=== PATIENT | male | born 1950 | race Caucasian/White ===

== ENCOUNTER 2018-05-14 11:39 | Inpatient (IN) ==
--- NOTE | 2018-05-14 12:16 | ED ---
HPI General Chief Complaint: Weakness Stated Complaint: weakness/no appetite/confusion Time Seen by Provider: 05/14/18 12:03 History of Present Illness HPI narrative: This patient is brought in by the person who had some stay in her room attached to their house. Patient has bipolar disorder on lithium. For the last week he has been getting progressively weak and confused. He does not want to get out of bed or eat anything. He denies having fever or vomiting or diarrhea or any pain. She says that he has been very confused lately. For instance, he will put his shoes on the wrong feet and we will put his pants on backwards. Symptom severity is moderate. No alleviating factors. No exacerbating factors. He had history of alcohol abuse but quit 6 weeks ago. Related Data Home Medications Medication Instructions Recorded Confirmed atenolol 50 mg PO DAILY 05/14/18 05/14/18 lithium carbonate 300 mg PO TID 05/14/18 05/14/18 simvastatin 20 mg PO QPM 05/14/18 05/14/18 tamsulosin 0.4 mg PO DAILY 05/14/18 05/14/18 Allergies Allergy/AdvReac Type Severity Reaction Status Date / Time No Known Allergies Allergy Unverified 05/14/18 12:26 Review of Systems ROS: all other systems reviewed are negative [facility] Medical History Medical History Bipolar 1 disorder, depressed (Acute) Elevated cholesterol (Acute) Hypertension (Acute) Prostate enlargement (Acute) Surgical History Surgical History No history of previous surgery (Acute) Social History Social History Substance History: Past History Second Hand Smoke Exposure: No Smoking Status: Never smoker How Often Do You Have a Drink Containing Alcohol: Never Recent Travel in [facility] within the Last 8 Weeks: No Recent Out of Country Travel within the Last 8 Weeks: No Exam Narrative Exam Narrative: GENERAL: Well-nourished, well-developed patient in no apparent distress. SKIN: Focused skin assessment reveals no rash and nodules. Skin is Warm and dry. HEAD: Atraumatic. Normocephalic. EYES: Pupils equal and round. No scleral icterus. No injection or drainage. ENT: No nasal bleeding or discharge. Mucous membranes pink and moist. NECK: Trachea midline. No JVD. No meningeal signs CARDIOVASCULAR: Regular rate and rhythm. No murmur appreciated. RESPIRATORY: No accessory muscle use. Clear to auscultation. Breath sounds equal bilaterally. GASTROINTESTINAL: Abdomen soft, non-tender, nondistended. Hepatic and splenic margins not palpable. MUSCULOSKELETAL: No obvious deformities. No clubbing. No cyanosis. No edema. NEUROLOGICAL: Awake but seems drowsy. No obvious cranial nerve deficits. Motor grossly within normal limits. Normal speech. PSYCHIATRIC: Appropriate mood and affect; insight and judgment poor . Course Initial Documented Vital Signs Temperature 98.2 F 05/14/18 12:00 Pulse Rate 70 05/14/18 12:00 Respiratory Rate 18 05/14/18 12:00 Blood Pressure 143/74 H 05/14/18 12:00 Pulse Oximetry 99 05/14/18 12:00 Last Documented Vital Signs Temperature 98.2 F 05/14/18 12:00 Pulse Rate 45 L 05/14/18 13:04 Respiratory Rate 18 05/14/18 13:04 Blood Pressure 126/75 05/14/18 13:04 Pulse Oximetry 98 05/14/18 13:04 Critical Care Time Critical Care Time: Yes Total Critical Care Time: 36 Attestation: Aggregate critical care time was 36 minutes. Time to perform other separately billable procedures was not included in the critical care time. My time did not include minutes spent treating any other patients simultaneously or on activities that did not directly contribute to the patient's treatment. The services I provided to this patient were to treat and/or prevent clinically significant deterioration that could result in: Loss of airway, aspiration, cardiopulmonary arrest I provided critical care services requiring my management, as noted below: Chart data review, documentation time, medication orders and management, vital sign assessments/reviewing monitor data, ordering and reviewing lab tests, ordering and interpreting/reviewing x-rays and diagnostic studies, care of the patient and discussion of the patient with the admitting physicians. Medical Decision Making MDM Narrative Medical decision making narrative: This is a 59-year-old bipolar man with progressive confusion and weakness and lethargy. He appears like he might be overmedicated. I have ordered complete altered mental status workup including brain CT and urine studies and lab studies. Lewis level will be sent to the [facility]. Lewis level is elevated 2.3 making him lithium toxic. There is discussed with poison control to receive recommendations. He is also significantly hypercalcemic at 14.6. I gave him 2 L normal saline IV bolus as initial therapy for hypercalcemia Other studies reviewed. He is very symptomatic with lethargy and generalized weakness. Discussed with hospitalist who recommends admitting to the intermediate care stepdown area. He is critically ill with toxic encephalopathy Medical Screen Exam Complete: Yes Emergency Medical Condition: Yes Differential Diagnosis Differential Diagnosis: Intracranial lesion, lithium toxicity, overmedication Medical Records Medical records reviewed: Yes I reviewed the patient's medical records. Lab Data Lab results reviewed: Yes I reviewed the patient's lab results. Lab results narrative: Severe metabolic abnormalities. Lewis is elevated 2.3 and hypercalcemic at 14.6 Result diagrams: 05/14/18 12:00 05/14/18 12:00 Lab Results 05/14/18 05/14/18 05/14/18 Range/Units 12:00 12:00 12:00 CBC w Diff Slide review pending WBC 7.7 (4.0-11.0) th/mm3 RBC 4.83 (4.50-5.90) mil/mm3 Hgb 14.6 (13.0-17.0) gm/dL Hct 43.3 (39.0-51.0) % MCV 89.6 (80.0-100.0) fL MCH 30.2 (27.0-34.0) pg MCHC 33.7 (32.0-36.0) % RDW 13.2 (11.6-17.2) % Plt Count 240 (150-450) th/mm3 MPV 9.5 (7.0-11.0) fL Neut % (Auto) 75.6 H (16.0-70.0) % Lymph % (Auto) 13.3 (9.0-44.0) % [place] % (Auto) 8.4 H (0.0-8.0) % Eos % (Auto) 2.3 (0.0-4.0) % Baso % (Auto) 0.4 (0.0-2.0) % Neut # (Auto) 5.9 (1.8-7.7) th/mm3 Lymph # (Auto) 1.0 (1.0-4.8) th/mm3 [place] # (Auto) 0.6 (0.0-0.9) th/mm3 Eos # (Auto) 0.2 (0.0-0.4) th/mm3 Baso # (Auto) 0.0 (0.0-0.2) th/mm3 WBC Differential . Diff Scan Auto diff confirmed Differential Comment . Sodium 143 (136-145) meq/L Potassium 4.4 (3.5-5.1) meq/L Chloride 110 H (98-107) meq/L Carbon Dioxide 28.7 (21.0-32.0) meq/L Anion Gap 4 L (5-15) meq/L BUN 26 H (7-18) mg/dL Creatinine 2.10 H (0.60-1.30) mg/dL Estimated GFR 32 L (>89) mL/min Random Glucose 100 (74-106) mg/dL Calcium 14.8 H* (8.5-10.1) mg/dL Prot Corrected Calcium 14.6 H* (8.5-10.1) mg/dL Total Bilirubin 0.7 (0.2-1.0) mg/dL AST 9 L (15-37) U/L ALT 17 (12-78) U/L Alkaline Phosphatase 192 H (45-117) U/L Total Protein 7.4 (6.4-8.2) g/dL Albumin 4.1 (3.4-5.0) g/dL Ur Collection Type Urine Color (Yellw/Straw) Urine Clarity (Clear) Urine pH (5.0-8.5) Ur Specific [place] (1.002-1.035) Urine Protein (Neg-Trace) mg/dL Urine Glucose (UA) (Negative) mg/dL Urine Ketones (Negative) mg/dL Urine Occult Blood (Negative) Urine Nitrate (Negative) Urine Bilirubin (Negative) Urine Urobilinogen (Less than 2) mg/dL Ur Leukocyte Esterase (Negative) Urine WBC (0-5) /hpf Ur Squamous Epith Cells (0-5) /hpf Urine Mucus (Occasional) /lpf Micro UA Comment Ur Microscopic Review Urine Culture Comments Urine Opiates Screen (Neg) Ur Barbiturates Screen (Neg) Ur Amphetamines Screen (Neg) U Benzodiazepines Scrn (Neg) Lewis 2.3 H* (0.5-1.5) meq/L Urine Cocaine Screen (Neg) U Cannabinoids Screen (Neg) Serum Alcohol Less than 3 (0-5) mg/dL 05/14/18 05/14/18 Range/Units 12:20 12:20 CBC w Diff WBC (4.0-11.0) th/mm3 RBC (4.50-5.90) mil/mm3 Hgb (13.0-17.0) gm/dL Hct (39.0-51.0) % MCV (80.0-100.0) fL MCH (27.0-34.0) pg MCHC (32.0-36.0) % RDW (11.6-17.2) % Plt Count (150-450) th/mm3 MPV (7.0-11.0) fL Neut % (Auto) (16.0-70.0) % Lymph % (Auto) (9.0-44.0) % [place] % (Auto) (0.0-8.0) % Eos % (Auto) (0.0-4.0) % Baso % (Auto) (0.0-2.0) % Neut # (Auto) (1.8-7.7) th/mm3 Lymph # (Auto) (1.0-4.8) th/mm3 [place] # (Auto) (0.0-0.9) th/mm3 Eos # (Auto) (0.0-0.4) th/mm3 Baso # (Auto) (0.0-0.2) th/mm3 WBC Differential Diff Scan Differential Comment Sodium (136-145) meq/L Potassium (3.5-5.1) meq/L Chloride (98-107) meq/L Carbon Dioxide (21.0-32.0) meq/L Anion Gap (5-15) meq/L BUN (7-18) mg/dL Creatinine (0.60-1.30) mg/dL Estimated GFR (>89) mL/min Random Glucose (74-106) mg/dL Calcium (8.5-10.1) mg/dL Prot Corrected Calcium (8.5-10.1) mg/dL Total Bilirubin (0.2-1.0) mg/dL AST (15-37) U/L ALT (12-78) U/L Alkaline Phosphatase (45-117) U/L Total Protein (6.4-8.2) g/dL Albumin (3.4-5.0) g/dL Ur Collection Type Clean catch Urine Color Yellow (Yellw/Straw) Urine Clarity Clear (Clear) Urine pH 6.0 (5.0-8.5) Ur Specific [place] 1.015 (1.002-1.035) Urine Protein Negative (Neg-Trace) mg/dL Urine Glucose (UA) Negative (Negative) mg/dL Urine Ketones Negative (Negative) mg/dL Urine Occult Blood Negative (Negative) Urine Nitrate Negative (Negative) Urine Bilirubin Negative (Negative) Urine Urobilinogen 0.2 (Less than 2) mg/dL Ur Leukocyte Esterase Negative (Negative) Urine WBC 0-5 (0-5) /hpf Ur Squamous Epith Cells 0-5 (0-5) /hpf Urine Mucus Rare H (Occasional) /lpf Micro UA Comment Culture not ind Ur Microscopic Review Microscopic reviewed Urine Culture Comments Culture not ind Urine Opiates Screen Neg (Neg) Ur Barbiturates Screen Neg (Neg) Ur Amphetamines Screen Neg (Neg) U Benzodiazepines Scrn Neg (Neg) Lewis (0.5-1.5) meq/L Urine Cocaine Screen Neg (Neg) U Cannabinoids Screen Neg (Neg) Serum Alcohol (0-5) mg/dL Imaging Data Attestation: I personally reviewed and interpreted this imaging study as follows : Radiologist's impression: Head CT 05/14/18 12:10 CONCLUSION: 1. No acute intracranial abnormality. 2. Small air-fluid level within left maxillary sinus. . Discharge Plan Discharge Disposition Patient Disposition: 30 Still Patient Discharge Details Diagnosis: Encephalopathy, toxic, Lewis toxicity, Hypercalcemia Physicians Team ED Provider: Fernando Nance Primary Care Provider: UNKNOWN, Rxs /Orders / Referrals /Forms Prescriptions: No Action tamsulosin 0.4 mg Capsule 0.4 mg PO DAILY RF: 0 lithium carbonate 300 mg Capsule 300 mg PO TID RF: 0 simvastatin 20 mg Tablet 20 mg PO QPM RF: 0 atenolol 50 mg Tablet 50 mg PO DAILY RF: 0 Discharge Interventions Interventions: Vital Signs Last Done: 05/14/18 13:04 Status ED Status: With Doctor
[2018-05-14 12:32] LABS: Baso % (Auto) 0.4 % (0.0-2.0); Eos # (Auto) 0.2 th/mm3 (0.0-0.4); Eos % (Auto) 2.3 % (0.0-4.0); Hematocrit 43.3 % (39.0-51.0); Hemoglobin 14.6 gm/dL (13.0-17.0); Lymph % (Auto) 13.3 % (9.0-44.0); Mean Corpuscular HGB Conc 33.7 % (32.0-36.0); Mean Corpuscular Hemoglobin 30.2 pg (27.0-34.0); Mean Corpuscular Volume 89.6 fL (80.0-100.0); Mean Platelet Volume 9.5 fL (7.0-11.0); Mono # (Auto) 0.6 th/mm3 (0.0-0.9); Mono % (Auto) 8.4 % (0.0-8.0); Neut # (Auto) 5.9 th/mm3 (1.8-7.7); Neut % (Auto) 75.6 % (16.0-70.0); Platelet Count 240 th/mm3 (150-450); Red Blood Count 4.83 mil/mm3 (4.50-5.90); Red Cell Distribution Width 13.2 % (11.6-17.2); White Blood Count 7.7 th/mm3 (4.0-11.0)
--- NOTE | 2018-05-14 12:39 | CT ---
EXAM DATE: 05/14/2018 12:15 PM EDT AGE/SEX: 67 years / Male INDICATIONS: Altered mental status. Weakness. CLINICAL DATA: This is the patient's initial encounter. Patient reports that signs and symptoms have been present for 1 week and indicates a pain score of 0/10. MEDICAL/SURGICAL HISTORY: . Bipolar. None. RADIATION DOSE: 59.09 CTDI (mGy) COMPARISON: No prior exams available for comparison. TECHNIQUE: CT of the head without contrast. Using automated exposure control and adjustment of the mA and/or kV according to patient size, radiation dose was kept as low as reasonably achievable to ob tain optimal diagnostic quality images. DICOM format image data is available electronically for revi ew and comparison. FINDINGS: Cerebrum: The ventricles are normal for age. No evidence of midline shift, mass lesion, hemorrhage or acute infarction. No extraaxial fluid collections are seen. Posterior Fossa: The cerebellum and brainstem are intact. The 4th ventricle is midline. The cerebe llopontine angle is unremarkable. Extracranial: The visualized portion of the orbits is intact. Small air-fluid level is noted within the left maxillary sinus. Skull: The calvaria is intact. No evidence of skull fracture. CONCLUSION: 1. No acute intracranial abnormality. 2. Small air-fluid level within left maxillary sinus. . Electronically signed by: Jesus Hoskins MD 05/14/2018 12:38 PM EDT
[2018-05-14 12:42] LABS: Bilirubin,Urine Negative (Negative); Clarity,Urine Clear (Clear); Color,Urine Yellow (Yellw/Straw); Glucose,Urine (UA) Negative (Negative); Leukocyte Esterase,Urine Negative (Negative); Nitrite,Urine Negative (Negative); Specific Gravity,Urine 1.015 (1.002-1.035); Urobilinogen,Urine 0.2 mg/dL (Less than 2)
[2018-05-14 12:51] LABS: Mucus,Urine Rare /lpf (Occasional); Squamous Epithelial Cell,Urine 0-5 /hpf (0-5); WBC,Urine 0-5 /hpf (0-5)
[2018-05-14 12:53] LABS: Barbiturate Screen,Urine Neg (Neg); Cocaine Screen,Urine Neg (Neg)
[2018-05-14 12:54] LABS: Amphetamine Screen,Urine Neg (Neg); Cannabinoid Screen,Urine Neg (Neg)
[2018-05-14 13:01] LABS: Opiate Screen,Urine Neg (Neg)
[2018-05-14 13:02] LABS: Chloride 110 meq/L (98-107); Potassium 4.4 meq/L (3.5-5.1); Sodium 143 meq/L (136-145)
[2018-05-14 13:06] LABS: Albumin 4.1 g/dL (3.4-5.0); Anion Gap 4 meq/L (5-15); Blood Urea Nitrogen 26 mg/dL (7-18); Carbon Dioxide 28.7 meq/L (21.0-32.0); Glucose,Random 100 mg/dL (74-106)
[2018-05-14 13:09] LABS: Alanine Aminotransferase 17 U/L (12-78); Aspartate Aminotransferase 9 U/L (15-37); Glomerular Filtration Rate 32 mL/min (>89)
[2018-05-14 13:53] LABS: Alkaline Phosphatase 192 U/L (45-117); Calcium 14.8 mg/dL (8.5-10.1); Total Protein 7.4 g/dL (6.4-8.2)
[2018-05-14] MEDS ORDERED: Sod Chloride 0.9% Inj 1,000 ML IV.SIG ONE ×2 (14:13→14:31)
[2018-05-14] MEDS ORDERED: Acetaminophen 325 MG Tablet PO PRN (14:41)
[2018-05-14] MEDS ORDERED: Bisacodyl 10 MG Supp RECTAL PRN (14:41)
[2018-05-14] MEDS: Heparin - SQ 10,000 UNITS/ML Vial SQ SCH ×3 (15:02→21:45)
--- NOTE | 2018-05-14 15:21 | XR ---
EXAM DATE: 05/14/2018 12:00 AM EDT AGE/SEX: 67 years / Male INDICATIONS: Short of breath, weakness, confusion, loss of appetite. CLINICAL DATA: This is the patient's initial encounter. Patient reports that signs and symptoms have been present for 1 day and indicates a pain score of 0/10. MEDICAL/SURGICAL HISTORY: Hypercholesterolemia. Hypertension. Prostate enlargement. None. COMPARISON: [facility], CHEST SINGLE AP, 01/26/2015. . FINDINGS: Moderate elevation of the left hemidiaphragm. Right lung is clear. The heart and pulmonary vascularity are normal. The portion of the bony skeleton visualized is unremarkable. CONCLUSION: Negative for acute process. Electronically signed by: Niko Patterson MD 05/14/2018 3:19 PM EDT
[2018-05-14 15:28] LABS: Thyroid Stimulating Hormone 0.607 uIU/mL (0.358-3.740)
--- NOTE | 2018-05-14 16:34 | P.HP ---
History of Present Illness Primary Care Physician: UNKNOWN Chief Complaint: Altered mental status History of Present Illness: This is a 67-year-old male patient with a known medical history of bipolar disorder, alcohol abuse, hypertension and hyperlipidemia who presented to the ED with altered mental status. Was brought in by 1 of his neighbors. Supposedly patient has been weak and worsening confusion over the past week. It was reported that patient was with poor appetite not eating anything and refusing to get out of bed. There are no reports of any fevers, vomiting or diarrhea. It should be noted that patient has been relatively disoriented at home and very confused. At the time of assessment patient is seen in the ED, he is awake and alert, oriented to self and place. He has a relatively poor historian. When questioned about reason for presentation the hospital he states he just feels awful has never felt this way before. He may admits to recent dizziness. Patient became agitated with continued questions saying he does not not know the answers. At the time of assessment his neighbor is not present. No family is present. Most of the history is obtained from the medical record. Upon presentation patient's lithium level is 2.5. Emergency room has called poison control. - Diagnosis (1) Encephalopathy, toxic (2) [place] toxicity (3) Hypercalcemia Inpatient Certification: I certify that the inpatient services were ordered in accordance with Medicare regulations governing the order. This includes certification that hospital inpatient services are reasonable and necessary and in the case of services not specified as inpatient-only under 42 CFR 419.22(n), that they are appropriately provided as inpatient services in accordance to with the 2-midnight benchmark under 43 CFR 412.3(e) Estimated Total Length of Stay (Days): 2 Plans for Post Hospital Care: Not yet determined Review of Systems unobtainable due to mental condition PMFSH - History History Provided By: Patient, Friend - Medical History Medical History: Medical History (Last Updated 05/14/18 @ 16:38 by Loraine Smith) Bipolar 1 disorder, depressed Elevated cholesterol History of alcoholism Hyperlipidemia Hypertension Prostate enlargement - Surgical History Surgical History: Surgical History (Last Reviewed 05/14/18 @ 16:38 by Loraine Smith) No history of previous surgery - Family History Family History: Family History (Last Updated 05/14/18 @ 16:41 by Loraine Smith) Other Family history non-contributory - Tobacco History Second Hand Smoke Exposure: No Smoking Status: Never smoker - Alcohol History How Often Do You Have a Drink Containing Alcohol: Never - Substance Use History Substance History: Past History - Substance Use Type Alcohol Status: Early Remission Route Used: By Mouth Comment: none for 6 weeks - Travel History Recent Travel in the [place] Within the Last 8 Weeks: No Recent Travel Out of the Country Within the Last 8 Weeks: No - Immunization History Tetanus Immunization: Unsure Hx Influenza Vaccine This Season: No Medications and Allergies Active Medications: Active Medications Acetaminophen (Tylenol) 650 mg PO Q4H PRN PRN Reason: Temp > 100.4 Bisacodyl (Dulcolax Supp) 10 mg RECTAL DAILY PRN PRN Reason: SEVERE CONSITIPATION Calcitonin [place] (Miacalcin Inj) 200 unit SQ Q12H PABLO Stop: 05/16/18 06:01 Heparin Sodium (Porcine) (Heparin Inj) 5,000 units SQ Q8HR PABLO Last Admin: 05/14/18 15:02 Dose: 5,000 units Sodium Chloride (Ns Inj) 1,000 mls @ 200 mls/hr IV.CONT .Q5H PABLO Lactulose (Lactulose Liq) 30 ml PO DAILY PRN PRN Reason: SEVERE CONSITIPATION Ondansetron HCl (Zofran Inj) 4 mg IV.PUSH Q6H PRN PRN Reason: NAUSEA OR VOMITING Senna/Docusate Sodium (Elva-Colace) 1 tab PO BID PABLO Sennosides (Senokot) 17.2 mg PO Q12H PRN PRN Reason: Moderate Constipation Allergies Allergy/AdvReac Type Severity Reaction Status Date / Time No Known Allergies Allergy Unverified 05/14/18 12:26 Home Medications Medication Instructions Recorded Confirmed Type atenolol 50 mg PO DAILY 05/14/18 05/14/18 History lithium carbonate 300 mg PO TID 05/14/18 05/14/18 History simvastatin 20 mg PO QPM 05/14/18 05/14/18 History tamsulosin 0.4 mg PO DAILY 05/14/18 05/14/18 History Exam Vital signs: Vital Signs 05/14/18 12:00 05/14/18 13:04 05/14/18 14:51 Temperature 98.2 F Pulse Rate 70 45 L 45 L Respiratory Rate 18 18 18 Blood Pressure 143/74 H 126/75 138/67 Pulse Oximetry 99 98 98 05/14/18 15:41 Temperature Pulse Rate 45 L Respiratory Rate Blood Pressure Pulse Oximetry Intake & Output 05/13/18 05/14/18 05/14/18 18:59 06:59 18:59 Intake Total 1000 / 1000 Balance 1000 / 1000 Weight 57 kg Intake: IV 1000 / 1000 NS Inj 1,000 ML @ Wide Open IV. 1000 / 1000 SIG BOLUS ONE Rx#:[id number] Narrative: GENERAL: Well-developed, thin appearing elderly disheveled patient appears well above stated age. SKIN: Warm and dry. No rash. HEAD: Normocephalic. Atraumatic. EYES: Pupils equal and round. No scleral icterus. No injection or drainage. ENT: No nasal bleeding or discharge. Mucous membranes pink and moist. NECK: Supple. Trachea midline. CARDIOVASCULAR: Regular rate and rhythm. S1, S2 noted. No murmur appreciated. RESPIRATORY: No accessory muscle use. Clear to auscultation. Breath sounds equal bilaterally. GASTROINTESTINAL: Abdomen soft, non-tender, nondistended. Normoactive bowel sounds x4. MUSCULOSKELETAL: No obvious deformities. Extremities without clubbing, cyanosis , or edema. NEUROLOGICAL: Awake and alert. No obvious cranial nerve deficits. Motor grossly within normal limits. 5/5 muscle strength in bilateral upper and lower extremities. Normal speech. PSYCHIATRIC: Appropriate mood and affect; insight and judgment poor. Results - Labs CBC & Chem 7: 05/14/18 12:00 05/14/18 12:00 Labs: Laboratory Results - last 24 hr 05/14/18 05/14/18 05/14/18 12:00 12:00 12:00 CBC w Diff Slide review pending WBC 7.7 RBC 4.83 Hgb 14.6 Hct 43.3 MCV 89.6 MCH 30.2 MCHC 33.7 RDW 13.2 Plt Count 240 MPV 9.5 Neut % (Auto) 75.6 H Lymph % (Auto) 13.3 Mcdonald % (Auto) 8.4 H Eos % (Auto) 2.3 Baso % (Auto) 0.4 Neut # (Auto) 5.9 Lymph # (Auto) 1.0 Mcdonald # (Auto) 0.6 Eos # (Auto) 0.2 Baso # (Auto) 0.0 WBC Differential . Diff Scan Auto diff confirmed Differential Comment . Sodium 143 Potassium 4.4 Chloride 110 H Carbon Dioxide 28.7 Anion Gap 4 L BUN 26 H Creatinine 2.10 H Estimated GFR 32 L Random Glucose 100 Calcium 14.8 H* Prot Corrected Calcium 14.6 H* Total Bilirubin 0.7 AST 9 L ALT 17 Alkaline Phosphatase 192 H Total Creatine Kinase Total Protein 7.4 Albumin 4.1 TSH Ur Collection Type Urine Color Urine Clarity Urine pH Ur Specific [place] Urine Protein Urine Glucose (UA) Urine Ketones Urine Occult Blood Urine Nitrate Urine Bilirubin Urine Urobilinogen Ur Leukocyte Esterase Urine WBC Ur Squamous Epith Cells Urine Mucus Micro UA Comment Ur Microscopic Review Urine Culture Comments Urine Opiates Screen Ur Barbiturates Screen Ur Amphetamines Screen U Benzodiazepines Scrn [place] 2.3 H* Urine Cocaine Screen U Cannabinoids Screen Serum Alcohol Less than 3 05/14/18 05/14/18 05/14/18 12:00 12:20 12:20 CBC w Diff WBC RBC Hgb Hct MCV MCH MCHC RDW Plt Count MPV Neut % (Auto) Lymph % (Auto) [place]cd[place] % (Auto) Eos % (Auto) Baso % (Auto) Neut # (Auto) Lymph # (Auto) [place]cdonald # (Auto) Eos # (Auto) Baso # (Auto) WBC Differential Diff Scan Differential Comment Sodium Potassium Chloride Carbon Dioxide Anion Gap BUN Creatinine Estimated GFR Random Glucose Calcium Prot Corrected Calcium Total Bilirubin AST ALT Alkaline Phosphatase Total Creatine Kinase 27 L Total Protein Albumin TSH 0.607 Ur Collection Type Clean catch Urine Color Yellow Urine Clarity Clear Urine pH 6.0 Ur Specific [place] 1.015 Urine Protein Negative Urine Glucose (UA) Negative Urine Ketones Negative Urine Occult Blood Negative Urine Nitrate Negative Urine Bilirubin Negative Urine Urobilinogen 0.2 Ur Leukocyte Esterase Negative Urine WBC 0-5 Ur Squamous Epith Cells 0-5 Urine Mucus Rare H Micro UA Comment Culture not ind Ur Microscopic Review Microscopic reviewed Urine Culture Comments Culture not ind Urine Opiates Screen Neg Ur Barbiturates Screen Neg Ur Amphetamines Screen Neg U Benzodiazepines Scrn Neg [place] Urine Cocaine Screen Neg U Cannabinoids Screen Neg Serum Alcohol - Imaging Impressions Chest X-Ray 05/14/18 00:00 CONCLUSION: Negative for acute process. Head CT 05/14/18 12:10 CONCLUSION: 1. No acute intracranial abnormality. 2. Small air-fluid level within left maxillary sinus. . Caprini VTE Risk Assessment Caprini VTE Risk Assessment: Moderate/High Risk (score >= 2) Caprini Risk Assessment Model: Point Value = 1 Point Value = 2 Point Value = 3 Point Value = 5 Age 41-60 Minor surgery BMI > 25 kg/m2 Swollen legs Varicose veins or History of unexplained or recurrent spontaneous Oral contraceptives or hormone replacement Sepsis (< 1 month) Serious lung disease, including pneumonia (< 1 month) Abnormal pulmonary function Acute myocardial infarction Congestive heart failure (< 1 month) History of inflammatory bowel disease Medical patient at bed rest Age 61-74 Arthroscopic surgery Major open surgery (> 45 min) Laparoscopic surgery (> 45 min) Malignancy Confined to bed (> 72 hours) Immobilizing plaster cast Central venous access Age >= 75 History of VTE Family history of VTE Factor V Leiden Prothrombin [id number] Lupus anticoagulant Anticardiolipin antibodies Elevated serum homocysteine Heparin-induced thrombocytopenia Other congenital or acquired thrombophilia Stroke (< 1 month) Elective arthroplasty Hip, pelvis, or leg fracture Acute spinal cord injury (< 1 month) Prophylaxis Regimen: Total Risk Factor Score Risk Level Prophylaxis Regimen 0-1 Low Early ambulation 2 Moderate Order ONE of the following: *Sequential Compression Device (SCD) *Heparin 5000 units SQ BID 3-4 Higher Order ONE of the following medications: *Heparin 5000 units SQ TID *Enoxaparin/Lovenox 40 mg SQ daily (WT < 150 kg, CrCl > 30 mL/min) *Enoxaparin/Lovenox 30 mg SQ daily (WT < 150 kg, CrCl > 10-29 mL/min) *Enoxaparin/Lovenox 30 mg SQ BID (WT < 150 kg, CrCl > 30 mL/min) AND/OR *Sequential Compression Device (SCD) 5 or more Highest Order ONE of the following medications: *Heparin 5000 units SQ TID (Preferred with Epidurals) *Enoxaparin/Lovenox 40 mg SQ daily (WT < 150 kg, CrCl > 30 mL/min) *Enoxaparin/Lovenox 30 mg SQ daily (WT < 150 kg, CrCl > 10-29 mL/min) *Enoxaparin/Lovenox 30 mg SQ BID (WT < 150 kg, CrCl > 30 mL/min) AND *Sequential Compression Device (SCD) Assessment and Plan - Assessment (1) Encephalopathy, toxic Code(s): G92 - Toxic encephalopathy Status: Acute (2) [place] toxicity Code(s): T56.891A - Toxic effect of other metals, accidental (unintentional), initial encounter Status: Acute (3) Hypercalcemia Code(s): E83.52 - Hypercalcemia Status: Acute - Plan This is a 67-year-old male patient with: Acute toxic metabolic encephalopathy secondary to lithium toxicity History of bipolar 1 disorder -Reports of AMS, confusion x 1 week prior to presentation. -[place] level 2.5 on presentation. Patient takes lithium 300 mg p.o. 3 times daily for bipolar disorder. Will place on hold. Poison control contacted by ED. -Head CT on presentation reviewed showing no acute readings. -Toxicology screen unremarkable. -Continue cardiac telemetry, monitor for any arrhythmias. -CBC and BMP reviewed, significant for hypercalcemia, treatment plan below. -Hold off on psych consult for now, await for resolution of lithium level and mental status. -Close monitoring. High fall risk. -PT evaluation ordered, evaluation pending. -Supportive care. Acute hypercalcemia Rule out parathyroid versus dehydration versus lithium toxicity versus malignancy etiology. -Patient presents with calcium over 14. Given 2 L NS bolus. Started on calcitonin subcu scheduled. Recheck BMP tonight at 2000. As well as in the a.m. Follow trend. -Will add PTH and vitamin D level on lab work. Follow. -Continue IVF. Goal for urine output is 100ml/hr. RN to monitor closely. -Continue cardiac telemetry. Monitor blood work. Acute kidney injury suspect secondary to dehydration vs lithium toxicity -Creatinine 2.10/GFR 32 upon presentation. After review of records, no recent records since 2014. At that time his kidney function was normal. -Nephrology consulted, input and recommendations pending. Need recommendations for lithium toxicity vs need for dialysis. -Ensure hydration. Encourage PO intake as tolerated. -UA reviewed unremarkable. -Avoid nephrotoxins. History of hypertension, chronic: We will continue home medications. Monitor blood pressure trends. History of upper lipidemia, chronic: We will continue home statin. History of BPH, chronic: We will continue home tamsulosin hyperlipidemia DVT prophylaxis: SCDs. (2) [place] toxicity Qualifiers: Encounter type: initial encounter Injury intent: accidental or unintentional Qualified Code(s): T56.891A - Toxic effect of other metals, accidental ( unintentional), initial encounter
--- NOTE | 2018-05-14 17:18 | P.CONNP ---
History of Present Illness Reason for Consult: Acute renal insufficiency, hypercalcemia. Primary Care Provider: UNKNOWN Family Provider: UNKNOWN Chief Complaint: Altered mental status History of Present Illness: 67-year-old male apparently with a history of hypertension as well as presumably bipolar disorder. Patient is a very poor historian currently. Per history the patient apparently resided with some friends who subsequently in he was living with another friend but there was a decline in his mental status, appetite as well as oral fluid intake. He takes lithium as an outpatient and is under the care of a psychiatrist. On presentation noted to have renal insufficiency with a moderately elevated lithium level as well as hypercalcemia. Patient denies using calcium supplements at home with no known history of hyperparathyroidism. Apparently does see a urologist as an outpatient but no records currently available in regard to previous urological care. Patient denying a history of NSAID use is for analgesia or nausea or vomiting. Review of Systems All other systems reviewed negative except as stated in HPI, other (Limited due to mental status.) [facility] - History History Provided By: Patient, Friend - Medical History Medical History: Medical History (Last Updated 05/14/18 @ 16:38 by Loraine Smith) Bipolar 1 disorder, depressed Elevated cholesterol History of alcoholism Hyperlipidemia Hypertension Prostate enlargement - Surgical History Surgical History: Surgical History (Last Reviewed 05/14/18 @ 16:38 by Loraine Smith) No history of previous surgery - Family History Family History: Family History (Last Updated 05/14/18 @ 16:41 by Loraine Smith) Other Family history non-contributory - Tobacco History Second Hand Smoke Exposure: No Smoking Status: Never smoker - Alcohol History How Often Do You Have a Drink Containing Alcohol: Never - Substance Use History Substance History: Past History - Substance Use Type Alcohol Status: Early Remission Route Used: By Mouth Comment: none for 6 weeks - Travel History Recent Travel in the [place] Within the Last 8 Weeks: No Recent Travel Out of the Country Within the Last 8 Weeks: No - Immunization History Tetanus Immunization: Unsure Hx Influenza Vaccine This Season: No Medications and Allergies Active Medications: Active Medications Acetaminophen (Tylenol) 650 mg PO Q4H PRN PRN Reason: Temp > 100.4 Bisacodyl (Dulcolax Supp) 10 mg RECTAL DAILY PRN PRN Reason: SEVERE CONSITIPATION Calcitonin [place] (Miacalcin Inj) 200 unit SQ Q12H PABLO Stop: 05/16/18 06:01 Heparin Sodium (Porcine) (Heparin Inj) 5,000 units SQ Q8HR [facility] Last Admin: 05/14/18 15:02 Dose: 5,000 units Sodium Chloride (Ns Inj) 1,000 mls @ 200 mls/hr IV.CONT .Q5H [facility] Lactulose (Lactulose Liq) 30 ml PO DAILY PRN PRN Reason: SEVERE CONSITIPATION Ondansetron HCl (Zofran Inj) 4 mg IV.PUSH Q6H PRN PRN Reason: NAUSEA OR VOMITING Senna/Docusate Sodium (Elva-Colace) 1 tab PO BID PABLO Sennosides (Senokot) 17.2 mg PO Q12H PRN PRN Reason: Moderate Constipation Allergies Allergy/AdvReac Type Severity Reaction Status Date / Time No Known Allergies Allergy Unverified 05/14/18 12:26 Home Medications Medication Instructions Recorded Confirmed Type atenolol 50 mg PO DAILY 05/14/18 05/14/18 History lithium carbonate 300 mg PO TID 05/14/18 05/14/18 History simvastatin 20 mg PO QPM 05/14/18 05/14/18 History tamsulosin 0.4 mg PO DAILY 05/14/18 05/14/18 History Exam Vital signs: Vital Signs 05/14/18 12:00 05/14/18 13:04 05/14/18 14:51 Temperature 98.2 F Pulse Rate 70 45 L 45 L Respiratory Rate 18 18 18 Blood Pressure 143/74 H 126/75 138/67 Pulse Oximetry 99 98 98 05/14/18 15:41 Temperature Pulse Rate 45 L Respiratory Rate Blood Pressure Pulse Oximetry Intake & Output 05/13/18 05/14/18 05/14/18 18:59 06:59 18:59 Intake Total 1000 / 1000 Balance 1000 / 1000 Weight 57 kg Intake: IV 1000 / 1000 NS Inj 1,000 ML @ Wide Open IV. 1000 / 1000 SIG BOLUS ONE Rx#:[id number] Narrative: GENERAL: Patient is thin and does appear malnourished. Looks significantly older than stated age. SKIN: Warm and dry. HEAD: Atraumatic. Normocephalic. EYES: Pupils equal and round. No scleral icterus. No injection or drainage. ENT: No nasal bleeding or discharge. Mucous membranes pink and dry. NECK: Trachea midline. No JVD. CARDIOVASCULAR: Regular rate and rhythm. RESPIRATORY: No accessory muscle use. Clear to auscultation. Breath sounds equal bilaterally. GASTROINTESTINAL: Abdomen soft, non-tender, nondistended. Hepatic and splenic margins not palpable. MUSCULOSKELETAL: Extremities without clubbing, cyanosis, or edema. Muscles of the extremity wasted. NEUROLOGICAL: Awake and alert. No obvious cranial nerve deficits. Motor grossly within normal limits. Five out of 5 muscle strength in the arms and legs. Normal speech. PSYCHIATRIC: Somewhat confused responding to simple questions and commands however. Results - Lab Results 05/14/18 12:00 05/14/18 12:00 Most recent lab results Calcium 14.8 mg/dL (8.5-10.1) H* 05/14/18 12:00 Assessment and Plan - Assessment (1) Acute renal insufficiency Code(s): N28.9 - Disorder of kidney and ureter, unspecified Status: Acute Plan: Most likely secondary to dehydration from poor oral fluid intake. Also lithium can impair urinary concentrating ability predisposing the patient also to dehydration. IV hydration with normal saline which may also aid in improving lithium levels. Renal ultrasound to exclude occult obstruction. Serum protein electrophoresis and urine immunofixation in view of hypercalcemia with renal insufficiency. Medications should be adjusted for the patient's estimated GFR if clinically indicated. Avoid agents with significant potential for nephrotoxicity possible including NSAIDs for analgesia, iodine contrast agents. Gadolinium is contraindicated if the GFR is below 30. (2) [place] toxicity Code(s): T56.891A - Toxic effect of other metals, accidental (unintentional), initial encounter Status: Acute Plan: [place] level does not meet criteria for acute hemodialysis. Agree with recommendation from poison control regarding aggressive IV hydration with normal saline. Would recommend continuance of monitoring of level also. Defer to primary. (3) Hypercalcemia Code(s): E83.52 - Hypercalcemia Status: Acute Plan: Agree with screening for hyperparathyroidism. [place] can be associated with hyperparathyroidism also but mild hypercalcemia. His dehydration however could have exacerbated the calcium level however. Workup as ordered. (2) [place] toxicity Qualifiers: Encounter type: initial encounter Injury intent: accidental or unintentional Qualified Code(s): T56.891A - Toxic effect of other metals, accidental ( unintentional), initial encounter
[2018-05-14] MEDS ORDERED: Calcitonin Salmon Inj 400 UNIT/2 ML Vial SQ SCH (18:00)
[2018-05-14] MEDS: Sod Chloride 0.9% Inj 1,000 ML IV.CONT SCH ×3 (18:01→22:34)
[2018-05-14] MEDS: Calcitonin Salmon Inj 400 UNIT/2 ML Vial SQ SCH (19:30)
[2018-05-14 19:53] LABS: Potassium 4.1 meq/L (3.5-5.1)
[2018-05-14 20:02] LABS: Carbon Dioxide 24.2 meq/L (21.0-32.0)
[2018-05-14 20:05] LABS: Calcium 13.8 mg/dL (8.5-10.1)
[2018-05-14 20:11] LABS: Baso % (Auto) 0.6 % (0.0-2.0); Eos # (Auto) 0.1 th/mm3 (0.0-0.4); Eos % (Auto) 2.3 % (0.0-4.0); Hematocrit 40.1 % (39.0-51.0); Hemoglobin 13.1 gm/dL (13.0-17.0); Lymph # (Auto) 0.9 th/mm3 (1.0-4.8); Lymph % (Auto) 13.2 % (9.0-44.0); Mean Corpuscular HGB Conc 32.6 % (32.0-36.0); Mean Corpuscular Hemoglobin 30.3 pg (27.0-34.0); Mean Corpuscular Volume 92.8 fL (80.0-100.0); Mean Platelet Volume 10.1 fL (7.0-11.0); Mono # (Auto) 0.5 th/mm3 (0.0-0.9); Mono % (Auto) 7.4 % (0.0-8.0); Neut % (Auto) 76.5 % (16.0-70.0); Platelet Count 190 th/mm3 (150-450); Red Blood Count 4.32 mil/mm3 (4.50-5.90); Red Cell Distribution Width 12.5 % (11.6-17.2); White Blood Count 6.5 th/mm3 (4.0-11.0)
[2018-05-14 20:23] LABS: Total Protein 6.5 g/dL (6.4-8.2)
[2018-05-14] MEDS: Senna/Docusate Sodium 8.6/50 MG Tablet PO SCH (20:43)
[2018-05-15] MEDS: Sod Chloride 0.9% Inj 1,000 ML IV.CONT SCH ×3 (00:24→04:45)
[2018-05-15] MEDS: Heparin - SQ 10,000 UNITS/ML Vial SQ SCH ×3 (05:52→22:29)
[2018-05-15] MEDS: Calcitonin Salmon Inj 400 UNIT/2 ML Vial SQ SCH ×2 (05:52→17:57)
[2018-05-15 07:13] LABS: Albumin 3.5 g/dL (3.4-5.0); Calcium 12.1 mg/dL (8.5-10.1); Carbon Dioxide 21.4 meq/L (21.0-32.0); Magnesium 1.8 mg/dL (1.5-2.5); Potassium 4.3 meq/L (3.5-5.1)
[2018-05-15 07:32] LABS: Phosphorus 1.6 mg/dL (2.5-4.9)
[2018-05-15] MEDS: Sodium Chloride 0.45 % Inj 1,000 ML IV.CONT SCH ×2 (08:02→19:48)
[2018-05-15] MEDS ORDERED: Potassium Phosphate 500 MG Soluble Tablet PO SCH (09:00)
[2018-05-15] MEDS: Senna/Docusate Sodium 8.6/50 MG Tablet PO SCH ×2 (09:17→21:07)
--- NOTE | 2018-05-15 09:42 | P.PNIM ---
Subjective Interval history: Follow up lithium toxicity and hypercalcemia. Patient seen and examined, lying in bed sleeping, unarousable to noxious stimuli. Was given 1 mg IV Ativan this am, reports of restlessness overnight, required use of bilateral wrist restraints. Calcium levels improving. Boron level improving. Patient is tachypneic and not arousing. Still encephalopathic. Will obtain ABG. MRI and EEG pending for today. Spoke to bedside RN and reviewed patient plan and status. Continue to monitor. Physical Exam Vital signs: Vital Signs 05/14/18 12:00 05/14/18 13:04 05/14/18 14:51 Temperature 98.2 F Pulse Rate 70 45 L 45 L Respiratory Rate 18 Blood Pressure 143/74 H 126/75 138/67 Pulse Oximetry 99 98 98 05/14/18 15:41 05/14/18 18:10 05/14/18 18:29 Temperature Pulse Rate 45 L 55 L 55 L Respiratory Rate 20 Blood Pressure 155/79 H 155/75 H Pulse Oximetry 99 98 05/14/18 20:00 05/15/18 00:00 05/15/18 04:00 Temperature 97.4 F L 97.5 F L 97.5 F L Pulse Rate 56 L 65 62 Respiratory Rate 23 18 34 H Blood Pressure 148/65 H 161/79 H 148/78 H Pulse Oximetry 100 97 96 05/15/18 08:00 Temperature Pulse Rate 62 Respiratory Rate 26 H Blood Pressure Pulse Oximetry Intake & Output 05/14/18 05/15/18 05/15/18 18:59 06:59 18:59 Intake Total 1999 900 / 900 Output Total 250 / 250 1974 Balance 1750 / 1750 25 / 25 900 / 900 Weight 57 kg 58.1 kg Intake: IV 1999 900 / 900 NS Inj 1,000 ML @ 200 mls/hr IV 1999 900 / 900 .CONT .Q5H PABLO Rx#:[id number] NS Inj 1,000 ML @ Wide Open IV. 1999 SIG BOLUS ONE Rx#:[id number] Output: Urine 250 / 250 Urine Amount (Catheter) 1974 Indwelling Urethral Catheter 1974 Other: Weight On Admission 57 kg Narrative: GENERAL: Well-developed, thin appearing elderly disheveled patient appears well above stated age. Lethargic. SKIN: Warm and dry. No rash. HEAD: Normocephalic. Atraumatic. EYES: Pupils equal and round. No scleral icterus. No injection or drainage. ENT: No nasal bleeding or discharge. Mucous membranes pink and moist. NECK: Supple. Trachea midline. CARDIOVASCULAR: Regular rate and rhythm. S1, S2 noted. No murmur appreciated. RESPIRATORY: No accessory muscle use. Clear to auscultation. Breath sounds equal bilaterally. GASTROINTESTINAL: Abdomen soft, non-tender, nondistended. Normoactive bowel sounds x4. MUSCULOSKELETAL: No obvious deformities. Extremities without clubbing, cyanosis , or edema. NEUROLOGICAL: lethargic. No obvious cranial nerve deficits. Motor grossly within normal limits. - Urinary Catheter Management Indwelling Urethral Catheter Cath placed during this visit: yes Reason for continuing: Chronic Urinary Retention Insertion date: 05/14/18 Insertion time: 20:30 Results - Labs CBC & Chem 7: 05/14/18 19:40 05/15/18 06:39 Laboratory Results - last 24 hr 05/14/18 05/14/18 05/14/18 12:00 12:00 12:00 CBC w Diff Slide review pending WBC 7.7 RBC 4.83 Hgb 14.6 Hct 43.3 MCV 89.6 MCH 30.2 MCHC 33.7 RDW 13.2 Plt Count 240 MPV 9.5 Neut % (Auto) 75.6 H Lymph % (Auto) 13.3 [place] % (Auto) 8.4 H Eos % (Auto) 2.3 Baso % (Auto) 0.4 Neut # (Auto) 5.9 Lymph # (Auto) 1.0 [place] # (Auto) 0.6 Eos # (Auto) 0.2 Baso # (Auto) 0.0 WBC Differential . Diff Scan Auto diff confirmed Differential Comment . Sodium 143 Potassium 4.4 Chloride 110 H Carbon Dioxide 28.7 Anion Gap 4 L BUN 26 H Creatinine 2.10 H Estimated GFR 32 L Random Glucose 100 Calcium 14.8 H* Prot Corrected Calcium 14.6 H* Phosphorus Magnesium Total Bilirubin 0.7 AST 9 L ALT 17 Alkaline Phosphatase 192 H Total Creatine Kinase Total Protein 7.4 Albumin 4.1 TSH PTH Intact Ur Collection Type Urine Color Urine Clarity Urine pH Ur Specific [place] Urine Protein Urine Glucose (UA) Urine Ketones Urine Occult Blood Urine Nitrate Urine Bilirubin Urine Urobilinogen Ur Leukocyte Esterase Urine WBC Ur Squamous Epith Cells Urine Mucus Micro UA Comment Ur Microscopic Review Urine Culture Comments Urine Eosinophils Urine Opiates Screen Ur Barbiturates Screen Ur Amphetamines Screen U Benzodiazepines Scrn Boron 2.3 H* Urine Cocaine Screen U Cannabinoids Screen Serum Alcohol Less than 3 05/14/18 05/14/18 05/14/18 12:00 12:20 12:20 CBC w Diff WBC RBC Hgb Hct MCV MCH MCHC RDW Plt Count MPV Neut % (Auto) Lymph % (Auto) [place] % (Auto) Eos % (Auto) Baso % (Auto) Neut # (Auto) Lymph # (Auto) [place] # (Auto) Eos # (Auto) Baso # (Auto) WBC Differential Diff Scan Differential Comment Sodium Potassium Chloride Carbon Dioxide Anion Gap BUN Creatinine Estimated GFR Random Glucose Calcium Prot Corrected Calcium Phosphorus Magnesium Total Bilirubin AST ALT Alkaline Phosphatase Total Creatine Kinase 27 L Total Protein Albumin TSH 0.607 PTH Intact Ur Collection Type Clean catch Urine Color Yellow Urine Clarity Clear Urine pH 6.0 Ur Specific [place] 1.015 Urine Protein Negative Urine Glucose (UA) Negative Urine Ketones Negative Urine Occult Blood Negative Urine Nitrate Negative Urine Bilirubin Negative Urine Urobilinogen 0.2 Ur Leukocyte Esterase Negative Urine WBC 0-5 Ur Squamous Epith Cells 0-5 Urine Mucus Rare H Micro UA Comment Culture not ind Ur Microscopic Review Microscopic reviewed Urine Culture Comments Culture not ind Urine Eosinophils Urine Opiates Screen Neg Ur Barbiturates Screen Neg Ur Amphetamines Screen Neg U Benzodiazepines Scrn Neg Boron Urine Cocaine Screen Neg U Cannabinoids Screen Neg Serum Alcohol 05/14/18 05/14/18 05/14/18 12:20 19:19 19:40 CBC w Diff Auto diff final WBC 6.5 RBC 4.32 L Hgb 13.1 Hct 40.1 MCV 92.8 MCH 30.3 MCHC 32.6 RDW 12.5 Plt Count 190 MPV 10.1 Neut % (Auto) 76.5 H Lymph % (Auto) 13.2 [place] % (Auto) 7.4 Eos % (Auto) 2.3 Baso % (Auto) 0.6 Neut # (Auto) 5.0 Lymph # (Auto) 0.9 L [place] # (Auto) 0.5 Eos # (Auto) 0.1 Baso # (Auto) 0.0 WBC Differential . Diff Scan Differential Comment . Sodium Potassium Chloride Carbon Dioxide Anion Gap BUN Creatinine Estimated GFR Random Glucose Calcium Prot Corrected Calcium Phosphorus Magnesium Total Bilirubin AST ALT Alkaline Phosphatase Total Creatine Kinase Total Protein Albumin TSH PTH Intact 430.7 H Ur Collection Type Urine Color Urine Clarity Urine pH Ur Specific [place] Urine Protein Urine Glucose (UA) Urine Ketones Urine Occult Blood Urine Nitrate Urine Bilirubin Urine Urobilinogen Ur Leukocyte Esterase Urine WBC Ur Squamous Epith Cells Urine Mucus Micro UA Comment Ur Microscopic Review Urine Culture Comments Urine Eosinophils None seen Urine Opiates Screen Ur Barbiturates Screen Ur Amphetamines Screen U Benzodiazepines Scrn [place] Urine Cocaine Screen U Cannabinoids Screen Serum Alcohol 05/14/18 05/14/18 05/15/18 19:40 19:40 06:39 CBC w Diff WBC RBC Hgb Hct MCV MCH MCHC RDW Plt Count MPV Neut % (Auto) Lymph % (Auto) [place] % (Auto) Eos % (Auto) Baso % (Auto) Neut # (Auto) Lymph # (Auto) [place] # (Auto) Eos # (Auto) Baso # (Auto) WBC Differential Diff Scan Differential Comment Sodium 146 H 152 H Potassium 4.1 4.3 Chloride 116 H 124 H D Carbon Dioxide 24.2 21.4 Anion Gap 6 7 BUN 24 H 20 H Creatinine 1.90 H 1.60 H Estimated GFR 35 L 43 L Random Glucose 107 H 114 H Calcium 13.8 H* D 12.1 H* D Prot Corrected Calcium 14.4 H* Phosphorus 1.6 L Magnesium 1.8 Total Bilirubin AST ALT Alkaline Phosphatase Total Creatine Kinase Total Protein 6.5 D Albumin 3.5 D TSH PTH Intact Ur Collection Type Urine Color Urine Clarity Urine pH Ur Specific [place] Urine Protein Urine Glucose (UA) Urine Ketones Urine Occult Blood Urine Nitrate Urine Bilirubin Urine Urobilinogen Ur Leukocyte Esterase Urine WBC Ur Squamous Epith Cells Urine Mucus Micro UA Comment Ur Microscopic Review Urine Culture Comments Urine Eosinophils Urine Opiates Screen Ur Barbiturates Screen Ur Amphetamines Screen U Benzodiazepines Scrn [place] 1.7 H Urine Cocaine Screen U Cannabinoids Screen Serum Alcohol - Imaging Impressions Chest X-Ray 05/14/18 00:00 CONCLUSION: Negative for acute process. Head CT 05/14/18 12:10 CONCLUSION: 1. No acute intracranial abnormality. 2. Small air-fluid level within left maxillary sinus. . Assessment and Plan - Assessment (1) Encephalopathy, toxic Code(s): G92 - Toxic encephalopathy Status: Acute (2) Boron toxicity Code(s): T56.891A - Toxic effect of other metals, accidental (unintentional), initial encounter Status: Acute (3) Hypercalcemia Code(s): E83.52 - Hypercalcemia Status: Acute - Plan This is a 67-year-old male patient with: Acute toxic metabolic encephalopathy secondary to lithium toxicity vs hypercalcemia vs alcohol History of bipolar 1 disorder on lithium at home -Reports of AMS, confusion x 1 week prior to presentation. -Boron level 2.5 on presentation has trended down to normal levels. Patient takes lithium 300 mg p.o. 3 times daily for bipolar disorder. Will place on hold. Poison control contacted by ED. -Head CT on presentation reviewed showing no acute readings. MRI ordered today, follow. Patient is lethargic. Add EEG as well. -Toxicology screen unremarkable on presentation. Alcohol level neg. -Continue cardiac telemetry, monitor for any arrhythmias. None overnight. -CBC and BMP reviewed, significant for hypercalcemia, treatment plan below. Has improved today. -Close monitoring. High fall risk. -PT evaluation ordered, evaluation pending. -It should be noted that patient has a history of alcohol abuse. It is questionable whether patient continues to drink. Ammonia level normal. Tox neg for alcohol. Rule out for possible cause of encephalopathy. -CIWA protocol in place, although monitor for lethargy. -Will also add an abg today. He is tachypneic. O2 saturations stable on RA. Evaluate for hypercapnia. -Hold off on psych consult for now, await for resolution of lithium level and mental status. Acute hypercalcemia suspect secondary to hyperparathyroidism versus dehydration versus lithium toxicity versus malignant etiology. -Patient presented with calcium over 14, is trending down nicely with IVF. Given 2 L NS bolus in ED. Was continued on IVF 200 ns overnight. Started on calcitonin subcu scheduled, will increase tonight's dose as well as am dose. Recheck BMP in am. May add bisphosphonate depending on level. -PTH elevated. Vitamin D level pending today. Follow. -Decrease IV from NS 200 ml/hr to 1/2 NS at 84 ml/hr. Goal for urine output is 100ml/hr. RN to monitor closely. -Continue cardiac telemetry. Monitor blood work. Acute kidney injury suspect secondary to dehydration vs lithium toxicity -Creatinine 2.10/GFR 32 upon presentation, improving. -Nephrology consulted, input and recommendations appreciated. -UA reviewed unremarkable. Awaiting renal US. -Avoid nephrotoxins. Hypernatremia: Na 152. Will decrease IVF and change to 1/2 NS. This should improve. Follow BMP in am. Hypophosphorous: Replenish as ordered. Follow labs. History of hypertension, chronic: Will continue home medications. Monitor blood pressure trends. History of upper lipidemia, chronic: Will continue home statin. History of BPH, chronic: Will continue home tamsulosin hyperlipidemia DVT prophylaxis: SCDs. (2) Boron toxicity Qualifiers: Encounter type: initial encounter Injury intent: accidental or unintentional Qualified Code(s): T56.891A - Toxic effect of other metals, accidental ( unintentional), initial encounter
[2018-05-15] MEDS ORDERED: SODIUM CHLORIDE 0.45% IV.SIG ONE (10:44)
[2018-05-15] MEDS ORDERED: POTASSIUM PHOSPHATE IV.SIG ONE (10:44)
--- NOTE | 2018-05-15 13:20 | ECG ---
Date Performed: 05/14/2018 Time Performed: 14:55:57 PTAGE: 67 years EKG: SINUS BRADYCARDIA WITH FIRST DEGREE AV BLOCK POSSIBLE LEFT VENTRICULAR HYPERTROPHY ABNORMAL ECG PREVIOUS TRACING : 01/26/2015 19.45 DOCTOR: Jackson Sanchez Interpretating Date/Time 05/15/2018 13:13:35
--- NOTE | 2018-05-15 14:32 | US ---
EXAM DATE: 05/15/2018 5:25 PM EDT AGE/SEX: 67 years / Male INDICATIONS: Increased lab values. CLINICAL DATA: This is the patient's initial encounter. Patient reports that signs and symptoms have been present for 1 day and indicates a pain score of Nonresponsive. MEDICAL/SURGICAL HISTORY: Hypercholesterolemia. Hypertension. Bipolar. Alcoholism. Hyperlipide alan. Enlarged prostate. None. COMPARISON: No prior exams available for comparison. MEASUREMENTS: Right Kidney:__9.8 x 4.3 x 6.0 cm Left Kidney:__. Not visualized. FINDINGS: Right Kidney: Increased echotexture. No mass or hydronephrosis. Left Kidney: Not visualized. Bladder: Orozco catheter is present. Bladder decompressed. Other: None. CONCLUSION: 1. There is some increased echogenicity of the right kidney suggestive of chronic medical renal dise ase. 2. No evidence of hydronephrosis the right kidney. 3. Left kidney not visualized. Electronically signed by: Jomar Shah MD 05/15/2018 2:31 PM EDT
[2018-05-15 14:52] LABS: ABG Base Excess -2.5 mmol/L (-2-2); ABG PCO2 41 mmHg (38-42); ABG PO2 91 mmHg (61-120)
--- NOTE | 2018-05-15 16:22 | MR ---
EXAM DATE: 05/15/2018 3:31 PM EDT AGE/SEX: 67 years / Male INDICATIONS: Altered mental status. CLINICAL DATA: This is the patient's initial encounter. Patient reports that signs and symptoms have been present for 1 day and indicates a pain score of 0/10. MEDICAL/SURGICAL HISTORY: Hypertension. None. COMPARISON: [facility], CT HEAD W/O CONTRAST, 05/14/2018. . TECHNIQUE: Multiplanar, multisequence examination of the brain was performed without contrast. The st udy is extremely limited due to motion artifact on all the sequences and almost all the images. FINDINGS: Cerebrum: The ventricles are normal for age. No evidence of midline shift, mass lesion, hemorrhage or acute infarction. No extraaxial fluid collections are seen. The pituitary gland and suprasellar cistern are normal in configuration. White Matter: No significant signal abnormalities are seen in the white matter. Posterior Fossa: The cerebellum and brainstem are intact. The 4th ventricle is midline. The cerebel lopontine angle is unremarkable. The cerebellar tonsils are normal in position. Diffusion Imaging: Limited examination. No definite focal areas of restricted diffusion are seen. Extracranial: Chronic sinus disease in the left maxillary sinus. CONCLUSION: 1. Limited MRI of the brain. Otherwise, grossly unremarkable examination for patient's age. 2. Chronic sinus disease left maxillary sinus. Electronically signed by: Jomar Shah MD 05/15/2018 4:20 PM EDT
[2018-05-15] MEDS ORDERED: hydrALAZINE HCl Inj 20 MG/ML Vial IV.PUSH PRN (18:00)
[2018-05-16] MEDS: Calcitonin Salmon Inj 400 UNIT/2 ML Vial SQ SCH (05:55)
[2018-05-16] MEDS: Heparin - SQ 10,000 UNITS/ML Vial SQ SCH ×3 (05:55→21:10)
[2018-05-16] MEDS: Sodium Chloride 0.45 % Inj 1,000 ML IV.CONT SCH ×3 (05:59→19:36)
[2018-05-16 07:36] LABS: Calcium 12.1 mg/dL (8.5-10.1); Carbon Dioxide 22.1 meq/L (21.0-32.0); Phosphorus 2.5 mg/dL (2.5-4.9); Potassium 4.2 meq/L (3.5-5.1)
[2018-05-16 08:05] LABS: Total Protein 6.6 g/dL (6.4-8.2)
--- NOTE | 2018-05-16 08:05 | P.PNIM ---
Subjective Interval history: Follow up lithium toxicity and encephalopathy. Patient seen and examined, lying in bed comfortably sleeping. He awakens to noxious stimuli. He is drowsy and speech is slurred. He denies any pain. auto glass technician at bedside. VSS overnight. ABG yesterday was normal. Awaiting resolution of encephalopathy. Spoke to RN at bedside and encouraged to limit use of benzos. MRI from yesterday neg. Hypercalcemia still present. Physical Exam Vital signs: Vital Signs 05/15/18 09:59 05/15/18 12:00 05/15/18 16:00 Temperature 97.9 F 97.8 F Pulse Rate 64 60 60 Respiratory Rate 29 H 24 Blood Pressure 154/82 H 162/82 H Pulse Oximetry 97 98 05/15/18 20:00 05/16/18 00:00 05/16/18 04:00 Temperature 98.7 F 97.3 F L 98.4 F Pulse Rate 61 73 60 Respiratory Rate 22 31 H 20 Blood Pressure 112/78 138/69 160/80 H Pulse Oximetry 96 96 Intake & Output 05/15/18 05/16/18 05/16/18 18:59 06:59 18:59 Intake Total 1160 / 1160 1800 / 1800 Output Total 1825 / 1825 1500 / 1500 Balance -665 / -665 300 / 300 Weight 56.3 kg Intake: IV 1160 / 1160 1800 / 1800 NS Inj 1,000 ML @ 200 mls/hr IV 900 / 900 .CONT .Q5H PABLO Rx#:[id number] 1/2 Normal Saline Inj 1,000 ML 1800 / 1800 @ 84 mls/hr IV.CONT .[id number] [facility] Rx#:[id number] Potassium Phosphate Inj 30 MMOL 260 / 260 In 1/2 Normal Saline Inj 250 ML @ 43.333 mls/hr IV.SIG ONCE ONE Rx#:[id number] Oral 0 / 0 Output: Urine 1825 / 1825 Urine Amount (Catheter) 1500 / 1500 Indwelling Urethral Catheter 1500 / 1500 Narrative: GENERAL: Well-developed, thin appearing elderly disheveled patient appears well above stated age. Lethargic, awakens to voice SKIN: Warm and dry. No rash. HEAD: Normocephalic. Atraumatic. EYES: Pupils equal and round. No scleral icterus. No injection or drainage. ENT: No nasal bleeding or discharge. Mucous membranes pink and moist. NECK: Supple. Trachea midline. CARDIOVASCULAR: Regular rate and rhythm. S1, S2 noted. No murmur appreciated. RESPIRATORY: No accessory muscle use. Clear to auscultation. Breath sounds equal bilaterally. GASTROINTESTINAL: Abdomen soft, non-tender, nondistended. Normoactive bowel sounds x4. MUSCULOSKELETAL: No obvious deformities. Extremities without clubbing, cyanosis , or edema. NEUROLOGICAL: lethargic. Motor grossly within normal limits. - Urinary Catheter Management Indwelling Urethral Catheter Cath placed during this visit: yes Reason for continuing: Chronic Urinary Retention Insertion date: 05/14/18 Insertion time: 20:30 Results - Labs CBC & Chem 7: 05/14/18 19:40 05/16/18 06:59 Laboratory Results - last 24 hr 05/15/18 05/15/18 05/15/18 06:39 11:31 14:42 Puncture Site Right radial Patient Temperature 98.6 O2 Saturation 96 ABG pH 7.35 L ABG pCO2 41 ABG pO2 91 ABG HCO3 22 ABG O2 Content 18.3 ABG Base Excess -2.5 L ABG Methemoglobin 0.6 Kvng Test Present Hemoglobin 13.5 Carboxyhemoglobin 1.4 O2 Delivery Device Ra Inspired O2 21 Critical Value No Sodium Potassium Chloride Carbon Dioxide Anion Gap BUN Creatinine Estimated GFR Random Glucose Calcium Phosphorus Ammonia 19 [place] 1.3 05/16/18 06:59 Puncture Site Patient Temperature O2 Saturation ABG pH ABG pCO2 ABG pO2 ABG HCO3 ABG O2 Content ABG Base Excess ABG Methemoglobin Kvng Test Hemoglobin Carboxyhemoglobin O2 Delivery Device Inspired O2 Critical Value Sodium 158 H* Potassium 4.2 Chloride 128 H Carbon Dioxide 22.1 Anion Gap 8 BUN 19 H Creatinine 1.50 H Estimated GFR 47 L Random Glucose 113 H Calcium 12.1 H* Phosphorus 2.5 Ammonia [place] - Imaging Impressions Head MRI 05/15/18 00:00 CONCLUSION: 1. Limited MRI of the brain. Otherwise, grossly unremarkable examination for patient's age. 2. Chronic sinus disease left maxillary sinus. Abdomen/Bladder Ultrasound 05/15/18 17:25 CONCLUSION: 1. There is some increased echogenicity of the right kidney suggestive of chronic medical renal disease. 2. No evidence of hydronephrosis the right kidney. 3. Left kidney not visualized. Assessment and Plan - Assessment (1) Encephalopathy, toxic Code(s): G92 - Toxic encephalopathy Status: Acute (2) [place] toxicity Code(s): T56.891A - Toxic effect of other metals, accidental (unintentional), initial encounter Status: Acute (3) Hypercalcemia Code(s): E83.52 - Hypercalcemia Status: Acute - Plan This is a 67-year-old male patient with: Acute toxic metabolic encephalopathy secondary to lithium toxicity vs hypercalcemia vs alcohol History of bipolar 1 disorder on lithium at home -Reports of AMS, confusion x 1 week prior to presentation. -[place] level 2.5 on presentation has trended down to normal levels. Patient takes lithium 300 mg p.o. 3 times daily for bipolar disorder. Will place on hold. Poison control contacted by ED. -Head CT on presentation reviewed showing no acute readings. MRI ordered and unremarkable. EEG pending. -Toxicology screen unremarkable on presentation. Alcohol level neg. -Continue cardiac telemetry, monitor for any arrhythmias. None overnight. -CBC and BMP reviewed, significant for hypercalcemia, treatment plan below. Has improved today. -Close monitoring. High fall risk. -PT evaluation ordered, evaluation pending. -It should be noted that patient has a history of alcohol abuse. It is questionable whether patient continues to drink. Ammonia level normal. Tox neg for alcohol. Rule out for possible cause of encephalopathy. -CIWA protocol in place, although monitor for lethargy. Limit benzos. -ABG was normal yesterday. Tachypnea resolved. O2 saturations stable on RA. -Hold off on psych consult for now, await for resolution of lithium level and mental status. Slowly improving. Acute hypercalcemia suspect secondary to hyperparathyroidism versus dehydration versus lithium toxicity versus malignant etiology. -Patient presented with calcium over 14, is trending down nicely with IVF. Given 2 L NS bolus in ED. Was continued on IVF 200 ns initially. -Started on calcitonin subcu scheduled, increased Calcitonin to 400 mcg x 2 doses. Still hypercalcemic, will add bisphosphonate today. Recheck in am. -PTH elevated. Vitamin D level pending. Follow. -Decrease IV from NS 200 ml/hr to 1/2 NS at 84 ml/hr now to NS 1/3 at 100ml/hr. -Continue cardiac telemetry. Monitor blood work. Acute kidney injury suspect secondary to dehydration vs lithium toxicity -Creatinine 2.10/GFR 32 upon presentation, improving. Creatinine 1.5/GFR 47 today. -Nephrology consulted, input and recommendations appreciated. -UA reviewed unremarkable. Renal US suggesting some chronic renal medical disease. -Avoid nephrotoxins. Hypernatremia: Na 158 today. Started on NS 1/3 at 100 ml/hr. Follow BMP. Hypophosphorous: Replenish as ordered. Follow labs. History of hypertension, chronic: Will continue home medications. Monitor blood pressure trends. History of upper lipidemia, chronic: Will continue home statin. History of BPH, chronic: Will continue home tamsulosin hyperlipidemia DVT prophylaxis: SCDs. Discharge Planning: Awaiting clinical improvement and resolution of hypercalcemia. (2) [place] toxicity Qualifiers: Encounter type: initial encounter Injury intent: accidental or unintentional Qualified Code(s): T56.891A - Toxic effect of other metals, accidental ( unintentional), initial encounter
[2018-05-16] MEDS: Senna/Docusate Sodium 8.6/50 MG Tablet PO SCH ×2 (09:25→21:10)
[2018-05-16] MEDS: WATER FOR INJ IV.CONT SCH ×2 (09:26→19:34)
[2018-05-16] MEDS: SODIUM CHLORIDE IV.CONT SCH ×2 (09:26→19:34)
[2018-05-16] MEDS: STERILE IV.CONT SCH ×2 (09:26→19:34)
[2018-05-16] MEDS ORDERED: ZOLEDRONIC ACID IV.SIG ONE (10:00)
[2018-05-16] MEDS ORDERED: SODIUM CHLOR 0.9% IV.SIG ONE (10:00)
--- NOTE | 2018-05-17 03:31 | MG ---
cc: Sal Guzman MD REFERRING PHYSICIAN: MARQUES Boalnd MEDICAL HISTORY: Bipolar 1 disorder, depression, high cholesterol, alcoholism, hypertension, hyperlipidemia, hand surgery, arthritis, anxiety. MEDICATIONS: Heparin, Miacalcin. DESCRIPTION: The background rhythm is 8-9 Hz alpha located posteriorly, bilateral and symmetrical, attenuates to eye opening during the recording. There was dropout of the background rhythm with replacement of theta activity with eye roving movements, indicating stage I sleep, reported snoring. Hyperventilation was omitted. Photic stimulation did not elicit a driving response. There were no electrographic seizures or epileptiform discharges during the recording. INTERPRETATION: This is a normal drowsy and asleep EEG. Absence of electrographic seizures or epileptiform discharges does not exclude the diagnosis of epilepsy. Clinical correlation is recommended. Sal Guzman MD RGO/rw , 12:28 AM , 12:32 AM
[2018-05-17 05:19] LABS: Calcium 12.4 mg/dL (8.5-10.1); Carbon Dioxide 21.5 meq/L (21.0-32.0)
[2018-05-17 05:37] LABS: Total Protein 6.3 g/dL (6.4-8.2)
[2018-05-17] MEDS: SODIUM CHLORIDE IV.CONT SCH ×2 (05:47→15:15)
[2018-05-17] MEDS: WATER FOR INJ IV.CONT SCH ×2 (05:47→15:15)
[2018-05-17] MEDS: STERILE IV.CONT SCH ×2 (05:47→15:15)
[2018-05-17] MEDS: Heparin - SQ 10,000 UNITS/ML Vial SQ SCH ×3 (05:48→21:32)
--- NOTE | 2018-05-17 07:45 | P.PNIM ---
Subjective Interval history: Follow up lithium toxicity, encephalopathy and hypercalcemia and electrolyte imbalance. Patient seen and examined, sitting up in bed awake and eating. Much improved mental status. No reports of any acute events overnight. Patient VSS, afebrile. Hypercalcemia still present after Biphos and calcitonin. Patient clinically is much improved, awake, laughing and conversing. Awaiting psych eval today. Physical Exam Vital signs: Vital Signs 05/16/18 08:00 05/16/18 08:08 05/16/18 09:00 Temperature Pulse Rate 60 60 56 L Respiratory Rate 37 H 31 H 44 H Blood Pressure 149/88 H 161/72 H Pulse Oximetry 05/16/18 09:22 05/16/18 10:00 05/16/18 11:00 Temperature Pulse Rate 58 L 54 L 58 L Respiratory Rate 46 H 44 H 40 H Blood Pressure 149/77 H 136/67 Pulse Oximetry 95 97 05/16/18 12:00 05/16/18 13:00 05/16/18 17:00 Temperature 98.2 F Pulse Rate 52 L 70 72 Respiratory Rate 48 H 27 H 30 H Blood Pressure 150/69 H 143/82 H Pulse Oximetry 95 95 97 05/16/18 20:00 05/17/18 00:00 05/17/18 04:00 Temperature 98.4 F 98.5 F 98.7 F Pulse Rate 62 63 58 L Respiratory Rate 35 H 22 28 H Blood Pressure 159/77 H 161/82 H 159/60 H Pulse Oximetry 95 96 Intake & Output 05/16/18 05/17/18 05/17/18 18:59 06:59 18:59 Intake Total 1205 / 1205 2322.825 / 2322.825 Output Total 1350 / 1350 1150 / 1150 Balance -145 / -145 1172.825 / 1172.825 Weight 56.3 kg Intake: IV 1205 / 1205 1962.825 / 1962.825 1/2 Normal Saline Inj 1,000 ML 950 / 950 @ 84 mls/hr IV.CONT .[id number] P[facility]LO Rx#:[id number] Sodium Chloride 23.4% Inj 51.3 1962.825 / 1962.825 MEQ In Sterile Water for Inj 1, 000 ML @ 100 mls/hr IV.CONT . Q10H8M [facility] Rx#:[id number] Zometa Inj 4 MG In NS Inj 250 255 / 255 ML @ 155 mls/hr IV.SIG ONCE ONE Rx#:[id number] Oral 360 / 360 Output: Urine 1350 / 1350 Urine Amount (Catheter) 1150 / 1150 Indwelling Urethral Catheter 1150 / 1150 Narrative: GENERAL: Well-developed, thin appearing elderly disheveled patient appears well above stated age. Awake and alert. SKIN: Warm and dry. No rash. HEAD: Normocephalic. Atraumatic. EYES: Pupils equal and round. No scleral icterus. No injection or drainage. ENT: No nasal bleeding or discharge. Mucous membranes pink and moist. NECK: Supple. Trachea midline. CARDIOVASCULAR: Regular rate and rhythm. S1, S2 noted. No murmur appreciated. RESPIRATORY: No accessory muscle use. Clear to auscultation. Breath sounds equal bilaterally. GASTROINTESTINAL: Abdomen soft, non-tender, nondistended. Normoactive bowel sounds x4. MUSCULOSKELETAL: No obvious deformities. Extremities without clubbing, cyanosis , or edema. NEUROLOGICAL: lethargic. Motor grossly within normal limits. - Urinary Catheter Management Indwelling Urethral Catheter Cath placed during this visit: yes Reason for continuing: Chronic Urinary Retention Insertion date: 05/14/18 Insertion time: 20:30 Results - Labs CBC & Chem 7: 05/14/18 19:40 05/17/18 04:50 Laboratory Results - last 24 hr 05/15/18 05/16/18 05/17/18 06:39 06:59 04:50 Sodium 155 H Potassium 4.0 Chloride 127 H Carbon Dioxide 21.5 Anion Gap 7 BUN 24 H Creatinine 1.40 H Estimated GFR 50 L Random Glucose 117 H Calcium 12.4 H* Prot Corrected Calcium 12.6 H* D Total Protein 6.6 6.3 L Total Protein (PEP) 6.2 L Assessment and Plan - Assessment (1) Encephalopathy, toxic Code(s): G92 - Toxic encephalopathy Status: Acute (2) [place] toxicity Code(s): T56.891A - Toxic effect of other metals, accidental (unintentional), initial encounter Status: Acute (3) Hypercalcemia Code(s): E83.52 - Hypercalcemia Status: Acute - Plan This is a 67-year-old male patient with: Acute toxic metabolic encephalopathy secondary to lithium toxicity vs hypercalcemia vs alcohol History of bipolar 1 disorder on lithium at home -Reports of AMS, confusion x 1 week prior to presentation. -[place] level 2.5 on presentation has trended down to normal levels. Patient takes lithium 300 mg p.o. 3 times daily for bipolar disorder. Placed on hold. Poison control contacted by ED. -Head CT on presentation reviewed showing no acute readings. MRI ordered and unremarkable. EEG skewed by drowsiness. No seizure activity seen. -Toxicology screen unremarkable on presentation. Alcohol level neg. -Continue cardiac telemetry, monitor for any arrhythmias. None overnight. -CBC and BMP reviewed, significant for hypercalcemia and hypernatremia, treatment plan below. Has mildly improved today. -Close monitoring. High fall risk. -PT evaluation ordered, appreciate input and recommendations. -ABG was normal. Tachypnea resolved. O2 saturations stable on RA. -Psych consulted, mental status improving. Awaiting evaluation today for recommendations of lithium regimen at home. Acute hypercalcemia suspect secondary to hyperparathyroidism versus dehydration versus lithium toxicity versus malignant etiology. -Patient presented with calcium over 14, is trending down with IVF. Currently on NS 1/3 at 100ml/hr. Will continue. -Started on calcitonin subcu scheduled, increased Calcitonin to 400 mcg x 2 doses. Still hypercalcemic, will add bisphosphonate today. Recheck in am. -PTH elevated. Vitamin D level pending. Follow. -Continue cardiac telemetry. Monitor blood work. Acute kidney injury suspect secondary to dehydration vs lithium toxicity, improving. -Creatinine 2.10/GFR 32 upon presentation, improving. Creatinine 1.4/GFR 50 today. -Nephrology consulted, input and recommendations appreciated. -UA reviewed unremarkable. Renal US suggesting some chronic renal medical disease. -Avoid nephrotoxins. Hypernatremia: Na 155 today. Started on NS 1/3 at 100 ml/hr. Continue. Follow labs. Hypophosphorous: Resolved. Replenished as ordered. Follow labs. History of hypertension, chronic: Will continue home medications. Monitor blood pressure trends. History of hyperlipidemia, chronic: Will continue home statin. History of BPH, chronic: Will continue home tamsulosin Alcohol abuse -Patient states that he drinks at the least 5 alcoholic drinks per day. Encouraged cessation. -Ammonia level normal. Tox neg for alcohol. Rule out for possible cause of encephalopathy. -CIWA protocol continued. Limit use of Benzos. No signs of withdrawal at this time. DVT prophylaxis: SCDs. Discharge Planning: Awaiting clinical improvement and resolution of hypercalcemia. (2) [place] toxicity Qualifiers: Encounter type: initial encounter Injury intent: accidental or unintentional Qualified Code(s): T56.891A - Toxic effect of other metals, accidental ( unintentional), initial encounter
[2018-05-17] MEDS: Senna/Docusate Sodium 8.6/50 MG Tablet PO SCH ×2 (08:31→21:31)
[2018-05-17] MEDS: Calcitonin Salmon Inj 400 UNIT/2 ML Vial SQ SCH ×2 (12:03→21:31)
[2018-05-17] MEDS ORDERED: Atenolol 50 MG Tablet PO SCH (13:00)
--- NOTE | 2018-05-17 16:11 | P.CONPSY ---
Provisional Diagnosis Admission Date: May 14, 2018 14:44 [place] I.: Bipolar I, alcohol use disorder [place] II.: deferred [place] III.: Li intoxication [place] IV.: Lack of family and social support [place] V.: 40 History of Present Illness Service: Medicine Primary Care Provider: UNKNOWN Family Provider: UNKNOWN Chief Complaint: Altered mental status History of Present Illness: The patient is a 67-year-old man, domiciled with a roommate in [place], unemployed, supported by [facility], single, poor family and social support, with a psychiatric history of bipolar disorder, alcohol use disorder, previous hospitalizations, he denies previous suicidal attempts, he has been in lithium 300 mg 3 times daily for over 30 years, he has outpatient care established with Dr. [place], medical history of hypertension and hyperlipidemia who presented to the ED with altered mental status. Was brought in by 1 of his neighbors. Supposedly patient has been weak and worsening confusion over the past week. It was reported that patient was with poor appetite not eating anything and refusing to get out of bed. There are no reports of any fevers, vomiting or diarrhea. It should be noted that patient has been relatively disoriented at home and very confused. At the time of assessment patient is seen in the ED, he is awake and alert, oriented to self and place. He has a relatively poor historian. When questioned about reason for presentation the hospital he states he just feels awful has never felt this way before. He may admits to recent dizziness. Patient became agitated with continued questions saying he does not not know the answers. At the time of assessment his neighbor is not present. No family is present. Most of the history is obtained from the medical record. Upon presentation patient's lithium level is 2.5. He was placing poison control protocol. Consulted to psychiatry to addressed the need of restarting lithium and potential intentional overdose. Chart was reviewed. The case was widely discussed with primary medical team. My psychiatric evaluation I find a patient that is calm, cooperative, pleasant. She shows moments of confusion fragmented thought and at times blocking thought. The patient reports that he feels very well today, is able to tell me that he is hospitalized because his lithium levels were high. He says that he does not know exactly what will happen because he has been taking his lithium as prescribed. He also states that this is the first time he has a lithium intoxication. At times the patient is very cheerful and even a little bit inappropriate, making several comments about my medical student and the nurse, but I am able to set boundaries with him. He reports good mood, denies anhedonia, denies hopelessness, denies helplessness, denies worthlessness, he denies problems with appetite and energy, denies insomnia, he denies suicidal and homicidal ideation, he denies visual and auditory hallucinations. The patient is kind of reluctant to talk about his past medical and psychiatric, when I asking about previous suicide attempts and previous hospitalizations, he tried to deviate a conversation. I did not see signs of erick brandin, but patient has definitely attentive expansive mood, and his speech at times could be circumstantial. He is oriented in person and place, disoriented in time. Also reluctant to talk about qualification and quantification of alcohol use. PPHx: No history of bipolar disorder, previous psychiatric hospitalizations, no suicide attempts, he has been in lithium 900 mg daily for over 30 years, outpatient care with PMHx: Hypertension, latent intoxicate Family Hx : No family psychiatric history Substance Hx : . Patient has history of alcohol use disorder, he says that he has not been taking alcohol in the last months, Social Hx: The patient lives in [place] with a roommate, he is single, unemployed, has no kids, [facility] - History History Provided By: Patient, Friend - Medical History Medical History: Medical History (Last Reviewed 05/17/18 @ 12:31 by Laura Smith) Bipolar 1 disorder, depressed Elevated cholesterol History of alcoholism Hyperlipidemia Hypertension Prostate enlargement - Surgical History Surgical History: Surgical History (Last Reviewed 05/17/18 @ 09:39 by Sanford Anthony) No history of previous surgery - Family History Family History: Family History (Last Updated 05/14/18 @ 16:41 by Loraine Smith) Other Family history non-contributory - Tobacco History Second Hand Smoke Exposure: No Smoking Status: Cognitive impairment - Alcohol History How Often Do You Have a Drink Containing Alcohol: Unable to Obtain - Substance Use History Substance History: Past History - Substance Use Type Alcohol Status: Early Remission Route Used: By Mouth Comment: none for 6 weeks - Travel History Recent Travel in the [facility] Within the Last 8 Weeks: No Recent Travel Out of the Country Within the Last 8 Weeks: No - Immunization History Tetanus Immunization: Unsure Hx Influenza Vaccine This Season: No Medications and Allergies Active Medications: Active Medications Acetaminophen (Tylenol) 650 mg PO Q4H PRN PRN Reason: Temp > 100.4 Atenolol (Tenormin) 50 mg PO DAILY [facility] Last Admin: 05/17/18 14:03 Dose: 50 mg Bisacodyl (Dulcolax Supp) 10 mg RECTAL DAILY PRN PRN Reason: SEVERE CONSITIPATION Calcitonin [place] (Miacalcin Inj) 400 unit SQ BID [facility] Last Admin: 05/17/18 12:03 Dose: 400 unit Heparin Sodium (Porcine) (Heparin Inj) 5,000 units SQ Q8HR [facility] Last Admin: 05/17/18 05:48 Dose: 5,000 units Hydralazine HCl (Apresoline Inj) 10 mg IV.PUSH Q4H PRN PRN Reason: SBP>160, DBP>90 Last Admin: 05/15/18 18:17 Dose: 10 mg Sodium Chloride 51.3 meq/ (Sterile Water) 1,012.825 mls @ 75 mls/hr IV.CONT .[id number] [facility] Last Admin: 05/17/18 15:15 Dose: 100 mls/hr Lactulose (Lactulose Liq) 30 ml PO DAILY PRN PRN Reason: SEVERE CONSITIPATION [place] Carbonate ([place] Carbonate) 150 mg PO BID [facility] Lorazepam (Ativan Inj) 0.5 mg IV.PUSH BID PRN PRN Reason: AGITATION Ondansetron HCl (Zofran Inj) 4 mg IV.PUSH Q6H PRN PRN Reason: NAUSEA OR VOMITING Senna/Docusate Sodium (Elva-Colace) 1 tab PO BID [facility] Last Admin: 05/17/18 08:31 Dose: 1 tab Sennosides (Senokot) 17.2 mg PO Q12H PRN PRN Reason: Moderate Constipation Allergies Allergy/AdvReac Type Severity Reaction Status Date / Time No Known Allergies Allergy Unverified 05/14/18 12:26 Home Medications Medication Instructions Recorded Confirmed Type atenolol 50 mg PO DAILY 05/14/18 05/14/18 History lithium carbonate 300 mg PO TID 05/14/18 05/14/18 History simvastatin 20 mg PO QPM 05/14/18 05/14/18 History tamsulosin 0.4 mg PO DAILY 05/14/18 05/14/18 History Exam Vital signs: Vital Signs 05/16/18 17:00 05/16/18 20:00 05/17/18 00:00 Temperature 98.2 F 98.4 F 98.5 F Pulse Rate 72 62 63 Respiratory Rate 30 H 35 H 22 Blood Pressure 143/82 H 159/77 H 161/82 H Pulse Oximetry 97 95 05/17/18 04:00 05/17/18 08:00 05/17/18 08:27 Temperature 98.7 F Pulse Rate 58 L 63 70 Respiratory Rate 28 H 28 H 35 H Blood Pressure 159/60 H 182/91 H 172/79 H Pulse Oximetry 96 98 05/17/18 12:02 05/17/18 12:04 Temperature Pulse Rate 66 68 Respiratory Rate 20 30 H Blood Pressure 162/111 H 167/91 H Pulse Oximetry Intake & Output 05/16/18 05/17/18 05/17/18 18:59 06:59 18:59 Intake Total 1205 / 1205 2322.825 / 2322.825 1012.825 / 1012.825 Output Total 1350 / 1350 1150 / 1150 Balance -145 / -145 1172.825 / 6565.623 3955.825 / 1012.825 Weight 56.3 kg Intake: IV 1205 / 1205 1962.825 / 2054.240 3038.825 / 1012.825 1/2 Normal Saline Inj 1,000 ML 950 / 950 @ 84 mls/hr IV.CONT .[id number] [facility] Rx#:[id number] Sodium Chloride 23.4% Inj 51.3 1962.825 / 2438.312 1976.825 / 1012.825 MEQ In Sterile Water for Inj 1, 000 ML @ 75 mls/hr IV.CONT . [id number] [facility] Rx#:[id number] Zometa Inj 4 MG In NS Inj 250 255 / 255 ML @ 155 mls/hr IV.SIG ONCE ONE Rx#:[id number] Oral 360 / 360 Output: Urine 1350 / 1350 Urine Amount (Catheter) 1150 / 1150 Indwelling Urethral Catheter 1150 / 1150 Narrative: No tremors, no EPS, no withdrawal symptoms - Constitutional no acute distress - Routine HEENT Exam Head: Present: normocephalic, Tran's sign Eye: Present: EOMI, PERRL ENT: Present: mucous membranes moist Mental Status Examination Appearance: Appropriate Consciousness: Alert Orientation: Person, Place Motor Activity: Normal gait Speech: Slow Language: Adequate Fund of Knowledge: Inadequate Attention and Concentration: Inadequate Memory: Impaired Mood: Good Affect: Appropriate, Other (a little bit expansive ) Thought Process & Associations: Circumstantial Thought Content: Thought blocking Hallucination Type: None Delusion Type: None Suicidal Ideation: No Suicidal Plan: No Suicidal Intention: No Homicidal Ideation: No Homicidal Plan: No Homicidal Intention: No Insight: Fair Judgment: Impulsive Assessment and Plan - Assessment (1) [place] toxicity Code(s): T56.891A - Toxic effect of other metals, accidental (unintentional), initial encounter Status: Acute (2) Bipolar 1 disorder Code(s): F31.9 - Bipolar disorder, unspecified Status: Acute - Plan Plan: Estimated LOS: [] days On my psychiatric evaluation today the patient does not present any acute, concerning or significant neuropsychiatric symptoms or require immediate psychiatric intervention. He does present some circumstantial speech, mild to moderate expansive affect, blocking and fragmented thought at times, confusion, which might suggest the beginning of a manic decompensate or could be part of cognitive impairment due to lithium intoxication. But, he does not meet criteria for involuntary psychiatric admission. He denies suicidal and homicidal ideation, denies visual and auditory hallucinations. Restart [place] 150 mg bid to avoid a bipolar disorder relapse. order lithium level now, target level 0.4-1.0 when [place] is leveled can increased to 300 mg bid monitor mental status and thought process, if patient becomes manic he might need admission in psychiatry. Consult appreciated. Justification for Continued Inpatient Stay: No admission indicated at the moment. (1) [place] toxicity Qualifiers: Encounter type: initial encounter Injury intent: accidental or unintentional Qualified Code(s): T56.891A - Toxic effect of other metals, accidental ( unintentional), initial encounter
[2018-05-18 05:05] LABS: Potassium 3.7 meq/L (3.5-5.1)
[2018-05-18 05:13] LABS: Calcium 10.8 mg/dL (8.5-10.1); Carbon Dioxide 23.5 meq/L (21.0-32.0)
[2018-05-18] MEDS: SODIUM CHLORIDE IV.CONT SCH ×2 (05:17→18:09)
[2018-05-18] MEDS: STERILE IV.CONT SCH ×2 (05:17→18:09)
[2018-05-18] MEDS: WATER FOR INJ IV.CONT SCH ×2 (05:17→18:09)
[2018-05-18] MEDS: Heparin - SQ 10,000 UNITS/ML Vial SQ SCH ×3 (05:18→22:52)
[2018-05-18] MEDS: Senna/Docusate Sodium 8.6/50 MG Tablet PO SCH ×2 (08:17→20:41)
[2018-05-18] MEDS: Calcitonin Salmon Inj 400 UNIT/2 ML Vial SQ SCH (08:39)
--- NOTE | 2018-05-18 14:39 | P.PN ---
Subjective Interval history: 67-year-old male who is seen and examined today for follow-up on lithium toxicity, hypernatremia, hypercalcemia. Patient appears to be doing better at this time. Sodium still elevated 152 with improvement of hypercalcemia. Patient states that he is doing well. Denies any complaints. Vital signs are stable, patient remains afebrile Physical Exam Vital signs: Vital Signs 05/17/18 16:01 05/17/18 16:56 05/17/18 17:00 Temperature Pulse Rate 62 48 L 46 L Respiratory Rate 26 H 17 27 H Blood Pressure 164/81 H 141/73 H Pulse Oximetry 05/17/18 17:56 05/17/18 18:00 05/17/18 18:56 Temperature Pulse Rate 48 L 48 L 50 L Respiratory Rate 16 19 16 Blood Pressure 109/64 123/76 Pulse Oximetry 05/17/18 19:00 05/17/18 20:00 05/18/18 00:00 Temperature 97.9 F Pulse Rate 48 L 48 L 52 L Respiratory Rate 19 23 24 Blood Pressure 118/56 L 135/77 Pulse Oximetry 96 97 05/18/18 04:02 05/18/18 07:58 05/18/18 08:00 Temperature 98.6 F Pulse Rate 70 62 61 Respiratory Rate 25 H 23 Blood Pressure 153/74 H 93/63 L Pulse Oximetry 97 05/18/18 08:23 05/18/18 11:31 05/18/18 11:33 Temperature 99.1 F Pulse Rate 66 78 70 Respiratory Rate 24 34 H 39 H Blood Pressure 131/71 142/82 H 158/74 H Pulse Oximetry 05/18/18 12:57 Temperature Pulse Rate 66 Respiratory Rate 19 Blood Pressure 113/74 Pulse Oximetry Intake & Output 05/17/18 05/18/18 05/18/18 18:59 06:59 18:59 Intake Total 1912.825 / 2177.601 9950.825 / 1012.825 Output Total 850 / 850 500 / 500 Balance 1062.825 / 1062.825 512.825 / 512.825 Weight 57.9 kg Intake: IV 1012.825 / 3886.212 4665.825 / 1012.825 Sodium Chloride 23.4% Inj 51.3 1012.825 / 2464.944 7945.825 / 1012.825 MEQ In Sterile Water for Inj 1, 000 ML @ 75 mls/hr IV.CONT . [id number] [facility] Rx#:[id number] Oral 900 / 900 Output: Urine 850 / 850 500 / 500 Other: # Incontinent Voids 2 Date of Last Bowel Movement 05/14/18 # Bowel Movements 0 Narrative: GENERAL: Well-developed, cachectic, in no acute distress. alert and orientated HEENT: Head is normocephalic without any lesions or masses noted. Bitemporal wasting. Facial features are symmetric. Eyes: Extraocular muscles are intact. Conjunctivae were clear. NECK: Supple without any masses. Trachea midline no deviation. No JVD, CARDIAC: Regular rhythm, regular rate. S1/S2 are heard. No murmurs gallops or rubs. LUNGS: Clear to auscultation bilaterally. No wheeze, rhonchi or rales. No use of accessory muscles on inspiration or expiration. ABDOMEN: Soft, nontender. Nondistended. Bowel sounds heard in all 4 quadrants. No organomegaly or masses. Negative rebound, negative guarding EXTREMITIES: No edema, pulses are equal bilaterally. No cyanosis or clubbing NEUROLOGY: Mood and affect appear appropriate. Cranial nerves II through XII grossly intact. Moving all extremities, speech is clear - Urinary Catheter Management Indwelling Urethral Catheter Cath placed during this visit: yes, but has since been removed by the nurse Reason for continuing: Decision to DC catheter Insertion date: 05/14/18 Insertion time: 20:30 Removal date: 05/17/18 Removal time: 14:15 Results - Labs CBC & Chem 7: 05/14/18 19:40 05/18/18 04:36 Laboratory Results - last 24 hr 05/14/18 05/17/18 05/18/18 19:45 16:30 04:36 Sodium 152 H Potassium 3.7 Chloride 121 H Carbon Dioxide 23.5 Anion Gap 8 BUN 24 H Creatinine 1.40 H Estimated GFR 50 L Random Glucose 104 Calcium 10.8 H D [place] 0.5 Urine Immunofixation Assessment and Plan - Assessment (1) Encephalopathy, toxic Code(s): G92 - Toxic encephalopathy Status: Acute (2) [place] toxicity Code(s): T56.891A - Toxic effect of other metals, accidental (unintentional), initial encounter Status: Acute (3) Hypercalcemia Code(s): E83.52 - Hypercalcemia Status: Acute - Plan [place] toxicity with associated abnormalities to include hypercalcemia, hyponatremia -[place] was held until lithium level was improved -Psychiatry recommended continuation of low-dose lithium at this time and continue and increase until level therapeutic 0.4-1.0 -Continue to monitor lithium level Hypernatremia -Secondary to lithium toxicity, dehydration -Sodium level continues to improve on a daily basis -Continue hypotonic solution Hypocalcemia, improved -Secondary to primary hyperparathyroidism because of lithium -Status post calcitonin -Continue monitor calcium level -PTH 430 -Awaiting vitamin D level Acute toxic metabolic encephalopathy, resolved -Multifactorial with lithium toxicity, hypercalcemia, alcohol -Mentation improved once lithium toxicity was corrected Acute renal failure -Secondary to dehydration -Continue monitor renal function -Continue IV fluids History of bipolar 1 disorder on lithium at home -Psychiatry was consulted and following the patient. Recommending continuation of bipolar medications and watch closely for hypomania or manic episode History of hypertension, chronic: -Will continue home medications. -Monitor blood pressure trends. History of hyperlipidemia, chronic: -Will continue home statin. History of BPH, chronic: -Will continue home tamsulosin Alcohol abuse -Patient states that he drinks at the least 5 alcoholic drinks per day. Encouraged cessation. -Records do not indicate that the patient had any signs of withdrawals DVT prophylaxis: -Sequential compression devices (2) [place] toxicity Qualifiers: Encounter type: initial encounter Injury intent: accidental or unintentional Qualified Code(s): T56.891A - Toxic effect of other metals, accidental ( unintentional), initial encounter
[2018-05-19] MEDS: Heparin - SQ 10,000 UNITS/ML Vial SQ SCH ×3 (06:06→21:50)
[2018-05-19 06:43] LABS: Potassium 3.3 meq/L (3.5-5.1)
[2018-05-19 06:54] LABS: Carbon Dioxide 22.5 meq/L (21.0-32.0)
[2018-05-19] MEDS: SODIUM CHLORIDE IV.CONT SCH ×2 (08:39→08:45)
[2018-05-19] MEDS: WATER FOR INJ IV.CONT SCH ×2 (08:39→08:45)
[2018-05-19] MEDS: STERILE IV.CONT SCH ×2 (08:39→08:45)
[2018-05-19] MEDS: Senna/Docusate Sodium 8.6/50 MG Tablet PO SCH ×2 (08:41→21:39)
--- NOTE | 2018-05-19 15:34 | P.PN ---
Subjective Interval history: 67-year-old male who is seen and examined today for follow-up on lithium toxicity. Patient is doing much better. He is up and ambulating with physical therapy over 130 feet. Mentation is much improved. Vital signs are stable. Patient remains afebrile Physical Exam Vital signs: Vital Signs 05/18/18 18:10 05/18/18 20:00 05/19/18 00:00 Temperature 96.1 F L 96.6 F L 97.5 F L Pulse Rate 62 64 61 Respiratory Rate 17 18 18 Blood Pressure 131/66 131/61 135/75 Pulse Oximetry 97 100 98 05/19/18 08:00 05/19/18 12:00 Temperature 97.9 F 97.4 F L Pulse Rate 63 63 Respiratory Rate 20 20 Blood Pressure 133/71 126/75 Pulse Oximetry 99 99 Intake & Output 05/18/18 05/19/18 05/19/18 18:59 06:59 18:59 Intake Total 1012.825 / 9410.266 1887.825 / 2492.825 Output Total 1999 Balance 1012.825 / 1012.825 492.825 / 492.825 Weight 57.9 kg Intake: IV 1012.825 / 8590.096 3187.825 / 1012.825 Sodium Chloride 23.4% Inj 51.3 1012.825 / 4412.368 1924.825 / 1012.825 MEQ In Sterile Water for Inj 1, 000 ML @ 75 mls/hr IV.CONT . [id number] [facility] Rx#:[id number] Oral 1480 / 1480 Output: Urine 1999 Other: Date of Last Bowel Movement 05/14/18 Narrative: GENERAL: Well-developed, cachectic, in no acute distress. alert and orientated HEENT: Head is normocephalic without any lesions or masses noted. Bitemporal wasting. Facial features are symmetric. Eyes: Extraocular muscles are intact. Conjunctivae were clear. NECK: Supple without any masses. Trachea midline no deviation. No JVD, CARDIAC: Regular rhythm, regular rate. S1/S2 are heard. No murmurs gallops or rubs. LUNGS: Clear to auscultation bilaterally. No wheeze, rhonchi or rales. No use of accessory muscles on inspiration or expiration. ABDOMEN: Soft, nontender. Nondistended. Bowel sounds heard in all 4 quadrants. No organomegaly or masses. Negative rebound, negative guarding EXTREMITIES: No edema, pulses are equal bilaterally. No cyanosis or clubbing NEUROLOGY: Mood and affect appear appropriate. Cranial nerves II through XII grossly intact. Moving all extremities, speech is clear - Urinary Catheter Management Indwelling Urethral Catheter Cath placed during this visit: yes, but has since been removed by the nurse Reason for continuing: Decision to DC catheter Insertion date: 05/14/18 Insertion time: 20:30 Removal date: 05/17/18 Removal time: 14:15 Results - Labs CBC & Chem 7: 05/14/18 19:40 05/19/18 05:30 Laboratory Results - last 24 hr 05/15/18 05/19/18 05/19/18 06:39 05:30 05:30 Sodium 150 H Potassium 3.3 L Chloride 120 H Carbon Dioxide 22.5 Anion Gap 8 BUN 17 Creatinine 1.30 Estimated GFR 55 L Random Glucose 110 H Calcium 9.0 D Albumin (PEP) 4.06 Albumin/Globulin Ratio 1.90 Nxhpa-6-Pazmmmkfj 0.16 Wuqse-1-Tfsejlmpu 0.61 Beta Globulins 0.60 Gamma Globulins 0.76 [place] 0.4 L Assessment and Plan - Assessment (1) Encephalopathy, toxic Code(s): G92 - Toxic encephalopathy Status: Acute (2) [place] toxicity Code(s): T56.891A - Toxic effect of other metals, accidental (unintentional), initial encounter Status: Acute (3) Hypercalcemia Code(s): E83.52 - Hypercalcemia Status: Acute - Plan [place] toxicity with associated abnormalities to include hypercalcemia, hyponatremia -[place] was held until lithium level was improved -[place] has been resumed at 150 mg twice daily -Psychiatry recommended continuation of low-dose lithium at this time and continue and increase until level therapeutic 0.4-1.0 -Continue to monitor lithium level Hypernatremia -Secondary to lithium toxicity, dehydration -Sodium level continues to improve on a daily basis -Discontinue hypotonic solution Hypercalcemia, improved -Secondary to primary hyperparathyroidism because of lithium -Status post calcitonin -Continue monitor calcium level -PTH 430 -Awaiting vitamin D level Acute toxic metabolic encephalopathy, resolved -Multifactorial with lithium toxicity, hypercalcemia, alcohol -Mentation improved once lithium toxicity was corrected Acute renal failure, improving -Secondary to dehydration -Continue monitor renal function -Continue IV fluids History of bipolar 1 disorder on lithium at home -Psychiatry was consulted and following the patient. Recommending continuation of bipolar medications and watch closely for hypomania or manic episode History of hypertension, chronic: -Will continue home medications. -Monitor blood pressure trends. History of hyperlipidemia, chronic: -Will continue home statin. History of BPH, chronic: -Will continue home tamsulosin Alcohol abuse -Patient states that he drinks at the least 5 alcoholic drinks per day. Encouraged cessation. -Records do not indicate that the patient had any signs of withdrawals DVT prophylaxis: -Sequential compression devices Discharge Planning: Anticipate discharge home with home health care tomorrow, if sodium continues to improve (2) [place] toxicity Qualifiers: Encounter type: initial encounter Injury intent: accidental or unintentional Qualified Code(s): T56.891A - Toxic effect of other metals, accidental ( unintentional), initial encounter
[2018-05-20] MEDS: Heparin - SQ 10,000 UNITS/ML Vial SQ SCH ×3 (06:11→22:35)
[2018-05-20 06:55] LABS: Potassium 3.7 meq/L (3.5-5.1)
[2018-05-20 06:58] LABS: Calcium 9.1 mg/dL (8.5-10.1)
[2018-05-20] MEDS: Senna/Docusate Sodium 8.6/50 MG Tablet PO SCH ×2 (08:38→22:35)
--- NOTE | 2018-05-20 12:05 | P.DS ---
Date of admission: 05/14/18 14:44 Primary care physician: UNKNOWN Attending physician on discharge: Roddy Chavez Anticipated date of discharge: 05/20/18 Brief History from admission: This is a 67-year-old male patient with a known medical history of bipolar disorder, alcohol abuse, hypertension and hyperlipidemia who presented to the ED with altered mental status. Was brought in by 1 of his neighbors. Supposedly patient has been weak and worsening confusion over the past week. It was reported that patient was with poor appetite not eating anything and refusing to get out of bed. There are no reports of any fevers, vomiting or diarrhea. It should be noted that patient has been relatively disoriented at home and very confused. At the time of assessment patient is seen in the ED, he is awake and alert, oriented to self and place. He has a relatively poor historian. When questioned about reason for presentation the hospital he states he just feels awful has never felt this way before. He may admits to recent dizziness. Patient became agitated with continued questions saying he does not not know the answers. At the time of assessment his neighbor is not present. No family is present. Most of the history is obtained from the medical record. Upon presentation patient's lithium level is 2.5. Emergency room has called poison control. DS: Diagnosis - Discharge Diagnosis (1) Encephalopathy, toxic Status: Acute (2) [place] toxicity Status: Acute (3) Hypercalcemia Status: Acute DS: Medications - Discharge Medications Prescriptions: lithium carbonate 150 mg PO BID #30 tab DS: Summary Hospital Course: Is a 67-year-old male with known history of bipolar disorder, alcohol abuse, hypertension, hyperlipidemia who presented the hospital with altered mental status. Patient was brought in by 1 of the neighbors. Patient has had worsening weakness and confusion over the past week. Apparently the patient does not have a residence at this time. Patient is temporarily staying with his sister. Currently the patient does not want me to speak about his medical condition or speak to the sister because he does not trust her. Patient was found to have a significant lithium toxicity with abnormalities to include hypernatremia, hypercalcemia. Patient was admitted in the ICU on telemetry for closer management. Patient was started on calcitonin with significant improvement of his hypercalcemia. Other workup did indicate elevated PTH which did indicate a primary hyperparathyroidism. Patient did present with acute kidney injury, production boring machine operator was consulted. Patient was prerenal azotemia. IV hydration was continued with significant improvement of his renal functions. Patient did have significant hypernatremia in which patient was given IV fluids and simply had to be changed to hypotonic solution. Patient has significant improvement of his sodium. Patient has been off any IV fluids for 2 days with continued improvement of his sodium level. Patient does have bipolar disorder in which he was on lithium. Psychiatry was consulted who followed the patient on a regular basis. Recommending starting lithium back at a lower dose to maintain lithium level of 0.4-1.0. Patient has undergone physical therapy evaluation in which he has improved on a daily basis and ambulating quite well with a walker. The intention was to have the patient discharged back to the patient's sister's house for continued care and management with home health care. However the sister is refusing to have the patient come back to her house until he can fully care for himself by walking, dressing himself, bathing himself. She does not want to have home health care coming into her house. After speaking to the patient he voiced that he does not want me to speak to his sister about his condition or care anymore. He does not feel comfortable going back to her house. Case management consulted for rehab placement. Will discharge patient to rehab once arrangements made. - Time Spent with Patient Total time spent providing and/or coordinating discharge services: Greater than 30 minutes Exam Vital signs: Vital Signs 05/19/18 12:00 05/19/18 16:00 05/19/18 22:00 Temperature 97.4 F L 98.7 F 98.7 F Pulse Rate 63 70 69 Respiratory Rate 20 20 20 Blood Pressure 126/75 115/65 111/61 Pulse Oximetry 99 96 05/20/18 00:00 05/20/18 04:00 05/20/18 08:00 Temperature 99.5 F 99.2 F 98.4 F Pulse Rate 72 68 Respiratory Rate 20 20 Blood Pressure 112/57 L 128/70 Pulse Oximetry 97 99 Intake & Output 05/19/18 05/20/18 05/20/18 18:59 06:59 18:59 Intake Total 1785 / 1785 720 / 720 Output Total 900 / 900 1650 / 1650 Balance 885 / 885 -930 / -930 Weight 57.9 kg 58.2 kg Intake: IV 225 / 225 Sodium Chloride 23.4% Inj 51.3 225 / 225 MEQ In Sterile Water for Inj 1, 000 ML @ 75 mls/hr IV.CONT . [id number] [facility] Rx#:[id number] Oral 1560 / 1560 720 / 720 Output: Urine 900 / 900 1650 / 1650 Other: # Voids 1 # Incontinent Voids 3 3 Date of Last Bowel Movement 05/16/18 05/16/18 Narrative: GENERAL: Well-developed, cachectic, in no acute distress. alert and orientated HEENT: Head is normocephalic without any lesions or masses noted. Bitemporal wasting. Facial features are symmetric. Eyes: Extraocular muscles are intact. Conjunctivae were clear. NECK: Supple without any masses. Trachea midline no deviation. No JVD, CARDIAC: Regular rhythm, regular rate. S1/S2 are heard. No murmurs gallops or rubs. LUNGS: Clear to auscultation bilaterally. No wheeze, rhonchi or rales. No use of accessory muscles on inspiration or expiration. ABDOMEN: Soft, nontender. Nondistended. Bowel sounds heard in all 4 quadrants. No organomegaly or masses. Negative rebound, negative guarding EXTREMITIES: No edema, pulses are equal bilaterally. No cyanosis or clubbing NEUROLOGY: Mood and affect appear appropriate. Cranial nerves II through XII grossly intact. Moving all extremities, speech is clear Results Procedures completed during hospitalization: ELECTROENCEPHALOGRAM INTERPRETATION: This is a normal drowsy and asleep EEG. Absence of electrographic seizures or epileptiform discharges does not exclude the diagnosis of epilepsy. Clinical correlation is recommended. Labs on day of discharge: Labs from last 24 hours 05/20/18 05/20/18 05/15/18 05:45 05:45 06:39 Sodium 149 H Potassium 3.7 Chloride 118 H Carbon Dioxide 23.0 Anion Gap 8 BUN 13 Creatinine 1.10 Estimated GFR 67 L Random Glucose 101 Calcium 9.1 Albumin (PEP) 4.06 Albumin/Globulin Ratio 1.90 Gowkh-0-Vdgrfbrcc 0.16 Gxvxu-8-Ijoaujvys 0.61 Beta Globulins 0.60 Gamma Globulins 0.76 PEP Pathologist Comment [place] 0.4 L - Impressions ITS Impressions Chest X-Ray 05/14/18 00:00 CONCLUSION: Negative for acute process. Head CT 05/14/18 12:10 CONCLUSION: 1. No acute intracranial abnormality. 2. Small air-fluid level within left maxillary sinus. . Head MRI 05/15/18 00:00 CONCLUSION: 1. Limited MRI of the brain. Otherwise, grossly unremarkable examination for patient's age. 2. Chronic sinus disease left maxillary sinus. Abdomen/Bladder Ultrasound 05/15/18 17:25 CONCLUSION: 1. There is some increased echogenicity of the right kidney suggestive of chronic medical renal disease. 2. No evidence of hydronephrosis the right kidney. 3. Left kidney not visualized. Discharge Plan - Discharge Disposition Patient Disposition: 03 Discharge to SNF - Discharge Condition Condition: Stable - Discharge Order Discharge Orders: Discharge Order (Routine); Ordered 05/20/18 Ordered By: Fernando Pryor - Discharge Details Anticipated Discharge Date: 05/20/18 Discharge Comment: Discharge to senior care facility once arrangements made by case management - Physicians Team Primary Care Provider: UNKNOWN, Attending Provider: Roddy Chavez Other Providers: Jason Herrera MD ; Kaycee Benoit Fernando B, MD
[2018-05-20 23:51] LABS: Free Kappa/Lambda Light Chain 1.31 (0.26-1.65); Kappa Light Chain, Free 19.5 mg/L (3.3-19.4); Lambda Light Chain, Free 14.9 mg/L (5.7-26.3)
[2018-05-21] MEDS: Heparin - SQ 10,000 UNITS/ML Vial SQ SCH ×3 (06:03→21:27)
[2018-05-21 06:50] LABS: Potassium 3.2 meq/L (3.5-5.1)
[2018-05-21 06:53] LABS: Calcium 8.7 mg/dL (8.5-10.1)
[2018-05-21 06:54] LABS: Carbon Dioxide 21.7 meq/L (21.0-32.0)
[2018-05-21] MEDS: Senna/Docusate Sodium 8.6/50 MG Tablet PO SCH ×2 (09:18→21:25)
--- NOTE | 2018-05-21 13:12 | P.PN ---
Subjective Interval history: 67-year-old who is seen and examined today for follow-up on altered mental status, lithium toxicity. Patient is doing much better. He is cognitively improving. Vital signs are stable. Patient remains afebrile. Patient does have active discharge to assisted facility, awaiting case management for placement Physical Exam Vital signs: Vital Signs 05/20/18 16:00 05/20/18 20:00 05/21/18 00:00 Temperature 97.8 F 98.6 F 98 F Pulse Rate 80 77 76 Respiratory Rate 20 20 20 Blood Pressure 137/76 127/79 142/83 H Pulse Oximetry 98 99 97 05/21/18 08:00 05/21/18 12:00 Temperature 96.5 F L 98.2 F Pulse Rate 84 76 Respiratory Rate 16 16 Blood Pressure 118/70 102/56 L Pulse Oximetry 97 97 Intake & Output 05/20/18 05/21/18 05/21/18 18:59 06:59 18:59 Intake Total 920 / 920 300 / 300 Output Total 500 / 500 1400 / 1400 Balance 420 / 420 -1100 / -1100 Weight 56.2 kg Intake: Oral 920 / 920 300 / 300 Output: Urine 500 / 500 1400 / 1400 Other: # Voids 8 # Incontinent Voids 3 Date of Last Bowel Movement 05/16/18 05/20/18 # Bowel Movements 1 Narrative: GENERAL: Well-developed, cachectic, in no acute distress. alert and orientated HEENT: Head is normocephalic without any lesions or masses noted. Bitemporal wasting. Facial features are symmetric. Eyes: Extraocular muscles are intact. Conjunctivae were clear. NECK: Supple without any masses. Trachea midline no deviation. No JVD, CARDIAC: Regular rhythm, regular rate. S1/S2 are heard. No murmurs gallops or rubs. LUNGS: Clear to auscultation bilaterally. No wheeze, rhonchi or rales. No use of accessory muscles on inspiration or expiration. ABDOMEN: Soft, nontender. Nondistended. Bowel sounds heard in all 4 quadrants. No organomegaly or masses. Negative rebound, negative guarding EXTREMITIES: No edema, pulses are equal bilaterally. No cyanosis or clubbing NEUROLOGY: Mood and affect appear appropriate. Cranial nerves II through XII grossly intact. Moving all extremities, speech is clear - Urinary Catheter Management Indwelling Urethral Catheter Cath placed during this visit: yes, but has since been removed by the nurse Reason for continuing: Decision to DC catheter Insertion date: 05/14/18 Insertion time: 20:30 Removal date: 05/17/18 Removal time: 14:15 Results - Labs CBC & Chem 7: 05/14/18 19:40 05/21/18 05:45 Laboratory Results - last 24 hr 05/15/18 05/21/18 05/21/18 06:39 05:45 05:45 Sodium 146 H Potassium 3.2 L Chloride 114 H Carbon Dioxide 21.7 Anion Gap 10 BUN 9 Creatinine 1.30 Estimated GFR 55 L Random Glucose 131 H Calcium 8.7 [place] 0.4 L Free [place] Light Chains 19.50 H Free [place] Light Chain 14.90 Free [place]/Lambda Ratio 1.31 - Procedures ELECTROENCEPHALOGRAM INTERPRETATION: This is a normal drowsy and asleep EEG. Absence of electrographic seizures or epileptiform discharges does not exclude the diagnosis of epilepsy. Clinical correlation is recommended. Assessment and Plan - Assessment (1) Encephalopathy, toxic Code(s): G92 - Toxic encephalopathy Status: Acute (2) [place] toxicity Code(s): T56.891A - Toxic effect of other metals, accidental (unintentional), initial encounter Status: Acute (3) Hypercalcemia Code(s): E83.52 - Hypercalcemia Status: Acute - Plan [place] toxicity with associated abnormalities to include hypercalcemia, hyponatremia, improved -[place] was held until lithium level was improved -[place] has been resumed at 150 mg twice daily -Psychiatry recommended continuation of low-dose lithium at this time and continue and increase until level therapeutic 0.4-1.0 -Continue to monitor lithium level Ability to care for self -Physical therapy continues to indicate that patient will require PT at rehab, hopefully home with home health care with wheeled walker -Occupational Therapy indicates that the patient has to have occupational therapy rehab versus home health care if patient has someone to stay with -Speech therapy consulted for cognition evaluation hypernatremia, improving -Secondary to lithium toxicity, dehydration -Sodium level continues to improve on a daily basis -Discontinue hypotonic solution Hypercalcemia, improved -Secondary to primary hyperparathyroidism because of lithium -Status post calcitonin -Continue monitor calcium level -PTH 430 -Awaiting vitamin D level Acute toxic metabolic encephalopathy, resolved -Multifactorial with lithium toxicity, hypercalcemia, alcohol -Mentation improved once lithium toxicity was corrected Acute renal failure, resolved -Secondary to dehydration -Continue monitor renal function -Continue IV fluids History of bipolar 1 disorder on lithium at home -Psychiatry was consulted and following the patient. Recommending continuation of bipolar medications and watch closely for hypomania or manic episode History of hypertension, chronic: -Will continue home medications. -Monitor blood pressure trends. History of hyperlipidemia, chronic: -Will continue home statin. History of BPH, chronic: -Will continue home tamsulosin Alcohol abuse -Patient states that he drinks at the least 5 alcoholic drinks per day. Encouraged cessation. -Records do not indicate that the patient had any signs of withdrawals DVT prophylaxis: -Sequential compression devices Discharge Planning: Discharged to assisted facility once arrangements made by case management (2) [place] toxicity Qualifiers: Encounter type: initial encounter Injury intent: accidental or unintentional Qualified Code(s): T56.891A - Toxic effect of other metals, accidental ( unintentional), initial encounter
[2018-05-22] MEDS: Heparin - SQ 10,000 UNITS/ML Vial SQ SCH ×3 (05:13→21:21)
[2018-05-22] MEDS: Senna/Docusate Sodium 8.6/50 MG Tablet PO SCH ×2 (08:45→20:11)
--- NOTE | 2018-05-22 12:06 | P.PN ---
Subjective Interval history: Patient seen and examined today for follow-up on lithium toxicity, hypernatremia , hypercalcemia. Patient is doing much better. Patient is on the phone trying to make living arrangements. Vital signs appear to be stable. Patient remains afebrile. Patient has been discharged awaiting case management for discharge planning Physical Exam Vital signs: Vital Signs 05/21/18 16:00 05/21/18 20:00 05/21/18 23:46 Temperature 97.2 F L 98.1 F 97.6 F Pulse Rate 74 78 75 Respiratory Rate 16 16 16 Blood Pressure 140/78 128/72 110/64 Pulse Oximetry 99 96 97 05/22/18 08:00 Temperature 98.0 F Pulse Rate 77 Respiratory Rate 16 Blood Pressure 129/92 H Pulse Oximetry 99 Intake & Output 05/21/18 05/22/18 05/22/18 18:59 06:59 18:59 Intake Total 600 / 600 Output Total 200 / 200 Balance 400 / 400 Weight 57.5 kg Intake: Oral 600 / 600 Output: Urine 200 / 200 Other: # Voids 2 8 Narrative: GENERAL: Well-developed, cachectic, in no acute distress. alert and orientated HEENT: Head is normocephalic without any lesions or masses noted. Bitemporal wasting. Facial features are symmetric. Eyes: Extraocular muscles are intact. Conjunctivae were clear. NECK: Supple without any masses. Trachea midline no deviation. No JVD, CARDIAC: Regular rhythm, regular rate. S1/S2 are heard. No murmurs gallops or rubs. LUNGS: Clear to auscultation bilaterally. No wheeze, rhonchi or rales. No use of accessory muscles on inspiration or expiration. ABDOMEN: Soft, nontender. Nondistended. Bowel sounds heard in all 4 quadrants. No organomegaly or masses. Negative rebound, negative guarding EXTREMITIES: No edema, pulses are equal bilaterally. No cyanosis or clubbing NEUROLOGY: Mood and affect appear appropriate. Cranial nerves II through XII grossly intact. Moving all extremities, speech is clear - Urinary Catheter Management Indwelling Urethral Catheter Cath placed during this visit: yes, but has since been removed by the nurse Reason for continuing: Decision to DC catheter Insertion date: 05/14/18 Insertion time: 20:30 Removal date: 05/17/18 Removal time: 14:15 Results - Labs CBC & Chem 7: 05/14/18 19:40 05/21/18 05:45 - Procedures ELECTROENCEPHALOGRAM INTERPRETATION: This is a normal drowsy and asleep EEG. Absence of electrographic seizures or epileptiform discharges does not exclude the diagnosis of epilepsy. Clinical correlation is recommended. Assessment and Plan - Assessment (1) Encephalopathy, toxic Code(s): G92 - Toxic encephalopathy Status: Acute (2) [place] toxicity Code(s): T56.891A - Toxic effect of other metals, accidental (unintentional), initial encounter Status: Acute (3) Hypercalcemia Code(s): E83.52 - Hypercalcemia Status: Acute - Plan [place] toxicity with associated abnormalities to include hypercalcemia, hyponatremia, improved -[place] was held until lithium level was improved -[place] has been resumed at 150 mg twice daily -Psychiatry recommended continuation of low-dose lithium at this time and continue and increase until level therapeutic 0.4-1.0 -Continue to monitor lithium level Ability to care for self -Physical therapy continues to indicate that patient will require PT at rehab, hopefully home with home health care with wheeled walker -Occupational Therapy indicates that the patient has to have occupational therapy rehab versus home health care if patient has someone to stay with -Speech therapy evaluated the patient and indicated [facility] mental status exam scoring 14/25. Speech therapy indicates that patient does not require continued speech therapy services -Patient has been discharged to rehab facility, however case management has not been successful in getting acceptance at any of the local facilities. Given the patient does not have a residence, no safe place to go at this time that could supply the patient with physical therapy and/or occupational therapy. Will need to continue physical therapy/Occupational Therapy evaluations until the patient is deemed clinically safe for discharge by the corresponding services Hypernatremia, improving -Secondary to lithium toxicity, dehydration -Sodium level continues to improve on a daily basis -Discontinue hypotonic solution Hypercalcemia, resolved -Secondary to primary hyperparathyroidism because of lithium -Status post calcitonin -Continue monitor calcium level -PTH 430 -Awaiting vitamin D level Acute toxic metabolic encephalopathy, resolved -Multifactorial with lithium toxicity, hypercalcemia, alcohol -Mentation improved once lithium toxicity was corrected Acute renal failure, resolved -Secondary to dehydration -Continue monitor renal function -Continue IV fluids History of bipolar 1 disorder on lithium at home -Psychiatry was consulted and following the patient. Recommending continuation of bipolar medications and watch closely for hypomania or manic episode History of hypertension, chronic: -Continued home medications. -Monitor blood pressure trends. History of hyperlipidemia, chronic: -Continue home statin. History of BPH, chronic: -Continue home tamsulosin Alcohol abuse -Patient states that he drinks at the least 5 alcoholic drinks per day. Encouraged cessation. -Records do not indicate that the patient had any signs of withdrawals DVT prophylaxis: -Sequential compression devices Discharge Planning: Discharged to [facility] facility once arrangements made by case management (2) [place] toxicity Qualifiers: Encounter type: initial encounter Injury intent: accidental or unintentional Qualified Code(s): T56.891A - Toxic effect of other metals, accidental ( unintentional), initial encounter
--- NOTE | 2018-05-23 07:52 | P.PN ---
Subjective Interval history: 67-year-old male who was seen and examined today for follow-up on lithium toxicity, hypernatremia, hypercalcemia. Patient is doing much better. Patient is on the phone trying to make arrangements for discharge. Patient denies any new complaints. Patient has been cleared by physical therapy. Awaiting occupational therapy clearance. Patient remains afebrile. Physical Exam Vital signs: Vital Signs 05/22/18 08:00 05/22/18 12:00 05/22/18 16:00 Temperature 98.0 F 98.3 F 98.1 F Pulse Rate 77 85 91 H Respiratory Rate 16 18 15 Blood Pressure 129/92 H 142/81 H 128/80 Pulse Oximetry 99 99 98 05/22/18 20:00 05/22/18 23:54 Temperature 99.0 F 98.8 F Pulse Rate 80 81 Respiratory Rate 16 16 Blood Pressure 129/71 118/62 Pulse Oximetry 96 98 Intake & Output 05/22/18 05/23/18 05/23/18 18:59 06:59 18:59 Intake Total 300 / 300 720 / 720 Output Total 1950 / 1950 Balance 300 / 300 -1230 / -1230 Weight 57.8 kg Intake: Oral 300 / 300 720 / 720 Output: Urine 1949 / 1950 Other: # Voids 1 # Incontinent Voids 1 # Urine Diapers 1 Date of Last Bowel Movement 05/21/18 Narrative: GENERAL: Well-developed, cachectic, in no acute distress. alert and orientated HEENT: Head is normocephalic without any lesions or masses noted. Bitemporal wasting. Facial features are symmetric. Eyes: Extraocular muscles are intact. Conjunctivae were clear. NECK: Supple without any masses. Trachea midline no deviation. No JVD, CARDIAC: Regular rhythm, regular rate. S1/S2 are heard. No murmurs gallops or rubs. LUNGS: Clear to auscultation bilaterally. No wheeze, rhonchi or rales. No use of accessory muscles on inspiration or expiration. ABDOMEN: Soft, nontender. Nondistended. Bowel sounds heard in all 4 quadrants. No organomegaly or masses. Negative rebound, negative guarding EXTREMITIES: No edema, pulses are equal bilaterally. No cyanosis or clubbing NEUROLOGY: Mood and affect appear appropriate. Cranial nerves II through XII grossly intact. Moving all extremities, speech is clear - Urinary Catheter Management Indwelling Urethral Catheter Cath placed during this visit: yes, but has since been removed by the nurse Reason for continuing: Decision to DC catheter Insertion date: 05/14/18 Insertion time: 20:30 Removal date: 05/17/18 Removal time: 14:15 Results - Labs CBC & Chem 7: 05/14/18 19:40 05/21/18 05:45 - Procedures ELECTROENCEPHALOGRAM INTERPRETATION: This is a normal drowsy and asleep EEG. Absence of electrographic seizures or epileptiform discharges does not exclude the diagnosis of epilepsy. Clinical correlation is recommended. Assessment and Plan - Assessment (1) Encephalopathy, toxic Code(s): G92 - Toxic encephalopathy Status: Acute (2) [place] toxicity Code(s): T56.891A - Toxic effect of other metals, accidental (unintentional), initial encounter Status: Acute (3) Hypercalcemia Code(s): E83.52 - Hypercalcemia Status: Acute - Plan Ability to care for self, improving -Physical therapy reevaluated the patient and indicates that the patient can be discharged without any outpatient services -Occupational Therapy indicates that the patient has to have occupational therapy at rehab versus home health care if patient has someone to stay with, awaiting reevaluation -Speech therapy evaluated the patient and indicated [facility] mental status exam scoring 14/25. Speech therapy indicates that patient does not require continued speech therapy services -Patient has been discharged to rehab facility, however case management indicates that patient was denied by the insurance company [place] toxicity with associated abnormalities to include hypercalcemia, hyponatremia, improved -[place] was held until lithium level was improved -[place] has been resumed at 150 mg twice daily -Psychiatry recommended continuation of low-dose lithium at this time and continue and increase until level therapeutic 0.4-1.0 -Continue to monitor lithium level Hypernatremia, improving -Secondary to lithium toxicity, dehydration -Sodium level continues to improve on a daily basis -Discontinue hypotonic solution Hypercalcemia, resolved -Secondary to primary hyperparathyroidism because of lithium -Status post calcitonin -Continue monitor calcium level -PTH 430 -Awaiting vitamin D level Acute toxic metabolic encephalopathy, resolved -Multifactorial with lithium toxicity, hypercalcemia, alcohol -Mentation improved once lithium toxicity was corrected Acute renal failure, resolved -Secondary to dehydration -Continue monitor renal function -Continue IV fluids History of bipolar 1 disorder on lithium at home -Psychiatry was consulted and following the patient. Recommending continuation of bipolar medications and watch closely for hypomania or manic episode History of hypertension, chronic: -Continued home medications. -Monitor blood pressure trends. History of hyperlipidemia, chronic: -Continue home statin. History of BPH, chronic: -Continue home tamsulosin Alcohol abuse -Patient states that he drinks at the least 5 alcoholic drinks per day. Encouraged cessation. -Records do not indicate that the patient had any signs of withdrawals DVT prophylaxis: -Sequential compression devices Discharge Planning: Awaiting occupational therapy to clear the patient to be discharged safely. Case management for discharge planning (2) [place] toxicity Qualifiers: Encounter type: initial encounter Injury intent: accidental or unintentional Qualified Code(s): T56.891A - Toxic effect of other metals, accidental ( unintentional), initial encounter
[2018-05-23] MEDS: Heparin - SQ 10,000 UNITS/ML Vial SQ SCH ×3 (11:44→21:39)
[2018-05-23] MEDS: Senna/Docusate Sodium 8.6/50 MG Tablet PO SCH ×2 (11:45→20:53)
[2018-05-23 21:25] VITALS: RESP 18
[2018-05-24] MEDS: Heparin - SQ 10,000 UNITS/ML Vial SQ SCH (05:31)
[2018-05-24 06:11] LABS: Calcium 9.2 mg/dL (8.5-10.1); Carbon Dioxide 24.3 meq/L (21.0-32.0); Potassium 4.4 meq/L (3.5-5.1)
[2018-05-24] MEDS: Senna/Docusate Sodium 8.6/50 MG Tablet PO SCH (08:08)
[2018-05-24 12:05] VITALS: BP 136/80; PULSE 80; TEMP 98.9; O2SAT 96
--- NOTE | 2018-05-24 14:30 | P.PN ---
Subjective Interval history: 67-year-old male who is seen and examined today for follow-up on lithium toxicity. Still waiting on occupational therapy to clear the patient for discharge. Patient denies any new complaints. Vital signs are stable. Patient remains afebrile. Physical Exam Vital signs: Vital Signs 05/23/18 16:00 05/23/18 20:00 05/24/18 00:00 Temperature 98.1 F 98.6 F 98.0 F Pulse Rate 85 91 H 77 Respiratory Rate 20 18 18 Blood Pressure 153/78 H 114/74 132/76 Pulse Oximetry 92 L 97 99 05/24/18 08:00 05/24/18 12:00 Temperature 98.5 F 98.9 F Pulse Rate 83 80 Respiratory Rate 18 18 Blood Pressure 131/69 136/80 Pulse Oximetry 98 96 Intake & Output 05/23/18 05/24/18 05/24/18 18:59 06:59 18:59 Intake Total 1860 / 1860 1720 / 1720 Output Total 1800 / 1800 4400 / 4400 Balance 60 / 60 -2680 / -2680 Weight 57.8 kg Intake: Oral 1860 / 1860 1720 / 1720 Output: Urine 1800 / 1800 4400 / 4400 Other: Date of Last Bowel Movement 05/21/18 05/21/18 Narrative: GENERAL: Well-developed, cachectic, in no acute distress. alert and orientated HEENT: Head is normocephalic without any lesions or masses noted. Bitemporal wasting. Facial features are symmetric. Eyes: Extraocular muscles are intact. Conjunctivae were clear. NECK: Supple without any masses. Trachea midline no deviation. No JVD, CARDIAC: Regular rhythm, regular rate. S1/S2 are heard. No murmurs gallops or rubs. LUNGS: Clear to auscultation bilaterally. No wheeze, rhonchi or rales. No use of accessory muscles on inspiration or expiration. ABDOMEN: Soft, nontender. Nondistended. Bowel sounds heard in all 4 quadrants. No organomegaly or masses. Negative rebound, negative guarding EXTREMITIES: No edema, pulses are equal bilaterally. No cyanosis or clubbing NEUROLOGY: Mood and affect appear appropriate. Cranial nerves II through XII grossly intact. Moving all extremities, speech is clear - Urinary Catheter Management Indwelling Urethral Catheter Cath placed during this visit: yes, but has since been removed by the nurse Reason for continuing: Decision to DC catheter Insertion date: 05/14/18 Insertion time: 20:30 Removal date: 05/17/18 Removal time: 14:15 Results - Labs CBC & Chem 7: 05/14/18 19:40 05/24/18 05:00 Laboratory Results - last 24 hr 05/14/18 05/24/18 05/24/18 12:20 05:00 05:00 Sodium 143 Potassium 4.4 Chloride 114 H Carbon Dioxide 24.3 Anion Gap 5 BUN 13 Creatinine 1.10 Estimated GFR 67 L Random Glucose 98 Calcium 9.2 Vit D 1,25-Dihydroxy 44 [place] 0.4 L - Procedures ELECTROENCEPHALOGRAM INTERPRETATION: This is a normal drowsy and asleep EEG. Absence of electrographic seizures or epileptiform discharges does not exclude the diagnosis of epilepsy. Clinical correlation is recommended. Assessment and Plan - Assessment (1) Encephalopathy, toxic Code(s): G92 - Toxic encephalopathy Status: Acute (2) [place] toxicity Code(s): T56.891A - Toxic effect of other metals, accidental (unintentional), initial encounter Status: Acute (3) Hypercalcemia Code(s): E83.52 - Hypercalcemia Status: Acute - Plan Ability to care for self, improving -Physical therapy reevaluated the patient and indicates that the patient can be discharged without any outpatient services -Occupational Therapy indicates that the patient has to have occupational therapy at rehab versus home health care if patient has someone to stay with, awaiting reevaluation -Speech therapy evaluated the patient and indicated [facility] mental status exam scoring 14/25. Speech therapy indicates that patient does not require continued speech therapy services -Patient has been discharged to rehab facility, however case management indicates that patient was denied by the insurance company [place] toxicity with associated abnormalities to include hypercalcemia, hyponatremia, improved -[place] was held until lithium level was improved -[place] has been resumed at 150 mg twice daily -Psychiatry recommended continuation of low-dose lithium at this time and continue and increase until level therapeutic 0.4-1.0 -Continue to monitor lithium level Hypernatremia, improving -Secondary to lithium toxicity, dehydration -Sodium level continues to improve on a daily basis -Discontinue hypotonic solution Hypercalcemia, resolved -Secondary to primary hyperparathyroidism because of lithium -Status post calcitonin -Continue monitor calcium level -PTH 430 -Awaiting vitamin D level Acute toxic metabolic encephalopathy, resolved -Multifactorial with lithium toxicity, hypercalcemia, alcohol -Mentation improved once lithium toxicity was corrected Acute renal failure, resolved -Secondary to dehydration -Continue monitor renal function -Continue IV fluids History of bipolar 1 disorder on lithium at home -Psychiatry was consulted and following the patient. Recommending continuation of bipolar medications and watch closely for hypomania or manic episode History of hypertension, chronic: -Continued home medications. -Monitor blood pressure trends. History of hyperlipidemia, chronic: -Continue home statin. History of BPH, chronic: -Continue home tamsulosin Alcohol abuse -Patient states that he drinks at the least 5 alcoholic drinks per day. Encouraged cessation. -Records do not indicate that the patient had any signs of withdrawals DVT prophylaxis: -Sequential compression devices Discharge Planning: Awaiting occupational therapy to clear the patient to be discharged safely. Case management for discharge planning (2) [place] toxicity Qualifiers: Encounter type: initial encounter Injury intent: accidental or unintentional Qualified Code(s): T56.891A - Toxic effect of other metals, accidental ( unintentional), initial encounter
== END 2018-05-24 12:12 | disposition home or self-care (01) ==
LOC: PHED 11:39 → PHEDA 14:44 → PHICU 18:40 → PH3 05-18 18:04
PROVIDERS: ADMIT Internal Medicine; ATTEND Hospitalist

== ENCOUNTER 2018-07-09 07:42 | Inpatient (IN) ==
[2018-07-09 08:18] LABS: Baso % (Auto) 0.6 % (0.0-2.0); Eos # (Auto) 0.1 th/mm3 (0.0-0.4); Eos % (Auto) 1.4 % (0.0-4.0); Hematocrit 38.7 % (39.0-51.0); Hemoglobin 12.7 gm/dL (13.0-17.0); Lymph # (Auto) 0.7 th/mm3 (1.0-4.8); Lymph % (Auto) 11.5 % (9.0-44.0); Mean Corpuscular HGB Conc 32.8 % (32.0-36.0); Mean Corpuscular Hemoglobin 29.7 pg (27.0-34.0); Mean Corpuscular Volume 90.6 fL (80.0-100.0); Mono # (Auto) 0.5 th/mm3 (0.0-0.9); Mono % (Auto) 9.2 % (0.0-8.0); Neut # (Auto) 4.5 th/mm3 (1.8-7.7); Neut % (Auto) 77.3 % (16.0-70.0); Platelet Count 281 th/mm3 (150-450); Red Blood Count 4.27 mil/mm3 (4.50-5.90); Red Cell Distribution Width 13.4 % (11.6-17.2); White Blood Count 5.8 th/mm3 (4.0-11.0)
[2018-07-09 08:19] LABS: Bilirubin,Urine Negative (Negative); Clarity,Urine Clear (Clear); Color,Urine Yellow (Yellw/Straw); Glucose,Urine (UA) Negative (Negative); Leukocyte Esterase,Urine Trace (Negative); Nitrite,Urine Negative (Negative); PH,Urine 6.5 (5.0-8.5); Specific Gravity,Urine Less/Equal 1.005 (1.002-1.035); Urobilinogen,Urine 0.2 mg/dL (Less than 2)
[2018-07-09 08:21] LABS: Collection Time,Urine 800 hours
[2018-07-09 08:26] LABS: Squamous Epithelial Cell,Urine 0-5 /hpf (0-5); WBC,Urine 0-5 /hpf (0-5)
[2018-07-09 08:27] LABS: Chloride 110 meq/L (98-107); Potassium 3.9 meq/L (3.5-5.1); Sodium 142 meq/L (136-145)
[2018-07-09 08:31] LABS: Albumin 3.5 g/dL (3.4-5.0); Anion Gap 4 meq/L (5-15); Calcium 10.8 mg/dL (8.5-10.1); Carbon Dioxide 27.7 meq/L (21.0-32.0); Glucose,Random 97 mg/dL (74-106); Magnesium 2.3 mg/dL (1.5-2.5)
[2018-07-09 08:32] LABS: Blood Urea Nitrogen 9 mg/dL (7-18)
[2018-07-09 08:33] LABS: Amphetamine Screen,Urine Neg (Neg); Barbiturate Screen,Urine Neg (Neg); Cannabinoid Screen,Urine Neg (Neg); Cocaine Screen,Urine Neg (Neg)
[2018-07-09 08:34] LABS: Alanine Aminotransferase 21 U/L (12-78); Aspartate Aminotransferase 18 U/L (15-37)
[2018-07-09 08:35] LABS: Glomerular Filtration Rate 87 mL/min (>89)
[2018-07-09 08:36] LABS: Total Protein 6.8 g/dL (6.4-8.2)
[2018-07-09 08:37] LABS: Alkaline Phosphatase 100 U/L (45-117)
[2018-07-09 08:45] LABS: Thyroid Stimulating Hormone 0.589 uIU/mL (0.358-3.740)
--- NOTE | 2018-07-09 08:45 | ED ---
HPI General Chief complaint: Extremity Injury, Lower Stated complaint: pain all over Time Seen by Provider: 07/09/18 07:57 History of Present Illness HPI narrative: This is a 67-year-old male with history of hypertension, hyperlipidemia, bipolar disorder, who presents here today with planes of neck pain left rib pain and right foot pain. Patient appears to be extremely manic. He reports that he has been walking 500 miles per day. Patient also reports that he is in the process of buying a car in a truck. The patient is very difficult to direct. He states that he has been out feeding the homeless. He states yesterday he bought 100 hamburgers and the day before he bought a shopping cart full of donuts to distribute to the homeless population. The patient reports that he has been off of his bipolar medications for at least 5 days. When asked why, he states that he wanted to "clear my mind". Related Data Home Medications Medication Instructions Recorded Confirmed No Known Home Medications 07/09/18 07/09/18 Allergies Allergy/AdvReac Type Severity Reaction Status Date / Time No Known Allergies Allergy Verified 07/09/18 07:52 Review of Systems ROS: all other systems reviewed are negative Constitutional Reports system reviewed and no additional complaints, except as docu Eyes Reports system reviewed and no additional complaints, except as docu ENT Reports system reviewed and no additional complaints, except as docu Cardiovascular Reports chest pain (Left lateral chest wall pain.), Denies diaphoresis and Denies rapid heart rate Respiratory Denies chest congestion, Denies cough and Denies dyspnea Gastrointestinal Denies abdominal pain, Reports nausea and Reports vomiting Genitourinary Reports system reviewed and no additional complaints, except as docu Musculoskeletal Reports neck pain and Reports other (Right foot pain.) Neurologic Denies dizziness, Denies headache(s), Denies sensory deficit and Denies weakness Psychiatric Reports as per HPI and Reports anxiety [facility] Medical History Medical History Bipolar 1 disorder, depressed (Acute) Elevated cholesterol (Acute) History of alcoholism (Acute) Hyperlipidemia (Acute) Hypertension (Acute) Prostate enlargement (Acute) Surgical History Surgical History History of orthopedic surgery (Acute) Social History Social History Substance History: No History of Abuse Second Hand Smoke Exposure: No Smoking Status: Never smoker How Often Do You Have a Drink Containing Alcohol: 4 or more times a week Recent Travel in [facility] within the Last 8 Weeks: No Recent Out of Country Travel within the Last 8 Weeks: No Immunization History Tetanus Immunization: <5 Years Exam Narrative Exam Narrative: GENERAL: Well-developed well-nourished male in no acute respiratory distress. Patient appears to be very anxious and manic. SKIN: Focused skin assessment warm/dry. HEAD: Atraumatic. Normocephalic. EYES: No scleral icterus. No injection or drainage. ENT: No nasal bleeding or discharge. Mucous membranes pink and moist. NECK: Trachea midline. Supple. CARDIOVASCULAR: Regular rate and rhythm. No murmur appreciated. RESPIRATORY: No accessory muscle use. Clear to auscultation. Breath sounds equal bilaterally. GASTROINTESTINAL: Abdomen soft, non-tender, nondistended. Hepatic and splenic margins not palpable. MUSCULOSKELETAL: No obvious deformities. No clubbing. No cyanosis. No edema. NEUROLOGICAL: Awake and alert. No obvious cranial nerve deficits. Motor grossly within normal limits. Somewhat pressured speech. PSYCHIATRIC: Anxious and manic appearing. Patient has pressured speech. He also reports walking 500 miles per day. He also states that he is in the purchase of buying 2 new cars. Course Initial Documented Vital Signs Temperature 97.4 F L 07/09/18 07:49 Pulse Rate 98 H 07/09/18 07:49 Respiratory Rate 18 07/09/18 07:49 Blood Pressure 156/85 H 07/09/18 07:49 Pulse Oximetry 100 07/09/18 07:49 Last Documented Vital Signs Temperature 97.4 F L 07/09/18 07:49 Pulse Rate 98 H 07/09/18 07:49 Respiratory Rate 18 07/09/18 08:47 Blood Pressure 156/85 H 07/09/18 07:49 Pulse Oximetry 100 07/09/18 08:47 Medical Decision Making MDM Narrative Medical decision making narrative: This is a 67-year-old male with history of bipolar disorder, presents today with complaints of right foot pain, left rib pain, neck pain. Patient is also extremely manic. The patient reports not taking his medication times 5 days. He will be medically cleared to be transferred up to the [facility] to be evaluated by psychiatry. He is cooperative and voluntary at this point. Medical Screen Exam Complete: Yes Emergency Medical Condition: Yes Differential Diagnosis Differential Diagnosis: Massiel versus metabolic derangement versus medication noncompliance Lab Data Result diagrams: 07/09/18 08:00 07/09/18 08:00 Lab Results 07/09/18 07/09/18 07/09/18 Range/Units 08:00 08:00 08:00 CBC w Diff Auto diff final WBC 5.8 (4.0-11.0) th/mm3 RBC 4.27 L (4.50-5.90) mil/mm3 Hgb 12.7 L (13.0-17.0) gm/dL Hct 38.7 L (39.0-51.0) % MCV 90.6 (80.0-100.0) fL MCH 29.7 (27.0-34.0) pg MCHC 32.8 (32.0-36.0) % RDW 13.4 (11.6-17.2) % Plt Count 281 (150-450) th/mm3 MPV 7.0 (7.0-11.0) fL Neut % (Auto) 77.3 H (16.0-70.0) % Lymph % (Auto) 11.5 (9.0-44.0) % Becker % (Auto) 9.2 H (0.0-8.0) % Eos % (Auto) 1.4 (0.0-4.0) % Baso % (Auto) 0.6 (0.0-2.0) % Neut # (Auto) 4.5 (1.8-7.7) th/mm3 Lymph # (Auto) 0.7 L (1.0-4.8) th/mm3 Becker # (Auto) 0.5 (0.0-0.9) th/mm3 Eos # (Auto) 0.1 (0.0-0.4) th/mm3 Baso # (Auto) 0.0 (0.0-0.2) th/mm3 WBC Differential . Differential Comment . Sodium 142 (136-145) meq/L Potassium 3.9 (3.5-5.1) meq/L Chloride 110 H (98-107) meq/L Carbon Dioxide 27.7 (21.0-32.0) meq/L Anion Gap 4 L (5-15) meq/L BUN 9 (7-18) mg/dL Creatinine 0.87 (0.60-1.30) mg/dL Estimated GFR 87 L (>89) mL/min Random Glucose 97 (74-106) mg/dL Calcium 10.8 H (8.5-10.1) mg/dL Magnesium 2.3 (1.5-2.5) mg/dL Total Bilirubin 0.7 (0.2-1.0) mg/dL AST 18 (15-37) U/L ALT 21 (12-78) U/L Alkaline Phosphatase 100 (45-117) U/L Total Protein 6.8 (6.4-8.2) g/dL Albumin 3.5 (3.4-5.0) g/dL TSH 0.589 (0.358-3.740) uIU/mL Ur Collection Type Urine Color (Yellw/Straw) Urine Clarity (Clear) Urine pH (5.0-8.5) Ur Specific [place] (1.002-1.035) Urine Protein (Neg-Trace) mg/dL Urine Glucose (UA) (Negative) mg/dL Urine Ketones (Negative) mg/dL Urine Occult Blood (Negative) Urine Nitrate (Negative) Urine Bilirubin (Negative) Urine Urobilinogen (Less than 2) mg/dL Ur Leukocyte Esterase (Negative) Urine WBC (0-5) /hpf Ur Squamous Epith Cells (0-5) /hpf Micro UA Comment Ur Microscopic Review Urine Culture Comments Urine Collection Time hours Urine Opiates Screen Neg (Neg) Ur Barbiturates Screen Neg (Neg) Ur Amphetamines Screen Neg (Neg) U Benzodiazepines Scrn Neg (Neg) Urine Cocaine Screen Neg (Neg) U Cannabinoids Screen Neg (Neg) Serum Alcohol Less than 3 (0-5) mg/dL 07/09/18 Range/Units 08:00 CBC w Diff WBC (4.0-11.0) th/mm3 RBC (4.50-5.90) mil/mm3 Hgb (13.0-17.0) gm/dL Hct (39.0-51.0) % MCV (80.0-100.0) fL MCH (27.0-34.0) pg MCHC (32.0-36.0) % RDW (11.6-17.2) % Plt Count (150-450) th/mm3 MPV (7.0-11.0) fL Neut % (Auto) (16.0-70.0) % Lymph % (Auto) (9.0-44.0) % Becker % (Auto) (0.0-8.0) % Eos % (Auto) (0.0-4.0) % Baso % (Auto) (0.0-2.0) % Neut # (Auto) (1.8-7.7) th/mm3 Lymph # (Auto) (1.0-4.8) th/mm3 Becker # (Auto) (0.0-0.9) th/mm3 Eos # (Auto) (0.0-0.4) th/mm3 Baso # (Auto) (0.0-0.2) th/mm3 WBC Differential Differential Comment Sodium (136-145) meq/L Potassium (3.5-5.1) meq/L Chloride (98-107) meq/L Carbon Dioxide (21.0-32.0) meq/L Anion Gap (5-15) meq/L BUN (7-18) mg/dL Creatinine (0.60-1.30) mg/dL Estimated GFR (>89) mL/min Random Glucose (74-106) mg/dL Calcium (8.5-10.1) mg/dL Magnesium (1.5-2.5) mg/dL Total Bilirubin (0.2-1.0) mg/dL AST (15-37) U/L ALT (12-78) U/L Alkaline Phosphatase (45-117) U/L Total Protein (6.4-8.2) g/dL Albumin (3.4-5.0) g/dL TSH (0.358-3.740) uIU/mL Ur Collection Type Random Urine Color Yellow (Yellw/Straw) Urine Clarity Clear (Clear) Urine pH 6.5 (5.0-8.5) Ur Specific [place] Less/equal 1.005 (1.002-1.035) Urine Protein Negative (Neg-Trace) mg/dL Urine Glucose (UA) Negative (Negative) mg/dL Urine Ketones Negative (Negative) mg/dL Urine Occult Blood Negative (Negative) Urine Nitrate Negative (Negative) Urine Bilirubin Negative (Negative) Urine Urobilinogen 0.2 (Less than 2) mg/dL Ur Leukocyte Esterase Trace H (Negative) Urine WBC 0-5 (0-5) /hpf Ur Squamous Epith Cells 0-5 (0-5) /hpf Micro UA Comment Culture not ind Ur Microscopic Review Microscopic reviewed Urine Culture Comments Culture not ind Urine Collection Time 800 hours Urine Opiates Screen (Neg) Ur Barbiturates Screen (Neg) Ur Amphetamines Screen (Neg) U Benzodiazepines Scrn (Neg) Urine Cocaine Screen (Neg) U Cannabinoids Screen (Neg) Serum Alcohol (0-5) mg/dL Imaging Data Radiologist's impression: Cervical Spine X-Ray 07/09/18 07:57 CONCLUSION: No acute bony injury Foot X-Ray 07/09/18 07:57 CONCLUSION: No evidence of recent bony injury. Ribs X-Ray 07/09/18 07:57 CONCLUSION: Negative rib series. No evidence of pneumothorax. Discharge Plan Discharge Disposition Patient Disposition: 30 Still Patient Discharge Details Diagnosis: Manic disorder, recurrent episode, moderate, Noncompliance with medications, Functional musculoskeletal complaint Physicians Team ED Provider: Luther Blandon Primary Care Provider: UNKNOWN, Rxs /Orders / Referrals /Forms Prescriptions: No Action No Known Home Medications RF: 0 Status ED Status: With Doctor
--- NOTE | 2018-07-09 08:52 | XR ---
EXAM DATE: 07/09/2018 8:50 AM EST AGE/SEX: 67 years / Male INDICATIONS: Fall, right foot swelling. CLINICAL DATA: This is the patient's initial encounter. Patient reports that signs and symptoms have been present for 2 days and indicates a pain score of 0/10. MEDICAL/SURGICAL HISTORY: None. None. COMPARISON: No prior exams available for comparison. FINDINGS: Bony structures are intact and in normal alignment. Osseous density is normal. Soft tissues are unre markable. No radiopaque foreign bodies seen. CONCLUSION: No evidence of recent bony injury. Electronically signed by: Hector Rodriguez MD 07/09/2018 8:51 AM EST
--- NOTE | 2018-07-09 08:54 | XR ---
EXAM DATE: 07/09/2018 8:51 AM EST AGE/SEX: 67 years / Male INDICATIONS: Fall, left rib pain. CLINICAL DATA: This is the patient's initial encounter. Patient reports that signs and symptoms have been present for 1 week and indicates a pain score of 3/10. MEDICAL/SURGICAL HISTORY: None. None. COMPARISON: [facility], CHEST 1V SINGLE AP, 05/14/2018. . FINDINGS: There is no evidence of displaced fracture. No destructive lesions or areas of periosteal thickening are seen. Expiratory view of the chest is negative for pneumothorax. The mediastinal structures ar e midline. CONCLUSION: Negative rib series. No evidence of pneumothorax. Electronically signed by: Hector Rodriguez MD 07/09/2018 8:53 AM EST
--- NOTE | 2018-07-09 08:55 | XR ---
EXAM DATE: 07/09/2018 8:52 AM EST AGE/SEX: 67 years / Male INDICATIONS: Fall, neck pain. CLINICAL DATA: This is the patient's initial encounter. Patient reports that signs and symptoms have been present for 1 week and indicates a pain score of 2/10. MEDICAL/SURGICAL HISTORY: None. None. COMPARISON: No prior exams available for comparison. FINDINGS: C2 and 3 appear to be fused. The alignment is satisfactory. There is no definite evidence of fracture . There is degenerative change with endplate osteophytes most notably at C3-4 and arthritic changes i n the posterior facet joints at multiple levels. There is no evidence of abnormal prevertebral swelli ng. CONCLUSION: No acute bony injury Electronically signed by: Hector Rodriguez MD 07/09/2018 8:54 AM EST
[2018-07-09 08:59] LABS: Opiate Screen,Urine Neg (Neg)
--- NOTE | 2018-07-09 14:13 | ED ---
HPI - Psych - General Source: patient, old records reviewed Mode of arrival: ambulatory - History of Present Illness MD complaint: other (Extremity pain) Onset (ago): week(s) Duration: constant History of same: Yes Relieving factors: none Exacerbating factors: other Context: not taking psychiatric medications Associated psychiatric symptoms: other (Brandin) Associated symptoms: other (Extremity pain) Treatments prior to arrival: placed on mental health hold If self harm: other (Denies) - General Chief Complaint: Extremity Injury, Lower Stated Complaint: pain all over Time Seen by Provider: 07/09/18 07:57 - History of Present Illness HPI Narrative: History of Present Illness HPI narrative: This is a 67-year-old , x3 and now male , on disability, currently homeless with history of hypertension, hyperlipidemia , bipolar disorder, who initially presented to [facility] with chief complaint of pain in the neck, left rib pain, and right foot pain. He reported to ED physician that he had been walking for 500 miles per day , that he was in the process of buying a car and a truck , in the process of buying a house as well. He also reports that he has been feeding the homeless and that yesterday he bought 100 hamburgers and the day before he bought a shopping cart full of donuts to distribute to the homeless population. He has been homeless for the past 2 weeks and tells me that he has been spending his time in the [place] because he is in the process of buying this new house. The patient has not taken his psychiatric medications for "at least 45 days". He initially informed the ED provider that he stopped his medications because he wanted to "clear my mind"but tells me that he has not taking them because they are locked up in his storage and he has no access to his storage container. Patient tells me as well that he feels better off his medication because now " he can talk to women and tell them that they are great". In addition to the above patient also reports that in the past several days he has adopted 2 kittens, he is giving someone $1000 in buying them a car in exchange for home, that he has witnessed a murder so that now he "needs a director of safety and security 24 hours a day". EMR is reviewed. The patient was admitted to our medical service at the beginning of May with lithium toxicity and a lithium level of 2.3. Patient has not had contact with [facility] psychiatry Department. He reports a history of alcohol abuse but current toxicology is negative and alcohol level is undetectable. He states that he last had a drink approximately 1-2 days ago. He denies that he is drinking on a daily basis. Patient is seen. He is alert and oriented. Lability of mood with episodes of crying as well as episodes of being elated. There is no pressure of speech but there is tangentiality noted. Patient does not appear to be responding to internal stimuli. He does believe that he needs the services of the director of safety and security because people are going to be after him. He states that he has been sleeping although this may be questionable. Reports a good appetite. No suicidal or homicidal ideation, intent or plan. (Debbie Juárez) - Related Data Home Medications Medication Instructions Recorded Confirmed No Known Home Medications 07/09/18 07/09/18 Allergies Allergy/AdvReac Type Severity Reaction Status Date / Time No Known Allergies Allergy Verified 07/09/18 07:52 [facility] - History History Provided By: Patient - Medical History Medical History: Medical History (Last Reviewed 05/27/18 @ 10:40 by Estefania Sandoval RN) Bipolar 1 disorder, depressed Elevated cholesterol History of alcoholism Hyperlipidemia Hypertension Prostate enlargement - Surgical History Surgical History: Surgical History (Last Updated 07/09/18 @ 07:51 by Juliana Vela RN) History of orthopedic surgery - Family History Family History: Family History (Last Reviewed 05/21/18 @ 15:39 by Migue Mann) Other Family history non-contributory - Social History I have reviewed the patient's Social History: Yes - Tobacco History Second Hand Smoke Exposure: No Smoking Status: Never smoker - Alcohol History How Often Do You Have a Drink Containing Alcohol: 4 or more times a week - Substance Use History Substance History: No History of Abuse - Travel History Recent Travel in the [place] Within the Last 8 Weeks: No Recent Travel Out of the Country Within the Last 8 Weeks: No - Immunization History Tetanus Immunization: <5 Years Psychiatric History - Psychiatric History Psychiatric Treatment History: History of Psychiatric Treatment, History of Hospitalization in a Psychiatric Facility History of Inpatient Treatment: Yes Firearms in Home: No - Psychiatric History Patient reports history of bipolar disorder. States he was admitted at [facility] for 3 years in 1987. He has been treated with lithium for 30 years as per his report. His last treating psychiatrist was Dr. Allen. (Debbie Juárez) Mental Status Examination Appearance: Disheveled Consciousness: Alert Orientation: x4 Motor Activity: Other (Walks with a limp) Speech: Unremarkable Language: Adequate Fund of Knowledge: Adequate Attention and Concentration: Easily distracted Memory: Unremarkable Mood: Manic, Other (Labile) Affect: Labile Thought Process & Associations: Intact, Tangential Thought Content: Appropriate Hallucination Type: None Delusion Type: Paranoid Suicidal Ideation: No Suicidal Plan: No Suicidal Intention: No Homicidal Ideation: No Homicidal Plan: No Homicidal Intention: No Insight: Poor Judgment: Poor Initial Documented Vital Signs Temperature 97.4 F L 07/09/18 07:49 Pulse Rate 98 H 07/09/18 07:49 Respiratory Rate 18 07/09/18 07:49 Blood Pressure 156/85 H 07/09/18 07:49 Pulse Oximetry 100 07/09/18 07:49 Last Documented Vital Signs Temperature 97.4 F L 07/09/18 07:49 Pulse Rate 98 H 07/09/18 07:49 Respiratory Rate 18 07/09/18 08:47 Blood Pressure 156/85 H 07/09/18 07:49 Pulse Oximetry 100 07/09/18 08:47 [facility] - Psych - Diagnosis (1) Bipolar disorder, manic Status: Acute - Lab Data Result diagrams: 07/09/18 08:00 07/09/18 08:00 - [facility] Narrative Medical decision making narrative: 67-year-old male with history of bipolar disorder, who had been treating with lithium up until the beginning of May when he presented with lithium toxicity. It is unclear what psychiatric medications patient is most recently been prescribed as he reports he has not been taking his medication. He presents with symptoms of brandin with excessive spending, hyperactivity, impaired judgment, placing himself at risk by staying in the [place] despite recent episode of cold weather. It is suspected that the patient is being taken advantage of in the community. Patient is placed under an involuntary status for further evaluation, for stabilization, and for safety. (Debbie Juárez ) - Lab Data Lab Results 07/09/18 07/09/18 07/09/18 Range/Units 08:00 08:00 08:00 CBC w Diff Auto diff final WBC 5.8 (4.0-11.0) th/mm3 RBC 4.27 L (4.50-5.90) mil/mm3 Hgb 12.7 L (13.0-17.0) gm/dL Hct 38.7 L (39.0-51.0) % MCV 90.6 (80.0-100.0) fL MCH 29.7 (27.0-34.0) pg MCHC 32.8 (32.0-36.0) % RDW 13.4 (11.6-17.2) % Plt Count 281 (150-450) th/mm3 MPV 7.0 (7.0-11.0) fL Neut % (Auto) 77.3 H (16.0-70.0) % Lymph % (Auto) 11.5 (9.0-44.0) % [place] % (Auto) 9.2 H (0.0-8.0) % Eos % (Auto) 1.4 (0.0-4.0) % Baso % (Auto) 0.6 (0.0-2.0) % Neut # (Auto) 4.5 (1.8-7.7) th/mm3 Lymph # (Auto) 0.7 L (1.0-4.8) th/mm3 Churchill # (Auto) 0.5 (0.0-0.9) th/mm3 Eos # (Auto) 0.1 (0.0-0.4) th/mm3 Baso # (Auto) 0.0 (0.0-0.2) th/mm3 WBC Differential . Differential Comment . Sodium 142 (136-145) meq/L Potassium 3.9 (3.5-5.1) meq/L Chloride 110 H (98-107) meq/L Carbon Dioxide 27.7 (21.0-32.0) meq/L Anion Gap 4 L (5-15) meq/L BUN 9 (7-18) mg/dL Creatinine 0.87 (0.60-1.30) mg/dL Estimated GFR 87 L (>89) mL/min Random Glucose 97 (74-106) mg/dL Calcium 10.8 H (8.5-10.1) mg/dL Magnesium 2.3 (1.5-2.5) mg/dL Total Bilirubin 0.7 (0.2-1.0) mg/dL AST 18 (15-37) U/L ALT 21 (12-78) U/L Alkaline Phosphatase 100 (45-117) U/L Total Protein 6.8 (6.4-8.2) g/dL Albumin 3.5 (3.4-5.0) g/dL TSH 0.589 (0.358-3.740) uIU/mL Ur Collection Type Urine Color (Yellw/Straw) Urine Clarity (Clear) Urine pH (5.0-8.5) Ur Specific [place] (1.002-1.035) Urine Protein (Neg-Trace) mg/dL Urine Glucose (UA) (Negative) mg/dL Urine Ketones (Negative) mg/dL Urine Occult Blood (Negative) Urine Nitrate (Negative) Urine Bilirubin (Negative) Urine Urobilinogen (Less than 2) mg/dL Ur Leukocyte Esterase (Negative) Urine WBC (0-5) /hpf Ur Squamous Epith Cells (0-5) /hpf Micro UA Comment Ur Microscopic Review Urine Culture Comments Urine Collection Time hours Urine Opiates Screen Neg (Neg) Ur Barbiturates Screen Neg (Neg) Ur Amphetamines Screen Neg (Neg) U Benzodiazepines Scrn Neg (Neg) Urine Cocaine Screen Neg (Neg) U Cannabinoids Screen Neg (Neg) Serum Alcohol Less than 3 (0-5) mg/dL 07/09/18 Range/Units 08:00 CBC w Diff WBC (4.0-11.0) th/mm3 RBC (4.50-5.90) mil/mm3 Hgb (13.0-17.0) gm/dL Hct (39.0-51.0) % MCV (80.0-100.0) fL MCH (27.0-34.0) pg MCHC (32.0-36.0) % RDW (11.6-17.2) % Plt Count (150-450) th/mm3 MPV (7.0-11.0) fL Neut % (Auto) (16.0-70.0) % Lymph % (Auto) (9.0-44.0) % Churchill % (Auto) (0.0-8.0) % Eos % (Auto) (0.0-4.0) % Baso % (Auto) (0.0-2.0) % Neut # (Auto) (1.8-7.7) th/mm3 Lymph # (Auto) (1.0-4.8) th/mm3 Churchill # (Auto) (0.0-0.9) th/mm3 Eos # (Auto) (0.0-0.4) th/mm3 Baso # (Auto) (0.0-0.2) th/mm3 WBC Differential Differential Comment Sodium (136-145) meq/L Potassium (3.5-5.1) meq/L Chloride (98-107) meq/L Carbon Dioxide (21.0-32.0) meq/L Anion Gap (5-15) meq/L BUN (7-18) mg/dL Creatinine (0.60-1.30) mg/dL Estimated GFR (>89) mL/min Random Glucose (74-106) mg/dL Calcium (8.5-10.1) mg/dL Magnesium (1.5-2.5) mg/dL Total Bilirubin (0.2-1.0) mg/dL AST (15-37) U/L ALT (12-78) U/L Alkaline Phosphatase (45-117) U/L Total Protein (6.4-8.2) g/dL Albumin (3.4-5.0) g/dL TSH (0.358-3.740) uIU/mL Ur Collection Type Random Urine Color Yellow (Yellw/Straw) Urine Clarity Clear (Clear) Urine pH 6.5 (5.0-8.5) Ur Specific [place] Less/equal 1.005 (1.002-1.035) Urine Protein Negative (Neg-Trace) mg/dL Urine Glucose (UA) Negative (Negative) mg/dL Urine Ketones Negative (Negative) mg/dL Urine Occult Blood Negative (Negative) Urine Nitrate Negative (Negative) Urine Bilirubin Negative (Negative) Urine Urobilinogen 0.2 (Less than 2) mg/dL Ur Leukocyte Esterase Trace H (Negative) Urine WBC 0-5 (0-5) /hpf Ur Squamous Epith Cells 0-5 (0-5) /hpf Micro UA Comment Culture not ind Ur Microscopic Review Microscopic reviewed Urine Culture Comments Culture not ind Urine Collection Time 800 hours Urine Opiates Screen (Neg) Ur Barbiturates Screen (Neg) Ur Amphetamines Screen (Neg) U Benzodiazepines Scrn (Neg) Urine Cocaine Screen (Neg) U Cannabinoids Screen (Neg) Serum Alcohol (0-5) mg/dL
[2018-07-09] MEDS ORDERED: Aluminum/Magnesium/Simethacone Susp 30 ML UDC PO PRN (14:23)
--- NOTE | 2018-07-09 15:41 | P.HPPSY ---
Provisional Diagnosis Admission Date: July 09, 2018 14:31 [place] I.: Bipolar type I, current episode manic Competence Certification of Person's Competence To Provide Express and Informed Consent I have personally examined Gordo Hamilton, a person being served at [facility] on, July 09, 2018 1536. Express and informed consent means consent voluntarily given in writing, by a competent person, after sufficient explanation and disclosure of the subject matter involved to enable the person to make a knowing and willful decision without any element of force, fraud, deceit, duress, or other form of constraint or coercion. This person is 18 years of age or older, is not now known to be incompetent to consent to treatment with a guardian advocate, and does not have a health care surrogate or proxy currently making medical treatment decisions. I have found this person to be one of the following: [] Competent to provide express and informed consent, as defined above, for voluntary admission to this facility and is competent to provide express and informed consent for treatment. He/she has the consistent capacity to make well reasoned, willful, and knowing decisions concerning his or her medical or mental health treatment. The person fully and consistently understands the purpose of the admission for examination/placement and is fully capable of personally exercising all rights assured under [place] [] Incompetent to provide express and informed consent to voluntary admission, and this is incompetent to provide express and informed consent to treatment. The person must be transferred to involuntary status and a petition for a guardian advocate filed with the Circuit Court. [x] Refusing to provide express and informed consent to voluntary admission but is competent to provide express and informed consent for treatment. The person must be discharged or transferred to involuntary status. Form shall be completed within 24 hours of a person's arrival at the receiving facility and filed in the clinical record of each person: 1. Admitted on a voluntary basis 2. Permitted to provide express and informed consent to his/her own treatment 3. Allowed to transfer from involuntary to voluntary status 4. Prior to permitting a person to consent to his or her own treatment after having been previously found incompetent to consent to treatment. History of Present Illness Capacity: Has capacity History of Present Illness: The patient is a 67-year-old man, domiciled with a roommate in [place], unemployed, supported by [facility], single, , poor family and social support, with a psychiatric history of bipolar disorder, alcohol use disorder, previous hospitalizations, he denies previous suicidal attempts, he was recently on lithium 300 mg 3 times daily for over 30 years, he has outpatient care established with Dr. Allen, but the lithium was discontinued due to a lithium intoxication back in May, I saw him at that moment and recommended to restart the patient on lithium once medically stable, medical history of hypertension and hyperlipidemia who presented to the ED with altered mental status. Was brought in by 1 of his neighbors, who initially presented to [facility] with chief complaint of pain in the neck, left rib pain, and right foot pain. I have seen this patient along with nurse practitioner Debbie Juárez. We have widely discussed the assessment and plan. The patient was found to be acutely manic, with prominent pressure speech, labile mood, goal-directed activities, increased energy, decreased sleep, risky behavior, grandeur and paranoid delusions. He reported to ED physician that he had been walking for 500 miles per day, that he was in the process of buying a car and a truck , in the process of buying a house as well. He also reports that he has been feeding the homeless and that yesterday he bought 100 hamburgers and the day before he bought a shopping cart full of donuts to distribute to the homeless population. He has been homeless for the past 2 weeks and tells me that he has been spending his time in the [place] because he is in the process of buying this new house. The patient has not taken his psychiatric medications for "at least 45 days". He initially informed the ED provider that he stopped his medications because he wanted to "clear my mind" but tells me that he has not taking them because they are locked up in his storage and he has no access to his storage container. Patient tells me as well that he feels better off his medication because now "he can talk to women and tell them that they are great". In addition to the above patient also reports that in the past several days he has adopted 2 kittens, he is giving someone $1000 in buying them a car in exchange for home, that he has witnessed a murder so that now he "needs a oracle security consultant 24 hours a day". By Mrs. Juárez in J pod today: EMR is reviewed. The patient was admitted to our medical service at the beginning of May with lithium toxicity and a lithium level of 2.3. Patient has not had contact with [facility] psychiatry Department. He reports a history of alcohol abuse but current toxicology is negative and alcohol level is undetectable. He states that he last had a drink approximately 1-2 days ago. He denies that he is drinking on a daily basis. Patient is seen. He is alert and oriented. Lability of mood with episodes of crying as well as episodes of being elated. There is no pressure of speech but there is tangentiality noted. Patient does not appear to be responding to internal stimuli. He does believe that he needs the services of the oracle security consultant because people are going to be after him. He states that he has been sleeping although this may be questionable. Reports a good appetite. No suicidal or homicidal ideation, intent or plan. PPHx: No history of bipolar disorder, previous psychiatric hospitalizations, no suicide attempts, he has been in lithium 900 mg daily for over 30 years, outpatient care with , but he has not been taking his medication now for about 2 months since he was intoxicated with lithium. PMHx: Hypertension, hypercholesterolemia Family Hx : No family psychiatric history Substance Hx : Patient has history of alcohol use disorder, he says that he has not been taking alcohol in the last months, Social Hx: The patient lives in [place] with a roommate, he is single, unemployed, has no kids, - Inpatient Certification I certify that the inpatient services were ordered in accordance with Medicare regulations governing the order. This includes certification that hospital inpatient services are reasonable and necessary and in the case of services not specified as inpatient-only under 42 CFR 419.22(n), that they are appropriately provided as inpatient services in accordance to with the 2-midnight benchmark under 43 CFR 412.3(e) I certify that inpatient psychiatric hospital services are medically necessary. Evaluation and treatment and/or diagnostic testing are expected to improve the patient's condition. The patient needs on a daily basis, active treatment furnished directly by or requiring the supervision of inpatient psychiatric facility personnel. Estimated Total Length of Stay (Days): 8 Plans for Post Hospital Care: Not yet determined Review of Systems All other systems reviewed negative except as stated in HPI Psychiatric: Reports anxiety, Reports behavioral changes, Reports difficulty concentrating, Reports irritability, Reports mood swings, Reports paranoia PMFSH - History History Provided By: Patient - Medical History Medical History: Medical History (Last Reviewed 05/27/18 @ 10:40 by Estefania Sandoval RN) Bipolar 1 disorder, depressed Elevated cholesterol History of alcoholism Hyperlipidemia Hypertension Prostate enlargement - Surgical History Surgical History: Surgical History (Last Updated 07/09/18 @ 07:51 by Juliana Vela RN) History of orthopedic surgery - Family History Family History: Family History (Last Reviewed 05/21/18 @ 15:39 by Migue Mann) Other Family history non-contributory - Tobacco History Second Hand Smoke Exposure: No Smoking Status: Never smoker - Alcohol History How Often Do You Have a Drink Containing Alcohol: 4 or more times a week - Substance Use History Substance History: No History of Abuse - Travel History Recent Travel in the USA Within the Last 8 Weeks: No Recent Travel Out of the Country Within the Last 8 Weeks: No - Immunization History Tetanus Immunization: <5 Years Medications and Allergies Active Medications: Active Medications Al Hydrox/Mg Hydrox/Simethicone (Mag-Al Plus Susp Liq) 30 ml PO Q6H PRN PRN Reason: DYSPEPSIA Al Hydroxide/Mg Hydroxide (Milk Of Magnesia Liq) 30 ml PO Q12H PRN PRN Reason: Mild Constipation Sennosides (Senokot) 17.2 mg PO Q12H PRN PRN Reason: Moderate Constipation Allergies Allergy/AdvReac Type Severity Reaction Status Date / Time No Known Allergies Allergy Verified 07/09/18 07:52 Home Medications Medication Instructions Recorded Confirmed Type No Known Home Medications 07/09/18 07/09/18 History Results - Labs CBC & Chem 7: 07/09/18 08:00 07/09/18 08:00 Labs: Laboratory Results - last 24 hr 07/09/18 07/09/18 07/09/18 08:00 08:00 08:00 CBC w Diff Auto diff final WBC 5.8 RBC 4.27 L Hgb 12.7 L Hct 38.7 L MCV 90.6 MCH 29.7 MCHC 32.8 RDW 13.4 Plt Count 281 MPV 7.0 Neut % (Auto) 77.3 H Lymph % (Auto) 11.5 [place] % (Auto) 9.2 H Eos % (Auto) 1.4 Baso % (Auto) 0.6 Neut # (Auto) 4.5 Lymph # (Auto) 0.7 L [place] # (Auto) 0.5 Eos # (Auto) 0.1 Baso # (Auto) 0.0 WBC Differential . Differential Comment . Sodium 142 Potassium 3.9 Chloride 110 H Carbon Dioxide 27.7 Anion Gap 4 L BUN 9 Creatinine 0.87 Estimated GFR 87 L Random Glucose 97 Calcium 10.8 H Magnesium 2.3 Total Bilirubin 0.7 AST 18 ALT 21 Alkaline Phosphatase 100 Total Protein 6.8 Albumin 3.5 TSH 0.589 Ur Collection Type Urine Color Urine Clarity Urine pH Ur Specific [place] Urine Protein Urine Glucose (UA) Urine Ketones Urine Occult Blood Urine Nitrate Urine Bilirubin Urine Urobilinogen Ur Leukocyte Esterase Urine WBC Ur Squamous Epith Cells Micro UA Comment Ur Microscopic Review Urine Culture Comments Urine Collection Time Urine Opiates Screen Neg Ur Barbiturates Screen Neg Ur Amphetamines Screen Neg U Benzodiazepines Scrn Neg Urine Cocaine Screen Neg U Cannabinoids Screen Neg Serum Alcohol Less than 3 07/09/18 08:00 CBC w Diff WBC RBC Hgb Hct MCV MCH MCHC RDW Plt Count MPV Neut % (Auto) Lymph % (Auto) [place] % (Auto) Eos % (Auto) Baso % (Auto) Neut # (Auto) Lymph # (Auto) [place] # (Auto) Eos # (Auto) Baso # (Auto) WBC Differential Differential Comment Sodium Potassium Chloride Carbon Dioxide Anion Gap BUN Creatinine Estimated GFR Random Glucose Calcium Magnesium Total Bilirubin AST ALT Alkaline Phosphatase Total Protein Albumin TSH Ur Collection Type Random Urine Color Yellow Urine Clarity Clear Urine pH 6.5 Ur Specific [place] Less/equal 1.005 Urine Protein Negative Urine Glucose (UA) Negative Urine Ketones Negative Urine Occult Blood Negative Urine Nitrate Negative Urine Bilirubin Negative Urine Urobilinogen 0.2 Ur Leukocyte Esterase Trace H Urine WBC 0-5 Ur Squamous Epith Cells 0-5 Micro UA Comment Culture not ind Ur Microscopic Review Microscopic reviewed Urine Culture Comments Culture not ind Urine Collection Time 800 Urine Opiates Screen Ur Barbiturates Screen Ur Amphetamines Screen U Benzodiazepines Scrn Urine Cocaine Screen U Cannabinoids Screen Serum Alcohol - Imaging Impressions Cervical Spine X-Ray 07/09/18 07:57 CONCLUSION: No acute bony injury Foot X-Ray 07/09/18 07:57 CONCLUSION: No evidence of recent bony injury. Ribs X-Ray 07/09/18 07:57 CONCLUSION: Negative rib series. No evidence of pneumothorax. Exam Vital signs: Vital Signs 07/09/18 07:49 07/09/18 08:47 Temperature 97.4 F L Pulse Rate 98 H Respiratory Rate 18 18 Blood Pressure 156/85 H Pulse Oximetry 100 100 Intake & Output 07/08/18 07/09/18 07/09/18 18:59 06:59 18:59 Weight 58.967 kg Other: # Voids 2 Mental Status Examination Appearance: Disheveled Consciousness: Alert Orientation: x4 Motor Activity: Other (Walks with a limp) Speech: Unremarkable Language: Adequate Fund of Knowledge: Adequate Attention and Concentration: Easily distracted Memory: Unremarkable Mood: Manic, Other (Labile) Affect: Labile Thought Process & Associations: Intact, Tangential Thought Content: Appropriate Hallucination Type: None Delusion Type: Paranoid Suicidal Ideation: No Suicidal Plan: No Suicidal Intention: No Homicidal Ideation: No Homicidal Plan: No Homicidal Intention: No Insight: Poor Judgment: Poor Assessment and Plan - Assessment (1) Bipolar disorder, manic Code(s): F31.10 - Bipolar disorder, current episode manic without psychotic features, unspecified Status: Acute - Plan Plan: The patient is a 67-year-old male with history of bipolar disorder, alcohol use disorder, multiple psychiatric hospitalizations, noncompliant with medications, who had been treating with lithium up until the beginning of May when he presented with lithium toxicity. It is unclear what psychiatric medications patient is most recently been prescribed as he reports he has not been taking his medication. He presents with clear symptoms of acute brandin and delusions with excessive spending, hyperactivity, increased energy, pressured speech, labile mood, goal-directed activities, impaired judgment, placing himself at risk by staying in the [place] despite recent episode of cold weather. The patient has being also displaying a significant self neglecting behavior due to the level of brandin, patient benefits of a psychiatric admission for stabilization and safety. We will start CIWA protocol for potential alcohol withdrawal symptoms. We will start a low dose of lithium, 300 mg twice daily for brandin. He might benefit of a low dose of second-generation antipsychotics, may be Abilify. I will order an EKG for QTC interval baseline. Will order a psychiatric consult for second opinion. Will order medical consult for lower extremity edema. Justification for Continued Inpatient Stay: Patient needs psychiatric admission for stabilization
--- NOTE | 2018-07-09 17:09 | P.CON ---
History of Present Illness [facility] Consult date: 07/09/18 Requesting Physician: Laurent Morel Reason for Consult: Medical management history of hypertension Primary Care Provider: Michael Pond MD Chief Complaint: "I need to live well" History of Present Illness: Patient is a very pleasant 67-year-old male Known history of hypertension, hyperlipidemia, BPH, bipolar disorder who is admitted under psychiatry services apparently for some manic episodes. Patient at bedside is awake alert and very interactive and pleasant. Patient states that she was not he was kicked out of his home and has been living on the streets for the past 4-5 days. Review of previous admissions he was actually here for lithium toxicity with multiple electrolyte abnormalities and went into acute kidney injury. This was all resolved on discharge. Patient states that he has not been taking his lithium for the past 4 days now. Patient currently denies some mild frontal headache denies any nausea vomiting actually getting good p.o. appetite denies any dysuria urgency or incontinence denies any melena or hematochezia no complaints of pain. Patient states had some surgery involving right elbow and left wrist in the past.. Tattoo surgery Admits to history of alcohol abuse in the past but per patient has been sober and is now down to just 1 can of beer a day. Non-smoker Denies any history of drug use. Review of records patient is on atenolol 50 mg daily, tamsulosin 0.4 mg daily, simvastatin 20 mg at bedtime, and lithium. And as stated patient ran out of medications for the past 4-5 days. Review of Systems Patient denies any weight loss nausea vomiting good p.o. appetite denies any melena or hematochezia denies any leg swelling. Patient denies hearing any voices or any suicidal thoughts PMFSH - History History Provided By: Patient - Medical History Medical History: Medical History (Last Reviewed 05/27/18 @ 10:40 by Estefania Sandoval RN) Bipolar 1 disorder, depressed Elevated cholesterol History of alcoholism Hyperlipidemia Hypertension Prostate enlargement - Surgical History Surgical History: Surgical History (Last Updated 07/09/18 @ 07:51 by Juliana Vela RN) History of orthopedic surgery - Family History Family History: Family History (Last Reviewed 05/21/18 @ 15:39 by Migue Mann) Other Family history non-contributory - Tobacco History Second Hand Smoke Exposure: No Smoking Status: Never smoker - Alcohol History How Often Do You Have a Drink Containing Alcohol: 4 or more times a week - Substance Use History Substance History: No History of Abuse - Travel History Recent Travel in the [place] Within the Last 8 Weeks: No Recent Travel Out of the Country Within the Last 8 Weeks: No - Immunization History Tetanus Immunization: <5 Years Medications and Allergies Active Medications: Active Medications Al Hydrox/Mg Hydrox/Simethicone (Mag-Al Plus Susp Liq) 30 ml PO Q6H PRN PRN Reason: DYSPEPSIA Al Hydroxide/Mg Hydroxide (Milk Of Magnesia Liq) 30 ml PO Q12H PRN PRN Reason: Mild Constipation [place] Carbonate ([place] Carbonate) 300 mg PO BID PABLO Sennosides (Senokot) 17.2 mg PO Q12H PRN PRN Reason: Moderate Constipation Allergies Allergy/AdvReac Type Severity Reaction Status Date / Time No Known Allergies Allergy Verified 07/09/18 07:52 Home Medications Medication Instructions Recorded Confirmed Type No Known Home Medications 07/09/18 07/09/18 History Physical Exam Vital signs: Vital Signs 07/09/18 07:49 07/09/18 08:47 Temperature 97.4 F L Pulse Rate 98 H Respiratory Rate 18 18 Blood Pressure 156/85 H Pulse Oximetry 100 100 Intake & Output 07/08/18 07/09/18 07/09/18 18:59 06:59 18:59 Weight 58.967 kg Other: # Voids 2 Narrative: Awake alert oriented x3 not in any form distress very interactive Anicteric sclera Neck supple, no mass Chest lungs bilateral breath sounds equal no rales Regular rhythm Abdomen soft Extremities no edema Neurologic exam nonfocal cranial nerves intact gait steady Results - Labs CBC & Chem 7: 07/09/18 08:00 07/09/18 08:00 Labs: Laboratory Results - last 24 hr 07/09/18 07/09/18 07/09/18 08:00 08:00 08:00 CBC w Diff Auto diff final WBC 5.8 RBC 4.27 L Hgb 12.7 L Hct 38.7 L MCV 90.6 MCH 29.7 MCHC 32.8 RDW 13.4 Plt Count 281 MPV 7.0 Neut % (Auto) 77.3 H Lymph % (Auto) 11.5 [place] % (Auto) 9.2 H Eos % (Auto) 1.4 Baso % (Auto) 0.6 Neut # (Auto) 4.5 Lymph # (Auto) 0.7 L [place] # (Auto) 0.5 Eos # (Auto) 0.1 Baso # (Auto) 0.0 WBC Differential . Differential Comment . Sodium 142 Potassium 3.9 Chloride 110 H Carbon Dioxide 27.7 Anion Gap 4 L BUN 9 Creatinine 0.87 Estimated GFR 87 L Random Glucose 97 Calcium 10.8 H Magnesium 2.3 Total Bilirubin 0.7 AST 18 ALT 21 Alkaline Phosphatase 100 Total Protein 6.8 Albumin 3.5 TSH 0.589 Ur Collection Type Urine Color Urine Clarity Urine pH Ur Specific [place] Urine Protein Urine Glucose (UA) Urine Ketones Urine Occult Blood Urine Nitrate Urine Bilirubin Urine Urobilinogen Ur Leukocyte Esterase Urine WBC Ur Squamous Epith Cells Micro UA Comment Ur Microscopic Review Urine Culture Comments Urine Collection Time Urine Opiates Screen Neg Ur Barbiturates Screen Neg Ur Amphetamines Screen Neg U Benzodiazepines Scrn Neg Urine Cocaine Screen Neg U Cannabinoids Screen Neg Serum Alcohol Less than 3 07/09/18 08:00 CBC w Diff WBC RBC Hgb Hct MCV MCH MCHC RDW Plt Count MPV Neut % (Auto) Lymph % (Auto) [place] % (Auto) Eos % (Auto) Baso % (Auto) Neut # (Auto) Lymph # (Auto) [place] # (Auto) Eos # (Auto) Baso # (Auto) WBC Differential Differential Comment Sodium Potassium Chloride Carbon Dioxide Anion Gap BUN Creatinine Estimated GFR Random Glucose Calcium Magnesium Total Bilirubin AST ALT Alkaline Phosphatase Total Protein Albumin TSH Ur Collection Type Random Urine Color Yellow Urine Clarity Clear Urine pH 6.5 Ur Specific [place] Less/equal 1.005 Urine Protein Negative Urine Glucose (UA) Negative Urine Ketones Negative Urine Occult Blood Negative Urine Nitrate Negative Urine Bilirubin Negative Urine Urobilinogen 0.2 Ur Leukocyte Esterase Trace H Urine WBC 0-5 Ur Squamous Epith Cells 0-5 Micro UA Comment Culture not ind Ur Microscopic Review Microscopic reviewed Urine Culture Comments Culture not ind Urine Collection Time 800 Urine Opiates Screen Ur Barbiturates Screen Ur Amphetamines Screen U Benzodiazepines Scrn Urine Cocaine Screen U Cannabinoids Screen Serum Alcohol - Imaging Impressions Cervical Spine X-Ray 07/09/18 07:57 CONCLUSION: No acute bony injury Foot X-Ray 07/09/18 07:57 CONCLUSION: No evidence of recent bony injury. Ribs X-Ray 07/09/18 07:57 CONCLUSION: Negative rib series. No evidence of pneumothorax. Assessment and Plan - Plan 67-year-old male presenting with Bipolar disorder Management by psychiatry. Patient with history of lithium toxicity in the past Current electrolytes and renal functions normal. Hypercalcemia mild calcium level of 10.6. [place] related hyperparathyroidism Review of previous workup PTH was 430 We will recheck PTH level again and see if this is for daily with a primary hyperparathyroidism. get US othe parathyroid glands r/o adenoma Encourage p.o. fluids hydration Monitor calcium levels. History of hypertension. Will continue atenolol 50 mg daily History of hyperlipidemia. Continue on statin 20 mg at bedtime History of BPH. Continue tamsulosin 0.4 mg daily Complain of some mild headache. Neuro exam unremarkable will write for Tylenol as needed for headache. Encourage patient to up and ambulate. Which he is doing Thank you for this consult will follow patient in-house with you
[2018-07-09] MEDS: Acetaminophen 325 MG Tablet PO PRN (21:48)
[2018-07-10 07:38] LABS: Calcium 11.3 mg/dL (8.5-10.1); Carbon Dioxide 25.7 meq/L (21.0-32.0); Potassium 3.8 meq/L (3.5-5.1)
[2018-07-10 07:40] LABS: Chol/HDL Ratio 1.94 Ratio; HDL Cholesterol 75.1 mg/dL (40.0-60.0)
[2018-07-10] MEDS: Acetaminophen 325 MG Tablet PO PRN (07:56)
[2018-07-10] MEDS: Atenolol 50 MG Tablet PO SCH (08:03)
--- NOTE | 2018-07-10 12:46 | ECG ---
Date Performed: 07/09/2018 Time Performed: 16:12:39 PTAGE: 67 years EKG: Sinus rhythm LEFT VENTRICULAR HYPERTROPHY AND ST-T CHANGE ABNORMAL ECG Since the PREVIOUS TRACING , no significant change noted PREVIOUS TRACIN05/14/2018 14.55 DOCTOR: Ari Heller Interpretating Date/Time 07/10/2018 12:44:48
--- NOTE | 2018-07-10 13:01 | P.PNPSY ---
Subjective Remarks: This is a request for second opinion. Admission note was reviewed and I agree with the history. Patient was seen and case was discussed with nursing. Patient is grandiose with various bizarre delusions. Patient believes that he is God and is allergic to light. Patient is intrusive while I am interviewing other patients. He has poor insight into his mental health and believes he does not have bipolar disorder and has been refusing to take his medications. Thought process is tangential. He does deny suicidal or homicidal ideation intent or plan Mental Status Examination Appearance: Disheveled Consciousness: Alert Orientation: x4 Motor Activity: Other (Walks with a limp) Speech: Unremarkable Language: Adequate Fund of Knowledge: Adequate Attention and Concentration: Easily distracted Memory: Unremarkable Mood: Manic, Other (Labile) Affect: Labile Thought Process & Associations: Intact, Tangential Thought Content: Appropriate Hallucination Type: None Delusion Type: Bizarre, Paranoid, Other (Grandiose) Suicidal Ideation: No Suicidal Plan: No Suicidal Intention: No Homicidal Ideation: No Homicidal Plan: No Homicidal Intention: No Insight: Poor Judgment: Poor Assessment and Plan - Assessment (1) Bipolar disorder, manic Code(s): F31.10 - Bipolar disorder, current episode manic without psychotic features, unspecified Status: Acute - Plan Plan: I agree with the first opinion to continue petition. Criteria include acute psychosis Justification for Continued Inpatient Stay: Patient would decompensate in a less restrictive setting
[2018-07-10 13:04] LABS: Hemoglobin A1c 4.6 % (4.3-6.0)
--- NOTE | 2018-07-10 18:31 | P.PNIM ---
Subjective Interval history: Follow-up hypertension, hypercalcemia, hyperlipidemia, and bipolar disorder. Patient seen and examined sitting in the chair in the day room, denies any pain or shortness of breath. Patient states that he is eating well, and just use the bathroom but have no bowel movement yet. Patient denies any headache or dizziness, denies any abdominal pain, nausea, vomiting, diarrhea or constipation. Patient denies any fever or chills. Nurse denies any acute concerns overnight. Physical Exam Vital signs: Vital Signs 07/09/18 18:45 07/10/18 06:00 07/10/18 16:42 Temperature 98.3 F 98.7 F 98.7 F Pulse Rate 78 76 63 Respiratory Rate 18 14 16 Blood Pressure 124/64 155/77 H 138/65 Pulse Oximetry 98 96 99 Intake & Output 07/09/18 07/10/18 07/10/18 18:59 06:59 18:59 Intake Total 1440 / 1440 Balance 1440 / 1440 Weight 58.967 kg Intake: Oral 1440 / 1440 Other: # Voids 2 Weight On Admission 135 kg Narrative: GENERAL: Well-developed, well-nourished, male in no apparent distress SKIN: Warm and dry. HEAD: Atraumatic. Normocephalic. EYES: Pupils equal and round. No scleral icterus. No injection or drainage. ENT: No nasal bleeding or discharge. Mucous membranes pink and moist. NECK: Trachea midline. No JVD. CARDIOVASCULAR: Regular rate and rhythm. RESPIRATORY: No accessory muscle use. Clear to auscultation. Breath sounds equal bilaterally. GASTROINTESTINAL: Abdomen soft, non-tender, nondistended. Hepatic and splenic margins not palpable. MUSCULOSKELETAL: Extremities without clubbing, cyanosis. Bilateral lower extremity trace edema no obvious deformities. NEUROLOGICAL: Awake and alert. No obvious cranial nerve deficits. Motor grossly within normal limits. Five out of 5 muscle strength in the arms and legs. Normal speech. PSYCHIATRIC: Flat mood and affect; insight and judgment poor Results - Labs CBC & Chem 7: 07/09/18 08:00 07/10/18 06:41 Laboratory Results - last 24 hr 07/10/18 07/10/18 07/10/18 06:11 06:41 06:41 Sodium 144 Potassium 3.8 Chloride 113 H Carbon Dioxide 25.7 Anion Gap 5 BUN 10 Creatinine 0.91 Estimated GFR 83 L Random Glucose 91 Hemoglobin A1c 4.6 Calcium 11.3 H Triglycerides 115 Cholesterol 146 LDL Cholesterol, Calc 48 HDL Cholesterol 75.1 H Cholesterol/HDL Ratio 1.94 PTH Intact 284.9 H Assessment and Plan - Assessment (1) Hypertension Code(s): I10 - Essential (primary) hypertension Status: Acute (2) [place] toxicity Code(s): T56.891A - Toxic effect of other metals, accidental (unintentional), initial encounter Status: Acute (3) Hypercalcemia Code(s): E83.52 - Hypercalcemia Status: Acute (4) Acute renal insufficiency Code(s): N28.9 - Disorder of kidney and ureter, unspecified Status: Acute (5) Bipolar 1 disorder Code(s): F31.9 - Bipolar disorder, unspecified Status: Acute (6) Manic disorder, recurrent episode, moderate Code(s): F31.89 - Other bipolar disorder Status: Acute (7) Noncompliance with medications Code(s): Z91.14 - Patient's other noncompliance with medication regimen Status : Acute (8) Functional musculoskeletal complaint Code(s): R29.91 - Unspecified symptoms and signs involving the musculoskeletal system Status: Acute - Plan This is a 67-year-old male with Known history of hypertension, hyperlipidemia, BPH, bipolar disorder who is admitted under psychiatry services apparently for some manic episodes. Bipolar disorder [place] toxicity -Management by psychiatry. -Patient with history of lithium toxicity in the past -Current electrolytes and renal functions normal. Hypercalcemia mild calcium level of 10.6. [place] related hyperparathyroidism Possible primary hyperparathyroidism -Review of previous workup PTH was 430 -Recheck PTH 284.9 . -US parathyroid glands r/o adenoma -Encourage p.o. fluids hydration -Monitor calcium levels. History of hypertension. -Blood pressure labile -continue atenolol 50 mg daily -Monitor blood pressure, adjust medication as necessary History of BPH History of hyperlipidemia -Continue on statin 20 mg at bedtime -Continue tamsulosin 0.4 mg daily Complain of some mild headache. -Neuro exam unremarkable -continue Tylenol as needed for headache. DVT prophylaxis: Patient ambulatory Code Status: Full code Discussed Condition With: Patient and nurse (2) [place] toxicity Qualifiers: Encounter type: initial encounter Injury intent: accidental or unintentional Qualified Code(s): T56.891A - Toxic effect of other metals, accidental ( unintentional), initial encounter
[2018-07-11] MEDS: Acetaminophen 325 MG Tablet PO PRN (08:39)
--- NOTE | 2018-07-11 09:04 | P.PNPSY ---
Subjective Remarks: Reviewed electronic medical records and discussed case with staff. Follow-up was conducted in the patient's room with [facility]ECT[facility] Moody. Patient Parathyroid Hormone level is 284.9 and elevated Calcium of 11.3. Patient has a thyroid scan scheduled for 07/12/18. He is complaining of a headache. He states he gets headaches regularly. He is photophobic and does not want to come out of his room. Refusing breakfast and fluids encouraged. Refusing his [place] , states " I don't want this medication anymore I am refuse to take it." Cooperative, but very confused, frustrated and seclusive. Review of Systems Ears, Nose, Mouth, and Throat: Reports headache(s) (states he gets headaches regularly ) Mental Status Examination Appearance: Disheveled Consciousness: Alert Orientation: x4 Motor Activity: Other (Walks with a limp) Speech: Unremarkable Language: Adequate Fund of Knowledge: Adequate Attention and Concentration: Easily distracted Memory: Unremarkable Mood: Manic, Other (Labile) Affect: Labile Thought Process & Associations: Intact, Tangential Thought Content: Appropriate Hallucination Type: None Delusion Type: Bizarre, Paranoid, Other (Grandiose) Suicidal Ideation: No Suicidal Plan: No Suicidal Intention: No Homicidal Ideation: No Homicidal Plan: No Homicidal Intention: No Insight: Poor Judgment: Poor Assessment and Plan - Assessment (1) Bipolar 1 disorder Code(s): F31.9 - Bipolar disorder, unspecified Status: Acute - Plan Plan: Continue current treatment plan. Thyroid scan scheduled for 07/12/18. Justification for Continued Inpatient Stay: Moving patient to a less restrictive environment may result in his decompensation.
[2018-07-11] MEDS: Atenolol 50 MG Tablet PO SCH (13:27)
--- NOTE | 2018-07-11 16:41 | P.PNIM ---
Subjective Interval history: Follow-up hypertension, hypercalcemia, hyperlipidemia, and bipolar disorder. Patient seen and examined ambulating in the hallway, and sitter at the dinner table. Patient eating well without complaints of any nausea, vomiting or abdominal pain. Patient denies any headache or dizziness, denies any chest pain or shortness of breath, denies any fever or chills. Patient stated doing well. Nurse reported no acute issues overnight Physical Exam Vital signs: Vital Signs 07/10/18 16:42 07/11/18 06:17 Temperature 98.7 F 98.9 F Pulse Rate 63 64 Respiratory Rate 16 20 Blood Pressure 138/65 125/64 Pulse Oximetry 99 96 Intake & Output 07/10/18 07/11/18 07/11/18 18:59 06:59 18:59 Intake Total 3440 / 3440 240 / 240 Balance 3440 / 3440 240 / 240 Intake: Oral 3440 / 3440 240 / 240 Other: # Voids 5 Narrative: GENERAL: Well-developed, well-nourished, male in no apparent distress SKIN: Warm and dry. HEAD: Atraumatic. Normocephalic. EYES: Pupils equal and round. No scleral icterus. No injection or drainage. ENT: No nasal bleeding or discharge. Mucous membranes pink and moist. NECK: Trachea midline. No JVD. CARDIOVASCULAR: Regular rate and rhythm. RESPIRATORY: No accessory muscle use. Clear to auscultation. Breath sounds equal bilaterally. GASTROINTESTINAL: Abdomen soft, non-tender, nondistended. Hepatic and splenic margins not palpable. MUSCULOSKELETAL: Extremities without clubbing, cyanosis. Bilateral lower extremity trace edema no obvious deformities. NEUROLOGICAL: Awake and alert. No obvious cranial nerve deficits. Motor grossly within normal limits. Five out of 5 muscle strength in the arms and legs. Normal speech. PSYCHIATRIC: Flat mood and affect; insight and judgment poor Results - Labs CBC & Chem 7: 07/09/18 08:00 07/10/18 06:41 Assessment and Plan - Assessment (1) Hypertension Code(s): I10 - Essential (primary) hypertension Status: Acute (2) [place] toxicity Code(s): T56.891A - Toxic effect of other metals, accidental (unintentional), initial encounter Status: Acute (3) Hypercalcemia Code(s): E83.52 - Hypercalcemia Status: Acute (4) Acute renal insufficiency Code(s): N28.9 - Disorder of kidney and ureter, unspecified Status: Acute (5) Bipolar 1 disorder Code(s): F31.9 - Bipolar disorder, unspecified Status: Acute (6) Manic disorder, recurrent episode, moderate Code(s): F31.89 - Other bipolar disorder Status: Acute (7) Noncompliance with medications Code(s): Z91.14 - Patient's other noncompliance with medication regimen Status : Acute (8) Functional musculoskeletal complaint Code(s): R29.91 - Unspecified symptoms and signs involving the musculoskeletal system Status: Acute - Plan This is a 67-year-old male with Known history of hypertension, hyperlipidemia, BPH, bipolar disorder who is admitted under psychiatry services apparently for some manic episodes. Bipolar disorder [place] toxicity -Management by psychiatry. -Patient with history of lithium toxicity in the past -Current electrolytes and renal functions normal. Hypercalcemia mild calcium level of 10.6. [place] related hyperparathyroidism Possible primary hyperparathyroidism -Review of previous workup PTH was 430 -Recheck PTH 284.9 -US parathyroid glands r/o adenoma - TSh 0.589 -Encourage p.o. fluids hydration -Monitor calcium levels, Vit D and [place] level -will consider consulting Nephrology if lithium level normal History of hypertension -Blood pressure labile -continue atenolol 50 mg daily -Monitor blood pressure, adjust medication as necessary History of BPH History of hyperlipidemia -Continue on statin 20 mg at bedtime -Continue tamsulosin 0.4 mg daily Complain of some mild headache. -Neuro exam unremarkable -continue Tylenol as needed for headache. DVT prophylaxis: Patient ambulatory Code Status: full code Discussed Condition With: patient and nurse (2) [place] toxicity Qualifiers: Encounter type: initial encounter Injury intent: accidental or unintentional Qualified Code(s): T56.891A - Toxic effect of other metals, accidental ( unintentional), initial encounter
[2018-07-12] MEDS: Atenolol 50 MG Tablet PO SCH (09:03)
--- NOTE | 2018-07-12 14:17 | P.PNPSY ---
Subjective Remarks: The patient was seen today in the nuclear medicine department. He is calm, cooperative, continues to be disorganized, emotionally dysregulated. Patient reports that he had a good weekend, "but have no receive any chocolate and nobody has asked me for my chocolate". He continues to be a little bit of pressure, tangential, but redirectable. As per nurse report, the patient has being intrusive, disorganized in the unit, refusing to take his medications, he takes it but with redirection. However, no aggressive behavior, no agitation have been reported. The patient is fully oriented x3 at the moment. Mental Status Examination Appearance: Disheveled Consciousness: Alert Orientation: x4 Motor Activity: Other (Walks with a limp) Speech: Unremarkable Language: Adequate Fund of Knowledge: Adequate Attention and Concentration: Easily distracted Memory: Unremarkable Mood: Manic, Other (Labile) Affect: Labile Thought Process & Associations: Intact, Tangential Thought Content: Appropriate Hallucination Type: None Delusion Type: Bizarre, Paranoid, Other (Grandiose) Suicidal Ideation: No Suicidal Plan: No Suicidal Intention: No Homicidal Ideation: No Homicidal Plan: No Homicidal Intention: No Insight: Poor Judgment: Poor Assessment and Plan - Assessment (1) Bipolar disorder, manic Code(s): F31.10 - Bipolar disorder, current episode manic without psychotic features, unspecified Status: Acute - Plan Plan: Patient continues to be acutely manic, delusional, pressured, tangential, will increase lithium to 450 mg twice daily. Continue medical treatment as per medical team. Justification for Continued Inpatient Stay: Continue psychiatric hospitalization for stabilization
--- NOTE | 2018-07-12 15:23 | NM ---
EXAM DATE: 07/12/2018 1:05 PM EST AGE/SEX: 67 years / Male INDICATIONS: Hypercalcemia. CLINICAL DATA: This is the patient's initial encounter. Patient reports that signs and symptoms have been present for 1 day and indicates a pain score of 0/10. MEDICAL/SURGICAL HISTORY: Hypertension. Bipolar disorder. None. COMPARISON: No prior exams available for comparison. TECHNIQUE: Following the injection of isotope as prescribed above, planar views of neck in anterior a nd both oblique projections were performed at 10 minutes. SPECT scan of the neck and chest was perfo rmed at 30 minutes. Delayed MIBI views in anterior and both oblique projections were then performed. Technetium pertechnetate was then injected and an anterior planar view of the neck was also obtaine d. Attenuation-corrected and non-corrected datasets were reviewed. DOSE: 21 mCi Tc99m Sestamibi IV 10 mCi Tc99m Pertechnetate IV IMAGING: SPECT/CT imaging with fusion was performed. RADIATION DOSE: 7.01 CTDIvol(mGy) FINDINGS: Early as well as late sestamibi images have been performed. On the early images there is homogeneous and symmetric uptake of tracer activity throughout the region of the thyroid gland bilaterally. On th e late images there is a small focal amount of retained tracer activity along the lower pole of the r ight lobe of the thyroid gland. CONCLUSION: 1. Localization of some focal retained tracer activity is noted along the lower pole of the right lo be of the thyroid gland. Electronically signed by: Jomar Shah MD 07/12/2018 3:22 PM EST
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
--- NOTE | 2018-07-12 23:47 | MB ---
cc: Cole Helms MD DATE: 07/12/2018 REASON FOR CONSULTATION: Hypercalcemia and elevated PTH level. HISTORY OF PRESENT ILLNESS: This is a 67-year-old male with a past medical history of bipolar disorder, hypertension, hyperlipidemia, benign prostatic hypertrophy, who was admitted because of manic episodes. I was called to see the patient because of high calcium and a high PTH level. The patient was found to have a calcium level of 10.8 on admission, which increased to 11.3. The patient does not know much about his medical history of any high calcium in the past, but the previous admission shows that he was here before for his lithium toxicity and electrolyte abnormalities. He denies any headache or dizziness. There is no nausea or vomiting. He has normal bowel motions that are usually once a day. The patient is not taking lithium for the last 4 or 5 days. PAST MEDICAL HISTORY: Hypertension, bipolar disorder, history of alcoholism, hyperlipidemia, benign prostatic hypertrophy. PAST SURGICAL HISTORY: History of some orthopedic surgery in the past. REVIEW OF SYSTEMS: The patient denies any headache, dizziness or blurring of vision. No nausea, vomiting. His appetite is normal. No shortness of breath. No chest pain. No palpitation. No history of abdominal pain. He has occasional loose bowel motion, usually 1-2 per day. There is no dysuria, hematuria or difficulty passing urine. SOCIAL HISTORY: The patient has no history of smoking. He has a history of alcoholism; about 3-4 times per week, he drinks alcoholic beverages. FAMILY HISTORY: Noncontributory. ALLERGIES: THERE ARE NO KNOWN DRUG ALLERGIES. MEDICATIONS: Currently, he is on: 1. Tylenol as needed. 2. Tenormin 20 mg once a day. 3. Lipitor 20 mg at bedtime. 4. [place] carbonate 450 mg b.i.d. 5. Senokot p.r.n. 6. Flomax 0.4 mg daily. PHYSICAL EXAMINATION: GENERAL: The patient is awake, alert. He is not in acute distress. VITAL SIGNS: Blood pressure is 127/75, temperature is 98.5, oxygen saturation is 98%. HEAD: Pupils are mid constricted. Nonicteric sclerae. Conjunctivae are pale. NECK: Supple. JVD is not elevated. LUNGS: The patient has bilateral air entry. CARDIOVASCULAR: S1, S2. Regular rhythm. ABDOMEN: Soft, lax. There is no tenderness. Bowel sounds positive. EXTREMITIES: He has 1+ edema in the legs. LABORATORY DATA: WBC count is 5.8, hemoglobin 12.7, platelet count , neutrophils 77.3% monocytes 9.2%. Sodium 144, potassium 3.8, chloride 113, bicarbonate 25.7, BUN 10, creatinine 0.9. Calcium is 11.3, magnesium is 2.3. AST and ALT are normal. Albumin is 3.5. Total protein is 6.8. is 146. Vitamin D level is pending. PTH is 284.9. TSH is 0.58. Urinalysis is showing that there is no protein. Toxicology screen showing lithium level is 0.2. Serum alcohol level was less than 3. Other toxicology screen was negative. IMAGING STUDIES: The patient had a parathyroid nuclear scan done, which shows that he has a localized lower pole of the right lobe of the thyroid gland. The patient also has a x-ray done, which shows that he has no fracture or pneumothorax. He also has an x-ray of the foot, which shows no bony injury. Cervical spine x-ray was done, which shows no acute bony injury. ASSESSMENT AND PLAN: 1. Hypercalcemia. 2. Hyperparathyroidism. 3. Hypertension. 4. Bipolar disorder. The patient has been on lithium and one of the side effects of the lithium is also hypercalcemia and causing also hyperparathyroidism, so this could be from lithium, but I will make sure that he does not have any parathyroid adenoma, so I will get a neck ultrasound and also will get the serum protein electrophoresis to make sure he does not have any multiple myeloma, which is very unlikely. If hypercalcemia is not improving, then consider stopping lithium and putting him on some other antipsychotic medicine. Thank you for the consultation. I will follow the patient while he is in the hospital. MD ROSALBA [id number]/rw/do , 08:36 PM , 09:02 PM
[2018-07-13] MEDS: Atenolol 50 MG Tablet PO SCH (08:47)
--- NOTE | 2018-07-13 10:11 | P.PNPSY ---
Subjective Remarks: The patient was seen today for psychiatric reevaluation. Patient was also discussed with nurse in charge. On my evaluation the patient is found in a good spirit eating his breakfast in the recreational area of the unit. Continues to be disorganized, delusional, tangential. Patient reports feeling very happy, he says that he is ready to be discharged to go to by a $5 million house, "meanwhile and will stay in the [facility] in a suite". He reports better sleep, last night he slept about 6 hours, reports good appetite,"damon energy". He denies suicidal and homicidal ideation, he denies visual and auditory hallucinations at the moment. However, as per nurse in charge, the patient continues to have episodic agitation, verbal hostility, irritability, disorganization, but he is usually redirectable. The patient has been taking his medications with frequent reassurance, at times becomes paranoid toward medication and stated that is poisoned. I have reviewed highly appreciated the recommendations of hospitalist and nephrology: ASSESSMENT AND PLAN: 1. Hypercalcemia. 2. Hyperparathyroidism. 3. Hypertension. 4. Bipolar disorder. as per customer success specialist " The patient has been on lithium and one of the side effects of the lithium is also hypercalcemia and causing also hyperparathyroidism, so this could be from lithium, but I will make sure that he does not have any parathyroid adenoma, so I will get a neck ultrasound and also will get the serum protein electrophoresis to make sure he does not have any multiple myeloma, which is very unlikely. If hypercalcemia is not improving, then consider stopping lithium and putting him on some other antipsychotic medicine. Mental Status Examination Appearance: Disheveled Consciousness: Alert Orientation: x4 Motor Activity: Other (Walks with a limp) Speech: Unremarkable Language: Adequate Fund of Knowledge: Adequate Attention and Concentration: Easily distracted Memory: Unremarkable Mood: Manic, Other (Labile) Affect: Labile Thought Process & Associations: Intact, Tangential Thought Content: Appropriate Hallucination Type: None Delusion Type: Bizarre, Paranoid, Other (Grandiose) Suicidal Ideation: No Suicidal Plan: No Suicidal Intention: No Homicidal Ideation: No Homicidal Plan: No Homicidal Intention: No Insight: Poor Judgment: Poor Assessment and Plan - Assessment (1) Bipolar disorder, manic Code(s): F31.10 - Bipolar disorder, current episode manic without psychotic features, unspecified Status: Acute - Plan Plan: Patient continues to be acutely manic and psychotic. He does present improvement in the sleep and behavior and seems to be responding appropriately to lithium. Will continue lesion 450 mg twice daily. We will add Abilify 5 mg for psychosis and brandin and in view of a potential discontinuation of lithium due to side effects. I will continue lithium until all potential causes of hyperparathyroidism and hypocalcemia rule out. The patient has been out of lithium for several weeks, lithium was just reinitiated 3 days ago. Justification for Continued Inpatient Stay: Continue psychiatric hospitalization for stabilization
[2018-07-13] MEDS: ARIPiprazole 5 MG Tablet PO SCH (10:25)
--- NOTE | 2018-07-13 10:54 | US ---
EXAM DATE: 07/13/2018 10:29 AM EST AGE/SEX: 67 years / Male INDICATIONS: Parathyroid adenoma. CLINICAL DATA: This is the patient's subsequent encounter. Patient reports that signs and symptoms h ave been present for 2 days and indicates a pain score of 0/10. MEDICAL/SURGICAL HISTORY: . Hypertension. Bipolar disorder. None. COMPARISON: [facility] [place] PARATHYROID IMAGING, 07/12/2018. . FINDINGS: Grayscale and Doppler ultrasound imaging of the right neck was performed to correlate for the abnorma l activity documented on recent nuclear medicine study. The right lobe of the thyroid gland demonstra jean marie overall normal homogeneous echogenicity and vascularity. In the lower pole there is a hypoechoic solid nodule that is wider than tall measuring 1.6 x 1.1 x 1.6 cm. It demonstrates smooth margins wit h no abnormal echogenic foci. CONCLUSION: There is a 1.6 cm thyroid nodule that corresponds to the abnormal activity on recent nuclear medicine parathyroid examination. Therefore, this is unlikely to represent a parathyroid adenoma as a cause f or the patient's hypercalcemia. One could consider neck MRI with contrast to further evaluate for a s mall parathyroid adenoma, if needed. The current 1.6 cm nodule demonstrates imaging features consiste nt with a TIRADS TR4 nodule. Therefore, consider fine-needle aspiration biopsy for further evaluation . Electronically signed by: Hector Tello MD 07/13/2018 10:52 AM EST
[2018-07-13] MEDS ORDERED: Sodium Chloride 0.9% 2 ML Flush PRN IV.FLUSH (11:54)
--- NOTE | 2018-07-13 14:42 | P.PN ---
Subjective Interval history: Follow-up on patient with hypercalcemia. Patient seen and examined. Patient's calcium level continues to increase and is now 14.1. Patient is asymptomatic. Patient states swelling in the right foot is much improved. He is asking for some cream for his dry skin on his feet. He denies any fever or chills. Denies any dizziness, lightheadedness or vision changes. Denies any chest pain or shortness of breath. He denies any nausea, vomiting or abdominal pain. Physical Exam Vital signs: Vital Signs 07/12/18 17:07 07/13/18 06:00 Temperature 98.5 F 97.7 F Pulse Rate 60 59 L Respiratory Rate 15 16 Blood Pressure 127/75 129/71 Pulse Oximetry 99 98 Intake & Output 07/12/18 07/13/18 07/13/18 18:59 06:59 18:59 Intake Total 2880 / 2880 580 / 580 Balance 2880 / 2880 580 / 580 Intake: Oral 2880 / 2880 480 / 480 Oral Supplement 100 / 100 Other: # Voids 3 Date of Last Bowel Movement 07/12/18 # Bowel Movements 1 Narrative: GENERAL: Well-developed, well-nourished elderly male in no apparent distress. Awake and alert. Seating in dayroom watching TV. SKIN: Warm and dry. +dry scaly skin on bottoms of both feet. HEENT: Atraumatic. Normocephalic. Pupils equal and round. No scleral icterus. No injection or drainage. No nasal bleeding or discharge. Mucous membranes pink and moist. NECK: Trachea midline. CARDIOVASCULAR: Regular rate and rhythm. RESPIRATORY: No accessory muscle use. Clear to auscultation. Breath sounds equal bilaterally. GASTROINTESTINAL: Abdomen soft, non-tender, nondistended. +BS. MUSCULOSKELETAL: Extremities without clubbing, cyanosis. Trace edema right ankle and foot. NEUROLOGICAL: Awake and alert. No obvious cranial nerve deficits. Motor grossly within normal limits. Able to move all extremities spontaneously. Normal speech. PSYCHIATRIC: Flat mood and affect; insight and judgment poor. Tangential. Results - Labs CBC & Chem 7: 07/09/18 08:00 07/10/18 06:41 Laboratory Results - last 24 hr 07/13/18 07/13/18 06:06 06:06 Calcium 14.1 H* Phosphorus 2.0 L Total Protein (PEP) 7.0 - Imaging Impressions Parathyroid Scan Nuclear Medicine 07/12/18 00:00 CONCLUSION: 1. Localization of some focal retained tracer activity is noted along the lower pole of the right lobe of the thyroid gland. Neck Ultrasound 07/13/18 00:00 CONCLUSION: There is a 1.6 cm thyroid nodule that corresponds to the abnormal activity on recent nuclear medicine parathyroid examination. Therefore, this is unlikely to represent a parathyroid adenoma as a cause for the patient's hypercalcemia. One could consider neck MRI with contrast to further evaluate for a small parathyroid adenoma, if needed. The current 1.6 cm nodule demonstrates imaging features consistent with a TIRADS TR4 nodule. Therefore, consider fine-needle aspiration biopsy for further evaluation. Assessment and Plan - Assessment (1) Hypertension Code(s): I10 - Essential (primary) hypertension Status: Acute (2) [place] toxicity Code(s): T56.891A - Toxic effect of other metals, accidental (unintentional), initial encounter Status: Acute (3) Hypercalcemia Code(s): E83.52 - Hypercalcemia Status: Acute (4) Acute renal insufficiency Code(s): N28.9 - Disorder of kidney and ureter, unspecified Status: Acute (5) Bipolar 1 disorder Code(s): F31.9 - Bipolar disorder, unspecified Status: Acute (6) Manic disorder, recurrent episode, moderate Code(s): F31.89 - Other bipolar disorder Status: Acute (7) Noncompliance with medications Code(s): Z91.14 - Patient's other noncompliance with medication regimen Status : Acute (8) Functional musculoskeletal complaint Code(s): R29.91 - Unspecified symptoms and signs involving the musculoskeletal system Status: Acute - Plan 67-year-old male with known PMHX of hypertension, hyperlipidemia, BPH , bipolar disorder who is admitted under psychiatry services apparently for manic episodes. Bipolar disorder Manic episode patient has been off [place], resumed 07/09 -Management by psychiatry. Hypercalcemia, worsening Hyperparathyroidism ?secondary to malignancy Review of previous workup PTH was 430, repeat PTH this admit 284.9 hx of lithium toxicity in the past but patient not on lithium prior to this admission and lithium level low at 0.2 Neck US + 1.6cm thyroid nodule, unlikely to be parathyroid adenoma, TR4 nodule, FNA bx recommended -Nephrology following, appreciate recommendations. SPEP pending to r/o multiple myeloma. Psychiatry may wish to consider discontinuation of lithium as calcium level has increased since medication was resumed -order placed for FNA bx but contacted later by radiology informing procedure must be done as outpatient -07/13 calcium level trending up, 10.8 -> 14.1. Transfer patient to med psych. Begin aggressive IVF tx. Discussed with nephrology team. -Repeat calcium level in a.m. History of hypertension -Blood pressure labile, improving -continue atenolol 50 mg daily -Monitor blood pressure, adjust medication as necessary History of BPH History of hyperlipidemia -Continue on statin 20 mg at bedtime -Continue tamsulosin 0.4 mg daily DVT prophylaxis: Patient is ambulatory Code Status: Full Discussed Condition With: patient, nursing staff, Dr. Alexandra, Nephrology service (2) [place] toxicity Qualifiers: Encounter type: initial encounter Injury intent: accidental or unintentional Qualified Code(s): T56.891A - Toxic effect of other metals, accidental ( unintentional), initial encounter
[2018-07-13] MEDS: Sod Chloride 0.9% Inj 1,000 ML IV.CONT SCH ×3 (15:00→17:58)
--- NOTE | 2018-07-13 20:20 | P.PNNP ---
Subjective Interval history: Patient was seen in the afternoon, no SOB, eating well. Physical Exam Vital signs: Vital Signs 07/13/18 06:00 07/13/18 18:36 Temperature 97.7 F 98.2 F Pulse Rate 59 L 61 Respiratory Rate 16 16 Blood Pressure 129/71 127/61 Pulse Oximetry 98 Intake & Output 07/13/18 07/13/18 07/14/18 06:59 18:59 06:59 Intake Total 580 / 580 1959 Balance 580 / 580 1959 Intake: IV 1000 / 1000 NS Inj 1,000 ML @ 150 mls/hr IV 1000 / 1000 .CONT .Q6H40M [facility] Rx#:[id number] Oral 480 / 480 960 / 960 Oral Supplement 100 / 100 Other: # Voids 3 1 Date of Last Bowel Movement 07/12/18 # Bowel Movements 1 Narrative: GENERAL: Well-developed, well-nourished elderly male in no apparent distress. Awake and alert. Seating in dayroom watching TV. SKIN: Warm and dry. +dry scaly skin on bottoms of both feet. HEENT: Atraumatic. Normocephalic. Pupils equal and round. No scleral icterus. No injection or drainage. No nasal bleeding or discharge. Mucous membranes pink and moist. NECK: Trachea midline. CARDIOVASCULAR: Regular rate and rhythm. RESPIRATORY: No accessory muscle use. Clear to auscultation. Breath sounds equal bilaterally. GASTROINTESTINAL: Abdomen soft, non-tender, nondistended. +BS. MUSCULOSKELETAL: Extremities without clubbing, cyanosis. Trace edema right ankle and foot. NEUROLOGICAL: Awake and alert. No obvious cranial nerve deficits. Motor grossly within normal limits. Able to move all extremities spontaneously. Normal speech. PSYCHIATRIC: Flat mood and affect; insight and judgment poor. Tangential. Assessment and Plan - Assessment (1) Hypercalcemia Code(s): E83.52 - Hypercalcemia Status: Acute (2) Bipolar 1 disorder Code(s): F31.9 - Bipolar disorder, unspecified Status: Acute (3) Bipolar disorder, manic Code(s): F31.10 - Bipolar disorder, current episode manic without psychotic features, unspecified Status: Acute (4) Hypertension Code(s): I10 - Essential (primary) hypertension Status: Acute - Plan Patient with Bipolar disorder, and has been on [place]. Now has elevated calcium and PTH level. Calcium now increase above 14, U/S of neck is pending. Will start IVF with NS and Lasix one dose for saline diuresis of calcium. Follow calcium level.
[2018-07-13] MEDS: Lactic Acid (Ammonium Lactate) 12% Lotion 225 GM Bottle TOPICAL SCH (21:00)
[2018-07-13] MEDS: Sodium Chloride 0.9% 2 ML Flush BID IV.FLUSH SCH (21:00)
[2018-07-14] MEDS: Sod Chloride 0.9% Inj 1,000 ML IV.CONT SCH ×4 (06:43→20:26)
--- NOTE | 2018-07-14 07:57 | P.PN ---
Subjective Interval history: Follow-up on patient with hypercalcemia. Patient seen and examined. Patient denies any acute medical complaints or concerns. He states he urinated everywhere all night long. He denies any dysuria or hematuria. Denies any fever or chills. Denies any chest pain or shortness of breath. Denies any nausea, vomiting or abdominal pain. He is asking for Ketchup and sugar. Discussed with nursing staff, no adverse events noted overnight. Physical Exam Vital signs: Vital Signs 07/13/18 18:36 Temperature 98.2 F Pulse Rate 61 Respiratory Rate 16 Blood Pressure 127/61 Intake & Output 07/13/18 07/14/18 07/14/18 18:59 06:59 18:59 Intake Total 1959 2960 / 2960 Balance 1959 2960 / 2960 Intake: IV 1000 / 1000 1999 NS Inj 1,000 ML @ 150 mls/hr IV 1000 / 1000 1999 .CONT .Q6H40M PABLO Rx#:[id number] Oral 960 / 960 960 / 960 Other: # Voids 1 3 Date of Last Bowel Movement 07/12/18 Narrative: GENERAL: Well-developed, well-nourished elderly male in no apparent distress. Awake and alert. Appears comfortable sitting up on the side of bed eating breakfast. SKIN: Warm and dry. +dry scaly skin on bottoms of both feet. HEENT: Atraumatic. Normocephalic. Pupils equal and round. No scleral icterus. No injection or drainage. No nasal bleeding or discharge. Mucous membranes pink and moist. NECK: Trachea midline. CARDIOVASCULAR: Regular rate and rhythm. RESPIRATORY: No accessory muscle use. Clear to auscultation. Breath sounds equal bilaterally. GASTROINTESTINAL: Abdomen soft, non-tender, nondistended. +BS. MUSCULOSKELETAL: Extremities without clubbing, cyanosis. Trace edema right ankle and foot. NEUROLOGICAL: Awake and alert. No obvious cranial nerve deficits. Motor grossly within normal limits. Able to move all extremities spontaneously. Normal speech. PSYCHIATRIC: Flat mood and affect; insight and judgment poor. Results - Labs CBC & Chem 7: 07/09/18 08:00 07/10/18 06:41 Laboratory Results - last 24 hr 07/13/18 06:06 Calcium 14.1 H* - Imaging Impressions Neck Ultrasound 07/13/18 00:00 CONCLUSION: There is a 1.6 cm thyroid nodule that corresponds to the abnormal activity on recent nuclear medicine parathyroid examination. Therefore, this is unlikely to represent a parathyroid adenoma as a cause for the patient's hypercalcemia. One could consider neck MRI with contrast to further evaluate for a small parathyroid adenoma, if needed. The current 1.6 cm nodule demonstrates imaging features consistent with a TIRADS TR4 nodule. Therefore, consider fine-needle aspiration biopsy for further evaluation. Assessment and Plan - Assessment (1) Hypertension Code(s): I10 - Essential (primary) hypertension Status: Acute (2) [place] toxicity Code(s): T56.891A - Toxic effect of other metals, accidental (unintentional), initial encounter Status: Acute (3) Hypercalcemia Code(s): E83.52 - Hypercalcemia Status: Acute (4) Acute renal insufficiency Code(s): N28.9 - Disorder of kidney and ureter, unspecified Status: Acute (5) Bipolar 1 disorder Code(s): F31.9 - Bipolar disorder, unspecified Status: Acute (6) Manic disorder, recurrent episode, moderate Code(s): F31.89 - Other bipolar disorder Status: Acute (7) Noncompliance with medications Code(s): Z91.14 - Patient's other noncompliance with medication regimen Status : Acute (8) Functional musculoskeletal complaint Code(s): R29.91 - Unspecified symptoms and signs involving the musculoskeletal system Status: Acute - Plan 67-year-old male with known PMHX of hypertension, hyperlipidemia, BPH , bipolar disorder who is admitted under psychiatry services apparently for manic episodes. Bipolar disorder Manic episode patient has been off [place], resumed 07/09 -Management by psychiatry. Hypercalcemia, worsening asymptomatic Hyperparathyroidism ?secondary to malignancy Review of previous workup PTH was 430, repeat PTH this admit 284.9 hx of lithium toxicity in the past but patient not on lithium prior to this admission and lithium level low at 0.2 Neck US + 1.6cm thyroid nodule, unlikely to be parathyroid adenoma, TR4 nodule, FNA bx recommended -Nephrology following, appreciate recommendations. SPEP pending to r/o multiple myeloma. Psychiatry may wish to consider discontinuation of lithium as calcium level has increased since medication was resumed -order placed for FNA bx but contacted later by radiology informing procedure must be done as outpatient -07/14 calcium level trending up, 10.8 -> 14.2. Started on IVF and given IV Lasix x 1 dose. Continue aggressive IVF tx. ?Pamidronate. Defer treatment to nephrology team. -Repeat calcium level in a.m. -Repeat lithium level History of hypertension -Blood pressure labile, currently controlled -continue atenolol 50 mg daily -Monitor blood pressure, adjust medication as necessary History of BPH History of hyperlipidemia -Continue on statin 20 mg at bedtime -Continue tamsulosin 0.4 mg daily DVT prophylaxis: Patient is ambulatory Code Status: Full Discussed Condition With: patient, nursing staff, Dr. Chavez (2) [place] toxicity Qualifiers: Encounter type: initial encounter Injury intent: accidental or unintentional Qualified Code(s): T56.891A - Toxic effect of other metals, accidental ( unintentional), initial encounter
[2018-07-14] MEDS: Atenolol 50 MG Tablet PO SCH (09:06)
[2018-07-14] MEDS: ARIPiprazole 5 MG Tablet PO SCH (09:06)
[2018-07-14] MEDS: Lactic Acid (Ammonium Lactate) 12% Lotion 225 GM Bottle TOPICAL SCH ×2 (09:07→20:30)
[2018-07-14] MEDS: Sodium Chloride 0.9% 2 ML Flush BID IV.FLUSH SCH ×2 (09:07→20:31)
--- NOTE | 2018-07-14 11:32 | P.PNNP ---
Subjective Interval history: Patient is alert, eating well, no complain. Physical Exam Vital signs: Vital Signs 07/13/18 18:36 Temperature 98.2 F Pulse Rate 61 Respiratory Rate 16 Blood Pressure 127/61 Intake & Output 07/13/18 07/14/18 07/14/18 18:59 06:59 18:59 Intake Total 1959 2960 / 2960 Balance 1959 2960 / 2960 Intake: IV 1000 / 1000 1999 NS Inj 1,000 ML @ 150 mls/hr IV 1000 / 1000 1999 .CONT .Q6H40M PABLO Rx#:[id number] Oral 960 / 960 960 / 960 Other: # Voids 1 3 Date of Last Bowel Movement 07/12/18 Narrative: GENERAL: Well-developed, well-nourished elderly male in no apparent distress. Awake and alert. Appears comfortable sitting up on the side of bed eating breakfast. SKIN: Warm and dry. +dry scaly skin on bottoms of both feet. HEENT: Atraumatic. Normocephalic. Pupils equal and round. No scleral icterus. No injection or drainage. No nasal bleeding or discharge. Mucous membranes pink and moist. NECK: Trachea midline. CARDIOVASCULAR: Regular rate and rhythm. RESPIRATORY: No accessory muscle use. Clear to auscultation. Breath sounds equal bilaterally. GASTROINTESTINAL: Abdomen soft, non-tender, nondistended. +BS. MUSCULOSKELETAL: Extremities without clubbing, cyanosis. Trace edema right ankle and foot. NEUROLOGICAL: Awake and alert. No obvious cranial nerve deficits. Motor grossly within normal limits. Able to move all extremities spontaneously. Normal speech. PSYCHIATRIC: Flat mood and affect; insight and judgment poor. Assessment and Plan - Assessment (1) Hypercalcemia Code(s): E83.52 - Hypercalcemia Status: Acute (2) Bipolar 1 disorder Code(s): F31.9 - Bipolar disorder, unspecified Status: Acute (3) Bipolar disorder, manic Code(s): F31.10 - Bipolar disorder, current episode manic without psychotic features, unspecified Status: Acute (4) Hypertension Code(s): I10 - Essential (primary) hypertension Status: Acute - Plan Patient with Bipolar disorder, and has been on [place]. Now has elevated calcium and PTH level. Calcium remain elevated above 14. U/S of neck noted, has Thyroid Nodule, which will need workup. [place] can cause increase in calcium and PTH, consider stopping it if possible. I will give Calcitonin, to decrease calcium level. Follow calcium level.
--- NOTE | 2018-07-14 12:36 | P.PNPSY ---
Subjective Remarks: The patient was seen today for psychiatric reevaluation. Case was discussed with nursing charge. Patient is found laying in his bed, he is calm, cooperative, he states that he feels much better. He reports a better sleep, good level of energy, good appetite. He reports to be in a better mood, he says that he wants to be discharged so he can go and "buy a house of $3 millions ". His speech is more appropriate today, denies suicidal and homicidal ideation , denies visual and auditory hallucinations. The patient is taking his medications, no significant side effects so far. Mental Status Examination Appearance: Disheveled Consciousness: Alert Orientation: x4 Motor Activity: Other (Walks with a limp) Speech: Unremarkable Language: Adequate Fund of Knowledge: Adequate Attention and Concentration: Easily distracted Memory: Unremarkable Mood: Manic, Other (Labile) Affect: Labile Thought Process & Associations: Intact, Tangential Thought Content: Appropriate Hallucination Type: None Delusion Type: Bizarre, Paranoid, Other (Grandiose) Suicidal Ideation: No Suicidal Plan: No Suicidal Intention: No Homicidal Ideation: No Homicidal Plan: No Homicidal Intention: No Insight: Poor Judgment: Poor Assessment and Plan - Assessment (1) Bipolar disorder, manic Code(s): F31.10 - Bipolar disorder, current episode manic without psychotic features, unspecified Status: Acute - Plan Plan: [place] level is 0.9. Continue current psychotropic regimen. Patient continues to show symptoms of brandin, but definitely responding appropriately to psychotropics. Continue medical workup of hypercalcemia. Justification for Continued Inpatient Stay: Continue psychiatric admission for stabilization
[2018-07-14] MEDS: Calcitonin Salmon Inj 400 UNIT/2 ML Vial SQ SCH ×2 (13:35→20:29)
[2018-07-14] MEDS: Acetaminophen 325 MG Tablet PO PRN (15:16)
[2018-07-15] MEDS: Sod Chloride 0.9% Inj 1,000 ML IV.CONT SCH (03:15)
[2018-07-15 07:53] LABS: Vitamin D 1,25-Dihydroxy 38 pg/mL (18-72)
[2018-07-15 08:44] LABS: Anion Gap 5 meq/L (5-15); Blood Urea Nitrogen 12 mg/dL (7-18); Carbon Dioxide 23.5 meq/L (21.0-32.0); Chloride 117 meq/L (98-107); Glomerular Filtration Rate Greater Than 89 mL/min (>89); Glucose,Random 90 mg/dL (74-106); Potassium 4.9 meq/L (3.5-5.1); Sodium 145 meq/L (136-145)
[2018-07-15 08:59] LABS: Albumin 3.5 g/dL (3.4-5.0)
[2018-07-15 09:05] LABS: Calcium-Albumin Corrected 12.4 mg/dL (8.5-10.1)
[2018-07-15] MEDS: ARIPiprazole 5 MG Tablet PO SCH (09:09)
[2018-07-15] MEDS: Calcitonin Salmon Inj 400 UNIT/2 ML Vial SQ SCH ×3 (09:09→21:13)
[2018-07-15] MEDS: Atenolol 50 MG Tablet PO SCH (09:09)
[2018-07-15] MEDS: Lactic Acid (Ammonium Lactate) 12% Lotion 225 GM Bottle TOPICAL SCH ×2 (09:10→21:09)
[2018-07-15] MEDS: Sodium Chloride 0.9% 2 ML Flush BID IV.FLUSH SCH ×2 (09:10→21:15)
--- NOTE | 2018-07-15 10:24 | P.PNNP ---
Subjective Interval history: Patient is alert, no SOB, eating well. Physical Exam Vital signs: Vital Signs 07/14/18 16:32 07/15/18 06:00 Temperature 97.9 F 97.6 F Pulse Rate 68 53 L Respiratory Rate 20 16 Blood Pressure 110/74 120/60 Pulse Oximetry 92 L 99 Intake & Output 07/14/18 07/15/18 07/15/18 18:59 06:59 18:59 Intake Total 2120 / 2120 2240 / 2240 Output Total 500 / 500 Balance 212 / 0 1740 / 1740 Intake: IV 1000 / 1000 1999 NS Inj 1,000 ML @ 150 mls/hr IV 1000 / 1000 1999 .CONT .Q6H40M PABLO Rx#:[id number] Oral 1120 / 1120 240 / 240 Output: Urine 500 / 500 Other: # Voids 2 Narrative: GENERAL: Well-developed, well-nourished elderly male in no apparent distress. Awake and alert. Appears comfortable sitting up on the side of bed eating breakfast. SKIN: Warm and dry. +dry scaly skin on bottoms of both feet. HEENT: Atraumatic. Normocephalic. Pupils equal and round. No scleral icterus. No injection or drainage. No nasal bleeding or discharge. Mucous membranes pink and moist. NECK: Trachea midline. CARDIOVASCULAR: Regular rate and rhythm. RESPIRATORY: No accessory muscle use. Clear to auscultation. Breath sounds equal bilaterally. GASTROINTESTINAL: Abdomen soft, non-tender, nondistended. +BS. MUSCULOSKELETAL: Extremities without clubbing, cyanosis. Trace edema right ankle and foot. NEUROLOGICAL: Awake and alert. No obvious cranial nerve deficits. Motor grossly within normal limits. Able to move all extremities spontaneously. Normal speech. PSYCHIATRIC: Flat mood and affect; insight and judgment poor. Assessment and Plan - Assessment (1) Hypercalcemia Code(s): E83.52 - Hypercalcemia Status: Acute (2) Bipolar 1 disorder Code(s): F31.9 - Bipolar disorder, unspecified Status: Acute (3) Bipolar disorder, manic Code(s): F31.10 - Bipolar disorder, current episode manic without psychotic features, unspecified Status: Acute (4) Hypertension Code(s): I10 - Essential (primary) hypertension Status: Acute - Plan Patient with Bipolar disorder, and has been on [place]. Now has elevated calcium and PTH level. Calcium remain elevated above 14. U/S of neck noted, has Thyroid Nodule, which will need workup. [place] can cause increase in calcium and PTH, It can not be stopped as per Psychiatry as patient can have rebound in his Manic disorder. Started on Calcitonin, calcium level improving. D/C IVF, encourage oral fluid intake. Follow calcium level.
--- NOTE | 2018-07-15 13:49 | P.PNPSY ---
Subjective Remarks: The patient was seen today for psychiatric reevaluation in the 4 E. floor, he was also seen this morning in [address] where it was determined that the patient will continue in a involuntary psychiatric admission for 2 weeks more, if necessary. on my psychiatric evaluation the patient is found in his bed, he is calm, cooperative, in a good spirit. He reports feeling much better today, however continues to be disorganized, with grandeur delusions, with expansive affect, he stated that he is awaiting to be discharged by a [facility]. He also says that he has to go to the police to report a murdered he witnessed here yesterday "where a man which name is Samuel was killed by one man here in the hospital". He is fully oriented x3. Has been compliant his medications, no significant side effects reported so far. Medical workup for hypercalcemia continues, recommendations of nephrology is appreciated. Mental Status Examination Appearance: Disheveled Consciousness: Alert Orientation: x4 Motor Activity: Other (Walks with a limp) Speech: Unremarkable Language: Adequate Fund of Knowledge: Adequate Attention and Concentration: Easily distracted Memory: Unremarkable Mood: Manic, Other (Labile) Affect: Labile Thought Process & Associations: Intact, Tangential Thought Content: Appropriate Hallucination Type: None Delusion Type: Bizarre, Paranoid, Other (Grandiose) Suicidal Ideation: No Suicidal Plan: No Suicidal Intention: No Homicidal Ideation: No Homicidal Plan: No Homicidal Intention: No Insight: Poor Judgment: Poor Assessment and Plan - Assessment (1) Bipolar disorder, manic Code(s): F31.10 - Bipolar disorder, current episode manic without psychotic features, unspecified Status: Acute - Plan Plan: Patient continues to show symptoms of brandin and psychosis. His affect is expansive, continued to have grandeur delusions, increased speech production. Continue lithium 450 mg twice daily. Abilify will be increased to 10 mg daily. If finally is determined that lithium is responsible for hypercalcemia, might consider to be discontinued. Support, motivational psychoeducation provided. Justification for Continued Inpatient Stay: Continue psychiatric admission for stabilization and safety.
[2018-07-15] MEDS: ARIPiprazole 10 MG Tablet PO SCH (16:40)
--- NOTE | 2018-07-15 17:09 | P.PN ---
Subjective Interval history: late entry, patient seen earlier this morning Follow-up on patient with hypercalcemia. Patient seen and examined. Patient reports 2 very brief episodes of sharp chest pain "that made it hard to breath" . Patient states he was lying in position when he experienced back to back left sided nonradicular chest pain that last for less than a second. He denies any associated dizziness, lightheadedness, palpitations, diaphoresis, nausea or vomiting. Patient denies any chest pain at this time. Physical Exam Vital signs: Vital Signs 07/15/18 06:00 Temperature 97.6 F Pulse Rate 53 L Respiratory Rate 16 Blood Pressure 120/60 Pulse Oximetry 99 Intake & Output 07/14/18 07/15/18 07/15/18 18:59 06:59 18:59 Intake Total 2120 / 2120 2240 / 2240 600 / 600 Output Total 500 / 500 Balance 2120 / 2120 1740 / 1740 600 / 600 Intake: IV 1000 / 1000 1999 / 1999 NS Inj 1,000 ML @ 150 mls/hr IV 1000 / 1000 1999 .CONT .[id number] [facility] Rx#:[id number] Oral 1120 / 1120 240 / 240 600 / 600 Output: Urine 500 / 500 Other: # Voids 2 Date of Last Bowel Movement 07/12/18 Narrative: GENERAL: Well-developed, well-nourished elderly male. Awake and alert. Appears comfortable sitting up on the side of bed eating breakfast. INAD. SKIN: Warm and dry. +dry scaly skin on bottoms of both feet. HEENT: Atraumatic. Normocephalic. Pupils equal and round. No scleral icterus. No injection or drainage. No nasal bleeding or discharge. Mucous membranes pink and moist. NECK: Trachea midline. CARDIOVASCULAR: Regular rate and rhythm. Chest wall nontender to palpation. RESPIRATORY: No accessory muscle use. Clear to auscultation. Breath sounds equal bilaterally. GASTROINTESTINAL: Abdomen soft, non-tender, nondistended. +BS. MUSCULOSKELETAL: Extremities without clubbing, cyanosis. Trace edema right ankle and foot. NEUROLOGICAL: Awake and alert. No obvious cranial nerve deficits. Motor grossly within normal limits. Able to move all extremities spontaneously. Normal speech. PSYCHIATRIC: Flat mood and affect; insight and judgment poor. Results - Labs CBC & Chem 7: 07/09/18 08:00 07/15/18 07:51 Laboratory Results - last 24 hr 07/12/18 07/13/18 07/15/18 06:07 06:06 07:51 Sodium 145 Potassium 4.9 Chloride 117 H Carbon Dioxide 23.5 Anion Gap 5 BUN 12 Creatinine 0.83 Estimated GFR Greater than 89 Random Glucose 90 Calcium 12.0 H* D Calcium Adj for Albumin 12.4 H* Troponin I Albumin 3.5 Albumin (PEP) 4.35 Albumin/Globulin Ratio 1.65 Pqxxf-1-Belgunneq 0.25 Cogay-1-Jodlapmiy 0.88 Beta Globulins 0.71 Gamma Globulins 0.81 PEP Pathologist Comment Vit D 1,25-Dihydroxy 38 1,25 Dihydroxy Vit D2 <8 1,25 Dihydroxy Vit D3 38 07/15/18 07:51 Sodium Potassium Chloride Carbon Dioxide Anion Gap BUN Creatinine Estimated GFR Random Glucose Calcium Calcium Adj for Albumin Troponin I Less than 0.02 L Albumin Albumin (PEP) Albumin/Globulin Ratio Kfykn-9-Dimtkzetp Jpbwh-2-Clsgvqdka Beta Globulins Gamma Globulins PEP Pathologist Comment Vit D 1,25-Dihydroxy 1,25 Dihydroxy Vit D2 1,25 Dihydroxy Vit D3 Assessment and Plan - Assessment (1) Hypertension Code(s): I10 - Essential (primary) hypertension Status: Acute (2) [place] toxicity Code(s): T56.891A - Toxic effect of other metals, accidental (unintentional), initial encounter Status: Acute (3) Hypercalcemia Code(s): E83.52 - Hypercalcemia Status: Acute (4) Acute renal insufficiency Code(s): N28.9 - Disorder of kidney and ureter, unspecified Status: Acute (5) Bipolar 1 disorder Code(s): F31.9 - Bipolar disorder, unspecified Status: Acute (6) Manic disorder, recurrent episode, moderate Code(s): F31.89 - Other bipolar disorder Status: Acute (7) Noncompliance with medications Code(s): Z91.14 - Patient's other noncompliance with medication regimen Status : Acute (8) Functional musculoskeletal complaint Code(s): R29.91 - Unspecified symptoms and signs involving the musculoskeletal system Status: Acute - Plan 67-year-old male with known PMHX of hypertension, hyperlipidemia, BPH , bipolar disorder who is admitted under psychiatry services apparently for manic episodes. Bipolar disorder Manic episode patient has been off [place], resumed 07/09 -Management by psychiatry. Hypercalcemia, worsening asymptomatic Hyperparathyroidism ?secondary to malignancy Review of previous workup PTH was 430, repeat PTH this admit 284.9 hx of lithium toxicity in the past but patient not on lithium prior to this admission and lithium level low at 0.2 Neck US + 1.6cm thyroid nodule, unlikely to be parathyroid adenoma, TR4 nodule, FNA bx recommended -Nephrology following, appreciate recommendations. SPEP pending to r/o multiple myeloma. Psychiatry may wish to consider discontinuation of lithium as calcium level has increased since medication was resumed -order placed for FNA bx but contacted later by radiology informing procedure must be done as outpatient -07/14 calcium level trending up, 10.8 -> 14.2. Started on IVF and given IV Lasix x 1 dose. Continue aggressive IVF tx. -07/15 started on Calcitonin by Nephrology. Ca trending down. IVF discontinued. Encourage oral fluid intake. Repeat lithium level WNL. -continue to follow calcium level Chest pain, atypical doubt cardiac in origin patient is asymptomatic at this time -troponin <0.02 -ECG appears unchanged -monitor History of hypertension -Blood pressure labile, currently controlled -continue atenolol 50 mg daily -Monitor blood pressure, adjust medication as necessary History of BPH History of hyperlipidemia -Continue on statin 20 mg at bedtime -Continue tamsulosin 0.4 mg daily DVT prophylaxis: Patient is ambulatory Code Status: Full Discussed Condition With: patient, nursing staff (2) [place] toxicity Qualifiers: Encounter type: initial encounter Injury intent: accidental or unintentional Qualified Code(s): T56.891A - Toxic effect of other metals, accidental ( unintentional), initial encounter
--- NOTE | 2018-07-15 17:26 | ECG ---
Date Performed: 07/15/2018 Time Performed: 09:41:29 PTAGE: 67 years EKG: SINUS BRADYCARDIA VOLTAGE CRITERIA FOR LVH MARKED T-WAVE ABNORMALITY, CONSIDER ANTEROLATERA L ISCHEMIA ABNORMAL ECG PREVIOUS TRACING : 07/09/2018 16.12 Since the previous tracing, no significant change noted DOCTOR: Brynn Lozano Interpretating Date/Time 07/15/2018 17:24:24
[2018-07-16] MEDS: ARIPiprazole 10 MG Tablet PO SCH (08:57)
[2018-07-16] MEDS: Atenolol 50 MG Tablet PO SCH (08:57)
[2018-07-16] MEDS: Lactic Acid (Ammonium Lactate) 12% Lotion 225 GM Bottle TOPICAL SCH ×2 (08:57→21:24)
[2018-07-16] MEDS: Sodium Chloride 0.9% 2 ML Flush BID IV.FLUSH SCH ×2 (08:58→21:26)
--- NOTE | 2018-07-16 11:02 | P.PNIM ---
Subjective Interval history: Follow-up on patient with hypercalcemia. Patient seen and examined. Patient denies any complaints of chest pain or shortness of breath today. Patient does report dizziness intermittently. Difficult to ascertain if it is positional. Patient states he does not normally eat breakfast or lunch however the last 2 mornings patient has been voraciously eating his breakfast during our encounters. He denies any nausea or vomiting. He states he is urinating well. Physical Exam Vital signs: Last Vital Signs Temp 97.3 F L 07/16/18 06:29 Pulse 55 L 07/16/18 06:29 Resp 16 07/16/18 06:29 BP 126/60 07/16/18 06:29 Pulse Ox 98 07/16/18 06:29 Intake & Output 07/14/18 07/15/18 07/16/18 07/17/18 06:59 06:59 06:59 06:59 Intake Total 4920 / 4920 4360 / 4360 1560 / 1560 Output Total 500 / 500 Balance 4920 / 4920 3860 / 3860 1560 / 1560 Narrative: GENERAL: Well-developed, well-nourished elderly male. Awake and alert. Appears comfortable lying in bed. INAD. SKIN: Warm and dry. +dry scaly skin on bottoms of both feet. HEENT: Atraumatic. Normocephalic. Pupils equal and round. No scleral icterus. No injection or drainage. No nasal bleeding or discharge. Mucous membranes pink and moist. NECK: Trachea midline. CARDIOVASCULAR: Regular rate and rhythm. RESPIRATORY: No accessory muscle use. Clear to auscultation. Breath sounds equal bilaterally. GASTROINTESTINAL: Abdomen soft, non-tender, nondistended. +BS. MUSCULOSKELETAL: Extremities without clubbing, cyanosis. Trace edema right ankle and foot with mild erythema noted over right ankle. NEUROLOGICAL: Awake and alert. No obvious cranial nerve deficits. Motor grossly within normal limits. Able to move all extremities spontaneously. Normal speech. PSYCHIATRIC: Flat mood and affect; insight and judgment poor. Results Labs CBC & Chem 7: 07/09/18 08:00 07/15/18 07:51 Assessment and Plan (1) Hypertension: Code(s): I10 - Essential (primary) hypertension Status: Acute (2) [place] toxicity: Code(s): T56.891A - Toxic effect of other metals, accidental (unintentional), initial encounter Status: Acute (3) Hypercalcemia: Code(s): E83.52 - Hypercalcemia Status: Acute (4) Acute renal insufficiency: Code(s): N28.9 - Disorder of kidney and ureter, unspecified Status: Acute (5) Bipolar 1 disorder: Code(s): F31.9 - Bipolar disorder, unspecified Status: Acute (6) Manic disorder, recurrent episode, moderate: Code(s): F31.89 - Other bipolar disorder Status: Acute (7) Noncompliance with medications: Code(s): Z91.14 - Patient's other noncompliance with medication regimen Status: Acute (8) Functional musculoskeletal complaint: Code(s): R29.91 - Unspecified symptoms and signs involving the musculoskeletal system Status: Acute Plan 67-year-old male with known PMHX of hypertension, hyperlipidemia, BPH, bipolar disorder who is admitted under psychiatry services apparently for manic episodes. Bipolar disorder Manic episode patient has been off [place], resumed 07/09 -Management by psychiatry. Hypercalcemia, improving asymptomatic Hyperparathyroidism, uncertain etiology Review of previous workup PTH was 430, repeat PTH this admit 284.9 hx of lithium toxicity in the past but patient not on lithium prior to this admission and lithium level low at 0.2 Neck US + 1.6cm thyroid nodule, unlikely to be parathyroid adenoma, TR4 nodule, FNA bx recommended -Nephrology following, appreciate recommendations. -order placed for FNA bx but contacted later by radiology informing procedure must be done as outpatient -07/14 calcium level trending up, 10.8 -> 14.2. Started on IVF and given IV Lasix x 1 dose. Continue aggressive IVF tx. -07/15 started on Calcitonin by Nephrology. Ca trending down. IVF discontinued. Encourage oral fluid intake. Repeat lithium level WNL. -continue to follow calcium level Chest pain, atypical, resolved doubt cardiac in origin patient is asymptomatic at this time, no recurrence of CP -troponin <0.02 -ECG appears unchanged -monitor History of hypertension Bradycardia, mild -Blood pressure labile, currently controlled -continue atenolol 50 mg daily - may need to decrease dose to 25mg if orthostatics + -Monitor blood pressure, adjust medication as necessary Dizziness, suspect orthostatic hypotension -check orthostatic BP measurements -fall precautions History of BPH History of hyperlipidemia -Continue on statin 20 mg at bedtime -Continue tamsulosin 0.4 mg daily Protein calorie malnutrition -Consult sales producer, appreciate recommendations -add Ensure to meals -Theragran M daily -monitor weight DVT prophylaxis: Patient is ambulatory Progress Note: Quality VTE Deep Vein Thrombosis/Pulmonary Embolism Present on Admission: No _ (1) Hypertension Qualifiers: Hypertension type: (2) [place] toxicity Qualifiers: Encounter type: initial encounter Injury intent: accidental or unintentional Qualified Code(s): T56.891A - Toxic effect of other metals, accidental ( unintentional), initial encounter
--- NOTE | 2018-07-16 12:01 | P.PNPSY ---
Subjective Remarks: The patient was seen today for psychiatric reevaluation in the Unit. floor. On my psychiatric evaluation the patient is found in his bed, he is calm, cooperative, in a good spirit. He reports feeling much better today, however continues to be disorganized, with grandeur delusions, with expansive affect, he stated that he is awaiting to be discharged by a [facility]. He also says that he has to go to the police to report a murdered he witnessed here yesterday "where a man which name is Samuel was killed by one man here in the hospital". He is fully oriented x3. Has been compliant his medications, no significant side effects reported so far. Medical workup for hypercalcemia continues, recommendations of nephrology is appreciated. Mental Status Examination Appearance: Disheveled Consciousness: Alert Orientation: x4 Motor Activity: Other (Walks with a limp) Speech: Unremarkable Language: Adequate Fund of Knowledge: Adequate Attention and Concentration: Easily distracted Memory: Unremarkable Mood: Manic, Other (Labile) Affect: Labile Thought Process & Associations: Intact, Tangential Thought Content: Appropriate Hallucination Type: None Delusion Type: Bizarre, Paranoid, Other (Grandiose) Suicidal Ideation: No Suicidal Plan: No Suicidal Intention: No Homicidal Ideation: No Homicidal Plan: No Homicidal Intention: No Insight: Poor Judgment: Poor Assessment and Plan - Assessment (1) Bipolar disorder, manic Code(s): F31.10 - Bipolar disorder, current episode manic without psychotic features, unspecified Status: Acute - Plan Plan: Patient responded slowly to psychotropic regimen. Continue current psychotropic regimen. Might need to increase Abilify during the weekend. Calcium trending down, hospitalist recommendation appreciated. Support, motivational psych education provided. Justification for Continued Inpatient Stay: Continue psychiatric admission for stabilization
[2018-07-16] MEDS: Multivitamin/Minerals Therapeutic Tablet PO SCH (13:35)
--- NOTE | 2018-07-16 15:25 | US ---
EXAM DATE: 07/16/2018 3:21 PM EST AGE/SEX: 67 years / Male INDICATIONS: Right leg swelling. Numbness in the toes. CLINICAL DATA: This is the patient's initial encounter. Patient reports that signs and symptoms have been present for 1 day and indicates a pain score of 0/10. MEDICAL/SURGICAL HISTORY: Hypercholesterolemia. Hypertension. Bipolar disorder. Alcohol abuse. Hyperlipidemia. Prostate enlargement. . Orthopedic surgery. COMPARISON: No prior exams available for comparison. TECHNIQUE: Venous ultrasound of both lower extremities was performed from the inguinal ligament to t he proximal calf. Real-time, color Doppler and spectral tracing, compression and augmentation techni ques were used. FINDINGS: Normal compression of the deep venous system from the inguinal region to the proximal calf . No echogenic clot is seen. Normal response of the venous system to augmentation and respiration. CONCLUSION: 1. Negative for deep venous thrombosis Electronically signed by: Niko Patterson MD 07/16/2018 3:23 PM EST
--- NOTE | 2018-07-16 17:11 | P.PNNP ---
Subjective Interval history: Patient is alert, eating, not in distress. Physical Exam Vital signs: Vital Signs 07/15/18 17:38 07/16/18 06:29 Temperature 97.1 F L 97.3 F L Pulse Rate 54 L 55 L Respiratory Rate 16 16 Blood Pressure 118/58 L 126/60 Pulse Oximetry 100 98 Intake & Output 07/15/18 07/16/18 07/16/18 18:59 06:59 18:59 Intake Total 840 / 840 720 / 720 480 / 480 Balance 840 / 840 720 / 720 480 / 480 Intake: Oral 840 / 840 720 / 720 480 / 480 Other: # Voids 1 Date of Last Bowel Movement 07/12/18 Narrative: GENERAL: Well-developed, well-nourished elderly male. Awake and alert. Appears comfortable lying in bed. INAD. SKIN: Warm and dry. +dry scaly skin on bottoms of both feet. HEENT: Atraumatic. Normocephalic. Pupils equal and round. No scleral icterus. No injection or drainage. No nasal bleeding or discharge. Mucous membranes pink and moist. NECK: Trachea midline. CARDIOVASCULAR: Regular rate and rhythm. RESPIRATORY: No accessory muscle use. Clear to auscultation. Breath sounds equal bilaterally. GASTROINTESTINAL: Abdomen soft, non-tender, nondistended. +BS. MUSCULOSKELETAL: Extremities without clubbing, cyanosis. Trace edema right ankle and foot with mild erythema noted over right ankle. NEUROLOGICAL: Awake and alert. No obvious cranial nerve deficits. Motor grossly within normal limits. Able to move all extremities spontaneously. Normal speech. PSYCHIATRIC: Flat mood and affect; insight and judgment poor. Assessment and Plan - Assessment (1) Hypercalcemia Code(s): E83.52 - Hypercalcemia Status: Acute (2) Bipolar 1 disorder Code(s): F31.9 - Bipolar disorder, unspecified Status: Acute (3) Bipolar disorder, manic Code(s): F31.10 - Bipolar disorder, current episode manic without psychotic features, unspecified Status: Acute (4) Hypertension Code(s): I10 - Essential (primary) hypertension Status: Acute - Plan Patient with Bipolar disorder, and has been on [place]. Now has elevated calcium and PTH level. Calcium remain elevated above 14. U/S of neck noted, has Thyroid Nodule, which will need workup. [place] can cause increase in calcium and PTH, It can not be stopped as per Psychiatry as patient can have rebound in his Manic disorder. Received Calcitonin, calcium level improving. encourage oral fluid intake. Follow calcium level, if not better, possibly will consider [place].
[2018-07-16] MEDS: Acetaminophen 325 MG Tablet PO PRN (21:24)
[2018-07-16] MEDS ORDERED: LORazepam 0.5 MG Tablet PO ONE (23:26)
[2018-07-17 07:03] LABS: Calcium 12.2 mg/dL (8.5-10.1)
[2018-07-17 07:19] LABS: Albumin 3.3 g/dL (3.4-5.0)
[2018-07-17 07:23] LABS: Calcium-Albumin Corrected 12.8 mg/dL (8.5-10.1)
[2018-07-17] MEDS ORDERED: Sodium Chlor 0.9% Inj 500 ML IV.SIG SCH (08:58)
[2018-07-17] MEDS ORDERED: Senna/Docusate Sodium 8.6/50 MG Tablet PO ONE (09:32)
[2018-07-17] MEDS: ARIPiprazole 10 MG Tablet PO SCH (09:33)
[2018-07-17] MEDS: Atenolol 25 MG Tablet PO SCH (09:34)
[2018-07-17] MEDS ORDERED: Polyethylene Glycol 3350 17 GM Packet PO ONE (09:34)
[2018-07-17] MEDS: Multivitamin/Minerals Therapeutic Tablet PO SCH (09:34)
[2018-07-17] MEDS ORDERED: Bisacodyl 10 MG Supp RECTAL PRN (09:35)
[2018-07-17] MEDS: Sodium Chloride 0.9% 2 ML Flush BID IV.FLUSH SCH ×2 (09:35→21:27)
[2018-07-17] MEDS: Lactic Acid (Ammonium Lactate) 12% Lotion 225 GM Bottle TOPICAL SCH ×2 (09:35→21:27)
--- NOTE | 2018-07-17 09:45 | P.PNPSY ---
Subjective Remarks: Patient is seen today in his room with nurse, she is somewhat thin emaciated appearing, compliant medication test chart was reviewed. He is somewhat somatic today complaining of arthritis of his neck some headache and eye aches, and encouraging him to take fluids he states that he traditionally only eats dinner does not eat other meals throughout the day. At this time is not exhibiting any grander or significant psychotic features with me. Hospitalist is also here to see patient. Patient also complains of some vague lightheadedness when changing position rapidly we will have him check for orthostatic issues. And would welcome the opinion of the hospitalist. For now continue treatment Review of Systems All other systems reviewed negative except as stated in HPI Mental Status Examination Appearance: Disheveled Consciousness: Alert Orientation: x4 Motor Activity: Other (Walks with a limp) Speech: Unremarkable Language: Adequate Fund of Knowledge: Adequate Attention and Concentration: Easily distracted Memory: Unremarkable Mood: Manic, Other (Labile) Affect: Labile Thought Process & Associations: Intact, Tangential Thought Content: Appropriate Hallucination Type: None Delusion Type: Bizarre, Paranoid, Other (Grandiose) Suicidal Ideation: No Suicidal Plan: No Suicidal Intention: No Homicidal Ideation: No Homicidal Plan: No Homicidal Intention: No Insight: Poor Judgment: Poor Assessment and Plan - Assessment (1) Bipolar disorder, manic Code(s): F31.10 - Bipolar disorder, current episode manic without psychotic features, unspecified Status: Acute - Plan Plan: Patient continues somewhat depressed mildly irritable, compliant medication, he does denies suicidality with me today. To encourage oral intake and fluid intake Justification for Continued Inpatient Stay: At this time patient with decompensated placed on a lower level of care Discharge Planning: To be determined
[2018-07-17 10:04] LABS: Thyroid Stimulating Hormone 0.536 uIU/mL (0.358-3.740)
[2018-07-17 10:31] LABS: Baso % (Auto) 0.3 % (0.0-2.0); Hematocrit 36.8 % (39.0-51.0); Hemoglobin 12.3 gm/dL (13.0-17.0); Lymph # (Auto) 0.2 th/mm3 (1.0-4.8); Mean Corpuscular HGB Conc 33.4 % (32.0-36.0); Mean Corpuscular Hemoglobin 30.9 pg (27.0-34.0); Mean Corpuscular Volume 92.8 fL (80.0-100.0); Mean Platelet Volume 7.7 fL (7.0-11.0); Mono # (Auto) 0.8 th/mm3 (0.0-0.9); Mono % (Auto) 4.5 % (0.0-8.0); Neut # (Auto) 17.1 th/mm3 (1.8-7.7); Neut % (Auto) 94.2 % (16.0-70.0); Platelet Count 236 th/mm3 (150-450); Red Blood Count 3.97 mil/mm3 (4.50-5.90); Red Cell Distribution Width 13.8 % (11.6-17.2); White Blood Count 18.1 th/mm3 (4.0-11.0)
--- NOTE | 2018-07-17 10:41 | XR ---
EXAM DATE: 07/17/2018 10:26 AM EST AGE/SEX: 67 years / Male INDICATIONS: Constipation. CLINICAL DATA: This is the patient's initial encounter. Patient reports that signs and symptoms have been present for 2 days and indicates a pain score of 0/10. MEDICAL/SURGICAL HISTORY: . Hypertension. Bipolar disorder None. COMPARISON: No prior exams available for comparison. FINDINGS: Moderate amount retained stool seen in the colon. There is no evidence of pathologic distention or m ass effect. CONCLUSION: Significant stool retention without evidence of obstructive gas pattern. Electronically signed by: Lázaro Harman MD 07/17/2018 10:39 AM EST
--- NOTE | 2018-07-17 10:41 | XR ---
EXAM DATE: 07/17/2018 10:27 AM EST AGE/SEX: 67 years / Male INDICATIONS: Short of breath. CLINICAL DATA: This is the patient's initial encounter. Patient reports that signs and symptoms have been present for 2 days and indicates a pain score of 0/10. MEDICAL/SURGICAL HISTORY: . Hypertension. Bipolar disorder None. COMPARISON: [facility], RIBS LEFT MIN 3V W EXP CHEST, 07/09/2018. . FINDINGS: A single AP view of the chest demonstrates the lungs to be symmetrically aerated without evidence of mass, infiltrate or effusion. The cardiomediastinal contours are unremarkable. Osseous structures a re intact. CONCLUSION: Stable chest without evidence of acute cardiopulmonary process. Electronically signed by: Lázaro Harman MD 07/17/2018 10:40 AM EST
[2018-07-17] MEDS ORDERED: Sod Phosphate/Sod Biphosphate (Adult) Enema 133 ML Bottle RECTAL PRN (14:29)
--- NOTE | 2018-07-17 14:29 | P.PNIM ---
Subjective Interval history: Follow-up on patient with hypercalcemia. Patient seen and examined. Patient states he does not feel well today. He says he is very weak. He is complaining of headache and eye pain. He states he had a headache since yesterday and was not relieved with Tylenol. He is not normally a headache sufferer. He denies any slurred speech, numbness or tingling or weakness. He says he gets extremely dizzy every time he tries to sit up. He does not feel that he can walk safely. He denies any fever or chills. He denies any chest pain or shortness of breath. He denies any nausea, vomiting or abdominal pain. Patient did not eat yesterday and declined breakfast this morning. He says he has no appetite. He denies any urinary difficulties. He says he has not had a bowel movement in 4 or 5 days. He says he is not passing flatus. He says he has no pain or discomfort in the right foot or ankle. Physical Exam Vital signs: Last Vital Signs Temp 98.4 F 07/17/18 05:48 Pulse 72 07/17/18 05:48 Resp 15 07/17/18 05:48 BP 97/53 L 07/17/18 05:48 Pulse Ox 95 07/17/18 05:48 Intake & Output 07/15/18 07/16/18 07/17/18 07/18/18 06:59 06:59 06:59 06:59 Intake Total 4360 / 4360 1560 / 1560 1440 / 1440 240 / 240 Output Total 500 / 500 Balance 3860 / 3860 1560 / 1560 1440 / 1440 240 / 240 Narrative: GENERAL: Thin emaciated elderly male. Awake and alert. Does not look well. In no acute distress. SKIN: Warm and dry. +dry scaly skin on bottoms of both feet. HEENT: Atraumatic. Normocephalic. Pupils equal and round. No scleral icterus. No injection or drainage. No nasal bleeding or discharge. Mucous membranes pink and moist. NECK: Trachea midline. CARDIOVASCULAR: Regular rate and rhythm. RESPIRATORY: No accessory muscle use. Clear to auscultation. Breath sounds equal bilaterally. GASTROINTESTINAL: Abdomen soft, non-tender, nondistended. +hypoactive BS. MUSCULOSKELETAL: Extremities without clubbing, cyanosis. Right foot/ankle look much better, no appreciable erythema, no noticeable edema. NEUROLOGICAL: Awake and alert. No obvious cranial nerve deficits. Motor grossly within normal limits. Able to move all extremities spontaneously but weakly. Normal speech. PSYCHIATRIC: Calm and cooperative. Insight and judgment poor. Results Labs CBC & Chem 7: 07/18/18 07:50 07/18/18 09:30 Imaging Imaging: Impressions Venous Doppler Study 07/16/18 00:00 CONCLUSION: 1. Negative for deep venous thrombosis Abdomen X-Ray 07/17/18 00:00 CONCLUSION: Significant stool retention without evidence of obstructive gas pattern. Chest X-Ray 07/17/18 00:00 CONCLUSION: Stable chest without evidence of acute cardiopulmonary process. Assessment and Plan (1) Hypertension: Code(s): I10 - Essential (primary) hypertension Status: Acute (2) [place] toxicity: Code(s): T56.891A - Toxic effect of other metals, accidental (unintentional), initial encounter Status: Acute (3) Hypercalcemia: Code(s): E83.52 - Hypercalcemia Status: Acute (4) Acute renal insufficiency: Code(s): N28.9 - Disorder of kidney and ureter, unspecified Status: Acute (5) Bipolar 1 disorder: Code(s): F31.9 - Bipolar disorder, unspecified Status: Acute (6) Manic disorder, recurrent episode, moderate: Code(s): F31.89 - Other bipolar disorder Status: Acute (7) Noncompliance with medications: Code(s): Z91.14 - Patient's other noncompliance with medication regimen Status: Acute (8) Functional musculoskeletal complaint: Code(s): R29.91 - Unspecified symptoms and signs involving the musculoskeletal system Status: Acute Plan 67-year-old male with known PMHX of hypertension, hyperlipidemia, BPH, bipolar disorder who is admitted under psychiatry services apparently for manic episodes. Leukocytosis, possibly reactive white count 18.1 patient is afebrile CXR shows no acute cardiopulmonary process, images reviewed by me no cough, sputum production or SOB -obtain lactic acid sepsis protocol -IVF -obtain UA -low thresh hold to start on IV abx therapy -repeat CBC in am -monitor clinically STEFAN, suspect secondary to poor perfusion secondary to hypovolemia creatinine 1.38, baseline is around 0.8-1 -obtain UA -IVF bolus -BP meds de-escalated -Avoid nephrotoxic agents -Monitor kidney function closely Hypercalcemia asymptomatic Hyperparathyroidism, uncertain etiology Review of previous workup PTH was 430, repeat PTH this admit 284.9 hx of lithium toxicity in the past but patient not on lithium prior to this admission and lithium level low at 0.2 Neck US + 1.6cm thyroid nodule, unlikely to be parathyroid adenoma, TR4 nodule, FNA bx recommended -Nephrology following, appreciate recommendations. -order placed for FNA bx but contacted later by radiology informing procedure must be done as outpatient -07/14 calcium level trending up, 10.8 -> 14.2. Started on IVF and given IV Lasix x 1 dose. Continue aggressive IVF tx. -07/15 started on Calcitonin by Nephrology. Ca trending down. IVF discontinued. Encourage oral fluid intake. Repeat lithium level WNL. -07/17 calcium level 12.8, IVF resumed as above -continue to follow calcium level Chest pain, atypical, resolved doubt cardiac in origin patient is asymptomatic at this time, no recurrence of CP -troponin <0.02 -ECG appears unchanged -monitor History of hypertension, now hypotensive Bradycardia, mild -Hold Flomax -Decrease dose of atenolol to 25 mg with hold parameters -Monitor blood pressure, adjust medication as necessary Headache Bilateral eye pain Dizziness, suspect orthostatic hypotension -obtain CT head -check orthostatic BP measurements - pending -fall precautions History of BPH History of hyperlipidemia -Continue on statin 20 mg at bedtime -Continue tamsulosin 0.4 mg daily -hold for now secondary to low BP Severe Protein calorie malnutrition BMI 18.1 -Consult palliative care coordinator, appreciate recommendations -add Ensure to meals. Patient says he like juice more, will change to Ensure Enlive. Consider addition of Megace if no improvement in appetite. -Theragran M daily - will hold for now due to concern for worsening hypercalcemia -monitor weight Constipation KUB shows significant stool retention without evidence of obstruction - give 2 Elva colace now then continue on Pericolace 1 po BID. Miralax x 1 dose now. Dulcolax suppository and/or enema if no BM by this afternoon. DW nursing staff. - monitor bowel pattern Right foot/ankle edema, mild erythema, resolved -doppler neg for DVT Bipolar disorder Manic episode patient has been off [place], resumed 11/30 -Management by psychiatry. DVT prophylaxis: Patient is ambulatory Progress Note: Quality VTE Deep Vein Thrombosis/Pulmonary Embolism Present on Admission: No _ (1) [facility] toxicity Qualifiers: Encounter type: initial encounter Injury intent: accidental or unintentional Qualified Code(s): T56.891A - Toxic effect of other metals, accidental ( unintentional), initial encounter (2) Hypertension Qualifiers: Hypertension type:
[2018-07-17 15:47] LABS: Bilirubin,Urine Negative (Negative); Clarity,Urine Hazy (Clear); Color,Urine Amber (Yellw/Straw); Glucose,Urine (UA) Negative (Negative); Hyaline Casts,Urine 29 /lpf (0-3); Leukocyte Esterase,Urine Negative (Negative); Mucus,Urine Few /lpf (Occasional); Nitrite,Urine Negative (Negative); Specific Gravity,Urine 1.017 (1.002-1.035); Squamous Epithelial Cell,Urine <1 /hpf (0-5)
--- NOTE | 2018-07-17 15:59 | CT ---
EXAM DATE: 07/17/2018 3:44 PM EST AGE/SEX: 67 years / Male INDICATIONS: Dizziness. CLINICAL DATA: This is the patient's initial encounter. Patient reports that signs and symptoms have been present for 1 day and indicates a pain score of 0/10. MEDICAL/SURGICAL HISTORY: None. None. RADIATION DOSE: 56.35 CTDI (mGy) COMPARISON: [facility], CT HEAD W/O CONTRAST, 05/14/2018. . TECHNIQUE: CT of the head without contrast. Using automated exposure control and adjustment of the mA and/or kV according to patient size, radiation dose was kept as low as reasonably achievable to ob tain optimal diagnostic quality images. DICOM format image data is available electronically for revi ew and comparison. FINDINGS: Cerebrum: There is mild generalized atrophy and ventricles are normal given the degree of atrophy. M ild periventricular white matter change is present. No midline shift, mass lesion, hemorrhage or acu te infarction. No extraaxial fluid collections are seen. Posterior Fossa: The cerebellum and brainstem demonstrate no acute abnormality. The 4th ventricle is midline. The cerebellopontine angle is within normal limits. Extracranial: The visualized sinuses are clear. Skull: The calvaria is intact. No skull fracture. CONCLUSION: Stable noncontrast head CT. No acute intracranial abnormality is identified. . Electronically signed by: Hector Tello MD 07/17/2018 3:58 PM EST
[2018-07-17] MEDS ORDERED: Sodium Chloride 23.4% Inj 188 MEQ in Sod Chloride 0.9% Inj 1,000 ML IV.CONT SCH (16:00)
--- NOTE | 2018-07-17 17:15 | P.PNIM ---
Physical Exam Vital signs: Last Vital Signs Temp 98.4 F 07/17/18 05:48 Pulse 72 07/17/18 05:48 Resp 15 07/17/18 05:48 BP 97/53 L 07/17/18 05:48 Pulse Ox 95 07/17/18 05:48 Intake & Output 07/15/18 07/16/18 07/17/18 07/18/18 06:59 06:59 06:59 06:59 Intake Total 4360 / 4360 1560 / 1560 1440 / 1440 240 / 240 Output Total 500 / 500 Balance 3860 / 3860 1560 / 1560 1440 / 1440 240 / 240 Results Labs CBC & Chem 7: 07/18/18 07:50 07/18/18 09:30 Imaging Imaging: Impressions Abdomen X-Ray 07/17/18 00:00 CONCLUSION: Significant stool retention without evidence of obstructive gas pattern. Chest X-Ray 07/17/18 00:00 CONCLUSION: Stable chest without evidence of acute cardiopulmonary process. Head CT 07/17/18 00:00 CONCLUSION: Stable noncontrast head CT. No acute intracranial abnormality is identified. . Assessment and Plan (1) Hypertension: Code(s): I10 - Essential (primary) hypertension Status: Acute (2) [place] toxicity: Code(s): T56.891A - Toxic effect of other metals, accidental (unintentional), initial encounter Status: Acute (3) Hypercalcemia: Code(s): E83.52 - Hypercalcemia Status: Acute (4) Acute renal insufficiency: Code(s): N28.9 - Disorder of kidney and ureter, unspecified Status: Acute (5) Bipolar 1 disorder: Code(s): F31.9 - Bipolar disorder, unspecified Status: Acute (6) Manic disorder, recurrent episode, moderate: Code(s): F31.89 - Other bipolar disorder Status: Acute (7) Noncompliance with medications: Code(s): Z91.14 - Patient's other noncompliance with medication regimen Status: Acute (8) Functional musculoskeletal complaint: Code(s): R29.91 - Unspecified symptoms and signs involving the musculoskeletal system Status: Acute Progress Note: Quality VTE Deep Vein Thrombosis/Pulmonary Embolism Present on Admission: No _ (1) [place] toxicity Qualifiers: Encounter type: initial encounter Injury intent: accidental or unintentional Qualified Code(s): T56.891A - Toxic effect of other metals, accidental ( unintentional), initial encounter (2) Hypertension Qualifiers: Hypertension type:
[2018-07-17] MEDS: Senna/Docusate Sodium 8.6/50 MG Tablet PO SCH (21:26)
[2018-07-18 07:59] LABS: Baso % (Auto) 0.2 % (0.0-2.0); Hematocrit 37.6 % (39.0-51.0); Hemoglobin 12.7 gm/dL (13.0-17.0); Lymph # (Auto) 0.5 th/mm3 (1.0-4.8); Lymph % (Auto) 5.6 % (9.0-44.0); Mean Corpuscular HGB Conc 33.8 % (32.0-36.0); Mean Corpuscular Hemoglobin 30.5 pg (27.0-34.0); Mean Corpuscular Volume 90.4 fL (80.0-100.0); Mean Platelet Volume 8.1 fL (7.0-11.0); Mono # (Auto) 0.5 th/mm3 (0.0-0.9); Mono % (Auto) 5.1 % (0.0-8.0); Neut # (Auto) 8.2 th/mm3 (1.8-7.7); Neut % (Auto) 89.1 % (16.0-70.0); Platelet Count 208 th/mm3 (150-450); Red Blood Count 4.15 mil/mm3 (4.50-5.90); Red Cell Distribution Width 13.9 % (11.6-17.2); White Blood Count 9.2 th/mm3 (4.0-11.0)
[2018-07-18] MEDS: ARIPiprazole 10 MG Tablet PO SCH (08:40)
[2018-07-18] MEDS: Atenolol 25 MG Tablet PO SCH (08:41)
[2018-07-18] MEDS: Senna/Docusate Sodium 8.6/50 MG Tablet PO SCH ×2 (08:42→21:16)
[2018-07-18] MEDS ORDERED: Polyethylene Glycol 3350 17 GM Packet PO ONE (08:58)
[2018-07-18] MEDS ORDERED: Bisacodyl 10 MG Supp RECTAL ONE (08:59)
[2018-07-18] MEDS: Acetaminophen 325 MG Tablet PO PRN (09:40)
[2018-07-18] MEDS: Sodium Chloride 0.9% 2 ML Flush BID IV.FLUSH SCH ×2 (10:17→21:17)
[2018-07-18] MEDS: Lactic Acid (Ammonium Lactate) 12% Lotion 225 GM Bottle TOPICAL SCH ×2 (10:18→21:16)
[2018-07-18 11:50] LABS: Carbon Dioxide 23.7 meq/L (21.0-32.0); Potassium 4.4 meq/L (3.5-5.1)
[2018-07-18 11:56] LABS: Albumin 3.1 g/dL (3.4-5.0)
[2018-07-18 11:59] LABS: Calcium-Albumin Corrected 13.7 mg/dL (8.5-10.1)
--- NOTE | 2018-07-18 12:56 | P.PNNP ---
Subjective Interval history: With psych issues and hypercalcemia on lithium Physical Exam Vital signs: Vital Signs 07/18/18 05:47 Temperature 97.4 F L Pulse Rate 70 Respiratory Rate 16 Blood Pressure 109/59 L Pulse Oximetry 97 Intake & Output 07/17/18 07/18/18 07/18/18 18:59 06:59 18:59 Intake Total 1400 / 1400 1647 / 1647 120 / 120 Output Total 250 / 250 275 / 275 Balance 1150 / 1150 1372 / 1372 120 / 120 Intake: IV 500 / 500 1047 / 1047 Sodium Chloride 23.4% Inj 188 1047 / 1047 MEQ In NS Inj 1,000 ML @ 75 mls /hr IV.CONT .[id number] PABLO Rx#: [id number] NS Inj 500 ML @ 1000 mls/hr IV. 500 / 500 SIG BOLUS PABLO Rx#:[id number] Oral 660 / 660 600 / 600 120 / 120 Oral Supplement 240 / 240 Output: Urine 250 / 250 275 / 275 Other: # Voids 2 175 Date of Last Bowel Movement 07/17/18 07/18/18 # Bowel Movements 1 1 Narrative: GENERAL: Well-nourished, well-developed patient. SKIN: Warm and dry. HEAD: Normocephalic. EYES: No scleral icterus. No injection or drainage. NECK: Supple, trachea midline. No JVD or lymphadenopathy. CARDIOVASCULAR: Regular rate and rhythm without murmurs, gallops, or rubs. RESPIRATORY: Breath sounds equal bilaterally. No accessory muscle use. GASTROINTESTINAL: Abdomen soft, non-tender, nondistended. EXTREMITIES: As above NEUROLOGICAL: Awake, alert, patient appears depressed Assessment and Plan - Assessment (1) Hypercalcemia Code(s): E83.52 - Hypercalcemia Status: Acute (2) Bipolar 1 disorder Code(s): F31.9 - Bipolar disorder, unspecified Status: Acute (3) Bipolar disorder, manic Code(s): F31.10 - Bipolar disorder, current episode manic without psychotic features, unspecified Status: Acute (4) Hypertension Code(s): I10 - Essential (primary) hypertension Status: Acute - Plan Patient with Bipolar disorder, and has been on [place]. Now has elevated calcium and PTH level. Calcium remain elevated above 13.7 today and I was called U/S of neck noted, has Thyroid Nodule, which will need workup. [place] can cause increase in calcium and PTH, It can not be stopped as per Psychiatry as patient can have rebound in his Manic disorder. Restart calcitonin subcu twice a day Follow calcium level, if not better, possibly will consider Aredia. Dr. Helms to follow-up
--- NOTE | 2018-07-18 12:59 | P.PNIM ---
Subjective Interval history: Follow up on patient with hypercalcemia. Patient seen and examined. Patient has new swelling in RUE with associated tenderness and warmth. RUE previous IV site. Patient says he is feeling "medium". He did have a few hard BM's. Patient says he has problems with constipation and "sometimes has to reach in his butt and break it up". He is eating a little bit better. He denies any headache, dizziness or vision changes. He denies any chest pain or dyspnea. He denies any N/V or abdominal pain. Physical Exam Vital signs: Last Vital Signs Temp 97.4 F L 07/18/18 05:47 Pulse 70 07/18/18 05:47 Resp 16 07/18/18 05:47 BP 109/59 L 07/18/18 05:47 Pulse Ox 97 07/18/18 05:47 Intake & Output 07/16/18 07/17/18 07/18/18 07/19/18 06:59 06:59 06:59 06:59 Intake Total 1560 / 1560 1440 / 1440 3047 / 3047 120 / 120 Output Total 525 / 525 Balance 1560 / 1560 1440 / 1440 2522 / 2522 120 / 120 Narrative: GENERAL: Thin emaciated elderly male, INAD. Awake and alert. Looks better today. More talkative. Making jokes. SKIN: Warm and dry. +dry scaly skin on bottoms of both feet. RUE +diffusely edematous with associated tenderness, warmth and mild erythema. HEENT: Atraumatic. Normocephalic. Pupils equal and round. No scleral icterus. No injection or drainage. No nasal bleeding or discharge. Mucous membranes pink and moist. NECK: Trachea midline. CARDIOVASCULAR: Regular rate and rhythm. RESPIRATORY: No accessory muscle use. Clear to auscultation. Breath sounds equal bilaterally. GASTROINTESTINAL: Abdomen soft, non-tender, nondistended. +BS. MUSCULOSKELETAL: Extremities without clubbing, cyanosis. Right foot/ankle look much better, no appreciable erythema, no noticeable edema. NEUROLOGICAL: Awake and alert. No obvious cranial nerve deficits. Motor grossly within normal limits. Able to move all extremities spontaneously but weakly. Normal speech. PSYCHIATRIC: Calm and cooperative. Insight and judgment poor. Results Labs CBC & Chem 7: 07/18/18 07:50 07/18/18 09:30 Imaging Imaging: Impressions Head CT 07/17/18 00:00 CONCLUSION: Stable noncontrast head CT. No acute intracranial abnormality is identified. . Assessment and Plan (1) Hypertension: Code(s): I10 - Essential (primary) hypertension Status: Acute (2) [place] toxicity: Code(s): T56.891A - Toxic effect of other metals, accidental (unintentional), initial encounter Status: Acute (3) Hypercalcemia: Code(s): E83.52 - Hypercalcemia Status: Acute (4) Acute renal insufficiency: Code(s): N28.9 - Disorder of kidney and ureter, unspecified Status: Acute (5) Bipolar 1 disorder: Code(s): F31.9 - Bipolar disorder, unspecified Status: Acute (6) Manic disorder, recurrent episode, moderate: Code(s): F31.89 - Other bipolar disorder Status: Acute (7) Noncompliance with medications: Code(s): Z91.14 - Patient's other noncompliance with medication regimen Status: Acute (8) Functional musculoskeletal complaint: Code(s): R29.91 - Unspecified symptoms and signs involving the musculoskeletal system Status: Acute Plan 67-year-old male with known PMHX of hypertension, hyperlipidemia, BPH , bipolar disorder who is admitted under psychiatry services apparently for manic episodes. Leukocytosis, suspect reactive, resolved white count 18.1, improved to 9.2 patient is afebrile, VSS CXR shows no acute cardiopulmonary process, images reviewed by me UA unremarkable Lactic acid 1.5 -monitor clinically STEFAN, suspect secondary to poor perfusion secondary to hypovolemia creatinine 1.38, baseline is around 0.8-1 repeat creatinine s/p IVF 1.08 -s/p IVF hydration -continue to encourage po fluid intake -Avoid nephrotoxic agents -Monitor kidney function closely Hypercalcemia Hyperparathyroidism Review of previous workup PTH was 430, repeat PTH this admit 284.9 hx of lithium toxicity in the past but patient not on lithium prior to this admission and lithium level low at 0.2 Neck US + 1.6cm thyroid nodule, unlikely to be parathyroid adenoma, TR4 nodule, FNA bx recommended -Nephrology following, appreciate recommendations. -order placed for FNA bx but contacted later by radiology informing procedure must be done as outpatient -07/14 calcium level trending up, 10.8 -> 14.2. Started on IVF and given IV Lasix x 1 dose. Continue aggressive IVF tx. -07/15 started on Calcitonin by Nephrology. Ca trending down. IVF discontinued. Encourage oral fluid intake. Repeat lithium level WNL. -07/17 calcium level 12.8, IVF resumed as above -07/18 calcium level trending up, now 13.7 - patient has now missed 2 doses of [place]. Nephrology to resume Calcitonin sq BID. Considering Aredia. -continue to follow calcium level RUE edema, suspect secondary to IV filtration -obtain doppler US to r/o DVT -keep RUE elevated -warm compresses -give NSAID x 1, cautious use of NSAID due to concern for worsening renal fxn -monitor for improvement History of hypertension, now hypotensive Bradycardia, resolved -continue to hold Flomax -continue on decreased dose of atenolol 25 mg with hold parameters -Monitor blood pressure, adjust medication as necessary Headache, resolved Bilateral eye pain, resolved Dizziness, suspect orthostatic hypotension -CT head without any acute intracranial abnormalities, images reviewed by me -orthostatic BP measurements neg -fall precautions History of BPH History of hyperlipidemia -Continue on statin 20 mg at bedtime -Continue tamsulosin 0.4 mg daily -hold for now secondary to low BP Severe Protein calorie malnutrition BMI 18.1 -Consult cocoa bean roaster helper, appreciate recommendations -add Ensure to meals. Patient says he like juice more, will change to Ensure Enlive. Consider addition of Megace if no improvement in appetite. -Theragran M daily - will hold for now due to concern for worsening hypercalcemia -monitor weight Constipation, chronic, resolving patient has performed manual disimpactions on himself KUB shows significant stool retention without evidence of obstruction - +small hard BM - continue on Elva Colace BID. Give Miralax and Dulcolax suppository. - monitor bowel pattern Right foot/ankle edema, mild erythema, resolved -doppler neg for DVT Bipolar disorder Manic episode patient has been off [place], resumed 07/09 -Management by psychiatry. DVT prophylaxis: Patient is ambulatory Progress Note: Quality VTE Deep Vein Thrombosis/Pulmonary Embolism Present on Admission: No _ (1) Hypertension Qualifiers: Hypertension type: (2) [place] toxicity Qualifiers: Encounter type: initial encounter Injury intent: accidental or unintentional Qualified Code(s): T56.891A - Toxic effect of other metals, accidental ( unintentional), initial encounter
[2018-07-18] MEDS ORDERED: Ibuprofen 600 MG Tablet PO ONE (13:13)
[2018-07-18] MEDS: Famotidine 20 MG Tablet PO SCH ×2 (13:35→21:16)
[2018-07-18] MEDS: Calcitonin Salmon Inj 400 UNIT/2 ML Vial SQ SCH ×2 (13:36→21:16)
--- NOTE | 2018-07-18 14:25 | US ---
EXAM DATE: 07/18/2018 2:16 PM EST AGE/SEX: 67 years / Male INDICATIONS: Right arm swelling. CLINICAL DATA: This is the patient's initial encounter. Patient reports that signs and symptoms have been present for 3 days and indicates a pain score of 2/10. MEDICAL/SURGICAL HISTORY: . Hypercholesterolemia. Hypertension. Bipolar disorder. Alcohol abuse . Hyperlipidemia. Prostate enlargement. . Orthopedic surgery. COMPARISON: No prior exams available for comparison. FINDINGS: The right internal jugular, subclavian, axillary, brachial, and basilic veins are patent. There is thrombus within the right cephalic vein. The right cephalic vein appears prominent. Other: None. CONCLUSION: Suspected acute thrombus involving the right cephalic vein. The remaining venous structures are paten t. Electronically signed by: Hector Oconnell MD 07/18/2018 2:24 PM EST
--- NOTE | 2018-07-18 16:13 | P.PNPSY ---
Subjective Remarks: Pt seen and discussed with staff. He has been compliant with medications and has been cooperative with care. [place] has been held due to hypercalcemia, but he is receiving aripiprazole. No aggression,but has been somewhat impulsive today. He is bizarre and paranoid but cooperative. Mental Status Examination Appearance: Appropriate Consciousness: Alert Orientation: x4 Motor Activity: Other (Walks with a limp) Speech: Unremarkable Language: Adequate Fund of Knowledge: Adequate Attention and Concentration: Easily distracted Memory: Unremarkable Mood: Manic, Other (Labile) Affect: Labile Thought Process & Associations: Intact, Tangential Thought Content: Bizarre thinking Hallucination Type: None Delusion Type: Bizarre, Paranoid, Other (Grandiose) Suicidal Ideation: No Suicidal Plan: No Suicidal Intention: No Homicidal Ideation: No Homicidal Plan: No Homicidal Intention: No Insight: Poor Judgment: Poor Assessment and Plan - Assessment (1) Bipolar disorder, manic Code(s): F31.10 - Bipolar disorder, current episode manic without psychotic features, unspecified Status: Acute - Plan Plan: Patient continues somewhat depressed mildly irritable, compliant medication, he does denies suicidality with me today. To encourage oral intake and fluid intake Justification for Continued Inpatient Stay: brandin with self neglect
[2018-07-19] MEDS: Atenolol 25 MG Tablet PO SCH (08:53)
[2018-07-19] MEDS: Calcitonin Salmon Inj 400 UNIT/2 ML Vial SQ SCH ×2 (08:53→21:11)
[2018-07-19] MEDS: Famotidine 20 MG Tablet PO SCH ×2 (08:53→20:45)
[2018-07-19] MEDS: ARIPiprazole 10 MG Tablet PO SCH (08:53)
[2018-07-19] MEDS: Sodium Chloride 0.9% 2 ML Flush BID IV.FLUSH SCH ×2 (08:54→20:45)
[2018-07-19] MEDS: Lactic Acid (Ammonium Lactate) 12% Lotion 225 GM Bottle TOPICAL SCH ×2 (08:54→20:45)
[2018-07-19] MEDS: Senna/Docusate Sodium 8.6/50 MG Tablet PO SCH ×2 (08:54→20:45)
[2018-07-19 09:01] LABS: Baso % (Auto) 0.5 % (0.0-2.0); Eos # (Auto) 0.1 th/mm3 (0.0-0.4); Eos % (Auto) 1.4 % (0.0-4.0); Hematocrit 38.1 % (39.0-51.0); Hemoglobin 13.1 gm/dL (13.0-17.0); Lymph # (Auto) 0.5 th/mm3 (1.0-4.8); Lymph % (Auto) 7.7 % (9.0-44.0); Mean Corpuscular HGB Conc 34.3 % (32.0-36.0); Mean Corpuscular Volume 90.2 fL (80.0-100.0); Mean Platelet Volume 8.6 fL (7.0-11.0); Mono # (Auto) 0.8 th/mm3 (0.0-0.9); Mono % (Auto) 10.9 % (0.0-8.0); Neut # (Auto) 5.7 th/mm3 (1.8-7.7); Neut % (Auto) 79.5 % (16.0-70.0); Platelet Count 207 th/mm3 (150-450); Red Blood Count 4.22 mil/mm3 (4.50-5.90); Red Cell Distribution Width 13.6 % (11.6-17.2); White Blood Count 7.1 th/mm3 (4.0-11.0)
[2018-07-19 09:29] LABS: Calcium 14.3 mg/dL (8.5-10.1); Carbon Dioxide 26.6 meq/L (21.0-32.0); Potassium 4.6 meq/L (3.5-5.1)
[2018-07-19 09:48] LABS: Albumin 3.4 g/dL (3.4-5.0)
[2018-07-19 09:52] LABS: Calcium-Albumin Corrected 14.8 mg/dL (8.5-10.1)
[2018-07-19] MEDS: OXcarbazepine 150 MG Tablet PO SCH ×2 (13:35→20:44)
--- NOTE | 2018-07-19 14:22 | P.PNIM ---
Subjective Interval history: Follow up on patient with hypercalcemia. Patient seen and examined. He feels better today. Patient reports BM yesterday. He reports eating dinner last night. He did not eat breakfast. He denies any headache or dizziness. He denies any chest pain or dyspnea. He denies any N/V or abdominal pain. Physical Exam Vital signs: Last Vital Signs Temp 97.4 F L 07/19/18 06:00 Pulse 57 L 07/19/18 06:00 Resp 16 07/19/18 06:00 BP 111/63 07/19/18 06:00 Pulse Ox 99 07/19/18 06:00 Intake & Output 07/17/18 07/18/18 07/19/18 07/20/18 06:59 06:59 06:59 06:59 Intake Total 1440 / 1440 3047 / 3047 2160 / 2160 Output Total 525 / 525 Balance 1440 / 1440 2522 / 2522 2160 / 2160 Weight 55.1 kg Narrative: GENERAL: Thin emaciated elderly male, INAD. Awake and alert. Appears comfortable sitting up in bed watching tv. SKIN: Warm and dry. +dry scaly skin on bottoms of both feet. RUE +diffusely edematous with associated tenderness, warmth and mild erythema, much improved with significantly less edema. HEENT: Atraumatic. Normocephalic. Pupils equal and round. No scleral icterus. No injection or drainage. No nasal bleeding or discharge. Mucous membranes pink and moist. NECK: Trachea midline. CARDIOVASCULAR: Regular rate and rhythm. RESPIRATORY: No accessory muscle use. Clear to auscultation. Breath sounds equal bilaterally. GASTROINTESTINAL: Abdomen soft, non-tender, nondistended. +BS. MUSCULOSKELETAL: Extremities without clubbing or cyanosis. NEUROLOGICAL: Awake and alert. No obvious cranial nerve deficits. Motor grossly within normal limits. Able to move all extremities spontaneously but weakly. Normal speech. PSYCHIATRIC: Calm and cooperative. Insight and judgment poor. Results Labs CBC & Chem 7: 07/19/18 08:45 07/19/18 08:45 Imaging Imaging: Impressions Venous Doppler Study 07/18/18 00:00 CONCLUSION: Suspected acute thrombus involving the right cephalic vein. The remaining venous structures are patent. Assessment and Plan (1) Bipolar disorder, manic: Code(s): F31.10 - Bipolar disorder, current episode manic without psychotic features, unspecified Status: Acute Plan 67-year-old male with known PMHX of hypertension, hyperlipidemia, BPH , bipolar disorder who is admitted under psychiatry services apparently for manic episodes. Leukocytosis, suspect reactive, resolved white count 18.1, improved to 7.1 patient is afebrile, VSS CXR shows no acute cardiopulmonary process UA unremarkable Lactic acid 1.5 -monitor clinically STEFAN, suspect secondary to poor perfusion secondary to hypovolemia creatinine 1.38, baseline is around 0.8-1 repeat creatinine s/p IVF improved -continue to encourage po fluid intake -Avoid nephrotoxic agents -Monitor kidney function closely Hypercalcemia Hyperparathyroidism Review of previous workup PTH was 430, repeat PTH this admit 284.9 hx of lithium toxicity in the past but patient not on lithium prior to this admission and lithium level low at 0.2. ?underlying malignancy. [place] has been discontinued, last dose was on 07/17 Neck US + 1.6cm thyroid nodule, unlikely to be parathyroid adenoma, TR4 nodule, FNA bx recommended -Nephrology following, appreciate recommendations. Currently on Calcitonin sq. Ca level continues to trend up off of [place]. Nephrology considering Aredia. -order placed for FNA bx but contacted later by radiology informing procedure must be done as outpatient -continue to follow calcium level. If calcium level continues to worsen, may need to admit pateint to med/surg for cardiac monitoring -check PSA, check PTHrp RUE superficial DVT Doppelr US + suspected acute thrombus in the right cephalic vein -RUE improving clinically -keep RUE elevated -warm compresses -given NSAID x 1, cautious use of NSAID due to concern for worsening renal fxn -monitor for improvement History of hypertension, now hypotensive Bradycardia, resolved -continue to hold Flomax -continue on decreased dose of atenolol 25 mg with hold parameters -Monitor blood pressure, adjust medication as necessary Headache, resolved Bilateral eye pain, resolved Dizziness, suspect orthostatic hypotension -CT head without any acute intracranial abnormalities -orthostatic BP measurements neg -fall precautions History of BPH History of hyperlipidemia -Continue on statin 20 mg at bedtime -Continue tamsulosin 0.4 mg daily -hold for now secondary to low BP Severe Protein calorie malnutrition BMI 18.1 -Consult rouge mixer, appreciate recommendations -add Ensure to meals. Patient says he like juice more, will change to Ensure Enlive. Consider addition of Megace if no improvement in appetite. -Theragran M daily - will hold for now due to concern for worsening hypercalcemia -monitor weight Constipation, chronic, resolving patient has performed manual disimpactions on himself KUB shows significant stool retention without evidence of obstruction - +small hard BM - continue on Elva Colace BID. Give Miralax and Dulcolax suppository. - monitor bowel pattern Right foot/ankle edema, mild erythema, resolved -doppler neg for DVT Bipolar disorder Manic episode patient has been off [place], resumed 07/09 -Management by psychiatry. DVT prophylaxis: Patient is ambulatory Progress Note: Quality VTE Deep Vein Thrombosis/Pulmonary Embolism Present on Admission: No
--- NOTE | 2018-07-19 15:18 | P.DIET ---
Nutritional Evaluation Type of nutrition evaluation: initial Nutrition [place] [facility] [place] 07[place]16/18 [facility] [place] Malnutrition Subjective Oral Diet Tolerance Assessment Indicates: Edentulous Subjective Comments: Pt visited after lunch today. Pt says he doesnt care for the Ensure; RN confirms pt is not drinking the Ensure. Pt is edentulous and says he chews w/o problem; says he has dentures but doesnt like them. Pt does not eat breakfast but adds that if he has coffee, juice and a Mighty Shake, he'll drink them. Pt says he used to weigh 165-lb one year ago and has had a 30-lb wt loss d/t "I recently walked 500 miles". Objective - Diagnosis Adjustment Disorder w/depressed mood - Indications of Malnutrition Characteristics: Weight loss, Insufficient energy intake, Fat loss, Muscle loss - Objective % IBW: 75 Body Weight Used for Calculations: Actual (59 kg) Energy Needs - Lower Range (kCal/kg): 35 Energy Needs - Upper Range (kCal/kg): 40 Lower Limit kCal/kg (kCals): 2,064 Upper Limit kCal/kg (kCals): 2,359 Lower Limit Protein Factor (Grams per Kg): 1.2 Upper Limit Protein Factor (Grams per Kg): 1.5 Lower Protein Needs (Protein): 71 Upper Protein Needs (Protein): 88 Dietitian Reviewed in Medical Record: Current diet, Curent medications, Intake & Output, Labs, Medical history Diet Order: Regular Oral Diet Intake Amount: Fair 50-75% Objective Comments: PMH includes: Bipolar DO, elevated Cholesterol, h/o alcoholism, HLD, HTN Labs include: A1C 4.6; Ca 14.8 Meds include: Abilify, Lipitor, Calcitonin salmon Feeding - Current PO Supplement Current Supplement: Ensure Enlive Current Frequency of Supplement: Three times a day Current kCals Provided by Supplement: 350 Current Protein Provided by Supplement: 20 Assessment Assessment: Pt is at high nutrition risk r/t recent unintentional wt loss r/t inadequate protein-energy intake w/a BMI of 16.9. Pt does not care for the Ensure. Replace Ensure w/Mighty Shakes TID(= 300 kcal and 9g protein). Pt likes juice and will send Ensure Clear TID(= 240 kcal and 8g protein). [place] pt's food preferences as available. Labs reviewed-Ca noted; Theragran on-hold d/t hypercalcemia. Dietitian following. Recommendations: 1. Replace Ensure w/Mighty Shakes TID 2. Pt likes juice and will send Ensure Clear TID 3. [place] pt's food preferences as available 4. Noted Jayson M on-hold 5. Dietitian following Dietitian to Monitor: Lab values, Electrolytes, Supplement acceptance, Intake & Output, Diet tolerance, Weight change, PO Intake, Medical course
--- NOTE | 2018-07-19 15:43 | P.PNPSY ---
Subjective Chief Complaint: Follow-up for treatment of bipolar brandin Remarks: The patient was interviewed in the privacy of their room and accompanied by the assigned nurse. We reviewed the patient's mood, thoughts, and behaviors from overnight and this morning. Patient reports that the patient continues to suppress grandiose beliefs but has been cooperative with treatments. The patient denies a history of bipolar disorder and tried to explain that "I feel great and perfect how could I possibly have something wrong with me I am a millionaire with a castle and all these women want to me." The patient does admit to being treated for bipolar disorder for approximately 40 years mainly with lithium but he also reports recent trial of E[place]al[place]. We discussed the risks of continued lithium use due to his recent and recurrent lithium toxicity and his declining kidney function. Patient acknowledged that he understood the risks and he did not want to continue lithium at this point and he was willing to consider alternatives. The patient reports that he saw a lot of people suffer from side effects from Depakote therefore he refused that option. We discussed treatment with Trileptal for his brandin symptoms and he was agreeable. Review of Systems All other systems reviewed negative except as stated in HPI Mental Status Examination Appearance: Appropriate Consciousness: Alert Orientation: x4 Motor Activity: Other (Walks with a limp) Speech: Unremarkable Language: Adequate Fund of Knowledge: Adequate Attention and Concentration: Easily distracted Memory: Unremarkable Mood: Manic, Other (Labile) Affect: Labile Thought Process & Associations: Intact, Tangential Thought Content: Bizarre thinking Hallucination Type: None Delusion Type: Bizarre, Paranoid, Other (Grandiose) Suicidal Ideation: No Suicidal Plan: No Suicidal Intention: No Homicidal Ideation: No Homicidal Plan: No Homicidal Intention: No Insight: Poor Judgment: Poor Assessment and Plan - Assessment (1) Bipolar disorder, manic Code(s): F31.10 - Bipolar disorder, current episode manic without psychotic features, unspecified Status: Acute - Plan Plan: 07/19/2018: Unsatisfactory response to treatment, the patient continues to display symptoms of a manic mood. Patient no longer is appropriate for treatment with lithium therefore alternatives will need to be explored. The patient has been started on Abilify as an adjunctive treatment for his brandin due to his psych colic symptoms. We discussed risks benefits side effects and alternatives and the patient chooses to try Trileptal. Plan 1. Continue Abilify 10 mg/day. 2. Start Trileptal 150 mg twice a day for brandin. 3. Hospitalist to continue following patient for treatment and evaluation of his renal insufficiency and hypercalcemia. Justification for Continued Inpatient Stay: Patient remains an elevated risk for self-harm by self neglect and will require further inpatient stabilization and preparation of a safe discharge plan. Moving patient to a less restrictive environment at this time may result in decompensation. Request Healthcare Surrogate/Guardian Advocate?: No
--- NOTE | 2018-07-19 18:07 | P.PNNP ---
Subjective Interval history: Patient is alert, no SOB,not in distress. Physical Exam Vital signs: Vital Signs 07/19/18 06:00 07/19/18 17:18 Temperature 97.4 F L 97.6 F Pulse Rate 57 L 58 L Respiratory Rate 16 18 Blood Pressure 111/63 133/75 Pulse Oximetry 99 97 Intake & Output 07/18/18 07/19/18 07/19/18 18:59 06:59 18:59 Intake Total 480 / 480 1680 / 1680 Balance 480 / 480 1680 / 1680 Weight 55.1 kg Intake: Oral 480 / 480 1680 / 1680 Other: # Voids 2 3 Date of Last Bowel Movement 07/18/18 07/18/18 # Bowel Movements 1 Narrative: GENERAL: Thin emaciated elderly male, INAD. Awake and alert. Appears comfortable sitting up in bed watching tv. SKIN: Warm and dry. +dry scaly skin on bottoms of both feet. RUE +diffusely edematous with associated tenderness, warmth and mild erythema, much improved with significantly less edema. HEENT: Atraumatic. Normocephalic. Pupils equal and round. No scleral icterus. No injection or drainage. No nasal bleeding or discharge. Mucous membranes pink and moist. NECK: Trachea midline. CARDIOVASCULAR: Regular rate and rhythm. RESPIRATORY: No accessory muscle use. Clear to auscultation. Breath sounds equal bilaterally. GASTROINTESTINAL: Abdomen soft, non-tender, nondistended. +BS. MUSCULOSKELETAL: Extremities without clubbing or cyanosis. NEUROLOGICAL: Awake and alert. No obvious cranial nerve deficits. Motor grossly within normal limits. Able to move all extremities spontaneously but weakly. Normal speech. PSYCHIATRIC: Calm and cooperative. Insight and judgment poor. Assessment and Plan - Assessment (1) Hypercalcemia Code(s): E83.52 - Hypercalcemia Status: Acute (2) Bipolar 1 disorder Code(s): F31.9 - Bipolar disorder, unspecified Status: Acute (3) Bipolar disorder, manic Code(s): F31.10 - Bipolar disorder, current episode manic without psychotic features, unspecified Status: Acute (4) Hypertension Code(s): I10 - Essential (primary) hypertension Status: Acute - Plan Patient with Bipolar disorder, and has been on [place]. Now has elevated calcium and PTH level. Calcium remain elevated above 13.7 today and I was called U/S of neck noted, has Thyroid Nodule, which will need workup. [place] can cause increase in calcium and PTH, It can not be stopped as per Psychiatry as patient can have rebound in his Manic disorder. Restarted on calcitonin subcu twice a day Follow calcium level, if not better, possibly will consider Aredia. [place] now stopped and started on Trileptal. Follow Calcium level.
[2018-07-19] MEDS: Acetaminophen 325 MG Tablet PO PRN (20:44)
[2018-07-20] MEDS: OXcarbazepine 150 MG Tablet PO SCH ×2 (08:41→20:14)
[2018-07-20] MEDS: Calcitonin Salmon Inj 400 UNIT/2 ML Vial SQ SCH (08:42)
[2018-07-20] MEDS: ARIPiprazole 10 MG Tablet PO SCH (08:42)
[2018-07-20] MEDS: Famotidine 20 MG Tablet PO SCH ×2 (08:42→20:14)
[2018-07-20] MEDS: Lactic Acid (Ammonium Lactate) 12% Lotion 225 GM Bottle TOPICAL SCH ×2 (08:42→20:14)
[2018-07-20] MEDS: Atenolol 25 MG Tablet PO SCH (08:42)
[2018-07-20] MEDS: Sodium Chloride 0.9% 2 ML Flush BID IV.FLUSH SCH ×2 (08:42→20:14)
[2018-07-20 09:16] LABS: Calcium 13.7 mg/dL (8.5-10.1); Carbon Dioxide 28.6 meq/L (21.0-32.0); Potassium 4.1 meq/L (3.5-5.1)
[2018-07-20 09:31] LABS: Albumin 3.3 g/dL (3.4-5.0)
[2018-07-20 09:48] LABS: Calcium-Albumin Corrected 14.3 mg/dL (8.5-10.1)
--- NOTE | 2018-07-20 10:59 | P.PN ---
Subjective Interval history: Follow up on patient with hypercalcemia. Patient seen and examined, states he slept very good. Has no complaint of CP, sob, dizziness. No fever. No acute changes overnight Physical Exam Vital signs: Vital Signs 07/19/18 17:18 07/20/18 06:00 Temperature 97.6 F 98.3 F Pulse Rate 58 L 56 L Respiratory Rate 18 16 Blood Pressure 133/75 114/59 L Pulse Oximetry 97 99 Intake & Output 07/19/18 07/20/18 07/20/18 18:59 06:59 18:59 Intake Total 720 / 720 820 / 820 480 / 480 Balance 720 / 720 820 / 820 480 / 480 Intake: Oral 720 / 720 720 / 720 480 / 480 Oral Supplement 100 / 100 Other: # Voids 3 3 Date of Last Bowel Movement 07/18/18 Narrative: GENERAL: Thin emaciated elderly male, INAD. Awake and alert. SKIN: Warm and dry. +dry scaly skin on bottoms of both feet. RUE with mild edema and erythema. HEENT: Atraumatic. Normocephalic. Pupils equal and round. No scleral icterus. No injection or drainage. No nasal bleeding or discharge. Mucous membranes pink and moist. NECK: Trachea midline. CARDIOVASCULAR: Regular rate and rhythm. RESPIRATORY: No accessory muscle use. Clear to auscultation. Breath sounds equal bilaterally. GASTROINTESTINAL: Abdomen soft, non-tender, nondistended. +BS. MUSCULOSKELETAL: Extremities without clubbing or cyanosis. NEUROLOGICAL: Awake and alert. No obvious cranial nerve deficits. Motor grossly within normal limits. Able to move all extremities spontaneously but weakly. Normal speech. PSYCHIATRIC: Calm and cooperative. Insight and judgment poor. Results - Labs CBC & Chem 7: 07/19/18 08:45 07/20/18 08:04 Laboratory Results - last 24 hr 07/20/18 07/20/18 08:04 08:04 Sodium 143 Potassium 4.1 Chloride 111 H Carbon Dioxide 28.6 Anion Gap 3 L BUN 18 Creatinine 1.01 Estimated GFR 73 L Random Glucose 111 H Calcium 13.7 H* Calcium Adj for Albumin 14.3 H* Albumin 3.3 L PSA Screen 9.37 H Assessment and Plan - Assessment (1) Bipolar disorder, manic Code(s): F31.10 - Bipolar disorder, current episode manic without psychotic features, unspecified Status: Acute - Plan 67-year-old male with known PMHX of hypertension, hyperlipidemia, BPH , bipolar disorder who is admitted under psychiatry services apparently for manic episodes. Leukocytosis, suspect reactive, resolved white count 18.1, improved to 7.1 patient is afebrile, VSS CXR shows no acute cardiopulmonary process UA unremarkable Lactic acid 1.5 -monitor clinically STEFAN, suspect secondary to poor perfusion secondary to hypovolemia creatinine 1.38, baseline is around 0.8-1 repeat creatinine s/p IVF improved -continue to encourage po fluid intake -Avoid nephrotoxic agents -Monitor kidney function closely Hypercalcemia Hyperparathyroidism Review of previous workup PTH was 430, repeat PTH this admit 284.9 hx of lithium toxicity in the past but patient not on lithium prior to this admission and lithium level low at 0.2. ?underlying malignancy. [place] has been discontinued, last dose was on 07/17, lithium level 0.9 on 07/14 Neck US + 1.6cm thyroid nodule, unlikely to be parathyroid adenoma, TR4 nodule, FNA bx recommended -Nephrology following, appreciate recommendations. Currently on Calcitonin sq. Ca level continues to trend up off of [place]. Nephrology considering Aredia. -order placed for FNA bx but contacted later by radiology informing procedure must be done as outpatient -continue to follow calcium level. If calcium level continues to worsen, may need to admit patient to med/surg for cardiac monitoring. Calcium corrected trending low slowly, 14.3 -PSA 9.37, hx of BPH, will need to follow up at OP -PTH pending RUE superficial DVT Doppelr US + suspected acute thrombus in the right cephalic vein -RUE improving clinically -keep RUE elevated -warm compresses -given NSAID x 1, cautious use of NSAID due to concern for worsening renal fxn -monitor for improvement History of hypertension, now hypotensive Bradycardia, resolved -continue to hold Flomax -continue on decreased dose of atenolol 25 mg with hold parameters -Monitor blood pressure, adjust medication as necessary Headache, resolved Bilateral eye pain, resolved Dizziness, suspect orthostatic hypotension -CT head without any acute intracranial abnormalities -orthostatic BP measurements neg -fall precautions History of BPH History of hyperlipidemia -Continue on statin 20 mg at bedtime -Continue tamsulosin 0.4 mg daily -hold for now secondary to low BP Severe Protein calorie malnutrition BMI 18.1 -Consult director of financial planning, appreciate recommendations -Ensure Enlive. Consider addition of Megace if no improvement in appetite. -Theragran M daily - will hold for now due to concern for worsening hypercalcemia -monitor weight Constipation, chronic, resolving patient has performed manual disimpactions on himself KUB shows significant stool retention without evidence of obstruction - +small hard BM - continue on Elva Colace BID. Give Miralax and Dulcolax suppository. - monitor bowel pattern Right foot/ankle edema, mild erythema, resolved -doppler neg for DVT Bipolar disorder Manic episode patient has been off [place], resumed 07/09, stopped on 07/17 -Management by psychiatry. DVT prophylaxis: Patient is ambulatory Code Status: Full code Discussed Condition With: RN, pt Discharge Planning: Per psych team
[2018-07-20] MEDS: Senna/Docusate Sodium 8.6/50 MG Tablet PO SCH ×2 (11:49→20:14)
--- NOTE | 2018-07-20 14:45 | P.PNPSY ---
Subjective Chief Complaint: Follow-up for treatment of bipolar brandin Remarks: Patient seen for follow-up, chart reviewed, patient discussed with nursing staff ; we reviewed the patient's mood, thoughts, and behaviors from overnight and this morning. The patient remains cooperative with care but intermittently confused and disorganized as described by staff. He continues to express a delusional belief that he has millions of dollars and a capsule. These delusions continue to interfere with the discharge planners attempts to help patient find prison or assisted living facilities. The patient was observed to sleep approximately 5 hours overnight but he was very restless and slept for a total of 3 hours then was awake for an hour or so and then fell back asleep for 2 hours. Patient did not touch his breakfast; patient is drinking more water. The patient was seen at bedside this afternoon and was actively drinking 3 cups of fluid. Patient reports that he is feeling "too comfortable" in the hospital and he would like to be discharged as soon as possible. He was asked about where he would be going after discharge and he insists that he is ready put money down on a new truck and he has been approved for a mortgage and he plans to buy a new house. Patient's thoughts were circumferential as he tried to explain why he is living in the [place] but actually has millions of dollars in the bank. He admits that he gave away all of his possessions prior to hospitalization because he believed he would have enough money to replace him. He expressed an understanding that his kidney function has improved since he has been drinking more fluids but his calcium level remains high and he associates it with the hospital meals continuing to provide him with milk and cheese. Patient agrees to continue current medications both the hypercalcemia as well as his bipolar disorder. He continues to express belief that the nurses would like him to them. Review of Systems All other systems reviewed negative except as stated in HPI Psychiatric: Reports abnormal sleep pattern, Reports mood swings, Reports paranoia, Denies depression, Denies hearing things others do not hear, Denies seeing things others do not see, Denies thoughts of hurting/killing others, Denies thoughts of hurting/killing yourself Mental Status Examination Appearance: Appropriate Consciousness: Alert Orientation: x4 Motor Activity: Other (Walks with a limp) Speech: Unremarkable Language: Adequate Fund of Knowledge: Adequate Attention and Concentration: Easily distracted Memory: Unremarkable Mood: Manic, Other (Labile) Affect: Irritable Thought Process & Associations: Intact, Tangential Thought Content: Delusional Hallucination Type: None Delusion Type: Other (Grandiose) Suicidal Ideation: No Suicidal Plan: No Suicidal Intention: No Homicidal Ideation: No Homicidal Plan: No Homicidal Intention: No Insight: Poor Judgment: Poor Assessment and Plan - Assessment (1) Bipolar disorder, manic Code(s): F31.10 - Bipolar disorder, current episode manic without psychotic features, unspecified Status: Acute - Plan Plan: 07/19/2018: Unsatisfactory response to treatment, the patient continues to display symptoms of a manic mood. Patient no longer is appropriate for treatment with lithium therefore alternatives will need to be explored. The patient has been started on Abilify as an adjunctive treatment for his brandin due to his psych colic symptoms. We discussed risks benefits side effects and alternatives and the patient chooses to try Trileptal. Plan 1. Continue Abilify 10 mg/day. 2. Start Trileptal 150 mg twice a day for brandin. 3. Hospitalist to continue following patient for treatment and evaluation of his renal insufficiency and hypercalcemia. 07/20/2018: Patient continues to cooperate with care but demonstrate active symptoms of brandin to include poor insight and judgment that place him at substantial risk of harm due to self neglect. The patient will require continued inpatient stabilization to give his recent medication changes more time to reach steady state as well as titrating to a therapeutic dose. Justification for Continued Inpatient Stay: Patient remains an elevated risk for self-harm by self neglect and will require further inpatient stabilization and preparation of a safe discharge plan. Moving patient to a less restrictive environment at this time may result in decompensation. Request Healthcare Surrogate/Guardian Advocate?: No
--- NOTE | 2018-07-20 16:14 | P.PNNP ---
Subjective Interval history: Patient is alert, eating well,no SOB, no abd. pain. Physical Exam Vital signs: Vital Signs 07/19/18 17:18 07/20/18 06:00 07/20/18 08:00 Temperature 97.6 F 98.3 F Pulse Rate 58 L 56 L Respiratory Rate 18 16 16 Blood Pressure 133/75 114/59 L Pulse Oximetry 97 99 Intake & Output 07/19/18 07/20/18 07/20/18 18:59 06:59 18:59 Intake Total 720 / 720 820 / 820 1680 / 1680 Balance 720 / 720 820 / 820 1680 / 1680 Intake: Oral 720 / 720 720 / 720 1680 / 1680 Oral Supplement 100 / 100 Other: # Voids 3 3 Date of Last Bowel Movement 07/18/18 Narrative: GENERAL: Thin emaciated elderly male, INAD. Awake and alert. SKIN: Warm and dry. +dry scaly skin on bottoms of both feet. RUE with mild edema and erythema. HEENT: Atraumatic. Normocephalic. Pupils equal and round. No scleral icterus. No injection or drainage. No nasal bleeding or discharge. Mucous membranes pink and moist. NECK: Trachea midline. CARDIOVASCULAR: Regular rate and rhythm. RESPIRATORY: No accessory muscle use. Clear to auscultation. Breath sounds equal bilaterally. GASTROINTESTINAL: Abdomen soft, non-tender, nondistended. +BS. MUSCULOSKELETAL: Extremities without clubbing or cyanosis. NEUROLOGICAL: Awake and alert. No obvious cranial nerve deficits. Motor grossly within normal limits. Able to move all extremities spontaneously but weakly. Normal speech. PSYCHIATRIC: Calm and cooperative. Insight and judgment poor. Assessment and Plan - Assessment (1) Hypercalcemia Code(s): E83.52 - Hypercalcemia Status: Acute (2) Bipolar 1 disorder Code(s): F31.9 - Bipolar disorder, unspecified Status: Acute (3) Bipolar disorder, manic Code(s): F31.10 - Bipolar disorder, current episode manic without psychotic features, unspecified Status: Acute (4) Hypertension Code(s): I10 - Essential (primary) hypertension Status: Acute - Plan Patient with Bipolar disorder, and has been on Ramona. Now has elevated calcium and PTH level. Calcium remain elevated. U/S of neck noted, has Thyroid Nodule, which will need workup. Ramona can cause increase in calcium and PTH, Ramona now stopped and started on Trileptal. Calcium remain high despite Calcitonin. Calcitonin now stopped, will give one dose of Aredia. .
[2018-07-20] MEDS ORDERED: Pamidronate Inj 60 MG in Sodium Chlor 0.9% Inj 500 ML IV.SIG ONE (18:00)
[2018-07-21] MEDS: Famotidine 20 MG Tablet PO SCH ×2 (08:07→20:07)
[2018-07-21] MEDS: Atenolol 25 MG Tablet PO SCH (08:07)
[2018-07-21] MEDS: Senna/Docusate Sodium 8.6/50 MG Tablet PO SCH ×2 (08:07→20:07)
[2018-07-21] MEDS: OXcarbazepine 150 MG Tablet PO SCH ×2 (08:07→20:07)
[2018-07-21] MEDS: ARIPiprazole 10 MG Tablet PO SCH (08:07)
[2018-07-21] MEDS: Sodium Chloride 0.9% 2 ML Flush BID IV.FLUSH SCH ×2 (08:08→20:08)
[2018-07-21] MEDS: Lactic Acid (Ammonium Lactate) 12% Lotion 225 GM Bottle TOPICAL SCH ×2 (08:08→20:37)
[2018-07-21 08:49] LABS: Albumin 3.1 g/dL (3.4-5.0); Calcium 12.5 mg/dL (8.5-10.1); Carbon Dioxide 28.8 meq/L (21.0-32.0); Potassium 4.3 meq/L (3.5-5.1)
[2018-07-21 08:58] LABS: Calcium-Albumin Corrected 13.2 mg/dL (8.5-10.1)
--- NOTE | 2018-07-21 09:33 | P.PN ---
Subjective Interval history: Follow up on patient with hypercalcemia. Patient seen and examined, eating breakfast. Pleasant, requesting assistance with meal. Awake, oriented x 2. Left arm less tender. No fever, no cp, no sob. No abd. pain, no n/v/d. Eating well. Reviewed with RN, no acute changes overnight Physical Exam Vital signs: Vital Signs 07/20/18 18:00 07/21/18 06:34 Temperature 97.5 F L 97.8 F Pulse Rate 60 54 L Respiratory Rate 17 16 Blood Pressure 143/66 H 110/59 L Pulse Oximetry 94 L 99 Intake & Output 07/20/18 07/21/18 07/21/18 18:59 06:59 18:59 Intake Total 2640 / 2640 675 / 675 360 / 360 Balance 2640 / 2640 675 / 675 360 / 360 Intake: Oral 2640 / 2640 675 / 675 360 / 360 Other: # Voids 2 Date of Last Bowel Movement 07/18/18 Narrative: GENERAL: Thin emaciated elderly male, INAD. Awake and alert. SKIN: Warm and dry. +dry scaly skin on bottoms of both feet. RUE with mild edema and erythema. HEENT: Atraumatic. Normocephalic. Pupils equal and round. No scleral icterus. No injection or drainage. No nasal bleeding or discharge. Mucous membranes pink and moist. NECK: Trachea midline. CARDIOVASCULAR: Regular rate and rhythm. RESPIRATORY: No accessory muscle use. Clear to auscultation. Breath sounds equal bilaterally. GASTROINTESTINAL: Abdomen soft, non-tender, nondistended. +BS. MUSCULOSKELETAL: Extremities without clubbing or cyanosis. Trace ankle edema. NEUROLOGICAL: Awake and alert. No obvious cranial nerve deficits. Motor grossly within normal limits. Speech clear. Ambulating in hallway, gait steady. Mild hand tremors. PSYCHIATRIC: Calm and cooperative. Insight and judgment poor. Results - Labs CBC & Chem 7: 07/19/18 08:45 07/21/18 08:04 Laboratory Results - last 24 hr 07/20/18 07/21/18 07/21/18 08:04 08:04 08:04 Sodium 144 Potassium 4.3 Chloride 112 H Carbon Dioxide 28.8 Anion Gap 3 L BUN 14 Creatinine 0.92 Estimated GFR 82 L Random Glucose 109 H Calcium 12.5 H* D Cancelled Calcium Adj for Albumin 14.3 H* 13.2 H* D Cancelled Albumin 3.3 L 3.1 L Cancelled Assessment and Plan - Assessment (1) Bipolar disorder, manic Code(s): F31.10 - Bipolar disorder, current episode manic without psychotic features, unspecified Status: Acute - Plan 67-year-old male with known PMHX of hypertension, hyperlipidemia, BPH , bipolar disorder who is admitted under psychiatry services apparently for manic episodes. Leukocytosis, suspect reactive, resolved white count 18.1, improved to 7.1 patient is afebrile, VSS CXR shows no acute cardiopulmonary process UA unremarkable Lactic acid 1.5 -monitor clinically STEFAN, suspect secondary to poor perfusion secondary to hypovolemia creatinine 1.38, baseline is around 0.8-1 repeat creatinine s/p IVF improved -continue to encourage po fluid intake -Avoid nephrotoxic agents -Monitor kidney function closely Hypercalcemia Hyperparathyroidism Review of previous workup PTH was 430, repeat PTH this admit 284.9 hx of lithium toxicity in the past but patient not on lithium prior to this admission and lithium level low at 0.2. ?underlying malignancy. Pepin has been discontinued, last dose was on 07/17, lithium level 0.9 on 07/14 Neck US + 1.6cm thyroid nodule, unlikely to be parathyroid adenoma, TR4 nodule, FNA bx recommended -Nephrology following, appreciate recommendations. Currently on Calcitonin sq. Ca level continues to trend up off of Pepin. Nephrology considering Aredia. -order placed for FNA bx but contacted later by radiology informing procedure must be done as outpatient -Aredia x 1 07/20 per nephrology -Calcium trending down slowly, 13.2 today. -PSA 9.37, hx of BPH, will need to follow up at OP -PTH pending RUE superficial DVT Doppelr US + suspected acute thrombus in the right cephalic vein -RUE improving clinically -keep RUE elevated -warm compresses -given NSAID x 1, cautious use of NSAID due to concern for worsening renal fxn -RUE swelling and erythema markedly improved. History of hypertension, now hypotensive Bradycardia, resolved -continue to hold Flomax -continue on decreased dose of atenolol 25 mg with hold parameters -Monitor blood pressure, adjust medication as necessary Headache, resolved Bilateral eye pain, resolved Dizziness, suspect orthostatic hypotension -CT head without any acute intracranial abnormalities -orthostatic BP measurements neg -fall precautions History of BPH History of hyperlipidemia -Continue on statin 20 mg at bedtime -Continue tamsulosin 0.4 mg daily -hold for now secondary to low BP Severe Protein calorie malnutrition BMI 18.1 -Consult drain cleaner plumber, appreciate recommendations -Ensure Enlive. Consider addition of Megace if no improvement in appetite. -Theragran M daily - will hold for now due to concern for worsening hypercalcemia -monitor weight, appetite improving. Constipation, chronic, resolving patient has performed manual disimpactions on himself KUB shows significant stool retention without evidence of obstruction - +small hard BM - continue on Elva Colace BID. Given Miralax and Dulcolax suppository. - monitor bowel pattern Right foot/ankle edema, mild erythema, resolved -doppler neg for DVT Bipolar disorder Manic episode patient has been off Pepin, resumed 07/09, stopped on 07/17 -Management by psychiatry. DVT prophylaxis: Patient is ambulatory Continue to follow. BMP in am Code Status: Full code Discussed Condition With: RN, pt. Discharge Planning: Per psych team
--- NOTE | 2018-07-21 11:27 | P.PNPSY ---
Subjective Chief Complaint: Follow-up for treatment of bipolar brandin Remarks: Patient seen for follow-up, chart reviewed, patient discussed with nursing staff ; we reviewed the patient's mood, thoughts, and behaviors from overnight and this morning. Nursing reports that patient has been calm and cooperative today and he seems to be more organized in his thinking such that he was able to talk appropriately about his plans for decorating [place]. Patient did return to sleep after breakfast and the nurse reports that he slept approximately 6 hours overnight but he continues to be restless. Mental Status Examination Appearance: Appropriate Consciousness: Alert Orientation: x4 Motor Activity: Other (Walks with a limp) Speech: Unremarkable Language: Adequate Fund of Knowledge: Adequate Attention and Concentration: Easily distracted Memory: Unremarkable Mood: Irritable Affect: Irritable Thought Process & Associations: Intact, Tangential Thought Content: Delusional (Continues to talk about his million dollars) Hallucination Type: None Delusion Type: Other (Grandiose) Suicidal Ideation: No Suicidal Plan: No Suicidal Intention: No Homicidal Ideation: No Homicidal Plan: No Homicidal Intention: No Insight: Poor Judgment: Poor Assessment and Plan - Assessment (1) Bipolar disorder, manic Code(s): F31.10 - Bipolar disorder, current episode manic without psychotic features, unspecified Status: Acute - Plan Plan: 07/19/2018: Unsatisfactory response to treatment, the patient continues to display symptoms of a manic mood. Patient no longer is appropriate for treatment with lithium therefore alternatives will need to be explored. The patient has been started on Abilify as an adjunctive treatment for his brandin due to his psych colic symptoms. We discussed risks benefits side effects and alternatives and the patient chooses to try Trileptal. Plan 1. Continue Abilify 10 mg/day. 2. Start Trileptal 150 mg twice a day for brandin. 3. Hospitalist to continue following patient for treatment and evaluation of his renal insufficiency and hypercalcemia. 07/20/2018: Patient continues to cooperate with care but demonstrate active symptoms of brandin to include poor insight and judgment that place him at substantial risk of harm due to self neglect. The patient will require continued inpatient stabilization to give his recent medication changes more time to reach steady state as well as titrating to a therapeutic dose. 07/21/2018: Fair response to recent medication changes, the patient seems to be sleeping more and his thoughts are more organized. He has tolerated the 2-day treatment with Trileptal 150 mg and will be appropriate for increase later this week. He continues to require medical management by nephrology due to his elevated calcium. The patient continues to request discharge regardless of the risks to himself therefore demonstrating his lack of insight and poor judgment and requiring continued involuntary hospitalization per the court order. Justification for Continued Inpatient Stay: Patient remains an elevated risk for self-harm by self neglect and will require further inpatient stabilization and preparation of a safe discharge plan. Moving patient to a less restrictive environment at this time may result in decompensation. Request Healthcare Surrogate/Guardian Advocate?: No
--- NOTE | 2018-07-21 15:34 | P.PNNP ---
Subjective Interval history: Patient seen, alert, no SOB, eating well. Physical Exam Vital signs: Vital Signs 07/20/18 18:00 07/21/18 06:34 Temperature 97.5 F L 97.8 F Pulse Rate 60 54 L Respiratory Rate 17 16 Blood Pressure 143/66 H 110/59 L Pulse Oximetry 94 L 99 Intake & Output 07/20/18 07/21/18 07/21/18 18:59 06:59 18:59 Intake Total 2640 / 2640 675 / 675 840 / 840 Balance 2640 / 2640 675 / 675 840 / 840 Intake: Oral 2640 / 2640 675 / 675 840 / 840 Other: # Voids 2 Date of Last Bowel Movement 07/18/18 Narrative: GENERAL: Thin emaciated elderly male, INAD. Awake and alert. SKIN: Warm and dry. +dry scaly skin on bottoms of both feet. RUE with mild edema and erythema. HEENT: Atraumatic. Normocephalic. Pupils equal and round. No scleral icterus. No injection or drainage. No nasal bleeding or discharge. Mucous membranes pink and moist. NECK: Trachea midline. CARDIOVASCULAR: Regular rate and rhythm. RESPIRATORY: No accessory muscle use. Clear to auscultation. Breath sounds equal bilaterally. GASTROINTESTINAL: Abdomen soft, non-tender, nondistended. +BS. MUSCULOSKELETAL: Extremities without clubbing or cyanosis. Trace ankle edema. NEUROLOGICAL: Awake and alert. No obvious cranial nerve deficits. Motor grossly within normal limits. Speech clear. Ambulating in hallway, gait steady. Mild hand tremors. PSYCHIATRIC: Calm and cooperative. Insight and judgment poor. Assessment and Plan - Assessment (1) Hypercalcemia Code(s): E83.52 - Hypercalcemia Status: Acute (2) Bipolar 1 disorder Code(s): F31.9 - Bipolar disorder, unspecified Status: Acute (3) Bipolar disorder, manic Code(s): F31.10 - Bipolar disorder, current episode manic without psychotic features, unspecified Status: Acute (4) Hypertension Code(s): I10 - Essential (primary) hypertension Status: Acute - Plan Patient with Bipolar disorder, and has been on Cassandra. Now has elevated calcium and PTH level. Calcium remain elevated. U/S of neck noted, has Thyroid Nodule, which will need workup. Cassandra can cause increase in calcium and PTH, Cassandra now stopped and started on Trileptal. Calcium remain high despite Calcitonin. Calcitonin now stopped, One dose of Aredia was given last night. Calcium is already improving, will follow. .
[2018-07-21] MEDS: Acetaminophen 325 MG Tablet PO PRN (20:07)
[2018-07-22 08:31] LABS: Albumin 2.8 g/dL (3.4-5.0); Calcium 12.1 mg/dL (8.5-10.1); Carbon Dioxide 30.8 meq/L (21.0-32.0); Potassium 4.6 meq/L (3.5-5.1)
[2018-07-22 08:40] LABS: Calcium-Albumin Corrected 13.1 mg/dL (8.5-10.1)
[2018-07-22] MEDS: ARIPiprazole 10 MG Tablet PO SCH (09:34)
[2018-07-22] MEDS: Famotidine 20 MG Tablet PO SCH ×2 (09:34→20:31)
[2018-07-22] MEDS: OXcarbazepine 150 MG Tablet PO SCH ×2 (09:34→20:31)
[2018-07-22] MEDS: Atenolol 25 MG Tablet PO SCH (09:34)
[2018-07-22] MEDS: Senna/Docusate Sodium 8.6/50 MG Tablet PO SCH ×2 (09:34→20:31)
--- NOTE | 2018-07-22 10:05 | P.PN ---
Subjective Interval history: Follow up on patient with hypercalcemia. Patient seen and examined, eating breakfast. Pleasant, awake, oriented x 2-3. Has no complaints, eating very well , has a good appetite. No n/v/d. We discussed dc plan, states he is concerned about his cat and his belongings that are in "[place]" as he was homeless. States he has money and was in the process of buying a car and house. No acute changes overnight. Physical Exam Vital signs: Vital Signs 07/21/18 17:45 07/22/18 06:00 Temperature 97.4 F L 97.8 F Pulse Rate 60 56 L Respiratory Rate 18 14 Blood Pressure 114/58 L 103/59 L Pulse Oximetry 100 100 Intake & Output 07/21/18 07/22/18 07/22/18 18:59 06:59 18:59 Intake Total 1080 / 1080 250 / 250 Balance 1080 / 1080 250 / 250 Intake: Oral 1080 / 1080 250 / 250 Other: # Voids 2 Date of Last Bowel Movement 07/18/18 Narrative: GENERAL: Thin emaciated elderly male, INAD. Awake and alert. SKIN: Warm and dry. +dry scaly skin on bottoms of both feet. RUE with mild edema and erythema. HEENT: Atraumatic. Normocephalic. Pupils equal and round. No scleral icterus. No injection or drainage. No nasal bleeding or discharge. Mucous membranes pink and moist. NECK: Trachea midline. CARDIOVASCULAR: Regular rate and rhythm. RESPIRATORY: No accessory muscle use. Clear to auscultation. Breath sounds equal bilaterally. GASTROINTESTINAL: Abdomen soft, non-tender, nondistended. +BS. MUSCULOSKELETAL: Extremities without clubbing or cyanosis. Trace ankle edema. NEUROLOGICAL: Awake and alert and oriented x2-3. No obvious cranial nerve deficits. Motor grossly within normal limits. Speech clear. Ambulating in hallway, gait steady. Mild hand tremors. PSYCHIATRIC: Calm and cooperative. Insight and judgment poor. Results - Labs CBC & Chem 7: 07/19/18 08:45 07/22/18 07:36 Laboratory Results - last 24 hr 07/22/18 07:36 Sodium 143 Potassium 4.6 Chloride 112 H Carbon Dioxide 30.8 Anion Gap 0 L BUN 14 Creatinine 0.91 Estimated GFR 83 L Random Glucose 92 Calcium 12.1 H* Calcium Adj for Albumin 13.1 H* Albumin 2.8 L Assessment and Plan - Assessment (1) Bipolar disorder, manic Code(s): F31.10 - Bipolar disorder, current episode manic without psychotic features, unspecified Status: Acute - Plan 67-year-old male with known PMHX of hypertension, hyperlipidemia, BPH , bipolar disorder who is admitted under psychiatry services apparently for manic episodes. Leukocytosis, suspect reactive, resolved white count 18.1, improved to 7.1 patient is afebrile, VSS CXR shows no acute cardiopulmonary process UA unremarkable Lactic acid 1.5 -monitor clinically STEFAN, suspect secondary to poor perfusion secondary to hypovolemia creatinine 1.38, baseline is around 0.8-1 repeat creatinine s/p IVF improved -continue to encourage po fluid intake -Avoid nephrotoxic agents -Monitor kidney function closely Hypercalcemia Hyperparathyroidism Review of previous workup PTH was 430, repeat PTH this admit 284.9 hx of lithium toxicity in the past but patient not on lithium prior to this admission and lithium level low at 0.2. ?underlying malignancy. [place] has been discontinued, last dose was on 07/17, lithium level 0.9 on 07/14 Neck US + 1.6cm thyroid nodule, unlikely to be parathyroid adenoma, TR4 nodule, FNA bx recommended -Nephrology following, appreciate recommendations. Currently on Calcitonin sq. Ca level continues to trend up off of [place]. Nephrology considering Aredia. -order placed for FNA bx but contacted later by radiology informing procedure must be done as outpatient -Aredia x 1 07/20 per nephrology -Calcium trending down slowly, pending today -PSA 9.37, hx of BPH, will need to follow up at OP -PTH 284.9 RUE superficial DVT Doppelr US + suspected acute thrombus in the right cephalic vein -RUE improving clinically -keep RUE elevated -warm compresses -given NSAID x 1, cautious use of NSAID due to concern for worsening renal fxn -RUE swelling and erythema markedly improved. History of hypertension, now hypotensive Bradycardia, resolved -continue to hold Flomax -continue on decreased dose of atenolol 25 mg with hold parameters -Monitor blood pressure, adjust medication as necessary Headache, resolved Bilateral eye pain, resolved Dizziness, suspect orthostatic hypotension -CT head without any acute intracranial abnormalities -orthostatic BP measurements neg -fall precautions History of BPH History of hyperlipidemia -Continue on statin 20 mg at bedtime -Continue tamsulosin 0.4 mg daily -hold for now secondary to low BP Severe Protein calorie malnutrition BMI 18.1 -Consult electrical and instrument technician, appreciate recommendations -Ensure Enlive. Consider addition of Megace if no improvement in appetite. -Theragran M daily - will hold for now due to concern for worsening hypercalcemia -monitor weight, appetite improving. Constipation, chronic, resolving patient has performed manual disimpactions on himself KUB shows significant stool retention without evidence of obstruction - +small hard BM - continue on Elva Colace BID. Given Miralax and Dulcolax suppository. - monitor bowel pattern Right foot/ankle edema, mild erythema, resolved -doppler neg for DVT Bipolar disorder Manic episode patient has been off [place], resumed 07/09, stopped on 07/17 -Management by psychiatry. DVT prophylaxis: Patient is ambulatory Continue to follow. BMP in am Code Status: Full code Discussed Condition With: RN, pt, CM Discharge Planning: Per psych team will need placement.
--- NOTE | 2018-07-22 11:27 | P.PNPSY ---
Subjective Chief Complaint: Follow-up for treatment of bipolar brandin Remarks: Patient seen for follow-up, chart reviewed, patient discussed with nursing staff ; we reviewed the patient's mood, thoughts, and behaviors from overnight and this morning. Nurse reports the patient slept much better overnight. He continues to be cooperative with care. Patient was seen at bedside this morning he is awake and alert and pleasant with interview. He continues to be discharged focused but his arguments were more logical today; he is now stating that he needs to be discharged so he can secure his belongings in the [place], he is reporting his car is now a used car worth about $9000, and he is planning on staying at a [place] rather than his [place]. He is now aware of his chronic back pain and asking for treatment. We discussed risks benefits side effects and alternatives and due to his recent kidney problems he understands we must avoid NSAIDs and therefore he chooses a Lidoderm patch. Mental Status Examination Appearance: Appropriate Consciousness: Alert Orientation: x4 Motor Activity: Other (Walks with a limp) Speech: Unremarkable Language: Adequate Fund of Knowledge: Adequate Attention and Concentration: Adequate Memory: Unremarkable Mood: Irritable Affect: Irritable (But improved) Thought Process & Associations: Intact Thought Content: Delusional (Grandiosity is lessening) Hallucination Type: None Suicidal Ideation: No Suicidal Plan: No Suicidal Intention: No Homicidal Ideation: No Homicidal Plan: No Homicidal Intention: No Insight: Poor Judgment: Poor Assessment and Plan - Assessment (1) Bipolar disorder, manic Code(s): F31.10 - Bipolar disorder, current episode manic without psychotic features, unspecified Status: Acute - Plan Plan: 07/19/2018: Unsatisfactory response to treatment, the patient continues to display symptoms of a manic mood. Patient no longer is appropriate for treatment with lithium therefore alternatives will need to be explored. The patient has been started on Abilify as an adjunctive treatment for his brandin due to his psych colic symptoms. We discussed risks benefits side effects and alternatives and the patient chooses to try Trileptal. Plan 1. Continue Abilify 10 mg/day. 2. Start Trileptal 150 mg twice a day for brandin. 3. Hospitalist to continue following patient for treatment and evaluation of his renal insufficiency and hypercalcemia. 07/20/2018: Patient continues to cooperate with care but demonstrate active symptoms of brandin to include poor insight and judgment that place him at substantial risk of harm due to self neglect. The patient will require continued inpatient stabilization to give his recent medication changes more time to reach steady state as well as titrating to a therapeutic dose. 07/21/2018: Fair response to recent medication changes, the patient seems to be sleeping more and his thoughts are more organized. He has tolerated the 2-day treatment with Trileptal 150 mg and will be appropriate for increase later this week. He continues to require medical management by nephrology due to his elevated calcium. The patient continues to request discharge regardless of the risks to himself therefore demonstrating his lack of insight and poor judgment and requiring continued involuntary hospitalization per the court order. 07/22/2018: Fair response to treatment, there is definite evidence of improvement with his symptoms of brandin. He continues to lack insight and has poor judgment and is unlikely to adhere to outpatient plans at this point. The patient remains opposed to a referral for nursing home or assisted living facilities but today he was willing to except that he might need the support and he asked whether he could first secure his belongings from the [facility] [place] and then be admitted. Continue current inpatient treatment and stabilization with anticipation of further titration of Trileptal by the weeks end. Discharge planning: Patient is a substantial risk of nonadherence and thereby self neglect if discharged to his tent in the [facility] [place] but his mental status is improving with treatment and he may no longer meet criteria for involuntary psychiatric admission by next week. Without a guardian advocate or power of trust and estates attorney to make placement decisions, he will most likely be discharged to his stated home if he refuses placement. Justification for Continued Inpatient Stay: Patient remains an elevated risk for self-harm by self neglect and will require further inpatient stabilization and preparation of a safe discharge plan. Moving patient to a less restrictive environment at this time may result in decompensation. Request Healthcare Surrogate/Guardian Advocate?: No
[2018-07-22] MEDS: Sodium Chloride 0.9% 2 ML Flush BID IV.FLUSH SCH ×2 (14:11→20:32)
[2018-07-22] MEDS: Lactic Acid (Ammonium Lactate) 12% Lotion 225 GM Bottle TOPICAL SCH ×2 (14:11→20:32)
[2018-07-22] MEDS: Lidocaine 5% Patch T-DERMAL SCH (18:11)
--- NOTE | 2018-07-22 18:20 | P.PNNP ---
Subjective Interval history: Patient seen in the afternoon, alert, no complaint. Physical Exam Vital signs: Vital Signs 07/22/18 06:00 07/22/18 17:40 Temperature 97.8 F 97.9 F Pulse Rate 56 L 66 Respiratory Rate 14 18 Blood Pressure 103/59 L 111/64 Pulse Oximetry 100 97 Intake & Output 07/21/18 07/22/18 07/22/18 18:59 06:59 18:59 Intake Total 1080 / 1080 250 / 250 1080 / 1080 Balance 1080 / 1080 250 / 250 1080 / 1080 Intake: Oral 1080 / 1080 250 / 250 1080 / 1080 Other: # Voids 2 Date of Last Bowel Movement 07/18/18 07/21/18 Narrative: GENERAL: Thin emaciated elderly male, INAD. Awake and alert. SKIN: Warm and dry. +dry scaly skin on bottoms of both feet. RUE with mild edema and erythema. HEENT: Atraumatic. Normocephalic. Pupils equal and round. No scleral icterus. No injection or drainage. No nasal bleeding or discharge. Mucous membranes pink and moist. NECK: Trachea midline. CARDIOVASCULAR: Regular rate and rhythm. RESPIRATORY: No accessory muscle use. Clear to auscultation. Breath sounds equal bilaterally. GASTROINTESTINAL: Abdomen soft, non-tender, nondistended. +BS. MUSCULOSKELETAL: Extremities without clubbing or cyanosis. Trace ankle edema. NEUROLOGICAL: Awake and alert and oriented x2-3. No obvious cranial nerve deficits. Motor grossly within normal limits. Speech clear. Ambulating in hallway, gait steady. Mild hand tremors. PSYCHIATRIC: Calm and cooperative. Insight and judgment poor. Assessment and Plan - Assessment (1) Hypercalcemia Code(s): E83.52 - Hypercalcemia Status: Acute (2) Bipolar 1 disorder Code(s): F31.9 - Bipolar disorder, unspecified Status: Acute (3) Bipolar disorder, manic Code(s): F31.10 - Bipolar disorder, current episode manic without psychotic features, unspecified Status: Acute (4) Hypertension Code(s): I10 - Essential (primary) hypertension Status: Acute - Plan Patient with Bipolar disorder, and has been on [place]. Now has elevated calcium and PTH level. Calcium remain elevated. U/S of neck noted, has Thyroid Nodule, which will need workup. [place] can cause increase in calcium and PTH, [place] now stopped and started on Trileptal. Calcium remain high despite Calcitonin. Calcitonin now stopped, One dose of Aredia was given on 07/20 Calcium is still 13.1, encourage oral fluids. If calcium not better tomorrow, will start IVF. .
[2018-07-23] MEDS: ARIPiprazole 10 MG Tablet PO SCH (08:23)
[2018-07-23] MEDS: Senna/Docusate Sodium 8.6/50 MG Tablet PO SCH ×2 (08:24→20:29)
[2018-07-23] MEDS: OXcarbazepine 150 MG Tablet PO SCH (08:24)
[2018-07-23] MEDS: Famotidine 20 MG Tablet PO SCH ×2 (08:24→20:29)
[2018-07-23] MEDS: Atenolol 25 MG Tablet PO SCH (08:24)
[2018-07-23] MEDS: Sod Chloride 0.9% Inj 1,000 ML IV.CONT SCH ×2 (08:30→20:31)
[2018-07-23] MEDS: Lactic Acid (Ammonium Lactate) 12% Lotion 225 GM Bottle TOPICAL SCH ×2 (09:00→20:29)
[2018-07-23] MEDS: Sodium Chloride 0.9% 2 ML Flush BID IV.FLUSH SCH ×2 (09:00→20:30)
[2018-07-23 09:05] LABS: Albumin 3.2 g/dL (3.4-5.0); Calcium 11.9 mg/dL (8.5-10.1)
[2018-07-23 09:09] LABS: Calcium-Albumin Corrected 12.5 mg/dL (8.5-10.1)
--- NOTE | 2018-07-23 11:49 | P.PNPSY ---
Subjective Chief Complaint: Follow-up for treatment of bipolar brandin Remarks: Patient seen for follow-up, chart reviewed, patient discussed with nursing staff ; we reviewed the patient's mood, thoughts, and behaviors from overnight and this morning. Nurse reports the patient has remained cooperative with treatment and has been calm on the unit. He seemed to sleep through the night. He continues to make statements about having a large sum of money and a new car and is not worried about housing. Mental Status Examination Appearance: Appropriate Consciousness: Alert Orientation: x4 Motor Activity: Other (Walks with a limp) Speech: Unremarkable Language: Adequate Fund of Knowledge: Adequate Attention and Concentration: Adequate Memory: Unremarkable Mood: Irritable Affect: Irritable (But improved) Thought Process & Associations: Intact Thought Content: Delusional (Grandiosity is lessening) Hallucination Type: None Delusion Type: Other (Grandiose) Suicidal Ideation: No Suicidal Plan: No Suicidal Intention: No Homicidal Ideation: No Homicidal Plan: No Homicidal Intention: No Insight: Poor Judgment: Poor Assessment and Plan - Assessment (1) Bipolar disorder, manic Code(s): F31.10 - Bipolar disorder, current episode manic without psychotic features, unspecified Status: Acute - Plan Plan: 07/19/2018: Unsatisfactory response to treatment, the patient continues to display symptoms of a manic mood. Patient no longer is appropriate for treatment with lithium therefore alternatives will need to be explored. The patient has been started on Abilify as an adjunctive treatment for his brandin due to his psych colic symptoms. We discussed risks benefits side effects and alternatives and the patient chooses to try Trileptal. Plan 1. Continue Abilify 10 mg/day. 2. Start Trileptal 150 mg twice a day for brandin. 3. Hospitalist to continue following patient for treatment and evaluation of his renal insufficiency and hypercalcemia. 07/20/2018: Patient continues to cooperate with care but demonstrate active symptoms of brandin to include poor insight and judgment that place him at substantial risk of harm due to self neglect. The patient will require continued inpatient stabilization to give his recent medication changes more time to reach steady state as well as titrating to a therapeutic dose. 07/21/2018: Fair response to recent medication changes, the patient seems to be sleeping more and his thoughts are more organized. He has tolerated the 2-day treatment with Trileptal 150 mg and will be appropriate for increase later this week. He continues to require medical management by nephrology due to his elevated calcium. The patient continues to request discharge regardless of the risks to himself therefore demonstrating his lack of insight and poor judgment and requiring continued involuntary hospitalization per the court order. 07/22/2018: Fair response to treatment, there is definite evidence of improvement with his symptoms of brandin. He continues to lack insight and has poor judgment and is unlikely to adhere to outpatient plans at this point. The patient remains opposed to a referral for intermediate or assisted living facilities but today he was willing to except that he might need the support and he asked whether he could first secure his belongings from the [facility] and then be admitted. Continue current inpatient treatment and stabilization with anticipation of further titration of Trileptal by the weeks end. Discharge planning: Patient is a substantial risk of nonadherence and thereby self neglect if discharged to his tent in the [facility] but his mental status is improving with treatment and he may no longer meet criteria for involuntary psychiatric admission by next week. Without a guardian advocate or power of employee benefits attorney to make placement decisions, he will most likely be discharged to his stated home if he refuses placement. 07/23/2018: Fair response to treatment, the patient's symptoms of brandin continue to decrease. The patient's sleep seems to have been normalized but he continues to have grandiose assessments of his financial well-being and his ability to care for himself. There are no bizarre delusions. The patient's calcium level remains high and he is now receiving IV treatments. The patient has agreed with referral for assisted living or intermediate facility placement but he is insistent that he needs to collect his possessions and large sums of money and will not agree at this time for direct transition of his care. The patient has tolerated the start of Trileptal but it is at a subtherapeutic dose and will be increased today. Anticipate discharge to a less restrictive environment of care early next week. Continue current inpatient treatment and stabilization with anticipation of further titration of Trileptal over the weekend. Continue Abilify 10 mg a day for adjunctive treatment of bipolar brandin with psychosis. There is no indication to increase the dose at this time due to the remission of his more bizarre delusions and the continued improvement of his grandiosity. Discharge planning: Patient is a substantial risk of nonadherence and thereby self neglect if discharged to his tent in the [facility] but his mental status is improving with treatment and he may no longer meet criteria for involuntary psychiatric admission by next week. Without a guardian advocate or power of employee benefits attorney to make placement decisions, he will most likely be discharged to his stated home if he refuses placement. Justification for Continued Inpatient Stay: Patient remains an elevated risk for self-harm by self neglect and will require further inpatient stabilization and preparation of a safe discharge plan. Moving patient to a less restrictive environment at this time may result in decompensation. Request Healthcare Surrogate/Guardian Advocate?: No
[2018-07-23] MEDS: Lidocaine 5% Patch T-DERMAL SCH (13:08)
[2018-07-23] MEDS ORDERED: Polyethylene Glycol 3350 17 GM Packet PO ONE (13:41)
--- NOTE | 2018-07-23 13:43 | P.PN ---
Subjective Interval history: Follow up on patient with hypercalcemia. Patient seen and examined, ambulating around unit. Pt. c/o low back pain, has Lidocaine patch in place. Constipated today. Asking when he is going home, explained that he needs to go to SNF and needs more help. States that he will get a machine shop specialist if we don't discharge him home. Physical Exam Vital signs: Vital Signs 07/22/18 17:40 07/23/18 05:51 Temperature 97.9 F 97.7 F Pulse Rate 66 63 Respiratory Rate 18 Blood Pressure 111/64 107/69 Pulse Oximetry 97 99 Intake & Output 07/22/18 07/23/18 07/23/18 18:59 06:59 18:59 Intake Total 1080 / 1080 360 / 360 Balance 1080 / 1080 360 / 360 Intake: Oral 1080 / 1080 360 / 360 Other: # Voids 0 Date of Last Bowel Movement 07/21/18 Narrative: GENERAL: Thin emaciated elderly male, INAD. Awake and alert. SKIN: Warm and dry. +dry scaly skin on bottoms of both feet. RUE with mild edema and erythema. HEENT: Atraumatic. Normocephalic. Pupils equal and round. No scleral icterus. No injection or drainage. No nasal bleeding or discharge. Mucous membranes pink and moist. NECK: Trachea midline. CARDIOVASCULAR: Regular rate and rhythm. RESPIRATORY: No accessory muscle use. Clear to auscultation. Breath sounds equal bilaterally. GASTROINTESTINAL: Abdomen soft, non-tender, nondistended. +BS. MUSCULOSKELETAL: Extremities without clubbing or cyanosis. Trace ankle edema. NEUROLOGICAL: Awake and alert and oriented x2-3. No obvious cranial nerve deficits. Motor grossly within normal limits. Speech clear. Ambulating in hallway, gait steady. Mild hand tremors. PSYCHIATRIC: Calm and cooperative. Insight and judgment poor. Results - Labs CBC & Chem 7: 07/19/18 08:45 07/22/18 07:36 Laboratory Results - last 24 hr 07/23/18 08:17 Calcium 11.9 H* Calcium Adj for Albumin 12.5 H* Albumin 3.2 L Assessment and Plan - Assessment (1) Bipolar disorder, manic Code(s): F31.10 - Bipolar disorder, current episode manic without psychotic features, unspecified Status: Acute - Plan 67-year-old male with known PMHX of hypertension, hyperlipidemia, BPH , bipolar disorder who is admitted under psychiatry services apparently for manic episodes. Leukocytosis, suspect reactive, resolved white count 18.1, improved to 7.1 patient is afebrile, VSS CXR shows no acute cardiopulmonary process UA unremarkable Lactic acid 1.5 -monitor clinically STEFAN, suspect secondary to poor perfusion secondary to hypovolemia creatinine 1.38, baseline is around 0.8-1 repeat creatinine s/p IVF improved -continue to encourage po fluid intake -Avoid nephrotoxic agents -Monitor kidney function closely Hypercalcemia Hyperparathyroidism Review of previous workup PTH was 430, repeat PTH this admit 284.9 hx of lithium toxicity in the past but patient not on lithium prior to this admission and lithium level low at 0.2. ?underlying malignancy. [place] has been discontinued, last dose was on 07/17, lithium level 0.9 on 07/14 Neck US + 1.6cm thyroid nodule, unlikely to be parathyroid adenoma, TR4 nodule, FNA bx recommended -Nephrology following, appreciate recommendations. Currently on Calcitonin sq. Ca level continues to trend up off of [place]. Nephrology considering Aredia. -order placed for FNA bx but contacted later by radiology informing procedure must be done as outpatient -Aredia x 1 07/20 per nephrology -Calcium trending down slowly, 12.9 -PSA 9.37, hx of BPH, will need to follow up at OP -PTH 284.9 -will start NS at 75/hr, follow calcium, slowly trending down. RUE superficial DVT Doppelr US + suspected acute thrombus in the right cephalic vein -RUE improving clinically -keep RUE elevated -warm compresses -given NSAID x 1, cautious use of NSAID due to concern for worsening renal fxn -RUE swelling and erythema markedly improved. History of hypertension, now hypotensive Bradycardia, resolved -continue to hold Flomax -continue on decreased dose of atenolol 25 mg with hold parameters -Monitor blood pressure, adjust medication as necessary Headache, resolved Bilateral eye pain, resolved Dizziness, suspect orthostatic hypotension -CT head without any acute intracranial abnormalities -orthostatic BP measurements neg -fall precautions History of BPH History of hyperlipidemia -Continue on statin 20 mg at bedtime -Continue tamsulosin 0.4 mg daily -hold for now secondary to low BP Severe Protein calorie malnutrition BMI 18.1 -Consult director of retention, appreciate recommendations -Ensure Enlive. Consider addition of Megace if no improvement in appetite. -Theragran M daily - will hold for now due to concern for worsening hypercalcemia -monitor weight, appetite improving. Constipation, chronic, resolving patient has performed manual disimpactions on himself KUB shows significant stool retention without evidence of obstruction - continue on Elva Colace BID. -constipated again, give Miralax x 1 today. -monitor bowel pattern Right foot/ankle edema, mild erythema, resolved -doppler neg for DVT Bipolar disorder Manic episode patient has been off [place], resumed 07/09, stopped on 07/17 -Management by psychiatry. DVT prophylaxis: Patient is ambulatory Continue to follow. BMP in am Code Status: Full code Discussed Condition With: RN, pt Discharge Planning: Per psych team will need placement.
--- NOTE | 2018-07-23 20:18 | P.PNNP ---
Subjective Interval history: Patient seen in the afternoon, alert, eating well. Physical Exam Vital signs: Vital Signs 07/23/18 05:51 Temperature 97.7 F Pulse Rate 63 Respiratory Rate 18 Blood Pressure 107/69 Pulse Oximetry 99 Intake & Output 07/23/18 07/23/18 07/24/18 06:59 18:59 06:59 Intake Total 360 / 360 0 / 0 Balance 360 / 360 0 / 0 Intake: Oral 360 / 360 0 / 0 Other: # Voids 0 0 Narrative: GENERAL: Thin emaciated elderly male, INAD. Awake and alert. SKIN: Warm and dry. +dry scaly skin on bottoms of both feet. RUE with mild edema and erythema. HEENT: Atraumatic. Normocephalic. Pupils equal and round. No scleral icterus. No injection or drainage. No nasal bleeding or discharge. Mucous membranes pink and moist. NECK: Trachea midline. CARDIOVASCULAR: Regular rate and rhythm. RESPIRATORY: No accessory muscle use. Clear to auscultation. Breath sounds equal bilaterally. GASTROINTESTINAL: Abdomen soft, non-tender, nondistended. +BS. MUSCULOSKELETAL: Extremities without clubbing or cyanosis. Trace ankle edema. NEUROLOGICAL: Awake and alert and oriented x2-3. No obvious cranial nerve deficits. Motor grossly within normal limits. Speech clear. Ambulating in hallway, gait steady. Mild hand tremors. PSYCHIATRIC: Calm and cooperative. Insight and judgment poor. Assessment and Plan - Assessment (1) Hypercalcemia Code(s): E83.52 - Hypercalcemia Status: Acute (2) Bipolar 1 disorder Code(s): F31.9 - Bipolar disorder, unspecified Status: Acute (3) Bipolar disorder, manic Code(s): F31.10 - Bipolar disorder, current episode manic without psychotic features, unspecified Status: Acute (4) Hypertension Code(s): I10 - Essential (primary) hypertension Status: Acute - Plan Patient with Bipolar disorder, and has been on [place]. Now has elevated calcium and PTH level. Calcium remain elevated. U/S of neck noted, has Thyroid Nodule, which will need workup. [place] can cause increase in calcium and PTH, [place] now stopped and started on Trileptal. Calcium remain high despite Calcitonin. Calcitonin now stopped, One dose of Aredia was given on 07/20 Calcium is now 12.5, started on IVF. If Calcium remain stable, can be discharge, with out patient follow up with Endocrinology. .
[2018-07-23] MEDS: OXcarbazepine 300 MG Tablet PO SCH (20:29)
[2018-07-24] MEDS: Atenolol 25 MG Tablet PO SCH (08:02)
[2018-07-24] MEDS: ARIPiprazole 10 MG Tablet PO SCH (08:02)
[2018-07-24] MEDS: Lactic Acid (Ammonium Lactate) 12% Lotion 225 GM Bottle TOPICAL SCH ×2 (08:03→20:46)
[2018-07-24] MEDS: Lidocaine 5% Patch T-DERMAL SCH (08:03)
[2018-07-24] MEDS: Senna/Docusate Sodium 8.6/50 MG Tablet PO SCH ×2 (08:03→20:45)
[2018-07-24] MEDS: Sodium Chloride 0.9% 2 ML Flush BID IV.FLUSH SCH ×2 (08:03→20:46)
[2018-07-24] MEDS: OXcarbazepine 300 MG Tablet PO SCH ×2 (08:03→20:45)
[2018-07-24] MEDS: Famotidine 20 MG Tablet PO SCH ×2 (08:03→20:45)
--- NOTE | 2018-07-24 09:43 | P.PN ---
Subjective Interval history: Follow up on patient with hypercalcemia. Patient seen and examined, constipated yesterday. Eating well today. Has no complaints. On IVF, no cp, no sob. Back pain okay. Continues to be focused on going home not SNF Physical Exam Vital signs: Vital Signs 07/24/18 05:11 Temperature 97.8 F Pulse Rate 57 L Respiratory Rate 18 Blood Pressure 108/56 L Pulse Oximetry 98 Intake & Output 07/23/18 07/24/18 07/24/18 18:59 06:59 18:59 Intake Total 1600 / 1600 Balance 1600 / 1600 Intake: IV 1000 / 1000 NS Inj 1,000 ML @ 75 mls/hr IV. 1000 / 1000 CONT .[id number] PABLO Rx#:[id number] Oral 600 / 600 Other: # Voids 0 Narrative: GENERAL: Thin emaciated elderly male, INAD. Awake and alert. SKIN: Warm and dry. +dry scaly skin on bottoms of both feet. RUE with mild edema and erythema. HEENT: Atraumatic. Normocephalic. Pupils equal and round. No scleral icterus. No injection or drainage. No nasal bleeding or discharge. Mucous membranes pink and moist. NECK: Trachea midline. CARDIOVASCULAR: Regular rate and rhythm. RESPIRATORY: No accessory muscle use. Clear to auscultation. Breath sounds equal bilaterally. GASTROINTESTINAL: Abdomen soft, non-tender, nondistended. +BS. MUSCULOSKELETAL: Extremities without clubbing or cyanosis. Trace ankle edema. NEUROLOGICAL: Awake and alert and oriented x2-3. No obvious cranial nerve deficits. Motor grossly within normal limits. Speech clear. Ambulating in hallway, gait steady. Mild hand tremors. PSYCHIATRIC: Calm and cooperative. Insight and judgment poor. Results - Labs CBC & Chem 7: 07/19/18 08:45 07/22/18 07:36 Assessment and Plan - Assessment (1) Bipolar disorder, manic Code(s): F31.10 - Bipolar disorder, current episode manic without psychotic features, unspecified Status: Acute - Plan 67-year-old male with known PMHX of hypertension, hyperlipidemia, BPH , bipolar disorder who is admitted under psychiatry services apparently for manic episodes. Leukocytosis, suspect reactive, resolved white count 18.1, improved to 7.1 patient is afebrile, VSS CXR shows no acute cardiopulmonary process UA unremarkable Lactic acid 1.5 -monitor clinically STEFAN, suspect secondary to poor perfusion secondary to hypovolemia creatinine 1.38, baseline is around 0.8-1 repeat creatinine s/p IVF improved -continue to encourage po fluid intake -Avoid nephrotoxic agents -Monitor kidney function closely Hypercalcemia Hyperparathyroidism Review of previous workup PTH was 430, repeat PTH this admit 284.9 hx of lithium toxicity in the past but patient not on lithium prior to this admission and lithium level low at 0.2. ?underlying malignancy. [place] has been discontinued, last dose was on 07/17, lithium level 0.9 on 07/14 Neck US + 1.6cm thyroid nodule, unlikely to be parathyroid adenoma, TR4 nodule, FNA bx recommended -Nephrology following, appreciate recommendations. Currently on Calcitonin sq. Ca level continues to trend up off of [place]. Nephrology considering Aredia. -order placed for FNA bx but contacted later by radiology informing procedure must be done as outpatient -Aredia x 1 07/20 per nephrology -Calcium trending down slowly, 12.9 -PSA 9.37, hx of BPH, will need to follow up at OP -PTH 284.9 -corrected calcium 12.5, continue NS, level pending today. Slowly improving RUE superficial DVT Doppelr US + suspected acute thrombus in the right cephalic vein -RUE improving clinically -keep RUE elevated -warm compresses -given NSAID x 1, cautious use of NSAID due to concern for worsening renal fxn -RUE swelling and erythema markedly improved. History of hypertension, now hypotensive Bradycardia, resolved -continue to hold Flomax -continue on decreased dose of atenolol 25 mg with hold parameters -Monitor blood pressure, adjust medication as necessary Headache, resolved Bilateral eye pain, resolved Dizziness, suspect orthostatic hypotension -CT head without any acute intracranial abnormalities -orthostatic BP measurements neg -fall precautions History of BPH History of hyperlipidemia -Continue on statin 20 mg at bedtime -Continue tamsulosin 0.4 mg daily -hold for now secondary to low BP Severe Protein calorie malnutrition BMI 18.1 -Consult scrip clerk, appreciate recommendations -Ensure Enlive. Consider addition of Megace if no improvement in appetite. -Theragran M daily - will hold for now due to concern for worsening hypercalcemia -monitor weight, appetite improving. Constipation, chronic, resolving patient has performed manual disimpactions on himself KUB shows significant stool retention without evidence of obstruction - continue on Elva Colace BID. -add daily Miralax, stools firm. Right foot/ankle edema, mild erythema, resolved -doppler neg for DVT Bipolar disorder Manic episode patient has been off [place], resumed 07/09, stopped on 07/17 -Management by psychiatry. DVT prophylaxis: Patient is ambulatory Continue to follow. BMP in am Code Status: Full code Discussed Condition With: RN, pt Discharge Planning: Per psych team will need placement.
[2018-07-24 09:50] LABS: Calcium 11.4 mg/dL (8.5-10.1)
[2018-07-24] MEDS: Sod Chloride 0.9% Inj 1,000 ML IV.CONT SCH ×2 (09:56→23:30)
[2018-07-24 10:15] LABS: Calcium-Albumin Corrected 12.2 mg/dL (8.5-10.1)
[2018-07-24] MEDS: Polyethylene Glycol 3350 17 GM Packet PO SCH (10:50)
--- NOTE | 2018-07-24 12:52 | P.PNPSY ---
Subjective Chief Complaint: Follow-up for treatment of bipolar brandin Remarks: Patient was seen and case discussed with nursing. Patient is behaving well on the unit. Insight is poor concerning his admission. Patient makes bizarre statements which he witnessed a murder last month. Thought processes disorganized. Review of Systems All other systems reviewed negative except as stated in HPI Mental Status Examination Appearance: Appropriate Consciousness: Alert Orientation: x4 Motor Activity: Other (Walks with a limp) Speech: Unremarkable Language: Adequate Fund of Knowledge: Adequate Attention and Concentration: Adequate Memory: Unremarkable Mood: Irritable Affect: Irritable (But improved) Thought Process & Associations: Intact Thought Content: Preoccupations, Delusional (Grandiosity is lessening) Hallucination Type: None Delusion Type: Other (Grandiose) Suicidal Ideation: No Suicidal Plan: No Suicidal Intention: No Homicidal Ideation: No Homicidal Plan: No Homicidal Intention: No Insight: Poor Judgment: Poor Assessment and Plan - Assessment (1) Bipolar disorder, manic Code(s): F31.10 - Bipolar disorder, current episode manic without psychotic features, unspecified Status: Acute - Plan Plan: Continue current treatment plan Justification for Continued Inpatient Stay: Patient would decompensate in a less restrictive setting Request Healthcare Surrogate/Guardian Advocate?: No
[2018-07-25] MEDS: OXcarbazepine 300 MG Tablet PO SCH ×2 (08:39→21:19)
[2018-07-25] MEDS: ARIPiprazole 10 MG Tablet PO SCH (08:39)
[2018-07-25] MEDS: Atenolol 25 MG Tablet PO SCH (08:40)
[2018-07-25] MEDS: Senna/Docusate Sodium 8.6/50 MG Tablet PO SCH ×2 (08:40→21:19)
[2018-07-25] MEDS: Lidocaine 5% Patch T-DERMAL SCH (08:40)
[2018-07-25] MEDS: Polyethylene Glycol 3350 17 GM Packet PO SCH (08:40)
[2018-07-25] MEDS: Lactic Acid (Ammonium Lactate) 12% Lotion 225 GM Bottle TOPICAL SCH ×2 (08:41→21:20)
[2018-07-25] MEDS: Famotidine 20 MG Tablet PO SCH ×2 (08:54→21:19)
[2018-07-25 09:26] LABS: Calcium 11.2 mg/dL (8.5-10.1)
[2018-07-25] MEDS: Sodium Chloride 0.9% 2 ML Flush BID IV.FLUSH SCH ×2 (09:43→21:20)
--- NOTE | 2018-07-25 12:28 | P.PNNP ---
Subjective Interval history: Patient is alert, eating better, no complaint. Physical Exam Vital signs: Vital Signs 07/24/18 17:32 07/25/18 05:29 Temperature 98.3 F 98.0 F Pulse Rate 65 65 Respiratory Rate 16 16 Blood Pressure 133/57 L 131/63 Pulse Oximetry 96 97 Intake & Output 07/24/18 07/25/18 07/25/18 18:59 06:59 18:59 Intake Total 1959 1480 / 1480 480 / 480 Balance 1959 1480 / 1480 480 / 480 Intake: IV 1000 / 1000 1000 / 1000 NS Inj 1,000 ML @ 75 mls/hr IV. 1000 / 1000 1000 / 1000 CONT .[id number] PABLO Rx#:[id number] Oral 960 / 960 480 / 480 480 / 480 Other: # Voids 2 1 Date of Last Bowel Movement 07/25/18 # Bowel Movements 1 1 Narrative: GENERAL: Thin emaciated elderly male, INAD. Awake and alert. SKIN: Warm and dry. +dry scaly skin on bottoms of both feet. RUE with mild edema and erythema. HEENT: Atraumatic. Normocephalic. Pupils equal and round. No scleral icterus. No injection or drainage. No nasal bleeding or discharge. Mucous membranes pink and moist. NECK: Trachea midline. CARDIOVASCULAR: Regular rate and rhythm. RESPIRATORY: No accessory muscle use. Clear to auscultation. Breath sounds equal bilaterally. GASTROINTESTINAL: Abdomen soft, non-tender, nondistended. +BS. MUSCULOSKELETAL: Extremities without clubbing or cyanosis. Trace ankle edema. NEUROLOGICAL: Awake and alert and oriented x2-3. No obvious cranial nerve deficits. Motor grossly within normal limits. Speech clear. Ambulating in hallway, gait steady. Mild hand tremors. PSYCHIATRIC: Calm and cooperative. Insight and judgment poor. Assessment and Plan - Assessment (1) Hypercalcemia Code(s): E83.52 - Hypercalcemia Status: Acute (2) Bipolar 1 disorder Code(s): F31.9 - Bipolar disorder, unspecified Status: Acute (3) Bipolar disorder, manic Code(s): F31.10 - Bipolar disorder, current episode manic without psychotic features, unspecified Status: Acute (4) Hypertension Code(s): I10 - Essential (primary) hypertension Status: Acute - Plan Patient with Bipolar disorder, and has been on Carmen. Now has elevated calcium and PTH level. Calcium remain elevated. U/S of neck noted, has Thyroid Nodule, which will need workup. Carmen can cause increase in calcium and PTH, Carmen now stopped and started on Trileptal. Calcium remain high despite Calcitonin. Calcitonin now stopped, One dose of Aredia was given on 07/20 Calcium is improving, now corrected is 12.0 Patient can be discharge, with out patient follow up with Endocrinology. .
--- NOTE | 2018-07-25 16:44 | P.PNPSY ---
Subjective Chief Complaint: Follow-up for treatment of bipolar brandin Remarks: Patient was seen and case discussed with nursing. Patient remains pleasantly psychotic. Today he has grandiose delusions that he will be buying a car. Patient says a new car is $9000 and he has $4000 to buy it with. Affect is elevated. He is intrusive at times during the day. Compliant with medications Review of Systems All other systems reviewed negative except as stated in HPI Mental Status Examination Appearance: Appropriate Consciousness: Alert Orientation: x4 Motor Activity: Other (Walks with a limp) Speech: Unremarkable Language: Adequate Fund of Knowledge: Adequate Attention and Concentration: Adequate Memory: Unremarkable Mood: Irritable Affect: Irritable (But improved) Thought Process & Associations: Intact Thought Content: Preoccupations, Delusional (Grandiosity is lessening) Hallucination Type: None Delusion Type: Other (Grandiose) Suicidal Ideation: No Suicidal Plan: No Suicidal Intention: No Homicidal Ideation: No Homicidal Plan: No Homicidal Intention: No Insight: Poor Judgment: Poor Assessment and Plan - Assessment (1) Bipolar disorder, manic Code(s): F31.10 - Bipolar disorder, current episode manic without psychotic features, unspecified Status: Acute - Plan Plan: Continue current treatment plan Justification for Continued Inpatient Stay: Patient would decompensate in a less restrictive setting Request Healthcare Surrogate/Guardian Advocate?: No
--- NOTE | 2018-07-25 16:49 | P.PN ---
Subjective Interval history: Follow up on patient with hypercalcemia. Patient seen and examined, awake, oriented x 2-3. Still insisting he is going home, plans to move into a trailer. Has $4,000 in the bank and plans to buy car. Has a folder with names and phone numbers and has been drawing lay out of his home. He becomes tearful, wants to go home. Has no complaints, eating well. Having BMs ok. No abd. pain. Eating good. No complaints. States he will follow up on thyroid bx. Physical Exam Vital signs: Vital Signs 07/24/18 17:32 07/25/18 05:29 Temperature 98.3 F 98.0 F Pulse Rate 65 65 Respiratory Rate 16 16 Blood Pressure 133/57 L 131/63 Pulse Oximetry 96 97 Intake & Output 07/24/18 07/25/18 07/25/18 18:59 06:59 18:59 Intake Total 1959 1480 / 1480 480 / 480 Balance 1959 1480 / 1480 480 / 480 Intake: IV 1000 / 1000 1000 / 1000 NS Inj 1,000 ML @ 75 mls/hr IV. 1000 / 1000 1000 / 1000 CONT .[id number] PABLO Rx#:[id number] Oral 960 / 960 480 / 480 480 / 480 Other: # Voids 2 1 Date of Last Bowel Movement 07/25/18 # Bowel Movements 1 1 Narrative: GENERAL: Thin emaciated elderly male, INAD. Awake and alert. SKIN: Warm and dry. +dry scaly skin on bottoms of both feet. RUE with mild edema and erythema. HEENT: Atraumatic. Normocephalic. Pupils equal and round. No scleral icterus. No injection or drainage. No nasal bleeding or discharge. Mucous membranes pink and moist. NECK: Trachea midline. CARDIOVASCULAR: Regular rate and rhythm. RESPIRATORY: No accessory muscle use. Clear to auscultation. Breath sounds equal bilaterally. GASTROINTESTINAL: Abdomen soft, non-tender, nondistended. +BS. MUSCULOSKELETAL: Extremities without clubbing or cyanosis. No edema NEUROLOGICAL: Awake and alert and oriented x2-3. No obvious cranial nerve deficits. Motor grossly within normal limits. Speech clear. Mild hand tremors. PSYCHIATRIC: Calm and cooperative. Insight and judgment poor. Results - Labs CBC & Chem 7: 07/19/18 08:45 07/22/18 07:36 Laboratory Results - last 24 hr 07/25/18 08:03 Calcium 11.2 H Calcium Adj for Albumin 12.0 H* Albumin 3.0 L Assessment and Plan - Assessment (1) Bipolar disorder, manic Code(s): F31.10 - Bipolar disorder, current episode manic without psychotic features, unspecified Status: Acute - Plan 67-year-old male with known PMHX of hypertension, hyperlipidemia, BPH , bipolar disorder who is admitted under psychiatry services apparently for manic episodes. Leukocytosis, suspect reactive, resolved white count 18.1, improved to 7.1 patient is afebrile, VSS CXR shows no acute cardiopulmonary process UA unremarkable Lactic acid 1.5 -monitor clinically STEFAN, suspect secondary to poor perfusion secondary to hypovolemia creatinine 1.38, baseline is around 0.8-1 repeat creatinine s/p IVF improved -continue to encourage po fluid intake -Avoid nephrotoxic agents -Monitor kidney function closely Hypercalcemia Hyperparathyroidism Review of previous workup PTH was 430, repeat PTH this admit 284.9 hx of lithium toxicity in the past but patient not on lithium prior to this admission and lithium level low at 0.2. ?underlying malignancy. [place] has been discontinued, last dose was on 07/17, lithium level 0.9 on 07/14 Neck US + 1.6cm thyroid nodule, unlikely to be parathyroid adenoma, TR4 nodule, FNA bx recommended -Nephrology following, appreciate recommendations. Currently on Calcitonin sq. Ca level continues to trend up off of [place]. Nephrology considering Aredia. -order placed for FNA bx but contacted later by radiology informing procedure must be done as outpatient -Aredia x 1 07/20 per nephrology -Calcium trending down slowly -PSA 9.37, hx of BPH, will need to follow up at OP -PTH 284.9 -corrected calcium 12, will dc NS. Nephrology cleared for dc, recommends to f/u with endocrinology RUE superficial DVT Doppelr US + suspected acute thrombus in the right cephalic vein -RUE improving clinically -keep RUE elevated -warm compresses -given NSAID x 1, cautious use of NSAID due to concern for worsening renal fxn -RUE swelling and erythema markedly improved. 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 Consider addition of Megace if no improvement in appetite. -Theragran M daily - will hold for now due to concern for worsening hypercalcemia -monitor weight, appetite improving. Constipation, chronic, resolving patient has performed manual disimpactions on himself KUB shows significant stool retention without evidence of obstruction - continue on Elva Colace BID. -continue Miralax Right foot/ankle edema, mild erythema, resolved -doppler neg for DVT Bipolar disorder Manic episode patient has been off [place], resumed 07/09, stopped on 07/17 -Management by psychiatry. DVT prophylaxis: Patient is ambulatory Calcium trended down, off NS now. Nephrology signed off. Pt. benefits going to [facility], however he is reluctant. Pt. will need follow up with endocrinology. Will sign off for now, reconsult if needed Code Status: Full code Discussed Condition With: RN, pt. Discharge Planning: Per psych team-needs placement, pt. insists on going home.
[2018-07-26] MEDS: Acetaminophen 325 MG Tablet PO PRN (07:33)
[2018-07-26] MEDS: Famotidine 20 MG Tablet PO SCH ×2 (08:15→21:00)
[2018-07-26] MEDS: Atenolol 25 MG Tablet PO SCH (08:15)
[2018-07-26] MEDS: Senna/Docusate Sodium 8.6/50 MG Tablet PO SCH ×2 (08:15→21:01)
[2018-07-26] MEDS: Sodium Chloride 0.9% 2 ML Flush BID IV.FLUSH SCH ×2 (08:15→21:00)
[2018-07-26] MEDS: OXcarbazepine 300 MG Tablet PO SCH ×2 (08:15→21:00)
[2018-07-26] MEDS: Lidocaine 5% Patch T-DERMAL SCH (08:15)
[2018-07-26] MEDS: ARIPiprazole 10 MG Tablet PO SCH ×2 (08:15→20:57)
[2018-07-26] MEDS: Polyethylene Glycol 3350 17 GM Packet PO SCH (08:16)
[2018-07-26] MEDS: Lactic Acid (Ammonium Lactate) 12% Lotion 225 GM Bottle TOPICAL SCH ×2 (08:16→20:58)
--- NOTE | 2018-07-26 15:47 | P.PNPSY ---
Subjective Chief Complaint: Follow-up for treatment of bipolar brandin Remarks: Patient seen for follow-up, chart reviewed, patient discussed with nursing staff ; we reviewed the patient's mood, thoughts, and behaviors from overnight and this morning. Nursing reports patient on Thursday was more manic with grandiose thoughts and disorganized behavior and restless sleep with documentation of only 4 hours overnight. Patient was seen at bedside this morning and his thought processes were linear and goal directed. He remains discharge focused. He voluntarily gave rationale for why he would be safe for discharge to include his plans for securing his money so that he could pay for hotel as well as making arrangements for transportation. The patient repeatedly promised that he would return to the emergency department or reach out to his outpatient providers should his condition worsen or he find himself without jail. The patient did however continue to express grandiose belief in the amount of money that he possessed and property that he processed according to the limited collateral it is available these assertions of his are not founded. The patient is denying auditory or visual hallucinations. He is denying homicidal or suicidal ideations. He has tolerated the recent increase of the Trileptal. Review of Systems All other systems reviewed negative except as stated in HPI Mental Status Examination Appearance: Appropriate Consciousness: Alert Orientation: x4 Motor Activity: Other (Walks with a limp) Speech: Unremarkable Language: Adequate Fund of Knowledge: Adequate Attention and Concentration: Adequate Memory: Unremarkable Mood: Irritable Affect: Irritable (But improved) Thought Process & Associations: Intact Thought Content: Preoccupations, Delusional (Grandiosity is lessening) Hallucination Type: None Delusion Type: Other (Grandiose) Suicidal Ideation: No Suicidal Plan: No Suicidal Intention: No Homicidal Ideation: No Homicidal Plan: No Homicidal Intention: No Insight: Poor Judgment: Poor Assessment and Plan - Assessment (1) Bipolar disorder, manic Code(s): F31.10 - Bipolar disorder, current episode manic without psychotic features, unspecified Status: Acute - Plan Plan: 07/26/2018: Fair response to treatment, patient's thought processes are definitely more organized since the Trileptal titration was initiated over a week ago and he is now able to give logical and rational plans to ensure his safety after discharge. He continues to have grandiose delusions and after discussion of risks benefits side effects and alternatives he agrees to an increase of his Abilify to 20 mg a day. Continue inpatient stabilization and treatment of his bipolar disorder most recent episode manic as well as his hypercalcemia. Increase Abilify to 10 mg twice a day for treatment of bipolar with psychotic features. Continue Trileptal 300 mg twice a day for treatment of bipolar disorder. Continue medical management by nephrology for hypercalcemia. Discharge planning: The patient has refused referrals for assisted living despite this medical recommendation but is improved thought processes and medical condition have resulted in a decrease in his risk of self-harm by self neglect and it is unlikely that he will meet [place] act criteria for continued involuntary admission when he is due for court review on . Anticipate discharge to the patient's reported home in the a.m. if stable overnight. Justification for Continued Inpatient Stay: Patient remains an elevated risk for self-harm by self neglect and will require further inpatient stabilization and preparation of a safe discharge plan. Moving patient to a less restrictive environment at this time may result in decompensation. Request Healthcare Surrogate/Guardian Advocate?: No
[2018-07-26 17:25] VITALS: O2SAT 97
[2018-07-27 06:24] VITALS: BP 116/59; PULSE 59; RESP 17; TEMP 98.2
[2018-07-27] MEDS: Senna/Docusate Sodium 8.6/50 MG Tablet PO SCH (08:10)
[2018-07-27] MEDS: Lactic Acid (Ammonium Lactate) 12% Lotion 225 GM Bottle TOPICAL SCH (08:11)
[2018-07-27] MEDS: Famotidine 20 MG Tablet PO SCH (08:11)
[2018-07-27] MEDS: ARIPiprazole 10 MG Tablet PO SCH (08:11)
[2018-07-27] MEDS: OXcarbazepine 300 MG Tablet PO SCH (08:11)
[2018-07-27] MEDS: Atenolol 25 MG Tablet PO SCH (08:11)
[2018-07-27] MEDS: Lidocaine 5% Patch T-DERMAL SCH (08:11)
[2018-07-27] MEDS: Polyethylene Glycol 3350 17 GM Packet PO SCH (08:12)
[2018-07-27] MEDS: Sodium Chloride 0.9% 2 ML Flush BID IV.FLUSH SCH (08:12)
--- NOTE | 2018-07-27 10:57 | P.DSPSY ---
Psychiatry Discharge Summary Inpatient Psychiatric care?: Yes Advance Directives: No Mental Health Advance Directive: No Health Care Proxy: No - Admission Admission Date: July 09, 2018 14:31 - Admission Diagnosis (1) Bipolar disorder, manic Code(s): F31.10 - Bipolar disorder, current episode manic without psychotic features, unspecified Brief History: The patient is a 67-year-old man, domiciled with a roommate in [place], unemployed, supported by [facility], single, , poor family and social support, with a psychiatric history of bipolar disorder, alcohol use disorder, previous hospitalizations, he denies previous suicidal attempts, he was recently on lithium 300 mg 3 times daily for over 30 years, he has outpatient care established with Dr. Allen, but the lithium was discontinued due to a lithium intoxication back in May, I saw him at that moment and recommended to restart the patient on lithium once medically stable, medical history of hypertension and hyperlipidemia who presented to the ED with altered mental status. Was brought in by 1 of his neighbors, who initially presented to [facility] with chief complaint of pain in the neck, left rib pain, and right foot pain. I have seen this patient along with nurse practitioner Debbie Juárez. We have widely discussed the assessment and plan. The patient was found to be acutely manic, with prominent pressure speech, labile mood, goal-directed activities, increased energy, decreased sleep, risky behavior, grandeur and paranoid delusions. He reported to ED physician that he had been walking for 500 miles per day, that he was in the process of buying a car and a truck , in the process of buying a house as well. He also reports that he has been feeding the homeless and that yesterday he bought 100 hamburgers and the day before he bought a shopping cart full of donuts to distribute to the homeless population. He has been homeless for the past 2 weeks and tells me that he has been spending his time in the [place] because he is in the process of buying this new house. The patient has not taken his psychiatric medications for "at least 45 days". He initially informed the ED provider that he stopped his medications because he wanted to "clear my mind" but tells me that he has not taking them because they are locked up in his storage and he has no access to his storage container. Patient tells me as well that he feels better off his medication because now "he can talk to women and tell them that they are great". In addition to the above patient also reports that in the past several days he has adopted 2 kittens, he is giving someone $1000 in buying them a car in exchange for home, that he has witnessed a murder so that now he "needs a information security engineer 24 hours a day". By Juárez in J pod today: EMR is reviewed. The patient was admitted to our medical service at the beginning of May with lithium toxicity and a lithium level of 2.3. Patient has not had contact with [facility] psychiatry Department. He reports a history of alcohol abuse but current toxicology is negative and alcohol level is undetectable. He states that he last had a drink approximately 1-2 days ago. He denies that he is drinking on a daily basis. Patient is seen. He is alert and oriented. Lability of mood with episodes of crying as well as episodes of being elated. There is no pressure of speech but there is tangentiality noted. Patient does not appear to be responding to internal stimuli. He does believe that he needs the services of the information security engineer because people are going to be after him. He states that he has been sleeping although this may be questionable. Reports a good appetite. No suicidal or homicidal ideation, intent or plan. PPHx: No history of bipolar disorder, previous psychiatric hospitalizations, no suicide attempts, he has been in lithium 900 mg daily for over 30 years, outpatient care with , but he has not been taking his medication now for about 2 months since he was intoxicated with lithium. PMHx: Hypertension, hypercholesterolemia Family Hx : No family psychiatric history Substance Hx : Patient has history of alcohol use disorder, he says that he has not been taking alcohol in the last months, Social Hx: The patient lives in [place] with a roommate, he is single, unemployed, has no kids, Tobacco Use In Past 30 Days: No How Often Do You Have a Drink Containing Alcohol: Unable to Obtain Hospital Course: Patient was admitted to a locked, inpatient medical-psychiatric unit. Appropriate precautions were in place throughout patient's hospital stay. Patient was seen and examined on the unit by psychiatry and also visited by counselor. Consultations were completed by Hospitalist and Nephrlogist. Psychotropic medications to treat Bipolar brandin were adjusted. The patient's lithium was discontinued due to recent lithium toxicity, recent difficulties and the patient's ability to adhere to safe treatments, and recent acute renal insufficiency. Trileptal was titrated up to 300 mg twice a day for the treatment of brandin and the patient tolerated this medication and had an initial good response with a decrease in racing thoughts, hyperactivity, and improved sleep. The patient continued to maintain grandiose delusional thinking therefore adjunctive treatment with Abilify was started and titrated up to 20 mg a day which the patient tolerated; the patient's response was fair as the intensity of his grandiosity decreased throughout this hospital stay and his thoughts were more organized by the time he was discharged. There was a good response to treatment and the patient reported improvements in mood, anxiety, and there was no evidence of any suicidality or homicidality at time of discharge. Patient was recommended for referral to assisted living facility due to the complexity of his medical psychiatric treatment and his high risk of nonadherence and relapse on brandin but the patient demonstrated minimal capacity for medical decision-making and he refused referrals to [facility] at this time. The patient was able to engage appropriately with safety planning and he expressed sincere understanding to the availability of help through the ER or by calling 911 should his condition worsen. Psychiatric follow-up as arranged by counselor. Patient is also to follow up with primary care and endocrinology. I have counseled the patient to abstain from substances of abuse including cannabis and have counseled patient to return to the psychiatric emergency room for any concerning symptoms as part of a general safety plan. A summary of the patient's hospitalist consultation and nephrology consultation is as follows: -- Leukocytosis, suspect reactive, resolved...white count 18.1, improved to 7.1...patient is afebrile, VSS...CXR shows no acute cardiopulmonary process...UA unremarkable...Lactic acid 1.5 --STEFAN, suspect secondary to poor perfusion secondary to hypovolemia creatinine 1.38, baseline is around 0.8-1...repeat creatinine s/p IVF improved...avoid nephrotoxic agents --Hypercalcemia,Hyperparathyroidism...Review of previous workup PTH was 430, repeat PTH this admit 284.9...Gillett has been discontinued... Neck US + 1.6cm thyroid nodule, unlikely to be parathyroid adenoma, TR4 nodule, FNA bx recommended as outpatient...Aredia x 1 07/20 per nephrology...Calcium trending down slowly...PTH 284.9...corrected calcium 12, will dc NS. Nephrology cleared for dc, recommends to f/u with endocrinology --PSA 9.37, hx of BPH, will need to follow up at OP...resume tamsulosin 0.4 mg daily --History of hypertension...continue on decreased dose of atenolol 25 mg with hold parameters --History of hyperlipidemia...continue on statin 20 mg at bedtime - Discharge Discharge Date: 07/27/18 - Discharge Diagnosis (1) Bipolar disorder, manic Code(s): F31.10 - Bipolar disorder, current episode manic without psychotic features, unspecified Status: Acute (2) Hypercalcemia Code(s): E83.52 - Hypercalcemia Status: Acute (3) Hypertension Code(s): I10 - Essential (primary) hypertension Status: Chronic Discharge Disposition: Home - Discharge Instructions Discharge Diet: Regular Diet Activities You Can Perform: Regular- No Restrictions - Discharge Time > 30 minutes Mental Status Examination Appearance: Appropriate Consciousness: Alert Orientation: x4 Motor Activity: Other (Walks with a limp) Speech: Unremarkable Language: Adequate Fund of Knowledge: Adequate Attention and Concentration: Adequate Memory: Unremarkable Mood: Good Affect: Euthymic Thought Process & Associations: Intact Thought Content: Preoccupations, Delusional (mild grandiosity) Hallucination Type: None Delusion Type: Other (Grandiose) Suicidal Ideation: No Suicidal Plan: No Suicidal Intention: No Homicidal Ideation: No Homicidal Plan: No Homicidal Intention: No Insight: Fair Judgment: Impulsive Discharge/Advance Care Plan - Results Vital Signs: Last Vital Signs Temp 98.2 F 07/27/18 06:00 Pulse 59 L 07/27/18 06:00 Resp 17 07/27/18 06:00 BP 116/59 L 07/27/18 06:00 Pulse Ox 97 07/27/18 06:00 Lab Results: Laboratory Results Hemoglobin A1c 4.6 % (4.3-6.0) 07/10/18 06:11 Triglycerides 115 mg/dL (42-150) 07/10/18 06:41 Cholesterol 146 mg/dL (120-200) 07/10/18 06:41 LDL Cholesterol, Calc 48 mg/dL (0-99) 07/10/18 06:41 HDL Cholesterol 75.1 mg/dL (40.0-60.0) H 07/10/18 06:41 TSH 0.536 uIU/mL (0.358-3.740) 07/17/18 06:16 Urine Culture Comments Culture not ind 07/17/18 11:50 Gillett 0.9 meq/L (0.5-1.5) 07/14/18 11:15 Summary of Procedures: Venous US CONCLUSION: Suspected acute thrombus involving the right cephalic vein. The remaining venous structures are patent. Stable noncontrast head CT. No acute intracranial abnormality is identified. Significant stool retention without evidence of obstructive gas pattern. EKG: SINUS BRADYCARDIA VOLTAGE CRITERIA FOR LVH MARKED T-WAVE ABNORMALITY, CONSIDER ANTEROLATERAL ISCHEMIA ABNORMAL ECG US of Neck CONCLUSION: There is a 1.6 cm thyroid nodule that corresponds to the abnormal activity on recent nuclear medicine parathyroid examination. Therefore, this is unlikely to represent a parathyroid adenoma as a cause for the patient's hypercalcemia. One could consider neck MRI with contrast to further evaluate for a small parathyroid adenoma, if needed. The current 1.6 cm nodule demonstrates imaging features consistent with a TIRADS TR4 nodule. Therefore, consider fine-needle aspiration biopsy for further evaluation. FINDINGS: Early as well as late sestamibi images have been performed. On the early images there is homogeneous and symmetric uptake of tracer activity throughout the region of the thyroid gland bilaterally. On the late images there is a small focal amount of retained tracer activity along the lower pole of the right lobe of the thyroid gland. SPECT SCAN OF NECK CONCLUSION: 1. Localization of some focal retained tracer activity is noted along the lower pole of the right lobe of the thyroid gland. Imaging: ITS Impressions Cervical Spine X-Ray 07/09/18 07:57 CONCLUSION: No acute bony injury Foot X-Ray 07/09/18 07:57 CONCLUSION: No evidence of recent bony injury. Ribs X-Ray 07/09/18 07:57 CONCLUSION: Negative rib series. No evidence of pneumothorax. Parathyroid Scan Nuclear Medicine 07/12/18 00:00 CONCLUSION: 1. Localization of some focal retained tracer activity is noted along the lower pole of the right lobe of the thyroid gland. Neck Ultrasound 07/13/18 00:00 CONCLUSION: There is a 1.6 cm thyroid nodule that corresponds to the abnormal activity on recent nuclear medicine parathyroid examination. Therefore, this is unlikely to represent a parathyroid adenoma as a cause for the patient's hypercalcemia. One could consider neck MRI with contrast to further evaluate for a small parathyroid adenoma, if needed. The current 1.6 cm nodule demonstrates imaging features consistent with a TIRADS TR4 nodule. Therefore, consider fine-needle aspiration biopsy for further evaluation. Abdomen X-Ray 07/17/18 00:00 CONCLUSION: Significant stool retention without evidence of obstructive gas pattern. Chest X-Ray 07/17/18 00:00 CONCLUSION: Stable chest without evidence of acute cardiopulmonary process. Head CT 07/17/18 00:00 CONCLUSION: Stable noncontrast head CT. No acute intracranial abnormality is identified. . Venous Doppler Study 07/18/18 00:00 CONCLUSION: Suspected acute thrombus involving the right cephalic vein. The remaining venous structures are patent. Pending Results: None - Medications Number of antipsychotic medications at discharge: 1 - Discharge Care Plan Goals to Promote Your Health: * To prevent worsening of your condition and complications * To maintain your health at the optimal level Directions to Meet Your Goals: Take your medications as prescribed Follow your dietary instruction Follow activity as directed Keep your appointments as scheduled Take your immunizations and boosters as scheduled If your symptoms worsen call your PCP, if no PCP go to Urgent Care Center or Emergency Room For 02/03 questions related to your inpatient stay or results of tests pending at discharge, please contact Dr. Pascual Hilton MD at Smoking is Dangerous to Your Health. Avoid second hand smoking
--- NOTE | 2018-07-27 13:57 | P.DIET ---
Nutritional Evaluation Type of nutrition evaluation: follow-up Nutrition screening: [facility] Screening comments: 07/16/18 [facility] Malnutrition Subjective Oral Diet Tolerance Assessment Indicates: Edentulous Subjective Comments: RAYSA Ozuna confirms pt w/improved po intake for meals and pt is pending discharge today. Brought forward from previous noted 07/19/18:Pt visited after lunch today. Pt says he doesnt care for the Ensure; RN confirms pt is not drinking the Ensure. Pt is edentulous and says he chews w/o problem; says he has dentures but doesnt like them. Pt does not eat breakfast but adds that if he has coffee, juice and a Mighty Shake, he'll drink them. Pt says he used to weigh 165-lb one year ago and has had a 30-lb wt loss d/t "I recently walked 500 miles". Objective - Diagnosis Adjustment Disorder w/depressed mood - Indications of Malnutrition Characteristics: Weight loss, Insufficient energy intake, Fat loss, Muscle loss - Objective % IBW: 75 Body Weight Used for Calculations: Actual (59 kg) Energy Needs - Lower Range (kCal/kg): 35 Energy Needs - Upper Range (kCal/kg): 40 Lower Limit kCal/kg (kCals): 2,064 Upper Limit kCal/kg (kCals): 2,359 Lower Limit Protein Factor (Grams per Kg): 1.2 Upper Limit Protein Factor (Grams per Kg): 1.5 Lower Protein Needs (Protein): 71 Upper Protein Needs (Protein): 88 Dietitian Reviewed in Medical Record: Current diet, Curent medications, Intake & Output, Labs, Medical history Diet Order: Regular Oral Diet Intake Amount: Fair 50-75% Objective Comments: PMH includes: Bipolar DO, elevated Cholesterol, h/o alcoholism, HLD, HTN Labs include: A1C 4.6; Ca 12 Meds include: Abilify, Lipitor Feeding - Current PO Supplement Current Supplement: Mighty Shake Current Frequency of Supplement: Three times a day Current kCals Provided by Supplement: 300 Current Protein Provided by Supplement: 9 Supplement Comments: pt also receiving Ensure Clear TID(= 240 kcal and 8g protein per serving) Assessment Assessment: Pt continues at high nutrition risk r/t recent unintentional wt loss r/t inadequate protein-energy intake w/admission BMI of 16.9. Improved po intake 50 % and greater for meals here. Continue Mighty Shakes TID. Continue Ensure Clear TID. Wt changes noted. Pt is pending discharge today. Recommendations: 1. Continue Mighty Shakes TID 2. Continue Ensure Clear TID
== END 2018-07-27 13:45 | disposition home or self-care (01) ==
LOC: PHED 07:42 → NEDA 14:31 → H250 15:38 → H4EA 07-13 12:05
PROVIDERS: ADMIT Psychiatry & Neurology Psychiatry; ATTEND Psychiatry & Neurology Psychiatry
DX: Z68.1 Body mass index [BMI] 19.9 or less, adult; E43 Unspecified severe protein-calorie malnutrition; Z79.899 Other long term (current) drug therapy; E04.1 Nontoxic single thyroid nodule; K59.00 Constipation, unspecified; M54.2 Cervicalgia; N40.0 Benign prostatic hyperplasia without lower urinary tract symptoms; E21.3 Hyperparathyroidism, unspecified; Z91.14 Patient's other noncompliance with medication regimen; R07.81 Pleurodynia; R51 Headache; I10 Essential (primary) hypertension; N17.9 Acute kidney failure, unspecified; G89.29 Other chronic pain; F41.9 Anxiety disorder, unspecified; F31.10 Bipolar disorder, current episode manic without psychotic features, unspecified; E78.5 Hyperlipidemia, unspecified; R64 Cachexia; M79.671 Pain in right foot; F10.20 Alcohol dependence, uncomplicated

== ENCOUNTER 2018-08-11 13:02 | Inpatient (IN) ==
--- NOTE | 2018-08-11 15:13 | P.PNNP ---
Subjective Interval history: Patient seen in early afternoon , alert, sitting in the bed, no complaint. Physical Exam Narrative: General: Elderly male, sitting up in bed, appears to be no acute distress, he appears to be thin and cachectic and disheveled. He speaks to me in full sentences, is a poor historian. HEENT: Small laceration along the right side of the forehead with a scab, no acute bleeding, no bruising, EOMI, PERRLA, oral exam no pharyngeal erythema, poor dental hygiene. Neck exam no cervical lymphadenopathy no masses noted. Respiratory: Good air movement bilaterally neck breath sounds over the upper mid lung zones, decreased basilar breath sounds due to poor inspiratory effort. Cardiovascular: Regular rate and rhythm, S1-S2 no obvious murmurs rubs gallops. Abdominal exam: Thin belly, soft, nontender, nondistended no palpable organ enlargement specifically hepatosplenic megaly. Extremities: No pretibial edema no calf tenderness. Musculoskeletal: Generally decreased muscle mass, adequate tone. RIBBON CUTTER: No focal sensorimotor deficits, he has 5 x 5 strength of the upper extremities and lower extremities. Skin examination: Nonfocal. Psychiatric examination: He is awake, alert, is oriented to place and person but not time. Assessment and Plan - Assessment (1) Encephalopathy, toxic Code(s): G92 - Toxic encephalopathy Status: Acute (2) Hypercalcemia Code(s): E83.52 - Hypercalcemia Status: Acute (3) Bipolar 1 disorder Code(s): F31.9 - Bipolar disorder, unspecified Status: Acute (4) Hyperparathyroidism Code(s): E21.3 - Hyperparathyroidism, unspecified Status: Acute (5) Thyroid nodule Code(s): E04.1 - Nontoxic single thyroid nodule Status: Acute - Plan Plan Patient with recurrent Hypercalcemia and Hyperparathyroidism, Now has Hypercalcemia. Started on Aredia, and calcium is already improving. Po4 is low and PTH is high for this calcium level. Last Calcium yesterday was 12.1. Will need to see Ice Skater after D/C. To decrease calcium is diet. Follow the Calcium level.
[2018-08-11] MEDS ORDERED: Bisacodyl 10 MG Supp RECTAL PRN (16:01)
[2018-08-11] MEDS ORDERED: Aluminum/Magnesium/Simethacone Susp 30 ML UDC PO PRN (16:01)
[2018-08-11] MEDS: Senna/Docusate Sodium 8.6/50 MG Tablet PO SCH (20:34)
[2018-08-11] MEDS: Famotidine 20 MG Tablet PO SCH (20:34)
[2018-08-12] MEDS ORDERED: Acetaminophen 325 MG Tablet PO PRN (06:00)
[2018-08-12] MEDS ORDERED: Acetaminophen 325 MG Tablet PO SCH (06:00)
[2018-08-12] MEDS: Senna/Docusate Sodium 8.6/50 MG Tablet PO SCH ×2 (08:15→20:16)
[2018-08-12] MEDS: Famotidine 20 MG Tablet PO SCH ×2 (08:15→20:16)
[2018-08-12 08:40] LABS: Anion Gap 2 meq/L (5-15); Blood Urea Nitrogen 14 mg/dL (7-18); Calcium 11.6 mg/dL (8.5-10.1); Carbon Dioxide 28.6 meq/L (21.0-32.0); Chloride 116 meq/L (98-107); Chol/HDL Ratio 2.36 Ratio; Cholesterol 161 mg/dL (120-200); Glomerular Filtration Rate Greater Than 89 mL/min (>89); Glucose,Random 84 mg/dL (74-106); LDL Cholesterol,Calculated 68 mg/dL (0-99); Potassium 4.3 meq/L (3.5-5.1); Sodium 147 meq/L (136-145); Triglycerides 123 mg/dL (42-150)
[2018-08-12 08:54] LABS: Calcium-Albumin Corrected 12.4 mg/dL (8.5-10.1)
[2018-08-12 09:24] LABS: Hemoglobin A1c 5.1 % (4.3-6.0)
--- NOTE | 2018-08-12 13:59 | P.HPPSY ---
Provisional Diagnosis Admission Date: August 11, 2018 14:22 [place] I.: Bipolar 1 disorder most recent episode manic [place] III.: Hypercalcemia, hyperparathyroidism Competence Certification of Person's Competence To Provide Express and Informed Consent I have personally examined Gordo Hamilton, a person being served at [facility] on, August 12, 2018 1344. Express and informed consent means consent voluntarily given in writing, by a competent person, after sufficient explanation and disclosure of the subject matter involved to enable the person to make a knowing and willful decision without any element of force, fraud, deceit, duress, or other form of constraint or coercion. This person is 18 years of age or older, is not now known to be incompetent to consent to treatment with a guardian advocate, and does not have a health care surrogate or proxy currently making medical treatment decisions. I have found this person to be one of the following: [xxx] Competent to provide express and informed consent, as defined above, for voluntary admission to this facility and is competent to provide express and informed consent for treatment. He/she has the consistent capacity to make well reasoned, willful, and knowing decisions concerning his or her medical or mental health treatment. The person fully and consistently understands the purpose of the admission for examination/placement and is fully capable of personally exercising all rights assured [place] Incompetent to provide express and informed consent to voluntary admission, and this is incompetent to provide express and informed consent to treatment. The person must be transferred to involuntary status and a petition for a guardian advocate filed with the Circuit Court. [] Refusing to provide express and informed consent to voluntary admission but is competent to provide express and informed consent for treatment. The person must be discharged or transferred to involuntary status. Form shall be completed within 24 hours of a person's arrival at the receiving facility and filed in the clinical record of each person: 1. Admitted on a voluntary basis 2. Permitted to provide express and informed consent to his/her own treatment 3. Allowed to transfer from involuntary to voluntary status 4. Prior to permitting a person to consent to his or her own treatment after having been previously found incompetent to consent to treatment. History of Present Illness Capacity: Has capacity Chief Complaint: "I need help finding a place to stay" History of Present Illness: The patient is a 68-year-old male with history of bipolar disorder and well- known to inpatient psychiatry from previous admissions, was transferred to the medical psych unit yesterday due to worsening symptoms of brandin since nonadherence to outpatient treatment. The patient had been discharged from the medical psych unit 21 days ago; discharge medications included Abilify 20 mg a day and Trileptal 300 mg twice a day for treatment of bipolar disorder. The patient had plan to use his money to stay in a hotel and work towards renting or purchasing a home. The patient had grandiose plans for himself at discharge but there is no indication that he was an imminent risk of harm to self or others and he was demonstrating an ability to care for his own ADLs and without a legal guardian in place the patient was discharged. On reevaluation today, the patient admits that he did not follow through with his plan to stay at a hotel rather he bought a car as planned and has been living in his car. The patient had presented to the emergency department at [place] on 05 August complaining of lower back pain due to sleeping in his car. He was treated in the emergency department with prednisone 50 mg and given a 7-day supply. The patient returned to the emergency department on [address] enforcement officers under a [place] act order. According to the [place] act report , the police officers were called to check on the patient who is acting bizarre and living in his car. Patient complained of chest pain and had admitted to noncompliance with his medications and he was admitted to medicine on 09 August due to his hypercalcemia. On evaluation today, the patient's mental status is actually improved compared to his discharge mental status 3 weeks ago. The patient expressed insight that he needs help finding a place to stay and is open to assisted living facilities that were offered last time but he had refused. Patient is no longer describing himself as being in possession of many high dollar items and gave more reasonable explanation; "I only had a few things about left in the [place]ith and I was able to put them in storage I am hopeful they will understand that have been in the hospital and I will catch up on my payments later." Patient was also more insightful about his interpersonal relationships and specifically described "a change in my thoughts and my heart about my sister I would like to spend some time with her during the last of my days but I do not think she will." The only possible grandiose statements the patient made was that he planned on "suing the people who stole from the and O me money It comes out to about $3100." - Inpatient Certification I certify that the inpatient services were ordered in accordance with Medicare regulations governing the order. This includes certification that hospital inpatient services are reasonable and necessary and in the case of services not specified as inpatient-only under 42 CFR 419.22(n), that they are appropriately provided as inpatient services in accordance to with the 2-midnight benchmark under 43 CFR 412.3(e) I certify that inpatient psychiatric hospital services are medically necessary. Evaluation and treatment and/or diagnostic testing are expected to improve the patient's condition. The patient needs on a daily basis, active treatment furnished directly by or requiring the supervision of inpatient psychiatric facility personnel. Estimated Total Length of Stay (Days): 7 Plans for Post Hospital Care: Home Review of Systems All other systems reviewed negative except as stated in HPI PMFSH - History History Provided By: Patient - Medical History Medical History: Medical History (Last Updated 08/10/18 @ 09:21 by William To MD) Bipolar 1 disorder, depressed Elevated cholesterol Elevated parathyroid hormone History of alcoholism Hyperlipidemia Hypertension Prostate enlargement - Surgical History Surgical History: Surgical History (Last Reviewed 08/10/18 @ 09:18 by William To MD) History of orthopedic surgery - Family History Family History: Family History (Last Reviewed 08/10/18 @ 09:18 by William To MD) Other Family history non-contributory - Tobacco History Second Hand Smoke Exposure: No Tobacco Use In Past 30 Days: No Smoking Status: Never smoker Tobacco Type: Cigarettes - Alcohol History How Often Do You Have a Drink Containing Alcohol: 2 to 4 times a month - Substance Use History Substance History: No History of Abuse - Travel History Recent Travel in the [place] Within the Last 8 Weeks: No Recent Travel Out of the Country Within the Last 8 Weeks: No - Immunization History Tetanus Immunization: Unable to Assess Medications and Allergies Active Medications: Active Medications Acetaminophen (Tylenol) 650 mg PO Q6HR PRN PRN Reason: PAIN SCALE 1-10 Al Hydrox/Mg Hydrox/Simethicone (Mag-Al Plus Susp Liq) 30 ml PO Q6H PRN PRN Reason: DYSPEPSIA Al Hydroxide/Mg Hydroxide (Milk Of Magnesia Liq) 30 ml PO Q12H PRN PRN Reason: Mild Constipation Aripiprazole (Abilify) 10 mg PO [facility] Atorvastatin Calcium (Lipitor) 20 mg PO HS [facility] Last Admin: 08/11/18 20:34 Dose: 20 mg Bisacodyl (Dulcolax Supp) 10 mg RECTAL DAILY PRN PRN Reason: SEVERE CONSITIPATION Famotidine (Pepcid) 20 mg PO BID [facility] Last Admin: 08/12/18 08:15 Dose: 20 mg Lactulose (Lactulose Liq) 30 ml PO DAILY PRN PRN Reason: SEVERE CONSITIPATION Oxcarbazepine (Trileptal) 300 mg PO BID [facility] Senna/Docusate Sodium (Elva-Colace) 1 tab PO BID [facility] Last Admin: 08/12/18 08:15 Dose: 1 tab Sennosides (Senokot) 17.2 mg PO Q12H PRN PRN Reason: Moderate Constipation Tamsulosin HCl (Flomax) 0.4 mg PO DAILY [facility] Last Admin: 08/12/18 08:15 Dose: 0.4 mg Allergies Allergy/AdvReac Type Severity Reaction Status Date / Time No Known Allergies Allergy Verified 07/09/18 07:52 Results - Labs CBC & Chem 7: 08/12/18 07:15 Labs: Laboratory Results - last 24 hr 08/12/18 08/12/18 07:15 07:15 Sodium 147 H Potassium 4.3 Chloride 116 H Carbon Dioxide 28.6 Anion Gap 2 L BUN 14 Creatinine 0.83 Estimated GFR Greater than 89 Random Glucose 84 Hemoglobin A1c 5.1 Calcium 11.6 H* Calcium Adj for Albumin 12.4 H* Albumin 3.0 L Triglycerides 123 Cholesterol 161 LDL Cholesterol, Calc 68 HDL Cholesterol 68.0 H Cholesterol/HDL Ratio 2.36 Exam Vital signs: Vital Signs 08/11/18 15:54 08/11/18 18:05 08/12/18 05:55 Temperature 98.1 F 98.1 F 97.5 F L Pulse Rate 73 73 53 L Respiratory Rate 19 19 15 Blood Pressure 155/87 H 155/87 H 149/71 H Pulse Oximetry 98 100 08/12/18 10:00 Temperature Pulse Rate Respiratory Rate 15 Blood Pressure Pulse Oximetry Intake & Output 08/11/18 08/12/18 08/12/18 18:59 06:59 18:59 Intake Total 600 / 600 720 / 720 Balance 600 / 600 720 / 720 Weight 58.4 kg Intake: Oral 600 / 600 720 / 720 Other: # Voids 3 3 Weight On Admission 58.4 kg Mental Status Examination Appearance: Appropriate Consciousness: Alert Orientation: x4 Motor Activity: Normal gait Speech: Unremarkable Language: Adequate Fund of Knowledge: Adequate Attention and Concentration: Adequate Memory: Unremarkable Mood: Appropriate Affect: Appropriate Thought Process & Associations: Intact, Logical, Goal directed Thought Content: Appropriate Hallucination Type: None Delusion Type: None Suicidal Ideation: No Suicidal Plan: No Suicidal Intention: No Homicidal Ideation: No Homicidal Plan: No Homicidal Intention: No Insight: Fair Judgment: Impulsive Assessment and Plan - Assessment (1) Bipolar 1 disorder Code(s): F31.9 - Bipolar disorder, unspecified Status: Acute (2) Hypercalcemia Code(s): E83.52 - Hypercalcemia Status: Acute - Plan Plan: 1. Continue with admission to inpatient psychiatry at [facility]; convert to voluntary/competent legal status. 2. Routine unit precautions. 3. Comfort medications ordered for as needed treatment of constipation, heartburn, diarrhea, and mild pain. 4. Hydroxyzine 50mg po q6H prn anxiety/insomnia. 5. Restart Trileptal 300 mg twice a day for bipolar disorder. 6. Restart Abilify 10 mg once a day for bipolar disorder with psychosis; anticipate titration up to 20 mg a day over the next week. 7. Consult hospitalist for assessment of patient's hypercalcemia and hyperparathyroid. 8. Patient will participate in the unit programming to include group therapies , milieu therapy and recreational therapies. 9. Discharge planning: The patient will need outpatient care by psychiatry as well as referrals to primary care and endocrinology. Unit social workers work with the patient to find placement in an assisted living facility. Estimated LOS: 3-4 days. Justification for Continued Inpatient Stay: Patient is a 68-year-old male with chronic bipolar disorder most recently manic with psychotic features during his admission last month presents 21 days after discharge with mild symptoms of brandin characterized by disorganized thoughts and disorientation in the context of his hypercalcemia and recent treatment with steroids. The patient's mental status seems to have stabilized since his initial admission to medicine 3 days ago. He is expressing good insight and judgment about his condition and about his need for assistance with housing and maintaining adherence to treatment. The long half-life of Abilify has likely protect the patient from a full relapse of his brandin but restarting the Abilify and the Trileptal needed in order to maintain stability.
--- NOTE | 2018-08-12 18:18 | P.CON ---
History of Present Illness Service: [facility] Consult date: 08/12/18 Requesting Physician: Pascual Hilton Reason for Consult: Hypercalcemia Primary Care Provider: UNKNOWN Chief Complaint: "None" History of Present Illness: Patient is a 67-year-old male with past medical history of bipolar disorder, HTN , HLD, hypercalcemia who initially came into [facility] brought in by ambulance for complaints of bilateral chest pain aggravated by movement. He also states that unable to use his arms due to tremors. Patient found to have hypercalcemia, altered mental status, leukopenia and with atypical chest pain. Patient was seen and evaluated by director private music therapy agency, Dr. Helms who has seen the patient during his prior hospitalizations. Patient has history of hypercalcemia and elevated PTH. He was started on Aredia as this has worked for the patient before with his hyperglycemia. Patient was unable to follow-up with insurance defense paralegal and outpatient. States that he follows with Dr. Michael Pond as his PCP in [place]. Patient was also seen by adult basic education manager, Dr. To for leukopenia possibly secondary to lymphopenia. Peripheral smear was done to rule out dysplastic or dysmorphic findings. Findings of thyroid nodule, consider outpatient fine-needle aspiration. Patient is now admitted to inpatient medical psychiatry unit for further evaluation. Consulted for assistance with hypercalcemia, HTN, HLD. Patient seen and examined today. Reports he is doing well. States that he has no more tremors and it has resolved. Complains of rib pains. Patient states that prior to coming into the hospital he fell flat on his face that is why he has healing abrasion on his head. Chest x-ray in [place] shows no evidence of mass, infiltrate or effusion osseous structures are intact. Patient states he used to be on lithium but because he had toxicity to it that they have taken him off to it. States he was unable to follow-up with endocrinology in the outpatient but will attempt to do so now. Denies pain and discomfort. Denies SOB/ dyspnea. Denies chest pain, palpitations, headaches, dizziness. Denies fevers, chills, n/v/d. Denies dysuria. Review of Systems All other systems reviewed negative except as stated in HPI PMFSH - History History Provided By: Patient - Medical History Medical History: Medical History (Last Reviewed 08/12/18 @ 18:17 by MARQUES Santillan) Bipolar 1 disorder, depressed Elevated cholesterol Elevated parathyroid hormone History of alcoholism Hyperlipidemia Hypertension Prostate enlargement - Surgical History Surgical History: Surgical History (Last Reviewed 08/12/18 @ 18:17 by MARQUES Santillan) History of orthopedic surgery - Family History Family History: Family History (Last Updated 08/12/18 @ 18:17 by MARQUES Santillan) Other Family history non-contributory Parents - Social History I have reviewed the patient's Social History: Yes - Tobacco History Second Hand Smoke Exposure: No Tobacco Use In Past 30 Days: No Smoking Status: Never smoker Tobacco Type: Cigarettes - Alcohol History How Often Do You Have a Drink Containing Alcohol: 2 to 4 times a month - Substance Use History Substance History: No History of Abuse - Travel History Recent Travel in the [place] Within the Last 8 Weeks: No Recent Travel Out of the Country Within the Last 8 Weeks: No - Immunization History Tetanus Immunization: Unable to Assess Medications and Allergies Active Medications: Active Medications Acetaminophen (Tylenol) 650 mg PO Q6HR PRN PRN Reason: PAIN SCALE 1-10 Last Admin: 08/12/18 10:30 Dose: 650 mg Al Hydrox/Mg Hydrox/Simethicone (Mag-Al Plus Susp Liq) 30 ml PO Q6H PRN PRN Reason: DYSPEPSIA Al Hydroxide/Mg Hydroxide (Milk Of Magnesia Liq) 30 ml PO Q12H PRN PRN Reason: Mild Constipation Aripiprazole (Abilify) 10 mg PO HS [facility] Atorvastatin Calcium (Lipitor) 20 mg PO [facility] Last Admin: 08/11/18 20:34 Dose: 20 mg Bisacodyl (Dulcolax Supp) 10 mg RECTAL DAILY PRN PRN Reason: SEVERE CONSITIPATION Famotidine (Pepcid) 20 mg PO BID [facility] Last Admin: 08/12/18 08:15 Dose: 20 mg Lactulose (Lactulose Liq) 30 ml PO DAILY PRN PRN Reason: SEVERE CONSITIPATION Oxcarbazepine (Trileptal) 300 mg PO BID [facility] Senna/Docusate Sodium (Elva-Colace) 1 tab PO BID [facility] Last Admin: 08/12/18 08:15 Dose: 1 tab Sennosides (Senokot) 17.2 mg PO Q12H PRN PRN Reason: Moderate Constipation Tamsulosin HCl (Flomax) 0.4 mg PO DAILY [facility] Last Admin: 08/12/18 08:15 Dose: 0.4 mg Allergies Allergy/AdvReac Type Severity Reaction Status Date / Time No Known Allergies Allergy Verified 07/09/18 07:52 Physical Exam Vital signs: Vital Signs 08/12/18 05:55 08/12/18 10:00 08/12/18 17:43 Temperature 97.5 F L 97.3 F L Pulse Rate 53 L 61 Respiratory Rate 15 15 16 Blood Pressure 149/71 H 176/83 H Pulse Oximetry 100 100 Intake & Output 08/11/18 08/12/18 08/12/18 18:59 06:59 18:59 Intake Total 600 / 600 720 / 720 1320 / 1320 Balance 600 / 600 720 / 720 1320 / 1320 Weight 58.4 kg Intake: Oral 600 / 600 720 / 720 1320 / 1320 Other: # Voids 3 3 4 Weight On Admission 58.4 kg Narrative: GENERAL: This is a thin appearing, well-developed patient, in no apparent distress. SKIN: Warm and dry. HEENT: Normocephalic. Pupils equal round and reactive. Nose without bleeding. Airway patent. NECK: Trachea midline. CARDIOVASCULAR: Regular rate and rhythm without murmurs, gallops, or rubs. RESPIRATORY: Clear to auscultation. Breath sounds equal bilaterally. No wheezes , rales, or rhonchi. GASTROINTESTINAL: Abdomen soft, non-tender, nondistended. Bowel Sounds normoactive x4. MUSCULOSKELETAL: Extremities without clubbing, cyanosis. Bilateral foot trace edema. Trunk area mild tenderness to palpation ribs NEUROLOGICAL: Awake and alert. No focal neuro deficit. Moves all extremities. Normal speech. Results - Labs CBC & Chem 7: 08/12/18 07:15 Labs: Laboratory Results - last 24 hr 08/12/18 08/12/18 07:15 07:15 Sodium 147 H Potassium 4.3 Chloride 116 H Carbon Dioxide 28.6 Anion Gap 2 L BUN 14 Creatinine 0.83 Estimated GFR Greater than 89 Random Glucose 84 Hemoglobin A1c 5.1 Calcium 11.6 H* Calcium Adj for Albumin 12.4 H* Albumin 3.0 L Triglycerides 123 Cholesterol 161 LDL Cholesterol, Calc 68 HDL Cholesterol 68.0 H Cholesterol/HDL Ratio 2.36 Assessment and Plan - Plan Patient is a 67-year-old male with past medical history of bipolar disorder, HTN , HLD, hypercalcemia who initially came into the hospital with altered mental status and found to have hypercalcemia. Psychosis, bipolar disorder -Managed by psychiatry team Hypercalcemia -Initial calcium level 13 on admission, trending down -PTH 236.1. Patient had a parathyroid scan 07/12/18 showing Localization of some focal retained tracer activity is noted along the lower pole of the right lobe of the thyroid gland. -Nephrology was consulted, appreciate recommendations. Started on Aredia -Continue to monitor Leukopenia -WBC 2.6 with lymphopenia. No signs of infection. -Oxcarbazepine level pending. -Patient was seen by Dr. To adult basic education manager, recommending peripheral smear studies and iron studies HTN HLD -Continue atorvastatin, patient states he is also on atenolol, unable to find reconciliation for atenolol. -We will start patient on Norvasc. BP has been elevated throughout his hospitalization. -Monitor BP trend Atypical chest pain, rib pain -Patient reports previous fall. Chest x-ray with no acute findings -Tylenol for pain as needed Thyroid nodule -Follow-up in the outpatient with insurance defense paralegal. Will refer to Dr. Mendez BPH -Continue Flomax DVT prop early ambulation Full code Thank you for this consultation. We will follow patient with you. Discussed Condition With: Patient, nursing Discharge Planning: DC disposition by primary team
[2018-08-12] MEDS: amLODIPine 5 MG Tablet PO SCH (19:49)
[2018-08-12] MEDS: ARIPiprazole 10 MG Tablet PO SCH (20:16)
[2018-08-12] MEDS: OXcarbazepine 300 MG Tablet PO SCH (20:16)
[2018-08-13 07:12] LABS: Eos # (Auto) 0.2 th/mm3 (0.0-0.4); Eos % (Auto) 6.3 % (0.0-4.0); Hematocrit 37.2 % (39.0-51.0); Hemoglobin 12.5 gm/dL (13.0-17.0); Lymph # (Auto) 0.8 th/mm3 (1.0-4.8); Lymph % (Auto) 29.2 % (9.0-44.0); Mean Corpuscular HGB Conc 33.6 % (32.0-36.0); Mean Corpuscular Hemoglobin 29.9 pg (27.0-34.0); Mono # (Auto) 0.3 th/mm3 (0.0-0.9); Mono % (Auto) 10.8 % (0.0-8.0); Neut # (Auto) 1.5 th/mm3 (1.8-7.7); Neut % (Auto) 52.7 % (16.0-70.0); Platelet Count 178 th/mm3 (150-450); Red Blood Count 4.18 mil/mm3 (4.50-5.90); Red Cell Distribution Width 13.7 % (11.6-17.2); White Blood Count 2.8 th/mm3 (4.0-11.0)
--- NOTE | 2018-08-13 07:57 | P.CON ---
History of Present Illness Service: Hematology/oncology. Consult date: 08/13/18 Reason for Consult: Leukopenia and mild anemia. Primary Care Provider: UNKNOWN Chief Complaint: "I have a splitting headache ". History of Present Illness: Mr. [facility] is a 68-year-old male, I met him initially on 08/10/2018 as an inpatient consultation at [facility] in [place]. It appears the patient was transferred from [facility] to [facility] for inpatient psychiatric evaluation. I was asked to see the patient initially for evaluation of leukopenia which at that time was mostly driven by a lymphopenia. The patient's peripheral smear was evaluated in detail personally and there were no dysplastic or dysmorphic findings which were apparent, the visualized lymphocytes and neutrophils were essentially normal but were numerically decreased. I suspected a likely myelosuppression secondary to his psychiatric medications and possible a late sequelae of lithium toxicity. It should be noted that the patient had been on lithium for many years for management of bipolar disorder and was taken off of lithium in early July 2018 after he was found to have lithium toxicity. Additional medical issues include hypercalcemia secondary to hyperparathyroidism. Review of Systems Constitutional: Reports headache(s), Denies fever(s) Eyes: Denies change in vision Ears, Nose, Mouth, and Throat: Reports headache(s), Denies change in voice, Denies sore throat Cardiovascular: Denies chest pain Respiratory: Denies cough Gastrointestinal: Denies abdominal pain Genitourinary: Denies blood in urine Musculoskeletal: Denies back pain Skin/Breast: Denies dry skin Neurologic: Denies numbness Psychiatric: Reports memory loss, Denies anxiety Endocrine: Denies cold intolerance Hematologic/Lymphatic: Denies easy bleeding Allergic/Immunologic: Denies GI upset with certain foods PMFSH - History History Provided By: Patient - Medical History Medical History: Medical History (Last Updated 08/13/18 @ 07:50 by William To MD) Leukopenia Lymphopenia Bipolar 1 disorder, depressed Elevated cholesterol Elevated parathyroid hormone History of alcoholism Hyperlipidemia Hypertension Prostate enlargement - Surgical History Surgical History: Surgical History (Last Reviewed 08/13/18 @ 07:50 by William To MD) History of orthopedic surgery - Family History Family History: Family History (Last Reviewed 08/13/18 @ 07:50 by William To MD) Other Family history non-contributory Parents - Social History I have reviewed the patient's Social History: Yes - Tobacco History Second Hand Smoke Exposure: No Tobacco Use In Past 30 Days: No Smoking Status: Never smoker - Alcohol History How Often Do You Have a Drink Containing Alcohol: 2 to 4 times a month - Substance Use History Substance History: No History of Abuse - Travel History Recent Travel in the [facility] Within the Last 8 Weeks: No Recent Travel Out of the Country Within the Last 8 Weeks: No - Immunization History Tetanus Immunization: Unable to Assess Medications and Allergies Active Medications: Active Medications Acetaminophen (Tylenol) 650 mg PO Q6HR PRN PRN Reason: PAIN SCALE 1-10 Last Admin: 08/12/18 10:30 Dose: 650 mg Al Hydrox/Mg Hydrox/Simethicone (Mag-Al Plus Susp Liq) 30 ml PO Q6H PRN PRN Reason: DYSPEPSIA Al Hydroxide/Mg Hydroxide (Milk Of Magnesia Liq) 30 ml PO Q12H PRN PRN Reason: Mild Constipation Amlodipine Besylate (Norvasc) 5 mg PO DAILY [facility] Last Admin: 08/12/18 19:49 Dose: Not Given Aripiprazole (Abilify) 10 mg PO HS [facility] Last Admin: 08/12/18 20:16 Dose: 10 mg Atorvastatin Calcium (Lipitor) 20 mg PO HS [facility] Last Admin: 08/12/18 20:16 Dose: 20 mg Bisacodyl (Dulcolax Supp) 10 mg RECTAL DAILY PRN PRN Reason: SEVERE CONSITIPATION Famotidine (Pepcid) 20 mg PO BID [facility] Last Admin: 08/12/18 20:16 Dose: 20 mg Lactulose (Lactulose Liq) 30 ml PO DAILY PRN PRN Reason: SEVERE CONSITIPATION Oxcarbazepine (Trileptal) 300 mg PO BID [facility] Last Admin: 08/12/18 20:16 Dose: 300 mg Senna/Docusate Sodium (Elva-Colace) 1 tab PO BID [facility] Last Admin: 08/12/18 20:16 Dose: 1 tab Sennosides (Senokot) 17.2 mg PO Q12H PRN PRN Reason: Moderate Constipation Tamsulosin HCl (Flomax) 0.4 mg PO DAILY [facility] Last Admin: 08/12/18 08:15 Dose: 0.4 mg Allergies Allergy/AdvReac Type Severity Reaction Status Date / Time No Known Allergies Allergy Verified 07/09/18 07:52 Physical Exam Vital signs: Vital Signs 08/12/18 10:00 08/12/18 17:43 08/13/18 05:41 Temperature 97.3 F L 97.4 F L Pulse Rate 61 57 L Respiratory Rate 15 16 16 Blood Pressure 176/83 H 133/69 Pulse Oximetry 100 99 Intake & Output 08/12/18 08/13/18 08/13/18 18:59 06:59 18:59 Intake Total 1320 / 1320 960 / 960 Balance 1320 / 1320 960 / 960 Intake: Oral 1320 / 1320 960 / 960 Other: # Voids 4 0 Narrative: General: Elderly male, laying in bed, appears to be thin and near cachectic. Not acutely distressed, is awake alert and oriented. Participates in conversation. HEENT: Head atraumatic normocephalic, conjunctivae mildly pale sclerae anicteric , EOMI, PERRLA. Oral exam: No pharyngeal erythema, moist mucous membranes. Neck exam no palpable cervical supraclavicular adenopathy. No JVD. Respiratory exam: Good air movement bilaterally no added breath sounds, no rhonchi or wheezes no crepitus. Cardiovascular: Regular rate and rhythm, S1-S2 no obvious murmurs or gallops. No peripheral edema. Abdominal exam: Thin belly, soft, no obvious tenderness, no palpable hepatosplenomegaly, positive bowel sounds. Lower extremities: No pretibial edema no calf tenderness. Musculoskeletal: Generally atrophic musculature. DRUPAL PROGRAMMER: No focal sensorimotor deficits, he has 5 x 5 strength of the upper and lower extremities. Skin examination: Nonfocal. No bruises, lesions concerning for malignancy or petechiae noted. Results - Labs CBC & Chem 7: 08/13/18 06:40 08/12/18 07:15 Labs: Laboratory Results - last 24 hr 08/12/18 08/12/18 08/13/18 07:15 07:15 06:40 WBC 2.8 L RBC 4.18 L Hgb 12.5 L Hct 37.2 L MCV 89.0 MCH 29.9 MCHC 33.6 RDW 13.7 Plt Count 178 MPV 8.0 Neut % (Auto) 52.7 Lymph % (Auto) 29.2 [place] % (Auto) 10.8 H Eos % (Auto) 6.3 H Baso % (Auto) 1.0 Neut # (Auto) 1.5 L Lymph # (Auto) 0.8 L [place] # (Auto) 0.3 Eos # (Auto) 0.2 Baso # (Auto) 0.0 WBC Differential . Differential Comment Auto diff final Sodium 147 H Potassium 4.3 Chloride 116 H Carbon Dioxide 28.6 Anion Gap 2 L BUN 14 Creatinine 0.83 Estimated GFR Greater than 89 Random Glucose 84 Hemoglobin A1c 5.1 Calcium 11.6 H* Calcium Adj for Albumin 12.4 H* Albumin 3.0 L Triglycerides 123 Cholesterol 161 LDL Cholesterol, Calc 68 HDL Cholesterol 68.0 H Cholesterol/HDL Ratio 2.36 Assessment and Plan - Plan Mr. Hamilton is a 68-year-old male with a long-standing history of bipolar disorder, hyperparathyroidism, hyperlipidemia and poor social support. He is currently in the inpatient psychiatric unit receiving treatment for uncontrolled bipolar disorder he has been assessed by the inpatient psychiatry service to have psychotic features and disorganized thoughts as well as disorientation in the context of his hypercalcemia. He has been hospitalized for stabilization. Additional medical issues include hypercalcemia secondary hyperparathyroidism, hypercalcemia is improving after infusion with pamidronate on 08/09/2018 at the [facility]. Hematology service has been asked to see him for further evaluation of leukopenia which seems to be slightly worse over the past 1 week. I would like to add that the patient's peripheral smear was evaluated personally by myself on 08/10/2018 and there were no dysmorphic or dysplastic findings to suggest a primary bone marrow disorder such as myelodysplasia at that time. It is my assessment based on the data available for review that his leukopenia is likely related to myelosuppressive effects related to medications. Additionally, his leukopenia and cytopenias are not critical at this time. I would recommend continued observation. Once he is stabilized from a psychiatric standpoint and ready for discharge I will arrange outpatient follow-up.
[2018-08-13 07:59] LABS: Calcium 11.7 mg/dL (8.5-10.1); Carbon Dioxide 26.4 meq/L (21.0-32.0); Potassium 4.1 meq/L (3.5-5.1)
[2018-08-13 08:09] LABS: Albumin 2.9 g/dL (3.4-5.0)
[2018-08-13 08:13] LABS: Calcium-Albumin Corrected 12.6 mg/dL (8.5-10.1)
--- NOTE | 2018-08-13 08:22 | P.PNIM ---
Subjective Interval history: Follow-up visit hypercalcemia, hyperparathyroidism, HTN, HLD. Patient seen and examined today sitting up in a chair eating his breakfast. Reports he is doing well. Denies pain and discomfort. Denies SOB/ dyspnea. Denies chest pain, palpitations, headaches, dizziness. Denies fevers, chills, n/v/d. Denies hematuria, dysuria. Denies muscle weakness, muscle continue, tremors Physical Exam Vital signs: Vital Signs 08/12/18 10:00 08/12/18 17:43 08/13/18 05:41 Temperature 97.3 F L 97.4 F L Pulse Rate 61 57 L Respiratory Rate 15 16 16 Blood Pressure 176/83 H 133/69 Pulse Oximetry 100 99 Intake & Output 08/12/18 08/13/18 08/13/18 18:59 06:59 18:59 Intake Total 1320 / 1320 960 / 960 Balance 1320 / 1320 960 / 960 Intake: Oral 1320 / 1320 960 / 960 Other: # Voids 4 0 Narrative: GENERAL: This is a thin appearing elderly male, well-developed patient, in no apparent distress. SKIN: Warm and dry. HEENT: Normocephalic. Pupils equal round and reactive. Nose without bleeding. Airway patent. NECK: Trachea midline. CARDIOVASCULAR: Regular rate and rhythm without murmurs, gallops, or rubs. RESPIRATORY: Clear to auscultation. Breath sounds equal bilaterally. No wheezes , rales, or rhonchi. GASTROINTESTINAL: Abdomen soft, non-tender, nondistended. Bowel Sounds normoactive x4. MUSCULOSKELETAL: Extremities without clubbing, cyanosis. Bilateral foot trace edema. NEUROLOGICAL: Awake and alert. No focal neuro deficit. Moves all extremities. Normal speech. Results - Labs CBC & Chem 7: 08/13/18 06:40 08/13/18 06:40 Laboratory Results - last 24 hr 08/12/18 08/12/18 08/13/18 07:15 07:15 06:40 WBC 2.8 L RBC 4.18 L Hgb 12.5 L Hct 37.2 L MCV 89.0 MCH 29.9 MCHC 33.6 RDW 13.7 Plt Count 178 MPV 8.0 Neut % (Auto) 52.7 Lymph % (Auto) 29.2 [place] % (Auto) 10.8 H Eos % (Auto) 6.3 H Baso % (Auto) 1.0 Neut # (Auto) 1.5 L Lymph # (Auto) 0.8 L [place] # (Auto) 0.3 Eos # (Auto) 0.2 Baso # (Auto) 0.0 WBC Differential . Differential Comment Auto diff final Sodium 147 H Potassium 4.3 Chloride 116 H Carbon Dioxide 28.6 Anion Gap 2 L BUN 14 Creatinine 0.83 Estimated GFR Greater than 89 Random Glucose 84 Hemoglobin A1c 5.1 Calcium 11.6 H* Calcium Adj for Albumin 12.4 H* Albumin 3.0 L Triglycerides 123 Cholesterol 161 LDL Cholesterol, Calc 68 HDL Cholesterol 68.0 H Cholesterol/HDL Ratio 2.36 08/13/18 06:40 WBC RBC Hgb Hct MCV MCH MCHC RDW Plt Count MPV Neut % (Auto) Lymph % (Auto) [place] % (Auto) Eos % (Auto) Baso % (Auto) Neut # (Auto) Lymph # (Auto) [place] # (Auto) Eos # (Auto) Baso # (Auto) WBC Differential Differential Comment Sodium 146 H Potassium 4.1 Chloride 116 H Carbon Dioxide 26.4 Anion Gap 4 L BUN 16 Creatinine 0.92 Estimated GFR 82 L Random Glucose 92 Hemoglobin A1c Calcium 11.7 H* Calcium Adj for Albumin 12.6 H* Albumin 2.9 L Triglycerides Cholesterol LDL Cholesterol, Calc HDL Cholesterol Cholesterol/HDL Ratio Assessment and Plan - Plan Patient is a 67-year-old male with past medical history of bipolar disorder, HTN , HLD, hypercalcemia who initially came into the hospital with altered mental status and found to have hypercalcemia. Psychosis, bipolar disorder -Managed by psychiatry team Hypercalcemia, moderate Hyperparathyroidism -Initial calcium level 13 on admission, Ca+ 12.6 -->12.6 -PTH 236.1. Patient had a parathyroid scan 07/12/18 showing Localization of some focal retained tracer activity is noted along the lower pole of the right lobe of the thyroid gland. -Nephrology was consulted, appreciate recommendations. Started on Aredia ( pamidronate) -Continue to monitor Leukopenia -WBC 2.6 with lymphopenia. No signs of infection. -Oxcarbazepine level pending. -Patient was seen by Dr. To cryptozoologist, recommending peripheral smear studies and iron studies. Peripheral smear showed no dysmorphic or dysplastic findings to suggest a primary bone marrow disorder such as myelodysplasia. Suspecting leukopenia likely secondary to myelosuppressive effects related to medications. -We will need to follow-up with Dr. To in the outpatient setting. Continue to monitor WBC intermittent HTN HLD -Continue atorvastatin, patient states he is also on atenolol, unable to find reconciliation for atenolol. -Norvasc 5mg daily -Monitor BP trend -Improving Atypical chest pain, rib pain -Patient reports previous fall. Chest x-ray with no acute findings -Tylenol for pain as needed Thyroid nodule -Follow-up in the outpatient with disintegrator feeder. Will refer to Dr. Mendez BPH -Continue Flomax DVT prop early ambulation Full code Discussed Condition With: Patient, nurse Discharge Planning: DC disposition by primary team
--- NOTE | 2018-08-13 08:38 | P.TTN ---
- Patient Problems Problems: 1. Discharge planning 2. Medication compliance 3. Knowledge deficit 4. Lack of coping skills - Progress Toward Goals Provider Present: Other Provider Input: 08/13/2018: per psychiatrist patient's medications has been reinstated; Nurse(s) Present: RN Nurse Input: 08/13/2018; per RN patient is eating, and taking his medication with no behavior Psychiatric Counselors Present: Leny Levi [facility] Psychiatric Therapist Input: 08/13/2018; Peter with [facility] will be in today to asses patient Group Spec/RT/OT/FRAGOSO Present: Kameron Price OT Group Spec/RT/OT/FRAGOSO Input: 08/13/2018; patient is participating with groups and activities - Documentation Teaching Recipient: Patient
[2018-08-13] MEDS: Famotidine 20 MG Tablet PO SCH ×2 (08:44→20:35)
[2018-08-13] MEDS: amLODIPine 5 MG Tablet PO SCH (08:44)
[2018-08-13] MEDS: Senna/Docusate Sodium 8.6/50 MG Tablet PO SCH ×2 (08:44→20:36)
[2018-08-13] MEDS: OXcarbazepine 300 MG Tablet PO SCH ×2 (08:44→20:36)
--- NOTE | 2018-08-13 10:25 | P.DIET ---
Nutritional Evaluation Type of nutrition evaluation: initial Nutrition consult regarding: Diet Evaluation Nutrition screening: Weight Loss > 10 lbs Screening comments: 08/11/18 WLS Objective - Diagnosis depressive disorder - Objective Body Mass Index: 17.5 % IBW: 68 (IBW = 190lb) Body Weight Used for Calculations: Actual (58.4kg) Energy Needs - Lower Range (kCal/kg): 35 Energy Needs - Upper Range (kCal/kg): 40 Lower Limit kCal/kg (kCals): 2,044 Upper Limit kCal/kg (kCals): 2,336 Lower Limit Protein Factor (Grams per Kg): 1.2 Upper Limit Protein Factor (Grams per Kg): 1.4 Lower Protein Needs (Protein): 70 Upper Protein Needs (Protein): 82 Dietitian Reviewed in Medical Record: Current diet, Curent medications, Intake & Output, Labs, Medical history Diet Order: regular Oral Diet Intake Amount: Excellent 90%+ Objective Comments: PMH: bipolar 1 disorder, elevated cholesterol, HLD, h/o ETOH, HTN, leukopenia Meds: abilify, lipitor LabS: A1c 5.1%, Ca+ 11.7 Assessment Assessment: Pt currently at nutritional risk r/t reported unplanned wt loss and low BMI ( 17.5). Pt currently on regular diet and consuming around 100% for most meals. RD to recommend Ensure Enlive BID as PO supplement to provide additional nutrition. Continue to monitor PO and supplement intake/acceptance. Labs reviewed, dietitian following. Recommendations: 1. RD to recommend Ensure Enlive BID as PO supplement to provide additional nutrition 2. Continue to monitor PO and supplement intake/acceptance 3. Dietitian following Dietitian to Monitor: Lab values, Supplement acceptance, Intake & Output, Weight change, PO Intake, Medical course
--- NOTE | 2018-08-13 14:32 | P.PNPSY ---
Subjective Chief Complaint: Follow-up for treatment of bipolar disorder most recent episode manic Remarks: Patient seen for follow-up, chart reviewed, patient discussed with nursing staff ; we reviewed the patient's mood, thoughts, and behaviors from overnight and this morning. Nurse reports the patient remains calm and cooperative with care. He spends most of the time in bed but he has cooperated with daily recreational therapy. He is eating most of his meals and drinking fluids throughout the day per recommendations to stay well-hydrated. The patient was seen at bedside today after lunch where he was laying in bed napping. He was easy to awaken but seems slightly confused today. He was alert and oriented to person place and situation but not the time. He repeated himself a number of times, telling the provider about his meetings with the assisted living facility and plans for discharge. He is agreeable with plan to discharge him to care of assisted living facility but a bed will not be available until Thursday. He denies any physical complaints or discomfort and he believes he has tolerated the restart of his psychotropic medications. Review of Systems Genitourinary: Reports urinary frequency Mental Status Examination Appearance: Appropriate Consciousness: Somnolent Orientation: Person, Place, Situation Motor Activity: Normal gait Speech: Unremarkable Language: Adequate Fund of Knowledge: Adequate Attention and Concentration: Adequate Memory: Impaired (He was confused about the days of the week and repeated the same conversation over and over again) Mood: Appropriate Affect: Appropriate Thought Process & Associations: Intact, Logical, Goal directed, Disorganized ( Mildly) Thought Content: Appropriate Hallucination Type: None Delusion Type: None Suicidal Ideation: No Suicidal Plan: No Suicidal Intention: No Homicidal Ideation: No Homicidal Plan: No Homicidal Intention: No Insight: Fair Judgment: Impulsive Assessment and Plan - Assessment (1) Bipolar 1 disorder Code(s): F31.9 - Bipolar disorder, unspecified Status: Acute (2) Hypercalcemia Code(s): E83.52 - Hypercalcemia Status: Acute - Plan Plan: 08/12/2018. Initial assessment and plan: 1. Continue with admission to inpatient psychiatry at [facility]; convert to voluntary/competent legal status. 2. Routine unit precautions. 3. Comfort medications ordered for as needed treatment of constipation, heartburn, diarrhea, and mild pain. 4. Hydroxyzine 50mg po q6H prn anxiety/insomnia. 5. Restart Trileptal 300 mg twice a day for bipolar disorder. 6. Restart Abilify 10 mg once a day for bipolar disorder with psychosis; anticipate titration up to 20 mg a day over the next week. 7. Consult hospitalist for assessment of patient's hypercalcemia and hyperparathyroid. 8. Patient will participate in the unit programming to include group therapies , milieu therapy and recreational therapies. 9. Discharge planning: The patient will need outpatient care by psychiatry as well as referrals to primary care and endocrinology. Unit social workers work with the patient to find placement in an assisted living facility. Estimated LOS: 3-4 days. 08/13/2018: Good response to treatment plan; patient has tolerated the restart of his psychotropics and no signs of active brandin or psychosis. He also cooperated with increased fluid intake and his kidney function has improved and his calcium levels have decreased on today's morning labs. Patient's mental status remains mildly impaired with disorientation to time and decreased concentration and immediate recall evident during today's interview. Patient remains a high risk for non-adherence to medications without the structure and support he receives in the hospital and will eventually eventually receive in an assisted living facility. Discharge of the patient to live in his car while he awaits a bed at the assisted living facility that has accepted him, would place him at substantial risk of worsening mental status as well as worsening kidney function therefore it is recommended that he remain admitted to the psychiatric unit and continued on current treatment plan pending a safe discharge anticipated for Thursday. Justification for Continued Inpatient Stay: Patient remains an elevated risk for self-harm by self neglect as was evident by the patient's nonadherence to last month's discharge plan resulting in his decompensation both physically and mentally and requiring rehospitalization this month, therefore he will require further inpatient stabilization and preparation of a safe discharge plan. Moving patient to a less restrictive environment at this time may result in decompensation.
[2018-08-13] MEDS: ARIPiprazole 10 MG Tablet PO SCH (20:35)
--- NOTE | 2018-08-14 08:28 | P.PNIM ---
Subjective Interval history: Follow-up visit hypercalcemia, hyperparathyroidism, HTN, HLD. Patient seen and examined today eating his breakfast. Reports he is doing well. Denies pain and discomfort. Denies SOB/ dyspnea. Denies chest pain, palpitations, headaches, dizziness. Denies fevers, chills, n/v/d. Denies hematuria, dysuria. Denies muscle weakness, tremors. Physical Exam Vital signs: Vital Signs 08/13/18 17:30 08/14/18 05:26 Temperature 97.8 F 98.2 F Pulse Rate 67 64 Respiratory Rate 17 16 Blood Pressure 144/71 H 155/77 H Pulse Oximetry 98 99 Intake & Output 08/13/18 08/14/18 08/14/18 18:59 06:59 18:59 Intake Total 2880 / 2880 340 / 340 Balance 2880 / 2880 340 / 340 Intake: Oral 2880 / 2880 240 / 240 Oral Supplement 100 / 100 Narrative: GENERAL: This is a thin appearing elderly male, well-developed patient, in no apparent distress. SKIN: Warm and dry. HEENT: Normocephalic. Pupils equal round and reactive. Nose without bleeding. Airway patent. NECK: Trachea midline. CARDIOVASCULAR: Regular rate and rhythm without murmurs, gallops, or rubs. RESPIRATORY: Clear to auscultation. Breath sounds equal bilaterally. No wheezes , rales, or rhonchi. GASTROINTESTINAL: Abdomen soft, non-tender, nondistended. Bowel Sounds normoactive x4. MUSCULOSKELETAL: Extremities without clubbing, cyanosis. Bilateral foot trace edema. No tremors noted. NEUROLOGICAL: Awake and alert. No focal neuro deficit. Moves all extremities. Normal speech. Results - Labs CBC & Chem 7: 08/13/18 06:40 08/13/18 06:40 Assessment and Plan - Plan Patient is a 67-year-old male with past medical history of bipolar disorder, HTN , HLD, hypercalcemia who initially came into the hospital with altered mental status and found to have hypercalcemia. Psychosis, bipolar disorder -Managed by psychiatry team Hypercalcemia, moderate Hyperparathyroidism -Initial calcium level 13 on admission, Ca+ 12.6 -->12.6 -PTH 236.1. Patient had a parathyroid scan 07/12/18 showing Localization of some focal retained tracer activity is noted along the lower pole of the right lobe of the thyroid gland. -Nephrology was consulted, appreciate recommendations. Given Aredia ( pamidronate) -Need to follow-up with nephrology and endocrinology and outpatient. Will refer to Dr. Jc And Dr. Helms Leukopenia -WBC 2.6 with lymphopenia. No signs of infection. -Oxcarbazepine level pending. -Patient was seen by Dr. To instructional support assistant, recommending peripheral smear studies and iron studies. Peripheral smear showed no dysmorphic or dysplastic findings to suggest a primary bone marrow disorder such as myelodysplasia. Suspecting leukopenia likely secondary to myelosuppressive effects related to medications. -Follow-up with Dr. To in the outpatient setting. Continue to monitor WBC intermittent HTN HLD -Continue atorvastatin, patient states he is also on atenolol, unable to find reconciliation for atenolol. -Norvasc 5mg daily, add lisinopril -Monitor BP trend -Improving Atypical chest pain, rib pain -Patient reports previous fall. Chest x-ray with no acute findings -Tylenol for pain as needed Thyroid nodule -Follow-up in the outpatient with brick maker. Will refer to Dr. Jc BPH -Continue Flomax DVT prop early ambulation Full code Discussed Condition With: Patient, nursing Discharge Planning: DC disposition by primary team
[2018-08-14] MEDS: Senna/Docusate Sodium 8.6/50 MG Tablet PO SCH ×2 (08:30→22:16)
[2018-08-14] MEDS: amLODIPine 5 MG Tablet PO SCH (08:30)
[2018-08-14] MEDS: OXcarbazepine 300 MG Tablet PO SCH ×2 (08:30→22:16)
[2018-08-14] MEDS: Famotidine 20 MG Tablet PO SCH ×2 (08:32→22:16)
[2018-08-14 09:37] LABS: Potassium 4.5 meq/L (3.5-5.1)
--- NOTE | 2018-08-14 09:38 | P.PNPSY ---
Subjective Chief Complaint: Follow-up for treatment of bipolar disorder most recent episode manic Remarks: Patient seen in his room with nurse Tona, chart reviewed, patient compliant medication. Patient calm cooperative with me denying suicidality at this time also denying voices. He is stating he is feeling better today. And is hoping for discharge the first part of this week. He is also cooperating with the medical recommendations Review of Systems All other systems reviewed negative except as stated in HPI Mental Status Examination Appearance: Appropriate Consciousness: Alert Orientation: Person, Place, Situation Motor Activity: Normal gait Speech: Unremarkable Language: Adequate Fund of Knowledge: Adequate Attention and Concentration: Adequate Memory: Impaired (He was confused about the days of the week and repeated the same conversation over and over again) Mood: Other (Euthymic to mildly dysphoric) Affect: Other (Good range and intensity) Thought Process & Associations: Intact, Logical, Goal directed, Disorganized ( Mildly) Thought Content: Appropriate Hallucination Type: None Delusion Type: None Suicidal Ideation: No Suicidal Plan: No Suicidal Intention: No Homicidal Ideation: No Homicidal Plan: No Homicidal Intention: No Insight: Fair Judgment: Impulsive Assessment and Plan - Assessment (1) Bipolar 1 disorder Code(s): F31.9 - Bipolar disorder, unspecified Status: Acute (2) Hypercalcemia Code(s): E83.52 - Hypercalcemia Status: Acute - Plan Plan: Patient remains somewhat depressed and restricted but overall appears to be doing better, compliant medication, thus denies suicidality. For now continue treatment Justification for Continued Inpatient Stay: At this time patient with decompensated placed on a lower level of care Discharge Planning: To be determined
[2018-08-14 09:50] LABS: Calcium 12.8 mg/dL (8.5-10.1)
[2018-08-14 09:56] LABS: Albumin 3.4 g/dL (3.4-5.0)
[2018-08-14 09:58] LABS: Calcium-Albumin Corrected 13.3 mg/dL (8.5-10.1)
[2018-08-14] MEDS: Lisinopril 10 MG Tablet PO SCH (10:15)
[2018-08-14] MEDS: ARIPiprazole 10 MG Tablet PO SCH (22:16)
[2018-08-15] MEDS: OXcarbazepine 300 MG Tablet PO SCH ×2 (08:34→20:57)
[2018-08-15] MEDS: amLODIPine 5 MG Tablet PO SCH (08:34)
[2018-08-15] MEDS: Famotidine 20 MG Tablet PO SCH ×2 (08:34→21:02)
[2018-08-15] MEDS: Lisinopril 10 MG Tablet PO SCH (08:34)
[2018-08-15] MEDS: Senna/Docusate Sodium 8.6/50 MG Tablet PO SCH ×2 (08:34→20:57)
--- NOTE | 2018-08-15 08:43 | P.PNIM ---
Subjective Interval history: Hypercalcemia, hyperparathyroidism Patient seen and examined today tremors noted. States he is okay but unable to hold his drink due to shaking. Denies fevers, chills, nausea, vomiting, diarrhea. Physical Exam Vital signs: Vital Signs 08/14/18 17:57 08/15/18 06:16 Temperature 97.7 F 98.1 F Pulse Rate 82 68 Respiratory Rate 16 17 Blood Pressure 130/70 103/55 L Pulse Oximetry 95 100 Intake & Output 08/14/18 08/15/18 08/15/18 18:59 06:59 18:59 Intake Total 960 / 960 600 / 600 Balance 960 / 960 600 / 600 Intake: Oral 960 / 960 600 / 600 Other: # Voids 3 3 # Incontinent Voids 3 Narrative: GENERAL: This is a thin appearing elderly male, well-developed patient, in no apparent distress. SKIN: Warm and dry. HEENT: Normocephalic. Pupils equal round and reactive. Nose without bleeding. Airway patent. NECK: Trachea midline. CARDIOVASCULAR: Regular rate and rhythm without murmurs, gallops, or rubs. RESPIRATORY: Clear to auscultation. Breath sounds equal bilaterally. No wheezes , rales, or rhonchi. GASTROINTESTINAL: Abdomen soft, non-tender, nondistended. Bowel Sounds normoactive x4. MUSCULOSKELETAL: Extremities without clubbing, cyanosis. Bilateral foot trace edema. Tremors Bilat hand NEUROLOGICAL: Awake and alert. No focal neuro deficit. Moves all extremities. Normal speech. Results - Labs CBC & Chem 7: 08/13/18 06:40 08/14/18 08:20 Laboratory Results - last 24 hr 08/14/18 08:20 Sodium 144 Potassium 4.5 Chloride 114 H Carbon Dioxide 28.0 Anion Gap 2 L BUN 18 Creatinine 1.05 Estimated GFR 70 L Random Glucose 101 Calcium 12.8 H* D Calcium Adj for Albumin 13.3 H* Albumin 3.4 Assessment and Plan - Plan Patient is a 67-year-old male with past medical history of bipolar disorder, HTN , HLD, hypercalcemia who initially came into the hospital with altered mental status and found to have hypercalcemia. Psychosis, bipolar disorder -Managed by psychiatry team Hypercalcemia, moderate Hyperparathyroidism -Initial calcium level 13 on admission, Ca+ 12.6 -->12.6 --> 13.3 -PTH 236.1. Patient had a parathyroid scan 07/12/18 showing Localization of some focal retained tracer activity is noted along the lower pole of the right lobe of the thyroid gland. -Nephrology was consulted, appreciate recommendations. Given Aredia ( pamidronate) -Need to follow-up with nephrology and endocrinology and outpatient. Will refer to Dr. Jc And Dr. Helms -Recheck calcium tonja. Low calcium diet. Increase PO fluid hydration. Leukopenia -WBC 2.6 with lymphopenia. No signs of infection. -Oxcarbazepine level pending. -Patient was seen by Dr. To taxation agent, recommending peripheral smear studies and iron studies. Peripheral smear showed no dysmorphic or dysplastic findings to suggest a primary bone marrow disorder such as myelodysplasia. Suspecting leukopenia likely secondary to myelosuppressive effects related to medications. -Follow-up with Dr. To in the outpatient setting. Continue to monitor WBC intermittent HTN HLD -Continue atorvastatin, patient states he is also on atenolol, unable to find reconciliation for atenolol. -Norvasc 5mg daily, add lisinopril -Monitor BP trend -Improving Atypical chest pain, rib pain -Patient reports previous fall. Chest x-ray with no acute findings -Tylenol for pain as needed Thyroid nodule -Follow-up in the outpatient with head start coordinator. Will refer to Dr. Jc BPH -Continue Flomax DVT prop early ambulation Full code Discussed Condition With: Patient, nursing Discharge Planning: DC disposition by primary team
--- NOTE | 2018-08-15 14:12 | P.PNPSY ---
Subjective Chief Complaint: Follow-up for treatment of bipolar disorder most recent episode manic Remarks: Patient was seen and case discussed with nursing. Patient is a lot thinner than the last meeting we had. He is bright and cheerful during the interview. He describes as being "treated like a keya." Medicine continues to follow his hypercalcemia. Compliant with medications. Patient denies suicidal or homicidal ideation intent or plan Review of Systems All other systems reviewed negative except as stated in HPI Mental Status Examination Appearance: Appropriate Consciousness: Alert Orientation: Person, Place, Situation Motor Activity: Normal gait Speech: Unremarkable Language: Adequate Fund of Knowledge: Adequate Attention and Concentration: Adequate Memory: Impaired (He was confused about the days of the week and repeated the same conversation over and over again) Mood: Other (Euthymic to mildly dysphoric) Affect: Other (Good range and intensity) Thought Process & Associations: Goal directed, Disorganized (Mildly) Thought Content: Appropriate Hallucination Type: None Delusion Type: None Suicidal Ideation: No Suicidal Plan: No Suicidal Intention: No Homicidal Ideation: No Homicidal Plan: No Homicidal Intention: No Insight: Fair Judgment: Impulsive Assessment and Plan - Assessment (1) Bipolar 1 disorder Code(s): F31.9 - Bipolar disorder, unspecified Status: Acute (2) Hypercalcemia Code(s): E83.52 - Hypercalcemia Status: Acute - Plan Plan: Continue current treatment plan Justification for Continued Inpatient Stay: Patient would decompensate in a less restrictive setting
[2018-08-15] MEDS: ARIPiprazole 10 MG Tablet PO SCH (20:57)
[2018-08-16 06:09] VITALS: BP 135/76; PULSE 66; RESP 18; TEMP 97.6; O2SAT 98
[2018-08-16] MEDS: amLODIPine 5 MG Tablet PO SCH (09:03)
[2018-08-16] MEDS: Lisinopril 10 MG Tablet PO SCH (09:03)
[2018-08-16] MEDS: Senna/Docusate Sodium 8.6/50 MG Tablet PO SCH (09:03)
[2018-08-16] MEDS: OXcarbazepine 300 MG Tablet PO SCH (09:03)
[2018-08-16] MEDS: Famotidine 20 MG Tablet PO SCH (09:03)
--- NOTE | 2018-08-16 09:38 | P.PNIM ---
Subjective Interval history: Hypercalcemia, hyperparathyroidism. Patient seen and examined today. States he is okay, mild tremors on and off. Difficulty with handling drinks. Has been hydrating well. Denies pain and discomfort. Denies SOB/ dyspnea. Denies chest pain, palpitations, headaches, dizziness. Denies fevers, chills, n/v/d. Denies dysuria. Physical Exam Vital signs: Vital Signs 08/15/18 21:55 08/16/18 06:00 Temperature 98.3 F 97.6 F Pulse Rate 87 66 Respiratory Rate 18 Blood Pressure 135/76 Pulse Oximetry 98 Intake & Output 08/15/18 08/16/18 08/16/18 18:59 06:59 18:59 Intake Total 1200 / 1200 1240 / 1240 Balance 1200 / 1200 1240 / 1240 Weight 58.2 kg Intake: Oral 1200 / 1200 1240 / 1240 Other: # Voids 5 4 # Incontinent Voids 4 Narrative: GENERAL: This is a thin appearing elderly male, well-developed patient, in no apparent distress. SKIN: Warm and dry. HEENT: Normocephalic. Pupils equal round and reactive. Nose without bleeding. Airway patent. NECK: Trachea midline. CARDIOVASCULAR: Regular rate and rhythm without murmurs, gallops, or rubs. RESPIRATORY: Clear to auscultation. Breath sounds equal bilaterally. No wheezes , rales, or rhonchi. GASTROINTESTINAL: Abdomen soft, non-tender, nondistended. Bowel Sounds normoactive x4. MUSCULOSKELETAL: Extremities without clubbing, cyanosis. Bilateral foot trace edema. Tremors Bilat hand NEUROLOGICAL: Awake and alert. No focal neuro deficit. Moves all extremities. Normal speech. Results - Labs CBC & Chem 7: 08/13/18 06:40 08/16/18 08:20 Assessment and Plan - Plan Patient is a 67-year-old male with past medical history of bipolar disorder, HTN , HLD, hypercalcemia who initially came into the hospital with altered mental status and found to have hypercalcemia. Psychosis, bipolar disorder -Managed by psychiatry team Hypercalcemia, moderate Hyperparathyroidism -Initial calcium level 13 on admission, Ca+ 12.6 -->12.6 --> 13.3 -->13.4 -PTH 236.1. Patient had a parathyroid scan 07/12/18 showing Localization of some focal retained tracer activity is noted along the lower pole of the right lobe of the thyroid gland. -Nephrology was consulted, appreciate recommendations. Given Aredia ( pamidronate) -Low calcium diet. Increase PO fluid hydration. -Hypercalcemia continues, moderate not severe, need to follow up with Need to follow-up with nephrology and endocrinology and outpatient. Will refer to Dr. Jc And Dr. Helms in the outpatient. Leukopenia -WBC 2.6 with lymphopenia. No signs of infection. -Oxcarbazepine level pending. -Patient was seen by Dr. To loop tacker, recommending peripheral smear studies and iron studies. Peripheral smear showed no dysmorphic or dysplastic findings to suggest a primary bone marrow disorder such as myelodysplasia. Suspecting leukopenia likely secondary to myelosuppressive effects related to medications. -Follow-up with Dr. To in the outpatient setting. Continue to monitor WBC intermittently HTN HLD -Continue atorvastatin, patient states he is also on atenolol, unable to find reconciliation for atenolol. -Norvasc 5mg daily, add lisinopril -Monitor BP trend -Improving Atypical chest pain, rib pain -Patient reports previous fall. Chest x-ray with no acute findings -Tylenol for pain as needed Thyroid nodule -Follow-up in the outpatient with clinical trial assistant. Will refer to Dr. Jc BPH -Continue Flomax DVT prop early ambulation Full code Stable from Hospitalist standpoint. We will sign off. Reconsult as needed. Thank you. Discussed Condition With: Patient, nursing Discharge Planning: DC disposition by primary team
[2018-08-16 09:41] LABS: Calcium 13.2 mg/dL (8.5-10.1); Carbon Dioxide 29.8 meq/L (21.0-32.0); Potassium 4.8 meq/L (3.5-5.1)
[2018-08-16 09:48] LABS: Albumin 3.8 g/dL (3.4-5.0)
[2018-08-16 09:54] LABS: Calcium-Albumin Corrected 13.4 mg/dL (8.5-10.1)
--- NOTE | 2018-08-16 11:41 | P.DSPSY ---
Psychiatry Discharge Summary Inpatient Psychiatric care?: Yes Advance Directives: No Mental Health Advance Directive: No Health Care Proxy: No - Admission Admission Date: August 11, 2018 14:22 - Admission Diagnosis (1) Bipolar 1 disorder Code(s): F31.9 - Bipolar disorder, unspecified (2) Hypercalcemia Code(s): E83.52 - Hypercalcemia Brief History: The patient is a 68-year-old male with history of bipolar disorder and well- known to inpatient psychiatry from previous admissions, was transferred to the medical psych unit yesterday due to worsening symptoms of brandin since nonadherence to outpatient treatment. The patient had been discharged from the medical psych unit 21 days ago; discharge medications included Abilify 20 mg a day and Trileptal 300 mg twice a day for treatment of bipolar disorder. The patient had plan to use his money to stay in a hotel and work towards renting or purchasing a home. The patient had grandiose plans for himself at discharge but there is no indication that he was an imminent risk of harm to self or others and he was demonstrating an ability to care for his own ADLs and without a legal guardian in place the patient was discharged. On reevaluation today, the patient admits that he did not follow through with his plan to stay at a hotel rather he bought a car as planned and has been living in his car. The patient had presented to the emergency department at [place] on 05 August complaining of lower back pain due to sleeping in his car. He was treated in the emergency department with prednisone 50 mg and given a 7-day supply. The patient returned to the emergency department on [address] enforcement officers under a [place] act order. According to the [place] act report , the police officers were called to check on the patient who is acting bizarre and living in his car. Patient complained of chest pain and had admitted to noncompliance with his medications and he was admitted to medicine on 09 August due to his hypercalcemia. On evaluation today, the patient's mental status is actually improved compared to his discharge mental status 3 weeks ago. The patient expressed insight that he needs help finding a place to stay and is open to assisted living facilities that were offered last time but he had refused. Patient is no longer describing himself as being in possession of many high dollar items and gave more reasonable explanation; "I only had a few things about left in the smith and I was able to put them in storage I am hopeful they will understand that have been in the hospital and I will catch up on my payments later." Patient was also more insightful about his interpersonal relationships and specifically described "a change in my thoughts and my heart about my sister I would like to spend some time with her during the last of my days but I do not think she will." The only possible grandiose statements the patient made was that he planned on "suing the people who stole from the and O me money It comes out to about $3100." Tobacco Use In Past 30 Days: No How Often Do You Have a Drink Containing Alcohol: 2 to 4 times a month Hospital Course: 08/12/2018. Initial assessment and plan: 1. Continue with admission to inpatient psychiatry at [facility]; convert to voluntary/competent legal status. 2. Routine unit precautions. 3. Comfort medications ordered for as needed treatment of constipation, heartburn, diarrhea, and mild pain. 4. Hydroxyzine 50mg po q6H prn anxiety/insomnia. 5. Restart Trileptal 300 mg twice a day for bipolar disorder. 6. Restart Abilify 10 mg once a day for bipolar disorder with psychosis; anticipate titration up to 20 mg a day over the next week. 7. Consult hospitalist for assessment of patient's hypercalcemia and hyperparathyroid. 8. Patient will participate in the unit programming to include group therapies , milieu therapy and recreational therapies. 9. Discharge planning: The patient will need outpatient care by psychiatry as well as referrals to primary care and endocrinology. Unit social workers work with the patient to find placement in an assisted living facility. Estimated LOS: 3-4 days. 08/13/2018: Good response to treatment plan; patient has tolerated the restart of his psychotropics and no signs of active brandin or psychosis. He also cooperated with increased fluid intake and his kidney function has improved and his calcium levels have decreased on today's morning labs. Patient's mental status remains mildly impaired with disorientation to time and decreased concentration and immediate recall evident during today's interview. Patient remains a high risk for non-adherence to medications without the structure and support he receives in the hospital and will eventually eventually receive in an assisted living facility. Discharge of the patient to live in his car while he awaits a bed at the assisted living facility that has accepted him, would place him at substantial risk of worsening mental status as well as worsening kidney function therefore it is recommended that he remain admitted to the psychiatric unit and continued on current treatment plan pending a safe discharge anticipated for Thursday. 08/16/2018: Patient was seen and examined on the unit by psychiatry and also visited by counselor. Psychotropic medications remained well tolerated. There was a good response to to inpatient treatment plan noted by nursing and provider observations, and the patient reported improvements in mood, anxiety, and there was no evidence of any suicidality or homicidality at time of discharge. Psychiatric follow-up as arranged by counselor. Patient is also to follow up with primary care, nephrology and endocrinology as an outpatient. I have counseled the patient to abstain from substances of abuse and have counseled patient to return to the psychiatric emergency room for any concerning symptoms as part of a general safety plan. The patient was also followed by the Hospitalist and summarized below: Hypercalcemia, moderate Hyperparathyroidism -Initial calcium level 13 on admission, Ca+ 12.6 -->12.6 --> 13.3 -PTH 236.1. Patient had a parathyroid scan 07/12/18 showing Localization of some focal retained tracer activity is noted along the lower pole of the right lobe of the thyroid gland. -Nephrology was consulted, appreciate recommendations. Given Aredia ( pamidronate) -Need to follow-up with nephrology and endocrinology and outpatient. Will refer to Dr. Jc And Dr. Helms -Recheck calcium tonja. Low calcium diet. Increase PO fluid hydration. Leukopenia -WBC 2.6 with lymphopenia. No signs of infection. -Oxcarbazepine level pending. -Patient was seen by Dr. To supervisor drapery hanging, recommending peripheral smear studies and iron studies. Peripheral smear showed no dysmorphic or dysplastic findings to suggest a primary bone marrow disorder such as myelodysplasia. Suspecting leukopenia likely secondary to myelosuppressive effects related to medications. -Follow-up with Dr. To in the outpatient setting. Continue to monitor WBC intermittent HTN HLD -Continue atorvastatin, patient states he is also on atenolol, unable to find reconciliation for atenolol. -Norvasc 5mg daily, add lisinopril -Monitor BP trend -Improving Atypical chest pain, rib pain -Patient reports previous fall. Chest x-ray with no acute findings -Tylenol for pain as needed Thyroid nodule -Follow-up in the outpatient with oncology admin. Will refer to Dr. Babita MOJICA -Continue Flomax - Discharge Discharge Date: 08/16/18 - Discharge Diagnosis (1) Bipolar 1 disorder Code(s): F31.9 - Bipolar disorder, unspecified Status: Acute (2) Hypercalcemia Code(s): E83.52 - Hypercalcemia Status: Acute Discharge Disposition: Assisted Living Facility - Discharge Instructions Discharge Diet: Regular Diet - Discharge Time > 30 minutes Mental Status Examination Appearance: Appropriate Consciousness: Alert Orientation: Person, Place, Situation Motor Activity: Normal gait Speech: Unremarkable Language: Adequate Fund of Knowledge: Adequate Attention and Concentration: Adequate Memory: Impaired (He was confused about the days of the week and repeated the same conversation over and over again) Mood: Other (Euthymic to mildly dysphoric) Affect: Other (Good range and intensity) Thought Process & Associations: Goal directed, Disorganized (Mildly) Thought Content: Appropriate Hallucination Type: None Delusion Type: None Suicidal Ideation: No Suicidal Plan: No Suicidal Intention: No Homicidal Ideation: No Homicidal Plan: No Homicidal Intention: No Insight: Fair Judgment: Impulsive Discharge/Advance Care Plan - Results Vital Signs: Last Vital Signs Temp 97.6 F 08/16/18 06:00 Pulse 66 08/16/18 06:00 Resp 18 08/16/18 06:00 BP 135/76 08/16/18 06:00 Pulse Ox 98 08/16/18 06:00 Lab Results: Abnormal Lab Results 08/16/18 08:20 Sodium 142 Potassium 4.8 Chloride 110 H Carbon Dioxide 29.8 Anion Gap 2 L BUN 21 H Creatinine 1.00 Estimated GFR 74 L Random Glucose 88 Calcium 13.2 H* Calcium Adj for Albumin 13.4 H* Albumin 3.8 Laboratory Results Hemoglobin A1c 5.1 % (4.3-6.0) 08/12/18 07:15 Triglycerides 123 mg/dL (42-150) 08/12/18 07:15 Cholesterol 161 mg/dL (120-200) 08/12/18 07:15 LDL Cholesterol, Calc 68 mg/dL (0-99) 08/12/18 07:15 HDL Cholesterol 68.0 mg/dL (40.0-60.0) H 08/12/18 07:15 Summary of Procedures: None ordered Pending Results: None - Medications Number of antipsychotic medications at discharge: 1 - Discharge Care Plan Goals to Promote Your Health: * To prevent worsening of your condition and complications * To maintain your health at the optimal level Directions to Meet Your Goals: Take your medications as prescribed Follow your dietary instruction Follow activity as directed Keep your appointments as scheduled Take your immunizations and boosters as scheduled If your symptoms worsen call your PCP, if no PCP go to Urgent Care Center or Emergency Room For 02/03 questions related to your inpatient stay or results of tests pending at discharge, please contact Dr. Pascual Hilton MD at Smoking is Dangerous to Your Health. Avoid second hand smoking
== END 2018-08-16 14:55 | DRG 885 ==
LOC: H4EA 14:22
PROVIDERS: ADMIT Psychiatry & Neurology Psychiatry; ATTEND Psychiatry & Neurology Psychiatry